=== PATIENT | female | born 1980 | race African-American/Black ===

== ENCOUNTER 2022-09-21 13:24 | Emergency (ER) | payer SELFPAY ==
[2022-09-21 14:28] VITALS: BP 159/109; PULSE 82; RESP 16; TEMP 37.3; O2SAT 99
[2022-09-21 16:49] VITALS: BP 165/89; PULSE 83; RESP 100; TEMP 36.6; O2SAT 100
--- NOTE | 2022-09-21 18:03 | ECG_ITS ---
Measurements Intervals [place] Rate: 71 P: 56 IN: 141 QRS: 61 QRSD: 76 T: -77 QT: 403 QTc: 439 Interpretive Statements SINUS RHYTHM MODERATE VOLTAGE CRITERIA FOR LVH, CONSIDER NORMAL VARIANT [MEETS CRITERIA IN ONE OF: R(aVL), S(V1), R(V5), R(V5/V6)+S(V1)] ST DEVIATION AND MODERATE T-WAVE ABNORMALITY, CONSIDER INFERIOR ISCHEMIA [-0.1+ mV T WAVE IN II/aVF] NO PREVIOUS ECG AVAILABLE FOR COMPARISON Electronically Signed On 09-22-2022 10:18:19 WAGON DRILL OPERATOR by Imelda Suarez M.D.
--- NOTE | 2022-09-21 18:20 | ED.EXTPRO ---
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 Per patient, she has been having intermittent right wrist pain for the past several weeks typical of her carpal tunnel. Over the course of several weeks she has noted that the pain has been extending proximally. Patient reports over the past several weeks pain has also been involving the shoulder made worse with range of motion, and also involving the right chest. She reports the pain is reproducible with palpation. She denied fevers chills, worsening with exertion, shortness of breath, abdominal pain, trauma to the extremity, nausea/vomiting, dysuria, diarrhea. Related Data Allergies Allergy/AdvReac Type Severity Reaction Status Date / Time No Known Allergies Allergy Verified 09/21/22 18:26 [facility] Past Medical History Medical History Hypertension Social History Social History (Updated 09/21/22 @ 18:24 by Yimi Jackson MD) Smoking status: Current every day smoker Exam Narrative: APPEARANCE: Alert, calm and cooperative, no acute distress, phonating, sitting comfortably during visit HEAD: atraumatic EYES: Pupils equal round an reactive to light, extra ocular movements intact, no conjunctival injection NOSE: Normal no drainage NECK: Supple, without meningismus RESPIRATORY: Lungs clear to auscultation bilaterally, no wheezes/rales/rhonchi, breathing comfortably CARDIOVASCULAR: Regular rate and rhythm, no visible jugular venous distension ABDOMINAL: Soft, nontender, nondistended, no guarding, no rebound/peritoneal signs, no costovertebral tenderness to palpation BACK: no midline tenderness to palpation, no step offs EXTREMITIES: Right shoulder with full range of motion, full range of motion of elbow and wrist, soft compartments, no erythema, no crepitus, no pain with passive range of motion, radial/median/ulnar sensorimotor intact, ulnar and radial pulses palpable, left upper extremity within normal limits, lower extremities with no edema, palpable peripheral pulses, warm, well perfused, no tenderness to bilateral calves. NEURO: Alert, moving all extremities symmetrically SKIN:: Warm, dry. Normal color PSYCHIATRIC: Normal affect/mood Course Reevaluation(s) Reevaluation #1: Patient reassessed after Tylenol and ibuprofen, reports complete resolution of symptoms. EKG without acute ischemic changes. History and exam suggestive of musculoskeletal pain. Physical exam benign, vitals stable. The patient tolerated oral intake, is alert and oriented, speaking with clear speech, ambulated with steady gait, and has remained hemodynamically stable throughout the ED visit. He has close follow up with primary care provider. Areas of diagnostic uncertainty discussed and strict return precautions shared with patient; encouraged to return to the emergency department if symptoms returned or worsened. The patient is safe to be discharged with follow up, provided she abide by the verbalized and written instruction, to which the patient has express understanding. Vital Signs Vital signs: Vital Signs Temperature 99.2 F 09/21/22 14:28 Pulse Rate 82 09/21/22 14:28 Respiratory Rate 16 09/21/22 14:28 Blood Pressure 159/109 H 09/21/22 14:28 Pulse Oximetry 99 09/21/22 14:28 Oxygen Delivery Room Air 09/21/22 14:28 Temperature 97.9 F 09/21/22 16:49 Pulse Rate 83 09/21/22 16:49 Respiratory Rate 100 H 09/21/22 16:49 Blood Pressure 165/89 H 09/21/22 16:49 Pulse Oximetry 100 09/21/22 16:49 Oxygen Delivery Room Air 09/21/22 14:28 MDM - Extremity (Nontraumatic) MDM Narrative Medical decision making narrative: 42-year-old right-handed female with a history of carpa
[2022-09-21] MEDS: KETOROLAC 15 MG/ML VIAL (*BKC) IV PUSH (18:28)
[2022-09-21 18:33] LABS: Basophils Percent Auto 0.3 % (0.2-1.2); Eosinophils Absolute Auto 0.1 K/mm3 (0-0.3); Eosinophils Percent Auto 1.5 % (0-4.4); Hematocrit 42.5 % (37.0-47.0); Hemoglobin 14.4 g/dL (12.0-15.0); Immature Granulocyte Absolute 0.01 K/mm3 (0.00-0.031); Immature Granulocyte Percent A 0.1 % (0-0.5); Lymphocytes Absolute Auto 2.27 K/mm3 (0.9-3.2); Mean Corpuscular HGB Conc 33.9 g/dl (32-36); Mean Corpuscular Volume 91.6 fl (80-100); Mean Platelet Volume 10.8 fl (7.4-10.4); Monocytes Absolute Auto 1.2 K/mm3 (0.1-0.6); Monocytes Percent Auto 17.2 % (2.6-8.5); Neutrophils Absolute Auto 3.3 K/mm3 (1.3-6.7); Neutrophils Percent Auto 47.9 % (45.5-73.1); Platelet Count Result 224 k/mm3 (150-375); Red Blood Count 4.64 M/mm3 (4.2-5.4); Red Cell Distribution Width 14.4 % (11.5-14.5); White Blood Count 6.9 K/mm3 (4.5-10.0)
[2022-09-21 18:43] LABS: Anion Gap 6 mmol/L (8-16); Blood Urea Nitrogen 13 mg/dL (7-17); Calcium 9.1 mg/dL (8.4-10.2); Carbon Dioxide 27 mmol/L (22-30); Chloride 107 mmol/L (98-107); Estimated CRCL calculation 73 ml/min; Estimated Glomerular Filt Rate > 60; Glucose 92 mg/dL (65-110); Potassium 4.1 mmol/L (3.4-5.0); Sodium 140 mmol/L (137-145)
[2022-09-21 18:55] LABS: Troponin I < 0.012 ng/mL (0.000-0.034)
[2022-09-21 19:00] LABS: Beta HCG Quantitative < 2.39 mIU/ML
== END 2022-09-21 20:23 | disposition home or self-care (01) ==
PROVIDERS: Emergency Provider Emergency Medicine
DX: M79.601 Pain in right arm (principal); G56.01 Carpal tunnel syndrome, right upper limb; I10 Essential (primary) hypertension; F17.200 Nicotine dependence, unspecified, uncomplicated; R94.31 Abnormal electrocardiogram [ECG] [EKG]
CPT/HCPCS: 36415; 80048; 84484; 84702; 85025; 93005; 96374; 99284; J1885

== ENCOUNTER 2024-12-24 18:51 | Emergency (ER) | payer OTHER, SELFPAY ==
--- NOTE | ~2024-12-24 | US_ITS ---
EXAMINATION: US OB <= 14 weeks fetus DATE: 12/24/2024 21:04 BUILDING OFFICIAL INDICATION: Pain COMPARISON: 07/23/2024 TECHNIQUE: Real-time transabdominal obstetric ultrasound. FINDINGS: 2 para 0 Estimated date of delivery by last menstrual period is 07/18/2025 The uterus measures 10.8 x 5.4 x 6.8 cm. A gestational sac is identified within the uterus. A pole is identified, with a crown-rump length that measures 4.2 cm, corresponding to an approx imate gestational age of 11 weeks and 1 day. cardiac activity is identified at a rate of 165 bpm. The right ovary measures 2.9 x 2.4 x 2.7 cm. The left ovary measures 3.2 x 3.2 x 3.7 cm. Estimated date of delivery by ultrasound is 07/14/2025 IMPRESSION: Single intrauterine gestation with an approximate gestational age of 11 weeks and 1 day, with c ardiac activity identified. Reviewed, dictated and finalized at location A. DING OFFICIAL IMPRESSION: Single intrauterine gestation with an approximate gestational age of 11 weeks a nd 1 day, with cardiac activity identified.
--- OUTSIDE RECORDS SUMMARY | 2024-12-24 18:57 | XMS_ITS | Referral Summary ---
Author Organization [facility] [address] Address [address] [place] [address] Phone Care Team Providers Care Administrative Support Specialist Name Role Phone Edgardo Manuel MD Primary Care Provider [phone] Encounters Date Type Department Care Team Description 12/15/2024 Orders Only [facility] [address] [place] [address] Leila Romo MD Encounter to determine viability of , single or unspecified fetus (Primary Dx) 10/29/2024 Telephone [facility] [address] [place] [address] Leila Romo MD Vaginitis/Bacterial Vaginosis from Last 3 Months Allergies Active Allergy Reactions Criticality Noted Date Comments Penicillins Hives,Swelling,Rash Medium 07/07/2019 Patient stated she gets facial swelling Medications selenium sulfide 2.5 % lotionIndicatio ns:Seborrheic Dermatitis,tone a versicolor Apply to affected areas and leave on for 10 minutes then wash off. Do this daily for 1 week, then as needed.then twice weekly thereafter as nneded 120 mL 11 4 01/21/20 25 Active amLODIPine (NORVASC) 10 mg tablet Take 1 tablet (10 mg total) by mouth daily 90 tablet 4 Active hydroCHLOROthia zide (HYDRODIURIL) 12.5 mg tablet Take 1 tablet (12.5 mg total) by mouth daily 90 tablet 4 Active rosuvastatin (CRESTOR) 20 mg tablet Take 1 tablet (20 mg total) by mouth daily 30 tablet 5 4 Active terbinafine (LamiSIL) 250 mg tablet Take 1 tablet (250 mg total) by mouth daily 30 tablet 2 4 Active Active Problems Problem Noted Date Diagnosed Date Hyperlipidemia, mixed 03/27/2024 Assessment & Plan (03/27/2024 10:12 AM CDT): Cholesterol is 232 on last visit February 09, 2024 she was started on Crestor 20 mg daily. We will get repeat lipid profile on next few weeks patient's ASCVD score 20.1. Recommend continued lifestyle changes which is resulted in a 10 lb weight loss thus far. Onychomycosis of great toe 03/27/2024 Assessment & Plan (03/27/2024 10:15 AM CDT): Patient is very concerned regarding fungal toenails most of her nails are covered with thick red nail Persian this some evidence of onychomycosis round the edges of her nail she is given Lamisil. Will monitor liver function. Primary hypertension 01/21/2024 Assessment & Plan (03/27/2024 10:10 AM CDT): Significant improvement in blood pressure previous visit 01/21/2024 blood pressure 158/106 on the visit of 03/24/2024 blood pressure is 138/84. Patient has also has lost 10 lb during this period of time. Weight loss on purpose medication amlodipine 10 mg daily hydrochlorothiazide 12.5 mg daily . Renal functions are good continue present Assessment & Plan (01/21/2024 5:18 PM CDT): Patient's blood pressure on today's visit 158/106 2 years ago blood pressure 135/84. Ms. her blood pressure medications for the past 2 days. Is uncertain regarding her blood pressure medications. We were unable to confirm her blood pressure medicines through the pharmacy given to us [facility] [place] [facility] patient has made a commitment to get back to me in the next 24 hours regarding her precise medication she is taking.. At this time she has no symptoms referable to hypertension Seborrhea-like dermatitis with psoriasiform quileute ents 01/21/2024 Assessment & Plan (01/21/2024 5:27 PM CDT): Patient describes flakes in her scalp consistent with dandruff seborrhea she also has a little bit of a fungal infection appears like a very very mild case of tinea versicolor right side of her face. She has been using head and shoulders shampoo it has not worked. Advised patient would send prescription strength shampoo directions are use daily for the 1st 7 days in twice a day week as needed.. She is also concerned about a fungal nail infection I am not very aggressive regarding this have no idea of her liver function status.. Preventative health care 11/28/2021 Assessment & Plan (01/21/2024 5:15 PM CDT): Patient not seen for 2 years blood pressure not controlled she is uncertain regarding her medication. Concerns today regarding a fungal infection very minimal over face and she describes some seborrheic skin changes in her scalp patient feels well she has gained weight in his aware this. Assessment & Plan (11/28/2021 6:33 PM EDUCATION AND OUTREACH COORDINATOR): 41-year-old lady who is a new patient to me. She is here for annual/wellness exam. She advised me insurance company wants to make sure she we have the exact code for her wellness exam. Patient has no real active health problems she is concerned about fungal toenail problems. Referred her to Podiatry further discussion regarding this. Patient body mass index is 31.1 41 years old no record recent laboratory studies BMP fasting lipid profile is requested. Patient does have a well-woman exam coming up in the near future. Obesity (BMI 30-39.9) 03/02/2021 Assessment & Plan (01/21/2024 5:16 PM CDT): Patient has gained 26 lb in the past 2 years discussed the need to reduce weight risk factors.. CMP FLP. Concerned regarding diabetes, fatty liver disease and hyperlipidemia Resolved Problems Problem Noted Date Diagnosed Date Resolved Date Missed 05/01/2022 01/21/2024 Overview (05/01/2022): Added automatically from request for surgery [id number] Acute otitis media 02/28/2021 2 Acute infective otitis externa of right ear 02/28/2021 03/02/2021 Immunizations Immunization Administration Dates Next Due Influenza, Unspecified 07/22/2023(Deferred: Susie ent Refused) MMR 07/21/1994 Td, adsorbed 11/08/1995 Tdap 12/16/2014 Social History Tobacco Use Types Packs/Day Years Used Date Smoking Tobacco: Every Day Cigarettes 0.5 26.2 Started: 1998 Smokeless Tobacco: Never Tobacco Cessation:Ready to Q uit: Not Asked; Counseling Given: Not Answered Comments:Quit smoking with 02/2022 Alcohol Use Standard Drinks/Week Comments Not Currently 0 (1 standard drink = 0.6 oz pur e alcohol) AUDIT-C Answer Date Recorded Frequency of Alcohol Consumption Not on file 05/01/2022 Q2: How many drinks containi ng alcohol do you have on a typical day when you are drinking? Patient does not drink Frequency of Binge Drinking Not on file 04/21 PHQ-2 Answer Date Recorded PHQ-2 Total Score (If total score is 3 or more points, staff should administer the PHQ-9) 0 11/28/2021 Comments No Sex and Gender Information Value Date Recorded Sex Assigned at Not on file Legal Sex Female 9:49 AM EDUCATION AND OUTREACH COORDINATOR Gender Identity Not on file Sexual Orientation Not on file Occupation Industry Job Start Date Job End Date Not on file Not on file Not on file Not on file Last Filed Vital Signs Vital Sign Reading Time Taken Comments Blood Pressure 152/100 09/11/2024 1:08 PM EDUCATION AND OUTREACH COORDINATOR Pulse 90 03/24/2024 2:02 PM CDT Temperature 36.3 C (97.3 F) 03/24/2024 2:02 PM CDT Respiratory Rate 16 03/24/2024 2:02 PM CDT Oxygen Saturation 98% 03/24/2024 2:02 PM CDT Inhaled Oxygen Concentration - - Weight 93.9 kg (207 lb) 09/11/2024 1:08 PM EDUCATION AND OUTREACH COORDINATOR Height 165.1 cm (5' 5 ) 09/11/2024 1:08 PM EDUCATION AND OUTREACH COORDINATOR Body Mass Index 34.45 09/11/2024 1:08 PM EDUCATION AND OUTREACH COORDINATOR Plan of Treatment Not on file Procedures Procedure Name Priority Date/Time Associated Diagnosis Comments SCREENING MAMMOGRAM BILATERAL W CASI Schedule Routine, Read Routine (OP Routine) 01/23/2024 9:57 AM CDT Screening mammogram, encounter for HEPATITIS C ANTIBODY Routine 04/06/2022 12:38 PM CDT 8 weeks gestation of Encounter for supervision of normal first in first trimester THINPREP IMAGING PAP AND HPV MRNA E6/E7 REFLEX HPV 16,18/45 Routine 03/02/2021 11:57 AM CDT from Last 3 Months or Most Recently Relevant to Health Maintenance Results * Screening Mammogram Bilateral W Casi (01/23/2024 9:57 AM CDT) Anatomical Region Laterality Modality Breast Bilateral Mammography 01/23/2024 10:1 0 AM CDT Impressions 01/23/2024 10:10 AM CDT There is no mammographic evidence of malignancy. A 1 year screening mammogram is recommended. BI-RADS: 1 - Negative. The patient has been or will be contacted. The patient will be entered into a reminder system with a target due date of 1 year for her next mammogram. Electronically signed by: Carlo Ortiz M.D. Narrative 01/23/2024 10:10 AM CDT EXAMINATION: SCREENING MAMMOGRAM BILATERAL W CASI ORDERING HEALTHCARE PROVIDER: SELF SCREENING MAMMOGRAM HISTORY: Routine screening mammography. COMPARISON: 05/19/2022, 03/16/2021 TECHNIQUE: CC and MLO views of the bilateral breasts were obtained with digital technique using breast tomosynthesis with C view. Computer aided detection was utilized. FINDINGS: DENSITY: There are scattered fibroglandular elements in the bilateral breasts. BREASTS: There are no suspicious masses, suspicious calcifications, or other suspicious findings in either breast. There has been no suspicious interval change. us Self Screening Mammogram IMG MAMMO PROCEDURES Fi nal Result * Hepatitis C antibody (04/06/2022 12:38 PM CDT) Hep C Ab Nonreactive Nonreactive [facility] Comment: Interpretive Data Nonreactive: Antibodies to HCV not detected. Does NOT exclude the possibility of recent exposure to HCV. Equivocal: Equivocal for HCV antibodies. Supplemental molecular testing will be automatically performed to determine infection status in accordance with current CDC screening recommendations. Reactive: Positive for HCV antibodies. This may represent current or past HCV infection. Supplemental molecular testing will be automatically performed to determine current infection status in accordance with current CDC screening recommendations. Interpretive data was last revised on 2020. Testing performed by: [facility], [address] [place] [address]., [id number] Blood 04/06/2022 12:3 8 PM CDT 04/06/2022 7:46 PM CDT Leila Romo MD LAB MICROBIOL OGY - GENERAL ORDERABLES Edited Result - Final [facility] ([place]) [facility] Department [place] [address] * ThinPrep Imaging Pap and HPV mRNA E6/E7 Reflex HPV 16,18/45 (03/02/2021 11:57 AM CDT) CLINICAL INFORMATION: [facility] Comment:Routine exam LMP [facility] Comment:UNKNOWN Previous Pap [facility] Comment:INFORMATION NOT PROV IDED Prev. Bx [facility] Comment:INFORMATION NOT PROV IDED SOURCE: [facility] Comment:Cervix, Endocervix Pap, specimen adequacy [facility] Comment: Satisfactory for evaluation. Endocervical/transformation zone component present. Age and/or menstrual status not provided HPV interp [facility] Comment:Negative for intraep ithelial lesion or malignancy. COMMENTS [facility] Comment: This Pap test has been evaluated with computer assisted technology. [employer] [facility] Comment: AAM, CT(ASCP) CT Screening Location: [address] [address] Comment [facility] Comment: EXPLANATORY NOTE: The Pap is a screening test for cervical cancer. It is not a diagnostic test and is subject to false negative and false positive results. It is most reliable when a satisfactory sample, regularly obtained, is submitted with relevant clinical findings and history, and when the Pap result is evaluated along with historic and current clinical information. Human papillomavirus RNA, High Risk E6/E7 Not Detected Not Detected [facility] Comment: Methodology: Coach Mechanic-Mediated Amplification This assay detects E6/E7 viral messenger RNA (mRNA) from 14 high-risk HPV types (16,18,31,33,35,39,45,51,52,56,58,59,66,68). The analytical performance characteristics of this assay have been determined by [facility]. The modifications have not been cleared or approved by the FDA. This assay has been validated pursuant to the CLIA regulations and is used for clinical purposes. For additional information, please refer to http://education.Sek[employer] AS/faq/KRB009v5 (This link if provided for information/ educational purposes only.) 03/02/2021 11:5 7 AM CDT 03/03/2021 2:21 AM CDT Narrative [facility] - 03/05/2021 3:24 PM CDT FASTING: UNKNOWN Leila Romo MD LAB CYTOLOGY ORDERABL ES Final Result Performing Organization Address [facility]/State/ZIP Co de Phone Number [facility] [address] [place] [address] [facility] [address] [place] [address] from Last 3 Months or Most Recently Relevant to Health Maintenance Insurance [employer] [facility] [employer] H[employer] Care Teams Administrative Support Specialist Relationship Specialty Start Date End Date Edgardo Manuel MD PCP - General Internal Medicine 11/03/21
--- OUTSIDE RECORDS SUMMARY | 2024-12-24 18:57 | XMS_ITS | Data Portability ---
Author Organization [facility] JUAN DIEGOHermann Address [address] 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 Plan of Treatment Reminders Order Date Submit Date Provider Last Modified By Organization Details Last Modified Time Details Appointments None recorded. Lab spep, serum, reflex immunofixat ion 2022 023 [facility], 2022 [address], [place], [address], 4 11:26:43 lipid panel, serum 2022 023 [facility], 2022 Dana [address]acy, [address], [place], [address], 4 14:41:56 CBC w/ auto diff 2022 023 KASHIF Parra, 2022 [address], [address], [place], [address], 3 08:17:09 lipid panel, serum 2022 023 KASHIF Parra, 2022 [address], [address], [place], [address], 3 08:17:06 CMP, serum or plasma 2022 023 KASHIF Parra, 2022 Dana [address]acy, [address], [place], [address], 3 08:17:07 urinalysis, dipstick 2022 023 [facility], 2022 Dana Lacy, [address], [place], [address], 3 08:17:08 HbA1c (hemoglobin A1c), blood 2022 023 [facility], 2022 [address], [address], [place], [address], 3 14:17:46 TSH, ultra-sensi tive, serum 2022 023 [place] [facility], 2022 Dana [address]acy, [address], [place], [address], 3 08:17:08 Referral None recorded. Procedures nerve conduction study/EMG, upper extremity (PROC) - Numbness and tingling of the 3rd and 4th fingers of the right hand. 2022 023 [facility], [address] [place] [address], [address], 3 13:35:44 Surgeries None recorded. Imaging MAMMO, screening, bilateral 2022 023 hdoverma Not available 3 12:52:54 MAMMO, screening, bilateral 2022 023 hdoverma Not available 3 09:40:00 Medication Orders amlodipine 10 mg tablet 2022 023 [facility] #[id number], [address] [place], [address], 3 09:39:43 amlodipine 5 mg tablet 2022 023 [facility]/Pharmacy #[id number], [address] [place], [address], 3 12:56:02 ibuprofen 600 mg tablet 2022 023 [facility]/Pharmacy #[id number], [address] [place], [address], 3 09:21:29 amlodipine 5 mg tablet 2018 019 oajao Not available 3 12:56:02 metoprolol tartrate 25 mg tablet 2018 019 hdoverma Not available 3 10:44:52 aspirin 81 mg chewable tablet 2018 019 overma Not available 3 10:45:01 lovastatin 10 mg tablet 2018 019 overma Not available 3 10:45:10 metoprolol tartrate 25 mg tablet 2018 019 [id number], [address], [place], [id number], 3 10:44:52 amlodipine 5 mg tablet 2018 019 [facility][id number], [address], [place], [id number], 3 12:56:02 Patient TargetsNo targets recorded. Patient Instructions Encounter Date Encounter Id Patient Instructions Last Modified By Organization Details Last Modified Time 05/12/2019 [id number] kidney stone: care instructions Not available 05/13/2019 08:32:21 learning about diet for kidney stone prevention Not available 05/13/2019 08:32:22 05/26/2019 [id number] deciding about using medicines to quit smoking Not available 05/26/2019 16:24:43 Quitting Tobacco : Care Instructions Not available 05/26/2019 16:24:43 body mass index: care instructions Not available 05/26/2019 16:24:31 learning about healthy weight Not available 05/26/2019 16:24:31 10/24/2022 [id number] A healthy lifestyle: care instructions oajao Not available 10/24/2022 14:07:27 snoring: care instructions oajao Not available 10/24/2022 11:12:33 learning about breast cancer screening oajao Not available 10/24/2022 11:03:03 body mass index: care instructions oajao Not available 10/24/2022 14:07:27 learning about healthy weight oajao Not available 10/24/2022 14:07:27 carpal tunnel syndrome: care instructions oajao Not available 10/24/2022 11:09:50 carpal tunnel syndrome: exercises oajao Not available 10/24/2022 11:09:50 Labs EMG MMG Motrin PRN with food Restart Amlodipine, side effects were discussed Follow up in 4 weeks Addendum HBA1C oajao Not available 10/24/2022 14:07:50 05/04/2023 [id number] learning about breast cancer screening oajao Not available 05/04/2023 09:38:28 MMG Amlodipine 1 0 mg Labs BP check on Sunday Follow up in 6 weeks and PRN oajao Not available 05/04/2023 09:40:09 Reason for Referral None Reported. Results Created Date Observation Date Name Description Value Unit Range Abnormal Flag Note LastModifiedBy Organization Detail LastModifiedTime 10/24/1910/25/2022 TSH TSH 2.190 uIU/m L 0.450- 4.500 Not Available [facility] ([facility]) [address] [place], [address], 10/25/2022 08:17:08 10/24/19 23 10/25/2022 CBC WITH DIFFE RENTI AL/PL ATELE T WBC 5.7 x10e3 /uL 3.4-10 .8 Not Available [facility] ([facility]) [address] [place], [address], 10/25/2022 08:17:09 10/24/19 23 10/25/2022 CBC WITH DIFFE RENTI AL/PL ATELE T RBC 4.73 x10e6 /uL 3.77-5 .28 Not Available [facility] ([facility]) [address] [facility], [place], [address], 10/25/2022 08:17:09 10/24/19 23 10/25/2022 CBC WITH DIFFE RENTI AL/PL ATELE T hemoglobin 14.3 g/dL 11.1-1 5.9 Not Available [facility] ([facility]) [address] [facility], [place], [address], 10/25/2022 08:17:09 10/24/19 23 10/25/2022 CBC WITH DIFFE RENTI AL/PL ATELE T hematocrit 42.4 % 34.0-4 6.6 Not Available [facility] ([facility]) [address] [facility], [place], [address], 10/25/2022 08:17:09 10/24/1910/25/2022 CBC WITH DIFFE RENTI AL/PL ATELE T MCV 90 fL 79-97 Not Available [facility] ([facility]) [address] [place], [address], 10/25/2022 08:17:09 10/24/1910/25/2022 CBC WITH DIFFE RENTI AL/PL ATELE T MCH 30.2 pg 26.6-3 3.0 Not Available [facility] ([facility]) [address] [place], [address], 10/25/2022 08:17:09 10/24/1910/25/2022 CBC WITH DIFFE RENTI AL/PL ATELE T MCHC 33.7 g/dL 31.5-3 5.7 Not Available [facility] ([facility]) [address] [place], [address], 10/25/2022 08:17:09 10/24/19 23 10/25/2022 CBC WITH DIFFE RENTI AL/PL ATELE T RDW 13.8 % 11.7-1 5.4 Not Available [facility] ([facility]) [address] [facility], [place], [address], 10/25/2022 08:17:09 10/24/19 23 10/25/2022 CBC WITH DIFFE RENTI AL/PL ATELE T platelets 256 x10e3 /uL 150-45 0 Not Available [facility] ([facility]) [address] [facility], [place], [address], 10/25/2022 08:17:09 10/24/19 23 10/25/2022 CBC WITH DIFFE RENTI AL/PL ATELE T neutrophils 49 % notest ab. Not Available [facility] ([facility]) [address] [facility], [place], [address], 10/25/2022 08:17:09 10/24/19 23 10/25/2022 CBC WITH DIFFE RENTI AL/PL ATELE T lymphs 34 % notest ab. Not Available [facility] ([facility]) [address] [facility], [place], [address], 10/25/2022 08:17:09 10/24/1910/25/2022 CBC WITH DIFFE RENTI AL/PL ATELE T monocytes 14 % notest ab. Not Available [facility] ([facility]) [address] [facility], [place], [address], 10/25/2022 08:17:09 10/24/1910/25/2022 CBC WITH DIFFE RENTI AL/PL ATELE T eos 2 % notest ab. Not Available [facility] ([facility]) [address] [facility], [place], [address], 10/25/2022 08:17:09 10/24/1910/25/2022 CBC WITH DIFFE RENTI AL/PL ATELE T basos 1 % notest ab. Not Available [facility] ([facility]) [address] [facility], [place], [address], 10/25/2022 08:17:09 10/24/19 23 10/25/2022 CBC WITH DIFFE RENTI AL/PL ATELE T neutrophils (absolute) 2.9 x10e3 /uL 1.4-7. 0 Not Available [facility] ([facility]) [address] [facility], [place], [address], 10/25/2022 08:17:09 10/24/19 23 10/25/2022 CBC WITH DIFFE RENTI AL/PL ATELE T lymphs (absolute) 1.9 x10e3 /uL 0.7-3. 1 Not Available [facility] ([facility]) [address] [facility], [place], [address], 10/25/2022 08:17:09 10/24/19 23 10/25/2022 CBC WITH DIFFE RENTI AL/PL ATELE T monocytes(ab solute) 0.8 x10e3 /uL 0.1-0. 9 Not Available [facility] ([facility]) [address] [facility], [place], [address], 10/25/2022 08:17:09 10/24/1910/25/2022 CBC WITH DIFFE RENTI AL/PL ATELE T eos (absolute) 0.1 x10e3 /uL 0.0-0. 4 Not Available [facility] ([facility]) [address] [facility], [place], [address], 10/25/2022 08:17:09 10/24/19 23 10/25/2022 CBC WITH DIFFE RENTI AL/PL ATELE T baso (absolute) 0.0 x10e3 /uL 0.0-0. 2 Not Available [facility] ([facility]) [address] [facility], [place], [address], 10/25/2022 08:17:09 10/24/19 23 10/25/2022 CBC WITH DIFFE RENTI AL/PL ATELE T immature granulocytes 0 % notest ab. Not Available [facility] ([facility]) [address] [facility], [place], [address], 10/25/2022 08:17:09 10/24/1910/25/2022 CBC WITH DIFFE RENTI AL/PL ATELE T immature grans (abs) 0.0 x10e3 /uL 0.0-0. 1 Not Available [facility] ([facility]) [address] [facility], [place], [address], 10/25/2022 08:17:09 10/24/1910/25/2022 URINA LYSIS , ROUTI NE specific gravity 1.020 1.005- 1.030 Not Available [facility] ([facility]) [address] [facility], [place], [address], 10/25/2022 08:17:08 10/24/1910/25/2022 URINA LYSIS , ROUTI NE pH 7.5 5.0-7. 5 Not Available [facility] ([facility]) [address] [facility], [place], [address], 10/25/2022 08:17:08 10/24/1910/25/2022 URINA LYSIS , ROUTI NE urine-color YELLOW yellow Not Available [facility] ([facility]) [address] [facility], [place], [address], 10/25/2022 08:17:08 10/24/1910/25/2022 URINA LYSIS , ROUTI NE appearance CLEAR clear Not Available [facility] ([facility]) [address] [facility], [place], [address], 10/25/2022 08:17:08 10/24/1910/25/2022 URINA LYSIS , ROUTI NE WBC esterase NEGATI VE negati ve Not Available [facility] ([facility]) [address] [facility], [place], [address], 10/25/2022 08:17:08 10/24/19 23 10/25/2022 URINA LYSIS , ROUTI NE protein 1+ negati ve/tra ce abnormal Not Available [facility] ([facility]) [address] [place], [address], 10/25/2022 08:17:08 10/24/19 23 10/25/2022 URINA LYSIS , ROUTI NE glucose NEGATI VE negati ve Not Available [facility] ([facility]) [address] [place], [address], 10/25/2022 08:17:08 10/24/19 23 10/25/2022 URINA LYSIS , ROUTI NE ketones TRACE negati ve abnormal Not Available [facility] ([facility]) [address] [place], [address], 10/25/2022 08:17:08 10/24/19 23 10/25/2022 URINA LYSIS , ROUTI NE occult blood NEGATI VE negati ve Not Available [facility] ([facility]) [address] [place], [address], 10/25/2022 08:17:08 10/24/19 23 10/25/2022 URINA LYSIS , ROUTI NE bilirubin NEGATI VE negati ve Not Available [facility] ([facility]) [address] [place], [address], 10/25/2022 08:17:08 10/24/1910/25/2022 URINA LYSIS , ROUTI NE urobilinogen ,semi-qn 1.0 mg/dL 0.2-1. 0 Not Available [facility] ([facility]) [address] [place], [address], 10/25/2022 08:17:08 10/24/19 23 10/25/2022 URINA LYSIS , ROUTI NE nitrite, urine NEGATI VE negati ve Not Available [facility] ([facility]) [address] [place], [address], 10/25/2022 08:17:08 10/24/19 23 10/25/2022 IBAN DAVID microscopic examination SEE BELOW: Micro scopi c was indic ated and was perfo rmed. Not Available [facility] ([facility]) [address] [facility], [place], [address], 10/25/2022 08:17:08 10/24/19 23 10/25/2022 MICRO SCOPI C EXAMI NATIO N WBC NONE SEEN /hpf 0-5 Not Available [facility] ([facility]) [address] [facility], [place], [address], 10/25/2022 08:17:07 10/24/19 23 10/25/2022 MICRO SCOPI C EXAMI NATIO N RBC NONE SEEN /hpf 0-2 Not Available [facility] ([facility]) [address] [facility], [place], [address], 10/25/2022 08:17:07 10/24/19 23 10/25/2022 MICRO SCOPI C EXAMI NATIO N epithelial cells (non renal) 0-10 /hpf 0-10 Not Available [facility] ([facility]) [address] [facility], [place], [address], 10/25/2022 08:17:07 10/24/19 23 10/25/2022 MICRO SCOPI C EXAMI NATIO N casts NONE SEEN /lpf nonese en Not Available [facility] ([facility]) [address] [facility], [place], [address], 10/25/2022 08:17:07 10/24/19 23 10/25/2022 MICRO SCOPI C EXAMI NATIO N bacteria FEW nonese en/few Not Available [facility] ([facility]) [address] [facility], [place], [address], 10/25/2022 08:17:07 10/24/19 23 10/25/2022 COMP. METAB OLIC PANEL (14) glucose 90 mg/dL 70-99 Not Available [facility] ([facility]) [address] [place], [address], 10/25/2022 08:17:07 10/24/19 23 10/25/2022 COMP. METAB OLIC PANEL (14) BUN 9 mg/dL 6-24 Not Available [facility] ([facility]) [address] [place], [address], 10/25/2022 08:17:07 10/24/19 23 10/25/2022 COMP. METAB OLIC PANEL (14) creatinine 0.95 mg/dL 0.57-1 .00 Not Available [facility] ([facility]) [address] [place], [address], 10/25/2022 08:17:07 10/24/19 23 10/25/2022 COMP. METAB OLIC PANEL (14) eGFR 77 mL/mi n/1.7 3 >59 Not Available [facility] ([facility]) [address] [place], [address], 10/25/2022 08:17:07 10/24/19 23 10/25/2022 COMP. METAB OLIC PANEL (14) BUN/creatini ne ratio 9 9-23 Not Available [facility] ([facility]) [address] [place], [address], 10/25/2022 08:17:07 10/24/19 23 10/25/2022 COMP. METAB OLIC PANEL (14) sodium 140 mmol/ L 134-14 4 Not Available [facility] ([facility]) [address] [place], [address], 10/25/2022 08:17:07 10/24/19 23 10/25/2022 COMP. METAB OLIC PANEL (14) potassium 4.4 mmol/ L 3.5-5. 2 Not Available [facility] ([facility]) [address] [place], [address], 10/25/2022 08:17:07 10/24/19 23 10/25/2022 COMP. METAB OLIC PANEL (14) chloride 106 mmol/ L 96-106 Not Available [facility] ([facility]) [address] [place], [address], 10/25/2022 08:17:07 10/24/19 23 10/25/2022 COMP. METAB OLIC PANEL (14) carbon dioxide, total 21 mmol/ L 20-29 Not Available [facility] ([facility]) [address] [place], [address], 10/25/2022 08:17:07 10/24/19 23 10/25/2022 COMP. METAB OLIC PANEL (14) calcium 9.1 mg/dL 8.7-10 .2 Not Available [facility] ([facility]) [address] [place], [address], 10/25/2022 08:17:07 10/24/19 23 10/25/2022 COMP. METAB OLIC PANEL (14) protein, total 7.7 g/dL 6.0-8. 5 Not Available [facility] ([facility]) [address] [place], [address], 10/25/2022 08:17:07 10/24/19 23 10/25/2022 COMP. METAB OLIC PANEL (14) albumin 4.3 g/dL 3.8-4. 8 Not Available [facility] ([facility]) [address] [place], [address], 10/25/2022 08:17:07 10/24/19 23 10/25/2022 COMP. METAB OLIC PANEL (14) globulin, total 3.4 g/dL 1.5-4. 5 Not Available [facility] ([facility]) [address] [place], [address], 10/25/2022 08:17:07 10/24/19 23 10/25/2022 COMP. METAB OLIC PANEL (14) A/G ratio 1.3 1.2-2. 2 Not Available [facility] ([facility]) [address] [place], [address], 10/25/2022 08:17:07 10/24/19 23 10/25/2022 COMP. METAB OLIC PANEL (14) bilirubin, total 0.3 mg/dL 0.0-1. 2 Not Available [facility] ([facility]) [address] [facility] [place], [address], 10/25/2022 08:17:07 10/24/19 23 10/25/2022 COMP. METAB OLIC PANEL (14) alkaline phosphatase 60 IU/L 44-121 Not Available [facility] ([facility]) [address] [facility] [place], [address], 10/25/2022 08:17:07 10/24/19 23 10/25/2022 COMP. METAB OLIC PANEL (14) AST (SGOT) 10 IU/L 0-40 Not Available [facility] ([facility]) [address] [facility] [place], [address], 10/25/2022 08:17:07 10/24/19 23 10/25/2022 COMP. METAB OLIC PANEL (14) ALT (SGPT) 11 IU/L 0-32 Not Available [facility] ([facility]) [address] [facility] [place], [address], 10/25/2022 08:17:07 10/24/19 23 10/25/2022 LIPID PANEL cholesterol, total 237 mg/dL 100-19 9 above high normal Not Available [facility] ([facility]) [address] [facility] [place], [address], 10/25/2022 08:17:06 10/24/19 23 10/25/2022 LIPID PANEL triglyceride s 160 mg/dL 0-149 above high normal Not Available [facility] ([facility]) [address] [facility], [place], [address], 10/25/2022 08:17:06 10/24/19 23 10/25/2022 LIPID PANEL HDL cholesterol 28 mg/dL >39 below low normal Not Available [facility] ([facility]) [address] [facility], [place], [address], 10/25/2022 08:17:06 10/24/19 23 10/25/2022 LIPID PANEL VLDL cholesterol andreia 30 mg/dL 5-40 Not Available [facility] ([facility]) [address] [facility], [place], [address], 10/25/2022 08:17:06 10/24/19 23 10/25/2022 LIPID PANEL LDL chol calc ([facility]) 179 mg/dL 0-99 above high normal Not Available [facility] ([facility]) [address] [facility], [place], [address], 10/25/2022 08:17:06 04/25/20 19 04/25/2019 CT, abdom en + pelvi s, w/ contr ast No observ ation record ed. amcmanis Not Available 2018 13:04:17 04/25/20 19 04/25/2019 CT, abdom en + pelvi s, w/o contr ast No observ ation record ed. amcmanis [facility] ([facility]) Scheduling [address] [place], [address], 04/29/2019 14:29:13 05/08/20 19 05/07/2019 US, renal No observ ation [facility] ed[facility] [address] [place], [address], 05/08/2019 16:41:37 07/08/20 19 07/07/2019 elect rocar diogr am No observ ation record ed. [facility] ([facility]) Registration/ Lab [address] [place], [address], 07/08/2019 11:08:22 07/08/20 19 07/07/2019 elect donnie quijano am No observ ation record ed. Not Available 2018 13:59:36 Result Notes None recorded. Problems Name Problem SNOMED Code Status Onset Date Resolution Date Notes Provider Name and Address Organization Details Recorded Time Hypercholester olemia 78517096 Active 2018 VARGAS Tomlinson Attn: Accountin g,[address], [place], [address], [facility] 9 12:48:30 Generalized anxiety disorder 07598708 Active VARGAS Tomlinson Attn: Accountin g,[address], [place], [address], [facility] 9 12:47:56 Tobacco dependence syndrome 58682547 Active VARGAS Tomlinson Attn: Accountin g,[address], [place], [address], [facility] 9 12:47:56 Benign hypertension 15684948 Active VARGAS Tomlinson Attn: Accountin g,[address], [place], [address], [facility] 9 12:47:56 Polycystic ovaries Active VARGAS Tomlinson Attn: Accountin g,[address], [place], [address], [facility] 9 12:47:56 Bacterial vaginosis 332345597 Active VARGAS Tomlinson Attn: Accountin g,[address], [place], [address], [facility] 9 12:47:56 Genital herpes simplex 51095926 Active VARGAS Tomlinson Attn: Accountin g,[address], [place], [address], [facility] 9 12:47:56 Pure hypercholester olemia 183879896 Active VARGAS Tomlinson Attn: Vilma silva,[address], [place], [address], [facility] 9 12:47:56 Diverticulitis of colon 021592002 Active VARGAS Tomlinson Attn: Vilma silva,[address], [place], [address], [facility] 9 12:47:56 Notes: High Blood Pressure Problem Notes None recorded. Procedures Surgical History Date Name Laterality Status Provider Name and Address Organization Details Recorded Time 1 Dilation and Curettage completed Karla Buchanan MA [place] - [facility] 10/24/2022 10:46:00 Imaging Results Imaging Date Name Status LastModified by Organization Details LastModified Time 04/25/2019 CT, abdomen + pelvis, w/ contrast [facility] Information not available 04/29/2019 13:04:17 04/25/2019 CT, abdomen + pelvis, w/o contrast completed amcmanis [facility] ([facility]) Scheduling [address] [place], [address], 04/29/2019 14:29:13 05/07/2019 US, renal completed [facility] (Radiology) [address] [place], [address], 05/08/2019 16:41:37 07/07/2019 electrocardiogram completed [facility] ([facility]) Registration/[facility] [address] [place], [address], 07/08/2019 11:08:22 07/07/2019 electrocardiogram completed Informa tion not available 07/08/2019 13:59:36 Procedure Notes None recorded. Medical Equipment None Reported. Allergies Allergen ID Allergen Name Allergen Category Reaction Reaction Severity Criticality Documentation Date Start Date Code Code System Note Provider Name and Address Organization Details Recorded Time 202709 Product containin g penicilli n (product) medicatio n itching moderate Not available 10/24/2022 [id number] SNOMED Not Available Not Available Not Available Medications Name Sig Start Date Stop Date Status Note LastModified by Organization Details LastModified Time metformin 500 mg tablet 05/13 completed Not Available Not Available Not Available Augmentin 875 mg-125 mg tablet Take 1 tablet every 12 hours by oral route. 04/10 completed Not Available Not Available Not Available clonidine HCl 0.1 mg tablet Take 1 tablet twice a day by oral route for 30 days. 04/10 completed Not Available Not Available Not Available labetalol 200 mg tablet TAKE 1 TABLET (200 MG TOTAL) BY MOUTH 2 TIMES A DAY. 10/24 completed Not Available Not Available Not Available fluconazole 150 mg tablet TAKE 1 TABLET (150MG) BY MOUTH DIRECTED. TAKE 1 TAB NOW. REPEAT IN 7 DAYS IF SYMPTOMS PERSIST 10/24 completed Not Available Not Available Not Available hydrocodone 5 mg-acetamin ophen 325 mg tablet 05/26 completed Not Available Not Available Not Available spironolact one 100 mg tablet Take 1 tablet twice a day by oral route. 05/13 completed Not Available Not Available Not Available amlodipine 2.5 mg tablet Take 1 tablet every day by oral route for 30 days. 04/10 completed Not Available Not Available Not Available metronidazo le 500 mg tablet Take 1 tablet every 8 hours by oral route for 7 days. 05/26 completed Not Available Not Available Not Available cimetidine 800 mg tablet Take 1 tablet every day by oral route. 05/13 completed Not Available Not Available Not Available amlodipine 5 mg tablet Take 1 tablet every day by oral route as directed for 30 days. 05/09 completed Not Available Not Available Not Available ciprofloxac in 500 mg tablet Take 1 tablet every 12 hours by oral route for 7 days. 05/26 completed Not Available Not Available Not Available lovastatin 10 mg tablet Take 1 tablet every day by oral route. 10/24 completed Not Available Not Available Not Available tramadol 50 mg tablet 05/13 completed Not Available Not Available Not Available spironolact one 25 mg tablet 05/13 completed Not Available Not Available Not Available acyclovir 800 mg tablet Take 1 tablet every day by oral route. 05/13 completed Not Available Not Available Not Available ondansetron 8 mg disintegrat ing tablet Place 1 tablet every 8 hours by transling ual route as needed for 2 days. 05/26 completed Not Available Not Available Not Available terbinafine HCl 250 mg tablet 05/13 completed Not Available Not Available Not Available Metrogel Vaginal 0.75 % (37.5 mg/5 gram) Insert 1 applicato rful every day by vaginal route at bedtime for 5 days. 05/13 completed Not Available Not Available Not Available tamsulosin 0.4 mg capsule 10/24 completed Not Available Not Available Not Available amlodipine 10 mg tablet Take 1 tablet every day by oral route as directed for 90 days. 2022 active Not Available Not Available Not Avai lable aspirin 81 mg chewable tablet Chew 1 tablet every day by oral route. 10/24 completed Not Available Not Available Not Available ibuprofen 600 mg tablet Take 1 tablet twice a day by oral route with meals for 15 days. 05/04 completed Not Available Not Available Not Available lisinopril 40 mg tablet 05/13 completed Not Available Not Available Not Available ondansetron 4 mg disintegrat ing tablet 05/13 completed Not Available Not Available Not Available metoprolol tartrate 25 mg tablet Take one tablet by mouth daily 10/24 completed Not Available Not Available Not Available nitrofurant oin monohydrate /macrocryst als 100 mg capsule TAKE 1 CAPSULE BY MOUTH TWICE A DAY FOR 5 DAYS 10/24 completed Not Available Not Available Not Available clonidine 04/10 completed Not Available Not Available Not Available lorazepam 04/10 completed Not Available Not Available Not Available hydrochloro thiazide 12.5 mg tablet Take 1 tablet every day by oral route as directed for 90 days. 2022 active Not Available Not Available Not Avai lable Vitals Date Recorded Body height Body mass index (BMI) Body weight Oxygen saturation Oxygen saturation in Arterial blood by Pulse oximetry Heart rate Respiratory rate Systolic blood pressure Diastolic blood pressure Provider Name and Address Organization Details Last Updated DateTime 9 165.1 cm 34.2 kg/m2 71441.6 3 g 100 % 100 % 87 /min 16 /min 160 mm[Hg] 94 mm[Hg] Yuridia Brown [place] [facility] 9 14:35:33 Date Recorded Body height Body mass index (BMI) Body weight Heart rate Respiratory rate Systolic blood pressure Diastolic blood pressure Provider Name and Address Organization Details Last Updated DateTime 9 165.1 cm 33.3 kg/m2 65518.4 7 g 84 /min 12 /min 126 mm[Hg] 74 mm[Hg] Yuridia Brown MA [facility] 9 15:58:21 Date Recorded Body height Body mass index (BMI) Body weight Heart rate Respiratory rate Systolic blood pressure Diastolic blood pressure Provider Name and Address Organization Details Last Updated DateTime 9 165.1 cm 32.9 kg/m2 01708.2 9 g 80 /min 16 /min 128 mm[Hg] 86 mm[Hg] Yuridia Brown MA [facility] 9 11:28:41 Date Recorded Body height Body mass index (BMI) Body weight Respiratory rate Heart rate Oxygen saturation Oxygen saturation in Arterial blood by Pulse oximetry Systolic blood pressure Diastolic blood pressure Provider Name and Address Organization Details Last Updated DateTime 3 165.1 cm 33.9 kg/m2 36905.1 3 g 16 /min 96 /min 98 % 98 % 160 mm[Hg] 100 mm[Hg] Karla Buchanan MA [place] [facility] 3 10:47:29 Date Recorded Body height Body mass index (BMI) Body weight Heart rate Oxygen saturation Oxygen saturation in Arterial blood by Pulse oximetry Respiratory rate Systolic blood pressure Diastolic blood pressure Provider Name and Address Organization Details Last Updated DateTime 3 165.1 cm 34.6 kg/m2 64998.4 9 g 98 /min 99 % 99 % 18 /min 170 mm[Hg] 110 mm[Hg] Karla Buchanan [place] [facility] 3 09:47:41 Date Recorded Body height Body mass index (BMI) Body weight Oxygen saturation Oxygen saturation in Arterial blood by Pulse oximetry Respiratory rate Heart rate Systolic blood pressure Diastolic blood pressure Provider Name and Address Organization Details Last Updated DateTime 3 165.1 cm 34.6 kg/m2 14192.2 1 g 99 % 99 % 14 /min 92 /min 140 mm[Hg] 100 mm[Hg] Karla KinseyverMICHAEL [facility] 3 09:23:41 Date Recorded Systolic blood pressure Diastolic blood pressure Provider Name and Address Organization Details Last Updated DateTime 05/04/2023 130 mm[Hg] 100 mm[Hg] Enrique Palmer MD Attn: Accounting,[address], [place], [address], [facility] 05/04/2023 09:45:39 Social History Question Answer Notes LastModified by Organizat ion Details LastModified Time Tobacco Smoking Status Current Every Day Smoker January DionneMICHAEL, [facility] 12/16/2014 10:33:37 What Is Your Level Of Alcohol Consumption? Occasional Information not available 03/30/2015 What Is Your Level Of Caffeine Consumption? Moderate Information not available 03/30/2015 What Was The Date Of Your Most Recent Tobacco Screening? 05/03/2023 Information not available 05/03/2023 How Much Tobacco Do You Smoke? 1 PPD [email or web address] Information not available 04/10/2019 Has Tobacco Cessation Counseling Been Provided? Yes Information not available 10/24/2022 On What Date Was Tobacco Cessation Counseling Provided? 05/04/2023 Information not available 05/04/2023 How Many Years Have You Smoked Tobacco? 10 Information not available 10/24/2022 Sex: Female Functional Status None recorded. Mental Status None recorded. Family History Relationship Description Onset Age of this Age Resolved Age Notes LastModified by Organization Details LastModified Time Mother Depressive disorder [email or web address] Not available 06/2015 15:05:04 Mother Diabetes mellitus [email or web address] Not available 06/2015 15:05:04 Medical History Condition Response Other Y High Blood Pressure Y GI Problems Y Gynecological History Statement/Question Response Flow Heavy Frequency of Cycle (Q days) 28 Menses Monthly Y Duration of Flow (days) 5 Age at Menarche 12 Current Control Method None LMP Definite Obstetrics History GPAL:G 0 P 0 0 0 0 Immunizations Vaccine Type Date Status Note Provider Bebeto yee and Address Organization Details Recorded Time MMR 4 completed Enrique Palmer MD Attn: Accounting,[address], [place], [address], [facility] 10/24/2022 11:11:05 Td (adult), 2 Lf tetanus toxoid, preservative free, adsorbed 6 completed Enrique Palmer MD Attn: Accounting,[address], [place], [address], [facility] 10/24/2022 11:11:05 Tdap 5 completed Not Available [facility] 11/08/2019 02:40:25 Past Encounters Encounter ID Performer Location Encounter Start Date Encounter Closed Date Diagnosis/Indication Diagnosis SNOMED-CT Code Diagnosis ICD10 Code Diagnosis Note [id number] MD Tiffanie Hayes (Adult Med) [address] [place] [address] 12/16/2014 10:04:38 12/16/2014 11:13:02 Administration of diphtheria and tetanus vaccine 68653126 Tuberculos is screening 231773599 General ex amination of patient 497846881 34 y/o BF who was last seen in this office 07/02/2012, she noticed that her BP was elevated a few months ago and when she developed dizziness a few weeks ago she went to the ER and was started on Clonidine and Lorazepam ER report BP at home 103/83 Compliance with Clonidine and the risk of rebound hypertensi on if she is not compliant was discussed. Low salt diet Nitroglycerin Neutralizer for Pap smear She refused the Flu vaccine Generalize d anxiety disorder 57641171 Counseling was recommende hung, I have recommende d that she should use Lorazepam from the ER for a short term only. 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 and there is also a legal issue Tobacco de pendence syndrome 88939204 Cessation was recommende hung [id number] Tiffanie (DATA MODELER) [address] [place] [address] 02/02/2015 11:48:56 02/02/2015 13:45:24 Gynecologic examination 39564541 Polycystic ovaries 91272040 Benign hypertension 87445399 [id number] Doretha MICHAEL Truong Tiffanie (Adult Med) [address] [place] [address] 03/24/2015 10:00:28 03/24/2015 13:32:25 Pure hypercholesterolemia 846828899 Chronic issue, compliance with a low CHO, low saturated fat diet Diverticul itis of colon 377819905 Recently diagnosed with left sided diverticul itis at the ER, a colonoscop y was recommende d as the CT scan was abnormal. I have personally reviewed the CT scan with her. I agree that she needs a colonoscop y, however in view of the fact that she is going away for 4-5 months, starting 04/01/2015, she still has some mild LLQ tenderness and she has not finished her antibiotic s, I doubt that the colonoscop y will be done at this time. I will refer her to GI. She was reassured. Complete Augmentin ? & Flagyl that were both prescribed in the ER. GI for colonoscop y Benign hypertension 77490325 BP is stable She should be on Clonidine 0.1mg po QHS and Amlodipine 2.5 mg po daily [id number] Imelda Moreno (Adult Med) [address] [place] [address] 03/30/2015 14:54:36 03/30/2015 17:45:19 Diverticulitis of colon 459033178 Agree that colonoscop y is indicated. Would however recommend that procedure be delayed about 3 mths to allow for healing. Discussed use of high fiber diet. Will discuss with [id number] VARGAS Tomlinson 14 IM [address] [facility] [place] [address] 04/10/2019 15:52:36 04/11/2019 10:55:44 Diverticulitis of colon 976479002 Q43.8 Counseled on diverticul itis and medication s-GI referral-C T abd/pelvis Adult heal th examination 596715342 Z00.01 Benign hypertension 1072 5009 I10 Counseled on HTN and medication . Encouraged to monitor blood pressures with goal <140/90. Encouraged healthy diet and exercise. Counseled on smoking cessation. HIV screening 198730445 Z11.4 Tobacco de pendence syndrome 60520547 F17.121 [id number] VARGAS Tomlinson 14 IM [address] [facility] [place] [address] 05/12/2019 14:28:15 05/13/2019 11:32:10 Benign hypertension 40477062 I10 Counseled on HTN and medication . Encouraged to monitor blood pressures with goal <140/90. Encouraged healthy diet and exercise. Counseled on smoking cessation. Pt to call with medication ER has placed her on-will f/u in 2 weeks for bp check due to not taking med today Kidney stone 40563078 N2 0.0 Continue care with urology [id number] VARGAS Tomlinson 14 IM [address] [facility] [place] [address] 05/26/2019 14:31:05 05/27/2019 10:10:19 Benign hypertension 95899945 I10 Counseled on HTN and medication -continue current meds. Encouraged to monitor blood pressures with goal <140/90. Encouraged healthy diet and exercise. Counseled on smoking cessation. f/u 3 months Body mass index 30+ - obesity 940621380 Z68.34 Tobacco de pendence syndrome 53429034 F17.466 [id number] VARGAS Tomlinson 14 IM [address] [facility] [place] [address] 08/26/2019 11:08:52 08/26/2019 15:50:05 Benign hypertension 48362695 I10 Counseled on HTN and medication -continue current meds. Encouraged to monitor blood pressures with goal <140/90. Encouraged healthy diet and exercise. Counseled on smoking cessation. f/u 6 months Hypercholesterolemia 136 90632 E78.00 [id number] Enrique Palmer MD [facility] (Adult Med) [address] [place] [address] 10/24/2022 10:28:49 10/25/2022 14:12:22 Influenza vaccination declined 791272909 Z28.21 SARS-CoV-2 antigen vaccine declined 2899064224 Z28.21 Screening for malignant neoplasm of breast 111130398 Z12.39 Carpal cosme tu syndrome of right wrist 6281251047 57205 G56.01 Snoring 19439381 R06.83 Disorder o f lipid metabolism 433139721 E78.9 General ex amination of patient 877228110 Z00.01 42 y/o BF who was last seen in this office 12/18/2014 Benign hypertension 1072 5009 I10 BP is uncontroll edRestart Amlodipine 5 mg po daily Body mass index 30+ - obesity 781242748 Z68.33 Overweight 051999056 E66 .3 [id number] Enrique Palmer MD [facility] ([facility]) [address] [place] [address] 05/04/2023 09:15:59 05/07/2023 14:12:10 Proteinuria 55207665 R80.9 Benign hypertension 1072 5009 I10 BP is uncontroll edIncrease Amlodipine to 10 mg po daily, side effects were discussed Disorder o f lipid metabolism 737914280 E78.9 Screening for malignant neoplasm of breast 608236286 Z12.39 Health Concerns Section Related Observation LastModified by Organization Detai ls LastModified Time None Recorded Concern Status LastModified by Organization Details LastModified Time None Recorded Advance Directives Directive None Recorded Payers Encounter Date Sequence Insurance Name Policy Number Policy Gordon Covered Member ID Gordon Member ID Guarantor Name 05/12/2019 1 [facility] (MEDICAID HMO) [id number] Aliyah Mcclelland [id number] Aliyah Mcclelland 05/26/2019 1 [facility] (MEDICAID HMO) [id number] Aliyah Mcclelland [id number] Aliyah Mcclelland 08/26/2019 1 *SELF PAY* Rosaura Mcclelland 10/24/2022 1 [employer] [place] - [place] ON [place] AFTER 2020 (MEDICAID REPLACEMENT - HMO) Aliyah Mcclelland [id number] Aliyah Mcclelland 05/04/2023 1 *SELF PAY* Rosaura Mcclelland Notes Date Note Type Note Provider Name and Address Organization Details Recorded Time 05/12/2019 text/html Emergency Room Follow-Up RecordReported bypatient.Notes:seen in ER for abdominal pain 05/03-dx with renal stone-had lithotripsy per Dr Gonzalez doing well nowHypertension F/UReported bypatient.Associated Symptoms:no dizziness; no lightheadedness; no chest pain; no shortness of breath; no palpitations; no edema; no calf pain with exertion Lifestyle:regular exercise; limiting/avoiding salt Medications:taking medications as directed; no side effects from medicationNotes:Did not take medication today, but states she is compliant otherwise; ER put her on a pressor as well does not know what it was VARGAS Tomlinson Attn: Accounting[address] [place], [address], [facility] 05/13/2019 08:32:46 05/26/2019 text/html Hypertension F/UReported bypatient.Associated Symptoms:no dizziness; no lightheadedness; no chest pain; no shortness of breath; no palpitations; no edema; no calf pain with exertion Medications:taking medications as directed; no side effects from medicationNotes:f/u VARGAS Tomlinson Attn: Accounting[address] [place], [address], [facility] 05/27/2019 08:59:03 08/26/2019 text/html Hypertension F/UReported bypatient.Associated Symptoms:no dizziness; no lightheadedness; no chest pain; no shortness of breath; no palpitations; no edema; no calf pain with exertion Medications:taking medications as directed; no side effects from medicationNotes:f/u-n otes very frustrated found not covered insurance quintanilla at present when she arrived VARGAS Tomlinson Attn: Accounting[address] [place], [address], [facility] 08/26/2019 12:49:21 10/24/2022 text/html Hypertension F/UReported bypatient.Associated Symptoms:no dizziness; no lightheadedness; no chest pain; no shortness of breath; no palpitations; no edema; no calf pain with exertion Lifestyle:regular exercise; limiting/avoiding salt Medications:no side effects from medication;not taking medications as directedWrist/HandRep orted bypatient.Hand Dominance:right Location:right (3rd, 4th) Quality:aching Severity:severe Duration:years Timing:chronic Context:overuse Alleviating Factors:nothing helps Aggravating Factors:computer use Associated Symptoms:no weakness; no numbness; no tingling; no swelling; no redness; no warmth; no ecchymosis; no catching/locking; no popping/clicking; no buckling; no grinding; no instability; no radiation; no drainage; no fever; no chills; no weight loss; no change in bowel/bladder habits Previous Surgery:none Prior Imaging:none; EMG Previous Injections:none Previous PT:none Work Related:yes Working:regular 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 She presents with constant pain and a ache in her right upper extremity, especially her 3rd and 4th fingers. 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 She snores but has never been told that she has apneic episodes. With regards to her HTN, she was restarted on Labetalol during a recent but she discontinued it as she had normal readings. Enrique Palmer MD Attn: Accounting[address] [place], [address], [facility] 10/24/2022 14:10:27 05/04/2023 text/html Hypertension F/UReported bypatient.Associated Symptoms:no dizziness; no lightheadedness; no chest pain; no shortness of breath; no palpitations; no edema; no calf pain with exertion Lifestyle:regular exercise; limiting/avoiding salt Medications:no side effects from medication;not taking medications as directed Ms Mcclelland had shown up on 05/03/2023, her blood pressure was elevated at 170/100 and she had not taken her medication. She was rescheduled for this morning, I however explained the decision to her.The plan on her 10/24/2022 visit was to follow up in 4 weeks. Ms Mcclelland has been compliant with her Amlodipine in the last 24 hours. Enrique Palmer MD Attn: Accounting[address] [place], [address], [facility] 05/04/2023 09:46:56 OBGyn Episode No OBEpisode recorded.
--- OUTSIDE RECORDS SUMMARY | 2024-12-24 18:57 | XMS_ITS | Clinical Summary ---
Author Organization [facility] [address] Address [address] [place] [address] Phone Care Team Providers Care Executive Director Of Marketing Name Role Phone Edgardo Manuel MD Primary Care Provider [phone] Allergies Active Allergy Reactions Criticality Noted Date [...] nails are covered with thick red nail Urdu this some evidence of onychomycosis round the [...] medicines through the pharmacy given to us [facility] [place] location [facility] patient has made a commitment to get back to me in the next 24 hours regarding her precise medication she is taking.. At this time she has no symptoms referable to hypertension Seborrhea-like dermatitis with psoriasiform kalispel ents 01/21/2024 Assessment & Plan (01/21/2024 5:27 [...] this. 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): 41-year-old lady who is a new patient [...] (05/01/2022): Added automatically from request for surgery [id number] Acute otitis media 02/28/2021 2 Acute infective otitis externa of right ear 02/28/2021 03/02/2021 Encounters Date Type Department Care Team Description 12/15/2024 Orders Only [facility] [address] [place] [address] Leila Romo MD Encounter to determine viability of , single or unspecified fetus (Primary Dx) 10/29/2024 Telephone [facility] [address] [place] [address] Leila Romo MD Vaginitis/Bacterial Vaginosis from Last 3 Months Immunizations Immunization Administration Dates Next Due Influenza, Unspecified 07/22/2023(Deferred: Susie ent Refused) MMR 07/21/1994 Td, adsorbed 11/08/1995 Tdap 12/16/2014 Surgical History Surgery Date Site/Laterality Comments TONSILLECTOMY KIDNEY STONE SURGERY 10/22/2010 - 10/21/2011 Medical History Medical History Date Comments HTN (hypertension) discontinued medication ~ 2018 Prediabetes discontinued med iation ~ 2018 PCOS (polycystic ovarian syndrome) Chlamydia 2010 Tubal occlusion HSG ~ 2005, 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 PONV (postoperative nausea and vomiting) kidney stone Family History Medical History Relation Name Comments Diabetes Father secondary to HI V medication HIV Father Hypertension Father Stroke Father Diabetes Mother secondary to HI V medication HIV Mother Relation Name Status Comments Father Mother Social History Tobacco Use Types Packs/Day Years [...] on file Legal Sex Female 9:49 AM ASSEMBLER ADJUSTER Gender Identity Not on file Sexual Orientation Not on file Occupation Industry Job Start Date Job End Date Not on file Not on file Not on file Not on file Obstetrics History Para Term AB IAB SAB Ectopic Multiple Livin g Live Births 1 0 0 0 1 0 1 0 0 0 0 Date Outcome GA Total Labor Labor/2nd/3rd Weight Sex Type Anes PTL Anna A1 A5 Name Clin 04/2022 SAB 9w1d D&C Last Filed Vital Signs Vital Sign Reading Time Taken Comments Blood Pressure 152/100 09/11/2024 1:08 PM ASSEMBLER ADJUSTER Pulse 90 03/24/2024 2:02 PM CDT Temperature 36.3 C (97.3 F) 03/24/2024 2:02 PM CDT Respiratory Rate 16 03/24/2024 2:02 PM CDT Oxygen Saturation 98% 03/24/2024 2:02 PM CDT Inhaled Oxygen Concentration - - Weight 93.9 kg (207 lb) 09/11/2024 1:08 PM ASSEMBLER ADJUSTER Height 165.1 cm (5' 5 ) 09/11/2024 1:08 PM ASSEMBLER ADJUSTER Body Mass Index 34.45 09/11/2024 1:08 PM ASSEMBLER ADJUSTER Plan of Treatment Health Maintenance Due Date Last Done Comments Varicella Vaccines (1 of 2 - 13+ 2-dose series) 1994 Hepatitis B Screening 1999 Pneumococcal vaccine <65 (1 of 2 - PCV) 01/09/2000 Cervical Cancer Screening 03/02/2022 03/02/2021 Depression Screening 11/28/2022 11/28/2021 Influenza Vaccine (#1) 2024 DTaP/Tdap/Td Vaccine (2 - Td or Tdap) 12/16/2024 12/16/2014, 11/08/1995 Breast Cancer Screening-Mammogram 01/22/2025 01/23/2024, 05/19/2022, 03/16/2021 Regular Well Visit/Exam 18-64 09/11/2025 09/11/2024, 01/21/2024, 11/28/2021, Additional history exists Hepatitis C Screening Completed 04/06/2022 HPV Vaccines Aged Out No longer eligi ble based on patient's age to complete this topic Procedures Procedure Name Priority Date/Time Associated Diagnosis Comments SCREENING MAMMOGRAM BILATERAL W BAO Schedule Routine, Read Routine (OP Routine) 01/23/2024 [...] Maintenance Results * Screening Mammogram Bilateral W Bao (01/23/2024 9:57 AM CDT) Anatomical Region Laterality [...] AM CDT EXAMINATION: SCREENING MAMMOGRAM BILATERAL W BAO ORDERING HEALTHCARE PROVIDER: SELF SCREENING MAMMOGRAM HISTORY: [...] last revised on 2020. Testing performed by: [facility], [address] [place] [address], [place]., [address] Blood 04/06/2022 12:3 8 PM CDT 04/06/2022 7:46 PM CDT Leila Romo MD LAB MICROBIOL OGY - GENERAL ORDERABLES Edited Result - Final RICHARD SANTIAGO ([place]) [address] [facility] [place] [address] * ThinPrep Imaging Pap and HPV mRNA E6/E7 Reflex HPV 16,18/45 (03/02/2021 11:57 AM CDT) CLINICAL INFORMATION: [facility] Comment:Routine exam LMP [facility] Comment:UNKNOWN Previous Pap [facility] Comment:INFORMATION NOT PROV IDED Prev. Bx [facility] Comment:INFORMATION NOT PROV IDED SOURCE: [facility] Comment:Cervix, Endocervix Pap, specimen adequacy [facility] Comment: Satisfactory for evaluation. Endocervical/transformation zone component present. Age and/or menstrual status not provided HPV interp [facility] Comment:Negative for intraep ithelial lesion or malignancy. COMMENTS [facility] Comment: This Pap test has been evaluated with computer assisted technology. [employer] [facility] Comment: DIANELYS CT(ASCP) CT Screening Location: [address] [address] Comment [facility] [employer] [facility] Comment: EXPLANATORY NOTE: The Pap [...] High Risk E6/E7 Not Detected Not Detected [facility] Comment: Methodology: Business Development Professional-Mediated Amplification This assay detects E6/E7 viral messenger RNA (mRNA) from 14 high-risk HPV types (16,18,31,33,35,39,45,51,52,56,58,59,66,68). The analytical performance characteristics of this assay have been determined by [facility]. The modifications have not been cleared or approved by the FDA. This assay has been validated pursuant to the CLIA regulations and is used for clinical purposes. For additional information, please refer to http://education.TrakT[employer] 3D/faq/NPS317k6 (This link if provided for information/ educational purposes only.) 03/02/2021 11:5 7 AM CDT 03/03/2021 2:21 AM CDT [facility] - 03/05/2021 3:24 PM CDT FASTING: UNKNOWN Leila Romo MD LAB CYTOLOGY ORDERABL ES Final Result [facility] [address] [place] [address] [facility] [address] [place] [address] from Last 3 Months or Most Recently Relevant to Health Maintenance Insurance [facility] [employer] H[employer] Care Teams Executive Director Of Marketing Relationship Specialty Start Date End Date Edgardo Manuel MD PCP - General Internal Medicine 11/03/21
--- OUTSIDE RECORDS SUMMARY | 2024-12-24 18:57 | XMS_ITS | Clinical Summary ---
Author Organization [facility] Address [address] [place] [address] Phone Care Team Providers Care Full Fashioned Garment Knitter Name Role Phone Rachel Gillis APRN Primary Care Provider Allergies Active Allergy Reactions Criticality Noted Date Comments Piperacillin Sod-Tazobactam So Rash,Itching 11/03/2018 Developed itching and welts on face and arms ~ 15min from administration Medications amLODIPine (NORVASC) 5 MG Tablet Take 5 mg by mouth daily. Active metoprolol tartrate (LOPRESSOR) 25 MG Tablet Take 1 Tab by mouth 2 times daily. 180 Tab 3 11/05/2018 Active ondansetron (ZOFRAN-ODT) 4 MG TABLET DISPERSIBLE Take 1 Tab by mouth every 8 hours as needed for Nausea - 1st line. 10 Tab 11/05/2018 Active Active Problems Problem Noted Date Diagnosed Date Hypertension 04/30/2019 Tobacco abuse 04/30/2019 Acute diverticulitis 11/03/2018 Hypertensive urgency 11/03/2018 PCOS (polycystic ovarian syndrome) 11/03/2018 Resolved Problems Problem Noted Date Diagnosed Date Resolved Date Ureterolithiasis 04/30/2019 05/01/2019 Hydronephrosis 04/30/2019 05/01/2019 RAJAN (acute kidney injury) 04/30/2019 Family History Medical History Relation Name Comments Diabetes Mother Relation Name Status Comments Mother Alive Social History Tobacco Use Types Packs/Day Years Used Date Smoking Tobacco: Every Day Cigarettes Smokeless Tobacco: Never Alcohol Use Standard Drinks/Week Comments Yes 0 (1 standard drink = 0.6 oz pur e alcohol) social Comments No Sex and Gender Information Value Date Recorded Sex Assigned at Not on file Legal Sex Female 12:38 AM CDT Gender Identity Not on file Sexual Orientation Not on file Last Filed Vital Signs Vital Sign Reading Time Taken Comments Blood Pressure 162/113 12/16/2019 12:40 PM SEARCH MANAGER Pulse 100 12/16/2019 12:40 PM SEARCH MANAGER Temperature 37.5 C (99.5 F) 12/16/2019 12:40 PM SEARCH MANAGER Respiratory Rate 18 12/16/2019 12:40 PM SEARCH MANAGER Oxygen Saturation 99% 12/16/2019 12:40 PM SEARCH MANAGER Inhaled Oxygen Concentration - - Weight 86.2 kg (190 lb) 12/16/2019 12:40 PM SEARCH MANAGER Height 165.1 cm (5' 5 ) 12/16/2019 12:40 PM SEARCH MANAGER Body Mass Index 31.62 12/16/2019 12:40 PM SEARCH MANAGER Plan of Treatment Health Maintenance Due Date Last Done Comments Hepatitis C Virus (HCV) Screening 1981 Hepatitis B Immunization (1 of 3 - 19+ 3-dose series) 01/09/2000 Pap Smear 2002 Cervical Cancer Screening (CCS) 2011 HPV/Cotest 2011 Discussion re Starting/Frequency of Mammograms 2021 Influenza Immunization (#1) 2024 SARS-COV-2 Immunization ( - season) 2024 Respiratory Syncytial Virus (RSV) Immunization (Adult) (1 - 1-dose 75+ series) 01/09/2056 DTaP/Tdap/Td Immunization Discontinued 2014, 11/08/1995 TdaP Immunization Completed 12/16/2014 Meningococcal Immunization (ACWY) Aged Out No longer eligible based on patient's age to complete this topic Pneumococcal Immunization Combined Aged Out No longer eligible based on patient's age to complete this topic Rotavirus Immunization Aged Out No lo nger eligible based on patient's age to complete this topic Medical Devices Implanted Type Area [facility] Educator Device Identifier Shelf Expiration Date Model / Serial / Lot Stent Ureteral 6fr 2.1fr 26cm 2 Pigtail Curve 2 Durometer Taper Tip Loprfl Graduated Polaris Ultra - [id number] Implanted:Qty : 1 on 04/30/2019 by [facility] IMPLANT Left: Ureter [employer] 01/14/2022 [id number] / [id number] / [id number] Insurance [facility] Advance Directives * Full Code (Latest Code Status on File) Date Activated Date Inactivated Comments 04/30/2019 12:09 PM 05/01/2019 2:45 PM CPR-Full Tr eatment: FULL ARREST: Attempt Resuscitation/CPR wit intubation and mechanical ventilation. PRE-ARREST: Use entire range of life support measures to stabilize the patient. * Full Code Date Activated Date Inactivated Comments 11/03/2018 10:16 AM 11/05/2018 3:01 PM CPR-Full Tr eatment: FULL ARREST: Attempt Resuscitation/CPR wit intubation and mechanical ventilation. PRE-ARREST: Use entire range of life support measures to stabilize the patient. Care Teams Full Fashioned Garment Knitter Relationship Specialty Start Date End Date Rachel Gillis APRN [address] [place] [address] [address] [place] [address] PCP - General Family Medicine 07/07/19
[2024-12-24 18:58] VITALS: BP 178/108; PULSE 80; RESP 18; TEMP 36.6; O2SAT 98
[2024-12-24 19:40] VITALS: BP 156/92; PULSE 75; RESP 20; TEMP 36.9; O2SAT 100
--- NOTE | 2024-12-24 19:41 | PC.NURSE ---
1939-PATIENT REPORTS IS HAVING LOWER ABDOMINAL CRAMPING AND LEFT LOWER BACK PAIN. PATIENT STATES HER LMP WAS SEPTEMBER 2024. PATIENT REPORTS POSITIVE HOME TEST. PATIENT STATES HER FIRST OB APPOINTMENT IS SCHEDULED FOR 01/14/25. PATIENT DENIES VAGINAL DISCHARGE OR VAGINAL BLEEDING.
[2024-12-24 19:58] LABS: BEDSIDEPREGUCG Positive (Negative)
[2024-12-24 20:08] LABS: Basophils Percent Auto 0.3 % (0.2-1.2); Eosinophils Absolute Auto 0.1 K/mm3 (0-0.3); Eosinophils Percent Auto 1.3 % (0-4.4); Hematocrit 39.6 % (37.0-47.0); Hemoglobin 13.8 g/dL (12.0-15.0); Immature Granulocyte Absolute 0.02 K/mm3 (0.00-0.031); Immature Granulocyte Percent A 0.2 % (0-0.5); Lymphocytes Absolute Auto 2.95 K/mm3 (0.9-3.2); Lymphocytes Percent Auto 29.5 % (18.3-44.2); Mean Corpuscular HGB Conc 34.8 g/dl (32-36); Mean Corpuscular Hemoglobin 31.2 pg (26-34); Mean Corpuscular Volume 89.6 fl (80-100); Mean Platelet Volume 10.4 fl (7.4-10.4); Monocytes Absolute Auto 1.4 K/mm3 (0.1-0.6); Neutrophils Absolute Auto 5.5 K/mm3 (1.3-6.7); Neutrophils Percent Auto 54.7 % (45.5-73.1); Platelet Count Result 219 k/mm3 (150-375); Red Blood Count 4.42 M/mm3 (4.2-5.4); Red Cell Distribution Width 13.7 % (11.5-14.5)
--- NOTE | 2024-12-24 20:12 | ED_ITS ---
HPI - Back Pain/Injury General Chief Complaint: Back Pain/Injury Stated Complaint: Preg-Cramping with back pain Time Seen by Provider: 12/24/24 19:41 Source: patient Mode of arrival: ambulatory Limitations: no limitations History of Present Illness HPI Narrative: This is a 44-year-old female that presents to the ER for pelvic cramping. Reports she is currently . Last menstrual period in September. Reports some left low back pain. She has not taken anything for pain. Denies fever, vomiting, dysuria, hematuria, vaginal bleeding. Related Data Allergies Allergy/AdvReac Type Severity Reaction Status Date / Time Penicillins Allergy Intermediate Itching Verified 12/24/24 18:55 Review of Systems 2 Review of Systems: CONSTITUTIONAL: Denies fever GASTROINTESTINAL: Reports abdominal pain, nausea, vomiting GENITOURINARY: Denies dysuria or hematuria. All systems reviewed & are unremarkable except as noted in HPI and below PMFSH Past Medical History Medical History Hypertension Social History Social History (Updated 09/21/22 @ 18:24 by Yimi Jackson, ) Smoking status: Current every day smoker Exam 2 Narrative: GENERAL: Well-appearing, well-nourished, and in no acute distress. HEAD: Normocephalic, atraumatic. EYES: EOMI. CHEST: Clear to auscultation. No respiratory distress. No wheezes rales or rhonchi HEART: Regular rate and rhythm. No murmur heard. Normal peripheral pulses. ABDOMEN: Soft, nontender, nondistended, normal active bowel sounds. No CVA tenderness EXTREMITIES: Normal range of motion. No edema. SKIN: Warm, dry, no rash. NEURO: No focal deficits. Alert and oriented x3. Normal gait PSYCH: Normal mood and affect Course Course Emergency Course: patient updated on workup and agrees with plan of care Consultations Consultation #1: Spoke with patient's cannon fire direction specialist OB. Recommends switching her anti-hypertensive to Labetalol Date: 12/24/24 Vital Signs Vital signs: Vital Signs Temperature 97.8 F 12/24/24 18:58 Pulse Rate 80 12/24/24 18:58 Respiratory Rate 18 12/24/24 18:58 Blood Pressure 178/108 H 12/24/24 18:58 Pulse Oximetry 98 12/24/24 18:58 Oxygen Delivery Room Air 12/24/24 18:58 Temperature 98.4 F 12/24/24 19:40 Pulse Rate 74 12/24/24 22:36 Respiratory Rate 20 12/24/24 22:30 Blood Pressure 160/94 H 12/24/24 22:30 Pulse Oximetry 100 12/24/24 22:30 Oxygen Delivery Room Air 12/24/24 18:58 MDM - Back Pain/Injury MDM Narrative Medical decision making narrative: Patient presents the emergency department for pelvic cramping, left-sided low back pain. Patient is currently , last menstrual period was in September. She has not had any care yet. She is afebrile and nontoxic appearing. Cbc without leukocytosis. Metabolic panel without concerning findings. Quantitative beta-hCG 62,703 and pain. UA with 6-10 white blood cells, 1+ leuk esterase. This will be sent for culture. ultrasound shows single intrauterine gestation approximately 11 weeks and 1 day. Patient hypertensive in the ER, she has pre-existing chronic hypertension. She has no symptoms associated with this. She takes amlodipine and hydrochlorothiazide currently. Spoke with patient's cannon fire direction specialist OB. Recommends switching her anti- hypertensive to Labetalol. patient updated on workup and agrees with plan of care. She is to follow up with her OB. She was given warnings to return to the ER Differential Diagnosis Differential diagnosis: Likely strain of lumbar region, renal colic and other (UTI, ) Lab Data Attestation: I reviewed the patient's lab results. 12/24/24 19:58 12/24/24 19:58 Labs: Lab Results 12/24/24 12/24/24 12/24/24 Range/Units 19:55 19:58 20:01 WBC 10.0 (4.5-10.0) K/mm3 RBC 4.42 (4.2-5.4) M/mm3 Hgb 13.8 (12.0-15.0) g/dL Hct 39.6 (37.0-47.0) % MCV 89.6 (80-100) fl MCH 31.2 (26-34) pg MCHC 34.8 (32-36) g/dl RDW 13.7 (11.5-14.5) % Plt Count 219 (150-375) k/mm3 MPV 10.4 (7.4-10.4) fl Immature Gran % (Auto) 0.2 (0-0.5) % Neut % (Auto) 54.7 (45.5-73.1) % Lymph % (Auto) 29.5 (18.3-44.2) % [place] % (Auto) 14.0 H (2.6-8.5) % Eos % (Auto) 1.3 (0-4.4) % Baso % (Auto) 0.3 (0.2-1.2) % Lymph # (Auto) 2.95 (0.9-3.2) K/mm3 [place] # (Auto) 1.4 H (0.1-0.6) K/mm3 Eos # (Auto) 0.1 (0-0.3) K/mm3 Baso # (Auto) 0.0 (0.0-0.1) K/mm3 Abs Immat Gran (auto) 0.02 (0.00-0.031) K/mm3 Absolute Neuts (auto) 5.5 (1.3-6.7) K/mm3 Absolute Nucleated RBC 0.000 (0.0-0.012) K/mm3 Nucleated RBC % 0.0 (0.0-0.2) % Sodium 136 L (137-145) mmol/L Potassium 3.8 (3.4-5.0) mmol/L Chloride 106 (98-107) mmol/L Carbon Dioxide 20 L (22-30) mmol/L Anion Gap 10 (4-12) mmol/L BUN 10 (7-17) mg/dL Creatinine 0.65 L (0.7-1.0) mg/dL Estim Creat Clear Calc 108 ml/min Estimated GFR > 60 (59 - ) Glucose 92 (65-110) mg/dL Calcium 9.4 (8.4-10.2) mg/dL Total Bilirubin 0.2 (0.2-1.3) mg/dL AST 21 (14-36) U/L ALT 20 (6-35) U/L Alkaline Phosphatase 46 (38-126) U/L Total Protein 8.0 (6.3-8.2) g/dL Albumin 3.9 (3.5-5.1) g/dL Lipase 73 (23-300) U/L Beta HCG, Quant 91472.00 mIU/ML Urine Color Yellow (Yellow) Urine Appearance Clear (Clear) Urine pH 6.5 (5.0-9.0) Ur Specific [place] 1.004 (1.001-1.035) Urine Protein Negative (Negative) mg/dL Urine Glucose (UA) Negative (Negative) mg/dL Urine Ketones Negative (Negative) mg/dL Ur Blood (Man) Trace (Negative) Urine Nitrate Negative (Negative) Urine Bilirubin Negative (Negative) Urine Urobilinogen 0.2 (<2.0) mg/dL Leukocyte Esterase Rfl 1+ H (Negative) ANDREA/UL Urine RBC 0-2 (0-2) /hpf Urine WBC 6-10 H (0-3) /hpf Ur Squamous Epith Cells Few (Few) /hpf Urine Bacteria Rare /hpf Urine Casts 0-2 POC Urine HCG, Qual Positive (Negative) Blood Type A Positive Antibody Screen Negative Screen Not Reportable Baby's Blood Type Not Reportable Baby's LIZ Not Reportable Doses of RhIg Required 0 Imaging Data Radiologist's impression: ITS Impressions Ultrasound 12/24/24 21:04 IMPRESSION: Single intrauterine gestation with an approximate gestational age of 11 weeks and 1 day, with cardiac activity identified. Critical Care Time Critical Care Time Critical Care Time: No Discharge Plan Discharge Clinical Impression: Pyuria Qualifiers: Weeks of gestation: 11 weeks Qualified Code(s): Z3A.11 - 11 weeks gestation of Hypertension Qualifiers: Hypertension type: unspecified Qualified Code(s): I10 - Essential (primary) hypertension Patient Disposition: Home, Self-Care Condition: Stable Instructions: (ED), Chronic Hypertension (ED) Additional Instructions: Return to the ER if you experience fever, chest pain, shortness of breath, abdominal pain with nausea and vomiting, you are unable to keep down liquids or solids, pelvic cramping, vaginal bleeding, or any other symptoms that are concerning to you Take a Vitamin B6 and Unisom (25mg tab) nightly. You can get these medications over the counter. This will help prevent nausea. Reglan as needed for nausea. Small, frequent meals. Keeling diet. Remain well hydrated. Your OB recommends you STOP Amlodipine and Hydrochlorothiazide and START Labetalol which I have sent to the pharmacy. We will also wait on the culture results of your urine and hold off on an antibiotic Follow up with your OB Patient Language: Macedonian Prescriptions: New labetalol 100 mg tablet 100 mg PO Q12H 30 Days Qty: 60 0RF metoclopramide HCl [Reglan] 5 mg tablet 5 mg PO Q6H PRN (Reason: nausea and vomiting) Qty: 14 0RF No Action naproxen 500 mg tablet 500 mg PO BID PRN (Reason: pain) Qty: 20 0RF naproxen 500 mg tablet 500 mg PO BID PRN (Reason: pain) Qty: 20 0RF Follow-up/Referrals: PHYSICIAN,BROWNFIELD REDEVELOPMENT SPECIALIST [Primary Care Provider] -
[2024-12-24 20:19] LABS: Add Urine Microscopic? YES; Appearance Urine Clear (Clear); Bacteria Urine Rare /hpf; Bilirubin Urine Negative (Negative); Blood Urine Trace (Negative); Color Urine Yellow (Yellow); Glucose Urine UA Negative (Negative); Ketones Urine Negative (Negative); Leukocyte Esterase Ur 1+ LEU/UL (Negative); Nitrate Urine Negative (Negative); Non Pathogenic Casts 0-2; Protein Urine Negative (Negative); RBC Urine 0-2 /hpf (0-2); Specific Grav Ur 1.004 (1.001-1.035); Squamous Epithelial Cell Urine Few /hpf (Few); Urobilinogen Urine 0.2 mg/dL (<2.0); pH Urine 6.5 (5.0-9.0)
[2024-12-24 20:22] LABS: Alanine Aminotransferase 20 U/L (6-35); Albumin Level 3.9 g/dL (3.5-5.1); Alkaline Phosphatase 46 U/L (38-126); Anion Gap 10 mmol/L (4-12); Aspartate Amino Transferase 21 U/L (14-36); Bilirubin,Total 0.2 mg/dL (0.2-1.3); Blood Urea Nitrogen 10 mg/dL (7-17); Calcium 9.4 mg/dL (8.4-10.2); Carbon Dioxide 20 mmol/L (22-30); Chloride 106 mmol/L (98-107); Estimated CRCL calculation 108 ml/min; Estimated Glomerular Filt Rate > 60; Glucose 92 mg/dL (65-110); Lipase 73 U/L (23-300); Potassium 3.8 mmol/L (3.4-5.0); Sodium 136 mmol/L (137-145)
--- OUTSIDE RECORDS SUMMARY | 2024-12-24 20:24 | XMS_ITS | Clinical Summary ---
Author Organization [facility] Address [address] [place] [address] Phone Care Team Providers Care Order Control Clerk Blood Bank Name Role Phone Rachel Gillis APRN Primary Care Provider [phone] Allergies Active Allergy Reactions Criticality Noted Date [...] Comments Blood Pressure 162/113 12/16/2019 12:40 PM PIE ICER MACHINE Pulse 100 12/16/2019 12:40 PM PIE ICER MACHINE Temperature 37.5 C (99.5 F) 12/16/2019 12:40 PM PIE ICER MACHINE Respiratory Rate 18 12/16/2019 12:40 PM PIE ICER MACHINE Oxygen Saturation 99% 12/16/2019 12:40 PM PIE ICER MACHINE Inhaled Oxygen Concentration - - Weight 86.2 kg (190 lb) 12/16/2019 12:40 PM PIE ICER MACHINE Height 165.1 cm (5' 5 ) 12/16/2019 12:40 PM PIE ICER MACHINE Body Mass Index 31.62 12/16/2019 12:40 PM PIE ICER MACHINE Plan of Treatment Health Maintenance Due Date [...] this topic Medical Devices Implanted Type Area Desktop Architect Device Identifier Shelf Expiration Date Model / Serial / Lot Stent Ureteral 6fr 2.1fr 26cm 2 Pigtail Curve 2 Durometer Taper Tip Loprfl Graduated Polaris Ultra - [id number] Implanted:Qty : 1 on 04/30/2019 [facility] IMPLANT Left: Ureter [employer] 01/14/2022 [id number] 0 / [id number] / [id number] Insurance [facility] Advance Directives * Full Code (Latest [...] measures to stabilize the patient. Care Teams Order Control Clerk Blood Bank Relationship Specialty Start Date End Date Rachel Gillis APRN [address] [place] [address] [address] [place] [address] PCP - General Family Medicine 07/07/19
--- OUTSIDE RECORDS SUMMARY | 2024-12-24 20:24 | XMS_ITS | Referral Summary ---
Author Organization [facility] [address] Address [address] [place] [address] Phone Care Team Providers Care Adjunct English Instructor Name Role Phone Edgardo Manuel MD Primary Care Provider [phone] Encounters Date Type Department Care Team Description 12/15/2024 Orders Only [facility] [address] [place] [address] Leila Romo MD Encounter to determine viability of , single or unspecified fetus (Primary Dx) 10/29/2024 Telephone [facility] [address] [place] [address] Leila Romo MD Vaginitis/Bacterial Vaginosis [...] through the pharmacy given to us [facility] [place] location [facility] patient has made a commitment to get back to me in the next 24 hours regarding her precise medication she is taking.. At this time she has no symptoms referable to hypertension Seborrhea-like dermatitis with psoriasiform [place] ents 01/21/2024 Assessment & Plan (01/21/2024 5:27 [...] this. Assessment & Plan (11/28/2021 6:33 PM CLAMSHELL OPERATOR): 41-year-old lady who is a new patient [...] (05/01/2022): Added automatically from request for surgery [id number] Acute otitis media 02/28/2021 2 Acute infective [...] on file Legal Sex Female 9:49 AM CLAMSHELL OPERATOR Gender Identity Not on file Sexual Orientation Not on file Occupation Industry Job Start Date Job End Date Not on file Not on file Not on file Not on file Last Filed Vital Signs Vital Sign Reading Time Taken Comments Blood Pressure 152/100 09/11/2024 1:08 PM CLAMSHELL OPERATOR Pulse 90 03/24/2024 2:02 PM CDT Temperature 36.3 C (97.3 F) 03/24/2024 2:02 PM CDT Respiratory Rate 16 03/24/2024 2:02 PM CDT Oxygen Saturation 98% 03/24/2024 2:02 PM CDT Inhaled Oxygen Concentration - - Weight 93.9 kg (207 lb) 09/11/2024 1:08 PM CLAMSHELL OPERATOR Height 165.1 cm (5' 5 ) 09/11/2024 1:08 PM CLAMSHELL OPERATOR Body Mass Index 34.45 09/11/2024 1:08 PM CLAMSHELL OPERATOR Plan of Treatment Not on file Procedures [...] last revised on 2020. Testing performed by: [facility], [address] [place] [address]., [address] Blood 04/06/2022 12:3 8 PM CDT 04/06/2022 7:46 PM CDT Leila Romo MD LAB MICROBIOL OGY - GENERAL ORDERABLES Edited Result - Final [facility]ICHARD SANTIAGO ([place]) 1 [facility] [place] [address] * ThinPrep Imaging Pap and HPV mRNA E6/E7 Reflex HPV 16,18/45 (03/02/2021 11:57 AM CDT) CLINICAL INFORMATION: [facility] Comment:Routine exam LMP [facility] Comment:UNKNOWN Previous Pap [facility] Comment:INFORMATION NOT PROV IDED Prev. Bx [facility] Comment:INFORMATION NOT PROV IDED SOURCE: [facility] Comment:Cervix, Endocervix Pap, specimen adequacy [facility] Comment: Satisfactory for evaluation. Endocervical/transformation zone component present. Age and/or menstrual status not provided HPV interp [facility] Comment:Negative for intraep ithelial lesion or malignancy. COMMENTS [facility] Comment: This Pap test has been evaluated with computer assisted technology. Silo Filler [facility] Comment: AAM, CT(ASCP) CT Screening Location: [address] [address] Comment [facility] Comment: EXPLANATORY NOTE: The Pap is a [...] High Risk E6/E7 Not Detected Not Detected [facility] Comment: Methodology: Collector Of Internal Revenue-Mediated Amplification This assay detects E6/E7 viral messenger RNA (mRNA) from 14 high-risk HPV types (16,18,31,33,35,39,45,51,52,56,58,59,66,68). The analytical performance characteristics of this assay have been determined by [facility]. The modifications have not been cleared or approved by the FDA. This assay has been validated pursuant to the CLIA regulations and is used for clinical purposes. For additional information, please refer to http://education.Phybridge/faq/IQJ254j7 (This link if provided for information/ educational purposes only.) 03/02/2021 11:5 7 AM CDT 03/03/2021 2:21 AM CDT Narrative [facility] - 03/05/2021 3:24 PM CDT FASTING: UNKNOWN Leila Romo MD LAB CYTOLOGY ORDERABL ES Final Result Performing Organization Address [facility]/State/ZIP Co de Phone Number [facility] [address] [place] [address] [facility] [address] [place] [address] from Last 3 Months or Most Recently Relevant to Health Maintenance Insurance [employer] [facility] [employer] HMO Care Teams Adjunct English Instructor Relationship Specialty Start Date End Date Edgardo Manuel MD PCP - General Internal Medicine 11/03/21
--- OUTSIDE RECORDS SUMMARY | 2024-12-24 20:24 | XMS_ITS | Clinical Summary ---
Author Organization [facility] [address] Address [address] [place] [address] Phone Care Team Providers Care Financial Foundations Associate Name Role Phone Edgardo Manuel MD Primary Care Provider [phone] Allergies Active Allergy Reactions Criticality Noted Date [...] nails are covered with thick red nail Bulgarian this some evidence of onychomycosis round the [...] through the pharmacy given to us [facility] [place] location [facility] patient has made a commitment to get back to me in the next 24 hours regarding her precise medication she is taking.. At this time she has no symptoms referable to hypertension Seborrhea-like dermatitis with psoriasiform [place] ents 01/21/2024 Assessment & Plan (01/21/2024 5:27 [...] this. Assessment & Plan (11/28/2021 6:33 PM INGREDIENT MIXER): 41-year-old lady who is a new patient [...] (05/01/2022): Added automatically from request for surgery [id number] Acute otitis media 02/28/2021 2 Acute infective otitis externa of right ear 02/28/2021 03/02/2021 Encounters Date Type Department Care Team Description 12/15/2024 Orders Only [facility] [address] [place] [address] Leila Romo MD Encounter to determine viability of , single or unspecified fetus (Primary Dx) 10/29/2024 Telephone [facility] [address] [place] [address] Leila Romo MD Vaginitis/Bacterial Vaginosis [...] on file Legal Sex Female 9:49 AM INGREDIENT MIXER Gender Identity Not on file Sexual Orientation [...] Comments Blood Pressure 152/100 09/11/2024 1:08 PM INGREDIENT MIXER Pulse 90 03/24/2024 2:02 PM CDT Temperature 36.3 C (97.3 F) 03/24/2024 2:02 PM CDT Respiratory Rate 16 03/24/2024 2:02 PM CDT Oxygen Saturation 98% 03/24/2024 2:02 PM CDT Inhaled Oxygen Concentration - - Weight 93.9 kg (207 lb) 09/11/2024 1:08 PM INGREDIENT MIXER Height 165.1 cm (5' 5 ) 09/11/2024 1:08 PM INGREDIENT MIXER Body Mass Index 34.45 09/11/2024 1:08 PM INGREDIENT MIXER Plan of Treatment Health Maintenance Due Date [...] last revised on 2020. Testing performed by: [facility], [address] [place] [address], [place]., [address] Blood 04/06/2022 12:3 8 PM CDT 04/06/2022 7:46 PM CDT Leila Romo MD LAB MICROBIOL OGY - GENERAL ORDERABLES Edited Result - Final [facility]ICHARD SANTIAGO ([place]) 1 [facility] Department [place] [address] * ThinPrep Imaging Pap and HPV mRNA E6/E7 Reflex HPV 16,18/45 (03/02/2021 11:57 AM CDT) CLINICAL INFORMATION: [facility] Comment:Routine exam LMP [facility] Comment:UNKNOWN Previous Pap [facility] Comment:INFORMATION NOT PROV IDED Prev. Bx [facility] Comment:INFORMATION NOT PROV IDED SOURCE: [facility] Comment:Cervix, Endocervix Pap, specimen adequacy [facility] Comment: Satisfactory for evaluation. Endocervical/transformation zone component present. Age and/or menstrual status not provided HPV interp [facility] Comment:Negative for intraep ithelial lesion or malignancy. COMMENTS [facility] Comment: This Pap test has been evaluated with computer assisted technology. Deputy Building Guard [facility] Comment: DIANELYS CT(ASCP) CT Screening Location: [address] [address] Comment [facility] [employer] [facility] Comment: EXPLANATORY NOTE: The Pap is a [...] High Risk E6/E7 Not Detected Not Detected [employer] [place] Comment: Methodology: Monitor Car Operator-Mediated Amplification This assay detects E6/E7 viral messenger RNA (mRNA) from 14 high-risk HPV types (16,18,31,33,35,39,45,51,52,56,58,59,66,68). The analytical performance characteristics of this assay have been determined by [employer]. The modifications have not been cleared or approved by the FDA. This assay has been validated pursuant to the CLIA regulations and is used for clinical purposes. For additional information, please refer to http://education.12Society/faq/UZV799h7 (This link if provided for information/ educational purposes only.) 03/02/2021 11:5 7 AM CDT 03/03/2021 2:21 AM CDT [facility] - 03/05/2021 3:24 PM CDT FASTING: UNKNOWN Leila Romo MD LAB CYTOLOGY ORDERABL ES Final Result [facility] [employer] [facility] [address] [place] [address] [employer] [address] [place] [address] from Last 3 Months or Most Recently Relevant to Health Maintenance Insurance [facility] [employer] HMO Care Teams Financial Foundations Associate Relationship Specialty Start Date End Date Edgardo Manuel MD PCP - General Internal Medicine 11/03/21
[2024-12-24 21:21] VITALS: BP 164/110; PULSE 79; RESP 20; O2SAT 100
[2024-12-24 22:30] VITALS: BP 160/94; PULSE 74; RESP 20; O2SAT 100
[2024-12-24 22:36] VITALS: PULSE 74
[2024-12-24] MEDS: LABETALOL HCL 100 MG TABLET PO (22:36)
== END 2024-12-24 22:40 | disposition home or self-care (01) ==
PROVIDERS: Emergency Provider Physician Assistant
DX: O26.891 Other specified pregnancy related conditions, first trimester (principal); R82.81 Pyuria; O10.911 Unspecified pre-existing hypertension complicating pregnancy, first trimester; O99.331 Smoking (tobacco) complicating pregnancy, first trimester; F17.200 Nicotine dependence, unspecified, uncomplicated; Z3A.11 11 weeks gestation of pregnancy
CPT/HCPCS: 36415; 76801; 80053; 81001; 81025; 83690; 84702; 85025; 85461; 86850; 86900; 86901; 87086; 99284; A9270

== ENCOUNTER 2025-02-07 17:24 | Emergency (ER) | payer OTHER, SELFPAY ==
[2025-02-07] VITALS (9 sets, daily range): BP systolic 138–151; BP diastolic 80–100; PULSE 84–94; RESP 16; TEMP 36.4–36.7; O2SAT 99–100
--- OUTSIDE RECORDS SUMMARY | 2025-02-07 17:27 | XMS_ITS | Clinical Summary ---
Author Organization [facility] Address [address] [place] [address] Phone Care Team Providers Care Telemarketing Supervisor Name Role Phone Rachel Gillis APRN Primary [...] Comments Blood Pressure 162/113 12/16/2019 12:40 PM [employer] Pulse 100 12/16/2019 12:40 PM [employer] Temperature 37.5 C (99.5 F) 12/16/2019 12:40 PM [employer] Respiratory Rate 18 12/16/2019 12:40 PM [employer] Oxygen Saturation 99% 12/16/2019 12:40 PM [employer] Inhaled Oxygen Concentration - - Weight 86.2 kg (190 lb) 12/16/2019 12:40 PM [employer] Height 165.1 cm (5' 5 ) 12/16/2019 12:40 PM [employer] Body Mass Index 31.62 12/16/2019 12:40 PM [employer] Plan of Treatment Health Maintenance Due Date [...] this topic Medical Devices Implanted Type Area Shank Pinner Device Identifier Shelf Expiration Date Model / Serial / Lot Stent Ureteral 6fr 2.1fr 26cm 2 Pigtail Curve 2 Durometer Taper Tip Loprfl Graduated Polaris Ultra - [id number] Implanted:Qty : 1 on 04/30/2019 by Carlotta Gonzalez MD at [facility] IMPLANT Left: Ureter [employer] 01/14/2022 [id number] / [id number] / [id number] Insurance [facility] Advance Directives * Full Code (Latest [...] measures to stabilize the patient. Care Teams Telemarketing Supervisor Relationship Specialty Start Date End Date Rachel Gillis APRN [address] [place] [address] [address] [place] [address] PCP - General Family Medicine 07/07/19
--- OUTSIDE RECORDS SUMMARY | 2025-02-07 17:27 | XMS_ITS | Referral Summary ---
Author Organization [facility] [place] [address] Address [address] [place] [address] Phone Care Team Providers Care Camera Engineer Name Role Phone Edgardo Manuel MD Primary Care Provider [phone] Encounters Date Type Department Care Team Description 02/02/2025 11:10 AM CDT Lab [facility] [address] [place] [phone] Chronic hypertension in ; Encounter for supervision of other normal , first trimester; 14 weeks gestation of 01/30/2025 Telephone [facility] [address] [place] [address] Leila Romo MD 01/14/2025 Orders Only [facility] [address] [place] [address] Leila Romo MD Encounter for supervision of other normal , first trimester (Primary Dx); 14 weeks gestation of ; Chronic hypertension in 01/14/2025 1:00 PM CDT Ancillary Procedure [facility] [address] [place] [phone] Encounter to determine viability of , single or unspecified fetus 01/14/2025 2:00 PM CDT Office Visit [facility] [address] [place] [address] Leila Romo MD care, subsequent , second trimester (Primary Dx); Chronic hypertension affecting ; Antepartum multigravida of advanced maternal age 0301/08/2025 Results Follow-Up [facility] [address] [place] [address] Leila Romo MD 12/31/2024 Results [facility] [address] [place] [address] Leila Romo MD 12/29/2024 11:24 AM CDT - 12/29/2024 11:59 PM CDT Hospital Encounter [facility] [address] [place] [address] Screening examination for venereal disease Discharge Disposition: Discharge to home or self care 12/29/2024 Orders Only [facility] [address] [place] [address] Leila Romo MD AMA (advanced maternal age) multigravida 35+, first trimester (Primary Dx) 12/29/2024 10:15 AM CDT Office Visit [facility] [address] [place] [address] Leila Romo MD Pelvic pain affecting in first trimester, antepartum (Primary Dx); Screening examination for venereal disease; Chronic hypertension affecting ; Multigravida of advanced maternal age in first trimester 12/15/2024 Orders Only [facility] [address] [place] [address] Leila Romo MD Encounter to determine viability of , single or unspecified fetus (Primary Dx) from Last 3 Months Allergies Active Allergy Reactions Criticality Noted Date Comments Penicillins Hives,Swelling,Rash Medium 07/07/2019 Patient stated she gets facial swelling Medications amLODIPine (NORVASC) 10 mg tablet Take 1 tablet (10 mg total) by mouth daily 90 tablet 01/22/20 24 Active rosuvastatin (CRESTOR) 20 mg tablet Take 1 tablet (20 mg total) by mouth daily 30 tablet 5 03/24/20 24 Active Additional Information Patient not taking.Reported on 01/14/2025 terbinafine (LamiSIL) 250 mg tablet Take 1 tablet (250 mg total) by mouth daily 30 tablet 2 03/24/20 24 Active Additional Information Patient not taking.Reported on 01/14/2025 labetaloL (NORMODYNE,TR ANDATE) 100 mg tablet Take 1 tablet (100 mg total) by mouth every 12 (twelve) hours 60 tablet 11 01/15/20 25 Active selenium sulfide 2.5 % lotionIndicat ions:Seborrhe ic Dermatitis,ti leroy versicolor Apply to affected areas and leave on for 10 minutes then wash off. Do this daily for 1 week, then as needed.then twice weekly thereafter as nneded 120 mL 11 01/21/20 24 025 Discontinued hydroCHLOROth iazide (HYDRODIURIL) 12.5 mg tablet Take 1 tablet (12.5 mg total) by mouth daily 90 tablet 01/22/20 24 025 Discontinued labetaloL (NORMODYNE,TR ANDATE) 100 mg tablet Take 1 tablet (100 mg total) by mouth every 12 (twelve) hours 12/26/19 25 025 Discontinued(Re order) Active Problems Problem Noted Date Diagnosed Date Chronic hypertension affecting 025 Overview (01/14/2025): Baseline labs 01/14/25: ASA 81 mg. Changed from amlodipine and HCTZ to Labetalol 100 mg BID. Antepartum multigravida of advanced maternal age 0312/29/2024 Overview (2025): Low risk NIPT. Hyperlipidemia, mixed 03/27/2024 Assessment & Plan (03/27/2024 [...] nails are covered with thick red nail Green[place]ic this some evidence of onychomycosis round the [...] through the pharmacy given to us [facility] [place] location on [facility] patient has made a commitment to get back to me in the next 24 hours regarding her precise medication she is taking.. At this time she has no symptoms referable to hypertension Seborrhea-like dermatitis with psoriasiform [place] ents 01/21/2024 Assessment & Plan (01/21/2024 5:27 [...] this. 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): 41-year-old lady who is a new patient [...] regarding diabetes, fatty liver disease and hyperlipidemia Estimated Date of Delivery Comme nts Yes 07/14/2025 Based on Ultraso und Resolved Problems Problem Noted Date Diagnosed Date Resolved Date Missed 05/01/2022 01/21/2024 Overview (05/01/2022): Added automatically from request for surgery [id number] Acute otitis media 02/28/2021 2 Acute infective otitis externa of right ear 02/28/2021 03/02/2021 Immunizations Immunization Administration Dates Next Due Influenza, Unspecified 07/22/2023(Deferred: Susie ent Refused) MMR 07/21/1994 Td, adsorbed 11/08/1995 Tdap 12/16/2014 Social History Tobacco Use Types Packs/Day Years Used Date Smoking Tobacco: Former Cigarettes 0.5 26.3 S tarted: 1998 Smokeless Tobacco: Never Tobacco Cessation:Counseling Given: Not Answered Comments:Quit smoking with 02/2022 [...] staff should administer the PHQ-9) 0 11/28/2021 Estimated Date of Delivery Comme nts Yes 07/14/2025 Based on Ultraso und Sex and Gender Information Value Date Recorded Sex Assigned at Not on file Legal Sex Female 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 Gender Identity Not on file Sexual Orientation Not on file Occupation Industry Job Start Date Job End Date Not on file Not on file Not on file Not on file Last Filed Vital Signs Vital Sign Reading Time Taken Comments Blood Pressure 150/78 01/14/2025 2:26 PM CDT Pulse 90 03/24/2024 2:02 PM CDT Temperature 36.3 C (97.3 F) 03/24/2024 2:02 PM CDT Respiratory Rate 16 03/24/2024 2:02 PM CDT Oxygen Saturation 98% 03/24/2024 2:02 PM CDT Inhaled Oxygen Concentration - - Weight 91.6 kg (202 lb) 01/14/2025 2:26 PM CDT Height 165.1 cm (5' 5 ) 09/11/2024 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 Body Mass Index 33.61 09/11/2024 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 Plan of Treatment Not on file Procedures Procedure Name Priority Date/Time Associated Diagnosis Comments EGFR Routine 02/02/2025 11:21 AM CDT Chronic hypertension in DIFFERENTIAL AUTO Routine 02/02/2025 11: 21 AM CDT Encounter for supervision of other normal , first trimester 14 weeks gestation of CBC WITH AUTO DIFFERENTIAL Routine 02/02/2025 11:21 AM CDT Encounter for supervision of other normal , first trimester 14 weeks gestation of DRUGS OF ABUSE SCREEN, URINE WITHOUT CONFIRMATION Routine 02/02/2025 11:21 AM CDT Encounter for supervision of other normal , first trimester 14 weeks gestation of TYPE AND SCREEN Routine 02/02/2025 11:21 AM CDT Encounter for supervision of other normal , first trimester 14 weeks gestation of COMPREHENSIVE METABOLIC PANEL Routine 02/02/2025 11:21 AM CDT Chronic hypertension in PROTEIN / CREATININE RATIO, URINE, RANDOM Routine 02/02/2025 11:21 AM CDT Chronic hypertension in HEPATITIS B SURFACE ANTIGEN Routine 02/02/2025 11:21 AM CDT Encounter for supervision of other normal , first trimester 14 weeks gestation of HEPATITIS C ANTIBODY Routine 02/02/2025 11:21 AM CDT Encounter for supervision of other normal , first trimester 14 weeks gestation of HIV 1/2 ANTIBODY PLUS P24 ANTIGEN Routine 02/02/2025 11:21 AM CDT Encounter for supervision of other normal , first trimester 14 weeks gestation of RPR Routine 02/02/2025 11:21 AM CDT Encounter for supervision of other normal , first trimester 14 weeks gestation of RUBELLA IGG Routine 02/02/2025 11:21 AM CDT Encounter for supervision of other normal , first trimester 14 weeks gestation of URINE CULTURE Routine 02/02/2025 11:21 AM CDT Encounter for supervision of other normal , first trimester 14 weeks gestation of VARICELLA ZOSTER ANTIBODY, IGG Routine 02/02/2025 11:21 AM CDT Encounter for supervision of other normal , first trimester 14 weeks gestation of US OB UNDER 14 WEEKS Schedule Routine, Read Routine (OP Routine) 01/14/2025 1:23 PM CDT Encounter to determine viability of , single or unspecified fetus QNATEL ADVANCED Routine 12/30/2024 11:11 AM CDT AMA (advanced maternal age) multigravida 35+, first trimester N. GONORRHOEAE/C. TRACHOMATIS AMPLIFICATION Routine 12/29/2024 11:24 AM CDT Screening examination for venereal disease SCREENING MAMMOGRAM BILATERAL W BAO Schedule Routine, Read Routine (OP Routine) 01/23/2024 9:57 AM CDT Screening mammogram, encounter for THINPREP IMAGING PAP AND HPV MRNA E6/E7 REFLEX HPV 16,18/45 Routine 03/02/2021 11:57 AM CDT from Last 3 Months or Most Recently Relevant to Health Maintenance Results * eGFR (02/02/2025 11:21 AM CDT) eGFR >90 >=60 mL/min/1. 73 m2 Comment: Interpretive Data Reference Interval Normal >/= 90 mL/min/1.73m2 Mildly decreased* 60 - 89 mL/min/1.73m2 Mildly to moderately decreased 45 - 59 mL/min/1.73m2 Moderately to severely decreased 30 - 44 mL/min/1.73m2 Severely decreased 15 - 29 mL/min/1.73m2 Kidney Failure < 15 mL/min/1.73m2 *Relative to young adult level Estimated glomerular filtration rate is determined by the 2020 CKD-EPI equation recommended by the National Kidney Foundation (A Unifying Approach to GFR Estimation: Recommendations of the NKF-ASK Task Force on Reassessing the Inclusion of Race in Diagnosing Kidney Disease, JASN 2020). The CKD-EPI equation should not be used for patients with unstable renal function and has not been validated in children and those over 70. Current interpretive data was last reviewed 2021. Testing performed by: [facility], [address] [place] [address], [place]., [address] Blood 02/02/2025 11:2 1 AM CDT 02/02/2025 7:07 PM CDT Leila Romo MD LAB BLOOD ORDERABLES Final Result [address] [place] [address] * (ABNORMAL) Differential, auto (02/02/2025 11:21 AM CDT) Neutrophil abs 5.67 1.50 - 6.50 K/cumm Comment:Testing performed by : [address] [address] Imm gran abs 0.04 0.00 - 0.10 K/cumm CERNER Comment:Testing performed by : [address] [address] Lymphocyte abs 1.79 0.80 - 3.30 K/cumm CERNER Comment:Testing performed by : [address] [address] Monocyte abs 1.16(H) 0.20 - 0.80 K/cumm CERNER Comment:Testing performed by : [address] [address] Eosinophil abs 0.10 0.00 - 0.50 K/cumm CERNER Comment:Testing performed by : [address] [address] Basophil abs 0.03 0.00 - 0.10 K/cumm CERNER Comment:Testing performed by : [address] [address] Neutrophil pct 64.5 % CERNER Comment: Interpretive Data Percent cell count reference ranges are not reported, since discordance with absolute values may lead to misinterpretation of CBC data. Current Interpretive Data was last revised on 2018. Testing performed by: [address], [address] Imm gran pct 0.5 % CERNER Comment: Interpretive Data Percent cell count reference ranges are not reported, since discordance with absolute values may lead to misinterpretation of CBC data. Current Interpretive Data was last revised on 2018. Testing performed by: [facility], [address] [place] [address]., [address] Lymphocyte pct 20.4 % CERNER Comment: Interpretive Data Percent cell count reference ranges are not reported, since discordance with absolute values may lead to misinterpretation of CBC data. Current Interpretive Data was last revised on 2018. Testing performed by: [address] [address] Monocyte pct 13.2 % CERNER Comment: Interpretive Data Percent cell count reference ranges are not reported, since discordance with absolute values may lead to misinterpretation of CBC data. Current Interpretive Data was last revised on 2018. Testing performed by: [facility], [address] [place] [address]., [address] Eosinophil pct 1.1 % CERNER Comment: Interpretive Data Percent cell count reference ranges are not reported, since discordance with absolute values may lead to misinterpretation of CBC data. Current Interpretive Data was last revised on 2018. Testing performed by: [address] [address] Basophil pct 0.3 % CERNER Comment: Interpretive Data Percent cell count reference ranges are not reported, since discordance with absolute values may lead to misinterpretation of CBC data. Current Interpretive Data was last revised on 2018. Testing performed by: [address] [address] Blood 02/02/2025 11:2 1 AM CDT 02/02/2025 6:54 PM CDT us Leila Romo MD LAB BLOOD ORDERABLES Final Result RICHARD [address] [place] [address] * HIV 1/2 Antibody plus p24 Antigen Blood (02/02/2025 11:21 AM CDT) HIV 1/2 ab + p24 ag Nonreactive Nonreactive Comment: Nonreactive for HIV-1 antigen and HIV-1/HIV-2 antibodies. No laboratory evidence of HIV infection. If acute HIV infection is suspected, consider testing for HIV-1 RNA. Testing performed by: [address] [address] Blood 02/02/2025 11:2 1 AM CDT 02/02/2025 6:54 PM CDT Leila Romo MD LAB MICROBIOLOGY - NERAL ORDERABLES Final Result [address] Department [place] [address] * (ABNORMAL) CBC with auto differential (02/02/2025 11:21 AM CDT) WBC 8.79 3.80 - 9.90 K/cumm Comment:Testing performed by : [address], [address] Hgb 13.2 11.9 - 15.5 g/dL CERNER Comment:Testing performed by : [address], [address] Hct 40.4 35.6 - 45.5 % CERNER CH Comment:Testing performed by : [address], [address] Plt 236 150 - 400 K/cumm CERNER CH Comment:Testing performed by : [address], [address] MPV 11.7 9.1 - 12.3 fL CERNER CH Comment:Testing performed by : [address], [address] RBC 4.42 3.90 - 5.20 M/cumm CERNER CH Comment:Testing performed by : [address], [address] MCV 91.4 81.3 - 96.4 fL CERNER CH Comment:Testing performed by : [address], [address] MCH 29.9 27.1 - 33.3 pg CERNER CH Comment:Testing performed by : [address], [address] MCHC 32.7 32.3 - 35.7 g/dL RICHARD Comment:Testing performed by : [facility], [address] [place] [address]., [address] RDW CV 14.4 11.1 - 14.9 % RICHARD Comment:Testing performed by : [facility], [address] [place] [address]., [address] RDW SD 48.7(H) 35.7 - 48.1 fL RICHARD Comment:Testing performed by : [facility], [address] [place] [address]., [address] NRBC abs 0.00 0.00 - 0.01 K/cumm RICHARD Comment:Testing performed by : [facility], [address] [place] [address], [address] Blood 02/02/2025 11:2 1 AM CDT 02/02/2025 6:54 PM CDT Leila Romo MD LAB BLOOD ORDERABLES Final Result [address] Department [place] [address] * Hepatitis C antibody Blood (02/02/2025 11:21 AM CDT) Hep C Ab Nonreactive Nonreactive Comment: Interpretive Data Nonreactive: Antibodies to HCV [...] last revised on 2020. Testing performed by: [address] [address] Blood 02/02/2025 11:2 1 AM CDT 02/02/2025 6:54 PM CDT Leila Romo MD [facility] Final Result Performing Organization Address [facility] Co de Phone Number RICHARD [address] [facility] [place] [address] * Protein / creatinine ratio, urine, random (02/02/2025 11:21 AM CDT) Protein, ur, quant 26.9 mg/dL Comment: Interpretive Data No reference range established. Current interpretive data was last revised 2019. Testing performed by: [address] [address] Creatinine Ur 303.8 mg/dL [facility] Comment: Interpretive Data No reference range established. Current interpretive data was last revised 2019. Testing performed by: [address] [address] Protein/creatinin e ratio 88.5 0.0 - 180.0 mg/g CR RICHARD Comment:Testing performed by : [address] [address] Urine 02/02/2025 11:2 1 AM CDT 02/04/2025 9:44 AM CDT Leila Romo MD LAB URINE ORDERABLES Final Result Performing Organization Address [facility] Co de Phone Number RICHARD [address] [facility] [place] [address] * (ABNORMAL) Drugs of Abuse Screen, Urine without Confirmation (02/02/2025 11:21 AM CDT) Amphetamine, ur Screen Positive, presumptive (A) CutOff 500ng/mL Comment: Interpretive Data - Amphetamines: Samples containing greater than 500 ng/mL d-methamphetamine or other cross-reacting amphetamine compounds are reported as positive. Amphetamine immunoassays are subject to significant false positive rates due to cross-reactivity of non-amphetamine drugs. Confirmatory testing required for definitive results. Current Interpretive Data was last reviewed 2023. Testing performed by: [address] [address] Barbiturates, ur Not Detected CutOff 200ng/mL [facility] Comment: Interpretive Data - Barbiturates: Samples containing greater than 200 ng/mL secobarbital or other cross-reacting barbiturate compounds are reported as positive. False positive and false negative results are possible. Confirmatory testing required for definitive results. Current Interpretive Data was last reviewed 2023. Testing performed by: [facility], [address] [place] [address]., [address] Benzodiazepines, ur Not Detected CutOff 100ng/mL CERNER Comment: Interpretive Data - Benzodiazepines: Samples containing greater than 100 ng/mL nordiazepam or other cross-reacting compounds are reported as positive. False positive and false negative results are possible. Confirmatory testing required for definitive results. Current Interpretive Data was last reviewed 2023. Testing performed by: [address] [address] Cannabinoids, ur Screen Positive, presumptive (A) CutOff 50 ng/mL CERNER Comment: Interpretive Data - Cannabinoids: Samples containing greater than 50 ng/mL delta-9 THC -COOH or other cross- reacting compounds are reported as positive. False positive and false negative results are possible. Confirmatory testing required for definitive results. Current Interpretive Data was last reviewed 2023. Testing performed by: [address] [address] Cocaine, ur Not Detected CutOff 150ng/mL CERNER Comment: Interpretive Data - Cocaine: Samples containing greater than 150 ng/mL benzoylecgonine or other cross- reacting compounds are reported as positive. False positive and false negative results are possible. Confirmatory testing required for definitive results. Current Interpretive Data was last reviewed 2023. Testing performed by: [address] [address] Fentanyl, Ur Not Detected CutOff 5 ng/mL CERNER Comment: Interpretive Data - Fentanyl: Samples containing greater than 5 ng/mL norfentanyl, fentanyl, or other cross-reacting fentanyl compounds are reported as positive. False positive and false negative results are possible. Confirmatory testing required for definitive results. Current Interpretive Data was last reviewed 2024. Testing performed by: [address] [address] Methadone, ur Not Detected CutOff 300ng/mL CERNER CH Comment: Interpretive Data - Methadone: Samples containing greater than 300 ng/mL d,l-methadone or other cross-reacting compounds are reported as positive. False positive and false negative results are possible. Confirmatory testing required for definitive results. Current Interpretive Data was last reviewed 2023. Testing performed by: [facility], [address] [place] [address]., [address] Opiates, ur Not Detected CutOff 300ng/mL [facility] Comment: Interpretive Data - Opiates: Samples containing greater than 300 ng/mL morphine or other cross-reacting compounds are reported as positive. False positive and false negative results are possible. Confirmatory testing required for definitive results. Current Interpretive Data was last reviewed 2023. Testing performed by: [address] [address] Oxycodone, ur Not Detected CutOff 100ng/mL [facility] Comment: Interpretive Data - Oxycodone: Samples containing greater than 100 ng/mL oxycodone or other cross-reacting compounds are reported as positive. False positive and false negative results are possible. Confirmatory testing required for definitive results. Current Interpretive Data was last reviewed 2023. Testing performed by: [facility], [address] [place] [address]., [address] Phencyclidine, ur Not Detected CutOff 25 ng/mL [facility] Comment: Interpretive Data - Phencyclidine: Samples containing greater than 25 ng/mL phencyclidine or other cross-reacting compounds are reported as positive. False positive and false negative results are possible. Confirmatory testing required for definitive results. Current Interpretive Data was last reviewed 2023. Testing performed by: [facility], [address] [place] [address]., [address] Urine Creatinine 306 mg/dL [facility] Comment: Interpretive Data Urine Creatinine: < 10 mg/dL is extremely dilute = or > 10 but < 20 mg/dL is dilute = or > 20 mg/dL is normal Current Interpretive Data was last revised on 2018. Testing performed by: [address] [address] Urine 02/02/2025 11:2 1 AM CDT 02/02/2025 6:54 PM CDT Narrative RICHARD FLORES - 02/02/2025 10:05 PM CDT Drug of Abuse screening is performed by immunoassay for medical purposes only. This is not to be used for Pain Management purposes. Leila Romo MD LAB URINE ORDERABLES Final Result Performing Organization Address [facility] Co de Phone Number MEGHNAP[place] [address] [place] [place] [address] * Rubella IgG antibody Blood (02/02/2025 11:21 AM CDT) Rubella IgG Reactive Comment: Reactive: Results suggest response to immunization or prior exposure to the virus. Testing performed by: [facility], [address] [place] [address], [id number] Blood 02/02/2025 11:2 1 AM CDT 02/03/2025 10:01 AM CDT Leila Romo MD LAB MICROBIOLOGY - GE NERAL ORDERABLES Final Result Performing Organization Address [facility] Co de Phone Number [facility] [address] [place] [place] [address] * RPR Blood (02/02/2025 11:21 AM CDT) Pathologist [facility] RPR Nonreactive Nonreactive Comment:Testing performed by : [facility], [address] [place] [address]., [address] Blood 02/02/2025 11:2 1 AM CDT 02/02/2025 6:54 PM CDT Leila Romo MD LAB MICROBIOLOGY - GE NERAL ORDERABLES Final Result Performing Organization Address [facility] Co de Phone Number RICHARD [phone] [address] [place] [address] * Hepatitis B Surface Antigen Blood (02/02/2025 11:21 AM CDT) HepBsAg Nonreactive Nonreactive Comment:Testing performed by : [facility], [address] [place] [address]., [address] Blood 02/02/2025 11:2 1 AM CDT 02/02/2025 6:54 PM CDT Leila Romo MD LAB MICROBIOLOGY - GE NERAL ORDERABLES Final Result Performing Organization Address [facility]/ZIP Co de Phone Number RICHARD FLORES [address] [facility] [place] [address] * Type and screen (02/02/2025 11:21 AM CDT) ABO Rh A Positive Hope, indirect Negative RICHARD Blood 02/02/2025 11:2 1 AM CDT 02/02/2025 7:06 PM CDT Narrative RICHARD - 02/02/2025 8:57 PM CDT Has the patient had Daratumumab or Isatuximab in the past 6 months?->Unknown Leila Romo MD LAB BLOOD BANK TEST O RDERABLES Final Result Performing Organization Address [facility] Co de Phone Number RICHARD FLORES [phone] [facility] [place] [address] * Urine culture Urine, clean voided (02/02/2025 11:21 AM CDT) Report Final Report: Less than 100,000 colonies/mL (clinically insignificant growth based on current clinical standards) Comment:Testing performed by : [facility], [address] [place]., [address] Organism (CLINICALLY INSIGNIFICANT GROWTH RICHARD Urine, clean voided 02/02/2025 11:21 AM CDT 02/02/2025 10:52 PM CDT Narrative RICHARD - 02/04/2025 8:04 AM CDT Testing performed by [facility] ([phone]) Leila Romo MD LAB MICROBIOLOGY - GE NERAL ORDERABLES Final Result Performing Organization Address City/[facility] Co de Phone Number RICHARD [address] [facility] [place] [address] * Varicella Zoster IgG antibody Blood (02/02/2025 11:21 AM CDT) Pathologist [facility] IgG Reactive Reactive Comment: Reactive: Results suggest response to immunization or prior exposure to the virus. Testing performed by: [facility], [address] [place]., [address] Blood 02/02/2025 11:2 1 AM CDT 02/03/2025 10:01 AM CDT Leila Romo MD LAB MICROBIOLOGY - GE NERAL ORDERABLES Final Result Performing Organization Address [facility] Co de Phone Number RICHARD [address] [facility] [place] [address] * Comprehensive metabolic panel (02/02/2025 11:21 AM CDT) [facility] Sodium 135 135 - 145 mmol/L Comment:Testing performed by : [address] [address] Potassium, pl 4.0 3.3 - 4.9 mmol/L CERNER CH Comment:Testing performed by : [address] [address] Chloride 102 97 - 110 mmol/L CERNER CH Comment:Testing performed by : [address] [address] CO2 22 22 - 32 mmol/L CERNER CH Comment:Testing performed by : [address] [address] Anion gap 11 2 - 15 mmol/L CERNER CH Comment:Testing performed by : [address], [address] BUN 7 6 - 25 mg/dL CERNER CH Comment:Testing performed by : [facility], [address], [place]., [address] Creatinine 0.71 0.60 - 1.10 mg/dL CERNER CH Comment:Testing performed by : [address] [address] Glucose 128 70 - 199 mg/dL CERNER CH Comment: Interpretive Data Fasting glucose >/= 126 mg/dl is diagnostic for diabetes. Fasting is defined as no caloric intake for at least 8 hours. Fasting glucose between 100 mg/dl to 125 mg/dl is diagnostic of prediabetes. In a patient with classic symptoms of hyperglycemia or hyperglycemic crisis, a random glucose >/= 200 mg/dl is diagnostic for diabetes. In the absence of unequivocal hyperglycemia, results should be confirmed by repeat testing. The classification and Diagnosis of Diabetes Diabetes Care 2021; 46: S19-S40. Current interpretive data was last revised 2022. Testing performed by: [address] [address] Calcium 9.5 8.5 - 10.3 mg/dL CERNER CH Comment:Testing performed by : [address] [address] Bilirubin, total 0.2 0.1 - 1.2 mg/dL CERNER CH Comment:Testing performed by : [address] [address] Protein, pl 7.1 6.5 - 8.5 g/dL CERNER CH Comment:Testing performed by : [address] [address] Albumin 3.9 3.5 - 5.0 g/dL CERNER CH Comment:Testing performed by : [address] [address] Alk phos 50 40 - 130 Units/L CERNER CH Comment:Testing performed by : [address] [address] ALT 42 7 - 45 Units/L CERNER CH Comment:Testing performed by : [address] [address] AST 27 10 - 45 Units/L CERNER CH Comment:Testing performed by : [address], [address] Blood 02/02/2025 11:2 1 AM CDT 02/02/2025 6:54 PM CDT us Leila Romo MD LAB BLOOD ORDERABLES Final Result RICHARD FLORES [address] [place] [address] * US Ob Under 14 Weeks (01/14/2025 1:23 PM CDT) Anatomical Region Laterality Modality Abdomen N/A Ultrasound 01/21/2025 6:41 AM CDT Narrative 01/21/2025 6:44 AM CDT EXAM DESCRIPTION: US OB UNDER 14 WEEKS REASON FOR STUDY: determine viability Viability Beta-hCG: TECHNIQUE: Transabdominal images acquired of the pelvis. COMPARISON: None. FINDINGS: The clinical age is 14 weeks 1 day with an JAYA 07/14/2025. The uterus is 13.9 x 6.6 x 8.8 cm. There is an intrauterine with a mean crown-rump length 7.01 cm corresponding to an estimated age 13 weeks 1 day with an JAYA 07/21/2025. A yolk sac is not seen. No evidence of complication. No subchorionic hemorrhage seen. heart rate is 166 beats per minute. Right ovary is 3.0 x 2.7 x 2.0 cm. Preserved color flow and waveforms of the right ovary. No adnexal mass. Left ovary is 3.4 x 1.9 x 3.6 cm. Preserved color flow and waveforms left ovary. No adnexal mass. IMPRESSION: 1. Single uterine estimated at 13 weeks 1 day with an JAYA 07/21/2025. 2. heart rate 166 beats per minute. 3. No evidence of complication. THIS IS AN ELECTRONICALLY VERIFIED FINAL REPORT 01/21/2025 6:44 AM - Electronically signed by Jonathan Styles M.D. CH: MARK Report ID: [id number] Reading Location: [id number] Procedure Note Jonathan Styles Jr., MD - 01/21/2025 EXAM DESCRIPTION: US OB UNDER 14 WEEKS REASON FOR STUDY: determine viability Viability Beta-hCG: TECHNIQUE: Transabdominal images acquired of the pelvis. COMPARISON: None. FINDINGS: The clinical age is 14 weeks 1 day with an JAYA 07/14/2025. The uterus is 13.9 x 6.6 x 8.8 cm. There is an intrauterine with a mean crown-rump length 7.01 cm corresponding to an estimated age 13 weeks 1 day with an JAYA 07/21/2025. A yolk sac is not seen. No evidence of complication. No subchorionic hemorrhage seen. heart rate is 166 beats per minute. Right ovary is 3.0 x 2.7 x 2.0 cm. Preserved color flow and waveforms ofthe right ovary. No adnexal mass. Left ovary is 3.4 x 1.9 x 3.6 cm. Preserved color flow and waveforms left ovary. No adnexal mass. IMPRESSION: 1. Single uterine estimated at 13 weeks 1 day with an JAYA 07/21/2025. 2. heart rate 166 beats per minute. 3. No evidence of complication. THIS IS AN ELECTRONICALLY VERIFIED FINAL REPORT 01/21/2025 6:44 AM - Electronically signed by Jonathan Styles M.D. CH: Report ID: [id number] Reading Location: [place] [address] us Leila Romo MD IMG OB US PROCEDURES Final Result * QNatelaAdvanced (12/30/2024 11:11 AM CDT) Number of fetuses 1 [facility], Down syndrome risk, maternal age NOT GIVEN [facility], Abnormal Yumiko? NOT GIVEN [facility], Abnormal Us? NOT GIVEN [facility], History, personal/family NOT GIVEN [facility], test, interpretation SEE NOTE [facility], Comment: This specimen showed an expected representation of chromosome 21, 18, and 13 material. See Limitations below. Trisomy 21 risk assessment Negative [facility], Trisomy 18 (T18) Negative [facility], Trisomy 13 risk assessment Negative [facility], Genotype Assay Detected [facility], Cytogenetic Diagnosis SEE NOTE [facility], Comment:Consistent with a ma le fetus. Sex chromosome No aneuploidy [facility], Comment SEE NOTE [facility], Comment: No apparent abnormality was detected. See Limitations below. MICRODELETION Not detected [facility], MICRODELETION INTERP SEE NOTE [facility], Comment: No apparent abnormality was detected. See Limitations below. Gestational age 12 Ques [facility], Gestational age 0 Ques t [facility], Fraction 9.30% [facility], test, comment SEE NOTE [facility], Comment: A portion of the testing was performed at [facility]. Laboratory results and submitted clinical information reviewed by Janet Hill, Ph.D., [facility], [facility]. test, limitations SEE NOTE [facility], Comment: QNatal(R) Advanced is a cell-free DNA screening test that screens for increased risk of certain chromosomal abnormalities that may cause defects, including Trisomy 21 (Down syndrome), Trisomy 18, Trisomy 13, and certain sex chromosome abnormalities (i.e., 45,X, 47,XXY, 47,XXX, and 47,XYY), as well as sex. In addition, if selected as an option, QNatal(R) Advanced can screen for certain microdeletions (i.e., 22q, 5p, 1p36, 15q, 11q, 8q, and 4p) that may cause defects. This test does not assess the risk of abnormalities such as neural tube defects or ventral wall defects and should not be considered in isolation from other clinical findings and laboratory test results. QNatal(R) Advanced has been validated in molina pregnancies for the trisomies and sex chromosome abnormalities listed above, as well as for microdeletions, and for the determination of sex. Sex chromosome aneuploidy analysis is only performed in molina pregnancies. This screening test has also been validated in twin pregnancies for the trisomies listed above and for microdeletions, but not for the sex chromosome abnormalities due to limited data. This screening test has not been validated in higher order pregnancies (more than two) because limited data is available. Sex chromosomal aneuploidy results issued for pregnancies confirmed to be of multiple gestations are not valid and should be disregarded. Microdeletion screening is limited to the specified microdeletion regions (see Methodology ). The Y chromosome is analyzed for the determination of sex. The sensitivity and specificity of sex determination analysis may be less than that of the Trisomy 21, 18, and 13 analysis and this determination can be confounded by vanishing twin syndrome in pregnancies that were originally multiple gestation pregnancies. It should be noted that QNatal(R) Advanced is a quantitative analysis of maternal and placental cfDNA. As a result, the accuracy of screening results may be affected by the presence of chromosome abnormalities or microdeletions that are maternal or confined placental in origin. SPECIFICATIONS SEE NOTE [employer] [facility]/ [facility], Comment: Sensitivity Specificity T21 >99.9% >99.9% T18 >99.9% >99.9% T13 >99.9% >99.9% Accuracy Y >99.9% Performance of the QNatal Advanced laboratory-developed test (LDT) has been determined based on internal analytical assessment. METHODOLOGY SEE NOTE [facility] [employer] [facility]/ [facility], Comment: Circulating cell-free (cf) DNA was isolated from plasma followed by detection on a massively parallel sequencing platform. Bioinformatic analysis was performed to determine the representation of chromosomes 21, 18, 13, X and Y in circulating cell-free DNA. The representation of sequences from the critical regions involved in 1p36 microdeletion syndrome (1p36), Guillen-Hirschhorn syndrome (4p), Cri-du-chat syndrome (5p), Logan-Giedion syndrome (8q), Renée syndrome (11q), Prader Willi syndrome/Angelman syndrome (15q), and DiGeorge syndrome (22q) is evaluated for the detection of microdeletions if requested. Performance characteristics refer to the analytical performance of this screening test. This screening test is performed pursuant to a license agreement with [employer]. QNatal Advanced is a laboratory developed test that has been developed and validated, pursuant to the Clinical Laboratory Improvements Amendments of 1988 (CLIA), and as such it has not been reviewed by FDA. Blood 12/30/2024 11:1 1 AM CDT 12/30/2024 11:12 AM CDT [facility] - 2025 8:02 AM CDT FASTING:NO FASTING: NO Leila Romo MD LAB GENETIC TESTING F inal Result [facility], [address] [place] [address] * N. gonorrhoeae/C. trachomatis Amplification Endocervical (12/29/2024 11:24 AM CDT) C. trachomatis Not Detected [facility] Comment:Testing performed by : [facility], [address] [place] [address], [place]., [address] N. gonorrhoeae Not Detected RICHARD FLORES Comment: Interpretive Data This assay detects Chlamydia trachomatis and Neisseria gonorrhoeae by nucleic acid amplification testing (NAAT). This assay has been cleared by the [place] Food and Drug administration. The performance characteristics of this test have been verified by the [facility] Infectious Disease laboratory. The performance characteristics of this test have not been evaluated in individuals less than 14 years of age. Current Interpretive Data was last revised on 2023. Testing performed by: [facility], [address] [place]., [address] Endocervical (None) 12/30/19 11:24 AM CDT 12/30/2024 9:46 AM CDT Leila Romo MD LAB MICROBIOLOGY - [facility] ORDERABLES Final Result RICHARD FLORES [address] [place] [address] [facility] * Screening Mammogram Bilateral W Bao (01/23/2024 [...] There has been no suspicious interval change. Self Screening Mammogram IMG MAMMO PROCEDURES Fi nal Result * ThinPrep Imaging Pap and HPV mRNA E6/E7 Reflex HPV 16,18/45 (03/02/2021 11:57 AM CDT) CLINICAL INFORMATION: [facility] Comment:Routine exam LMP [facility] Comment:UNKNOWN Previous Pap [facility] Comment:INFORMATION NOT PROV IDED Prev. Bx [facility] Comment:INFORMATION NOT PROV IDED SOURCE: [facility] Comment:Cervix, Endocervix Pap, specimen adequacy [facility] Comment: Satisfactory for evaluation. Endocervical/transformation zone component present. Age and/or menstrual status not provided HPV interp [facility] Comment:Negative for intraep ithelial lesion or malignancy. COMMENTS [facility] Comment: This Pap test has been evaluated with computer assisted technology. 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 [address] Comment [facility] Comment: EXPLANATORY NOTE: The Pap is a [...] High Risk E6/E7 Not Detected Not Detected [facility] [employer] Cassie Comment: Methodology: Title Investigator-Mediated Amplification This assay detects E6/E7 viral messenger RNA (mRNA) from 14 high-risk HPV types (16,18,31,33,35,39,45,51,52,56,58,59,66,68). The analytical performance characteristics of this assay have been determined by [facility] [employer] [facility]. The modifications have not been cleared or approved by the FDA. This assay has been validated pursuant to the CLIA regulations and is used for clinical purposes. For additional information, please refer to http://education.Pidefarma.Categorical/faq/DSE678n9 (This link if provided for information/ educational purposes only.) 03/02/2021 11:5 7 AM CDT 03/03/2021 2:21 AM CDT Narrative [facility] [place] - 03/05/2021 3:24 PM CDT FASTING: UNKNOWN us Leila Romo MD LAB CYTOLOGY ORDERABL ES Final Result [facility] [address] [place] [address] [facility] [address] [place] [address] from Last 3 Months or Most Recently Relevant to Health Maintenance Insurance [employer] [place] [employer] 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
--- OUTSIDE RECORDS SUMMARY | 2025-02-07 17:27 | XMS_ITS | Clinical Summary ---
Author Organization [facility] [address] Address [address] [place] [address] Phone Care Team Providers Care Ball Machine Operator Name Role Phone Edgardo Manuel MD Primary Care Provider [phone] Allergies Active Allergy Reactions Criticality Noted Date [...] by mouth every 12 (twelve) hours 12/26/19 025 Discontinued(Re order) Active Problems Problem Noted [...] nails are covered with thick red nail Pashto this some evidence of onychomycosis round the [...] through the pharmacy given to us [facility] patient has made a commitment to get back to me in the next 24 hours regarding her precise medication she is taking.. At this time she has no symptoms referable to hypertension Seborrhea-like dermatitis with psoriasiform sac & [place] ents 01/21/2024 Assessment & Plan (01/21/2024 5:27 [...] this. Assessment & Plan (11/28/2021 6:33 PM KOHINOOR OPERATOR): 41-year-old lady who is a new [...] (05/01/2022): Added automatically from request for surgery [id number] Acute otitis media 02/28/2021 Acute infective otitis externa of right ear 02/28/2021 03/02/2021 Encounters Date Type Department Care Team Description 02/02/2025 11:10 AM CDT Lab [facility] [address] [place] [address] Chronic hypertension in ; Encounter for supervision of other normal , first trimester; 14 weeks gestation of 01/30/2025 Telephone [facility] [address] [place] [address] Leila Romo MD 01/14/2025 2:00 PM CDT Office Visit [facility] [address] [place] [address] Leila Romo MD care, subsequent , second trimester (Primary Dx); Chronic hypertension affecting ; Antepartum multigravida of advanced maternal age 0301/14/2025 1:00 PM CDT Ancillary Procedure [facility] [address] [place] [address] Encounter to determine viability of , single or unspecified fetus 01/14/2025 Orders Only [facility] [address] [place] [address] Leila Romo MD Encounter for supervision of other normal , first trimester (Primary Dx); 14 weeks gestation of ; Chronic hypertension in 2025 Results Follow-Up [facility] [address] [place] [address] Leila Romo MD 12/31/2024 Results Follow-Up [facility] [address] [place] [address] Leila Romo MD 12/29/2024 11:24 AM CDT - 12/29/2024 11:59 PM CDT Hospital Encounter [facility] [address] [place] [address] Screening examination for venereal disease Discharge Disposition: Discharge to home or self care 12/29/2024 10:15 AM CDT Office Visit [facility] [address] [place] [address] Leila Romo MD Pelvic pain affecting in first trimester, antepartum (Primary Dx); Screening examination for venereal disease; Chronic hypertension affecting ; Multigravida of advanced maternal age in first trimester 12/29/2024 Orders Only [facility] [address] [place] [address] Leila Romo MD AMA (advanced maternal age) multigravida 35+, first trimester (Primary Dx) 12/15/2024 Orders Only [facility] [address] [place] [address] Leila Romo MD Encounter to determine viability of , single or unspecified fetus (Primary Dx) from Last 3 Months Immunizations Immunization Administration [...] syndrome) Chlamydia 2010 Tubal occlusion HSG ~ 2006, 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 PONV (postoperative [...] on file Legal Sex Female 9:49 AM KOHINOOR OPERATOR Gender Identity Not on file Sexual Orientation Not on file Occupation Industry Job Start Date Job End Date Not on file Not on file Not on file Not on file Obstetrics History Para Term AB IAB SAB Ectopic Multiple Livin g Live Births 2 0 0 0 1 0 1 0 0 0 0 Date Outcome GA Total Labor Labor/2nd/3rd Weight Sex Type Anes PTL Anna A1 A5 Name Clin 04/2022 SAB 9w1d D&C Current Summary Episode Dates Number of Fetuses Estimated Date of Delivery 12/29/2024 - Present (02/07/2025) 07/14/2025 (set by Nick Romo MD on 12/29/2024 based on Ultrasound on 12/24/2024) Dating Summary Based On JAYA GA Diff Last Menstrual Period on 10/10/2024 (Within Days ) 07/17/2025 -3d Ultrasound on 12/24/2024 07/14/2025 Working GA:11w1d Notes Progress Notes - Office Visi t - 01/14/2025 - GA:14w1d 01/14/2025 - 14w1d - Leila Romo MD New OB -- JAYA 07/14 by 11 wk ED sono, unsure LMP. Sono today is unremarkable. Feeling better overall. OB labs ordered. -- Chronic HTN - at ED visit was changed from amlodipine and HCTZ and labetalol 100 mg BID. BP is elevated today but did not take medication yet. Discussed risks including preeclampsia, IUGR. Start ASA 81 mg daily. Baseline preeclampsia labs ordered. Plan for serial growth ultrasound in 3rd trimester. Continue current dose of labetalol at this time. Precautions given. -- AMA - discussed risks including PIH, GDM, aneuploidy. She already completed NIPT after ER follow up visit, which was normal. -- Smoker - marijuana multiple times daily and cigarettes 1/2 ppd. Quit both with . Discussed risks including IUGR, PTL, abruption. Encouraged continued cessation efforts. Progress Notes - Office Visi t - 12/29/2024 - GA:11w6d 12/29/2024 - 11w6d - Leila Romo MD Subjective/Objective Patient ID: Aliyah Mcclelland is a 44 y.o. female. Chief Complaint Abdominal Cramping HPI presents for an ER follow up. She presented to [place] ER 3/5 c/o pelvic cramping and back pain that started earlier that day. LMP 10/10/24, +/- a few days. Denies vaginal bleeding. Notes and labs, imaging from the ED were reviewed. -- Ultrasound: 11w1d IUP with cardiac activity, JAYA 07/14. Bilateral adnexa unremarkable. -- Rh positive -- CBC, CMP, UA unremarkable -- HCG - 62, 703 She has a h/o chronic hypertension on amlodipine and HCTZ. OB phone consult was completed in the ED and medication changed to labetalol 100 mg PO BID. Pain improved and then today noticed left-sided cramping. She has had some gas pains and constipation but able to have a BM earlier today. Review of Systems Gastrointestinal: Positive for constipation. Negative for diarrhea. Genitourinary: Positive for pelvic pain. Negative for vaginal bleeding. Vitals BP 130/92 Wt 201 lb (91.2 kg) LMP 10/10/2024 (Within Days) BMI 33.45 kg/m Physical Exam Constitutional: Appearance: Normal appearance. Abdominal: Palpations: Abdomen is soft. Tenderness: There is abdominal tenderness (mild) in the left lower quadrant. There is no guarding or rebound. Genitourinary: Right labia: normal. Left Labia: normal. No vaginal discharge, erythema or bleeding. Right adnexa: normal. Left adnexa: normal. Cervix: Normal exam. Uterus is enlarged (11 wk). Genitourinary Comments: Cervix closed. Neurological: General: No focal deficit present. Mental Status: She is alert and oriented to person, place, and time. Psychiatric: Mood and Affect: Mood normal. Behavior: Behavior normal. Assessment/Plan 1. Pelvic pain affecting in first trimester, antepartum (Primary) Reviewed unremarkable pelvic imaging with patient. Recommend stool softeners PRN constipation. On further discussion today, current left-sided pain is more c/w round ligament pain. Recommend tylenol PRN, activity as tolerated. Pain and bleeding precautions in early discussed. Keep new OB visit as scheduled 01/14 with ultrasound. 2. Screening examination for venereal disease - N. gonorrhoeae/C. trachomatis Amplification Endocervical; Future 3. Chronic hypertension affecting BP is stable. Continue labetalol in . Will order baseline labs and start ASA next visit. 4. Multigravida of advanced maternal age in first trimester She is interested in genetic testing - NIPT ordered today. Will discuss in more detail next visit. Last Filed Vital Signs Vital Sign Reading [...] cm (5' 5 ) 09/11/2024 1:08 PM KOHINOOR OPERATOR Body Mass Index 33.61 09/11/2024 1:08 PM KOHINOOR OPERATOR Plan of Treatment Health Maintenance Due Date Last Done Comments Varicella Vaccines (1 of 2 - 13+ 2-dose series) 1994 Hepatitis B Screening 1999 Cervical Cancer Screening 03/02/2022 03/02/2021 Depression Screening 11/28/2022 11/28/2021 DTaP/Tdap/Td Vaccine (2 - Td or Tdap) 12/16/2024 12/16/2014, 11/08/1995 Breast Cancer Screening-Mammogram 01/22/2025 01/23/2024, 05/19/2022, 03/16/2021 Influenza Vaccine (Season Ended) 2025 Regular Well Visit/Exam 18-64 09/11/2025 09/11/2024, 01/21/2024, 11/28/2021, Additional history exists Hepatitis C Screening Completed 02/02/2025, 022 HPV Vaccines Aged Out No longer eligi ble based on patient's age to complete this topic Pneumococcal vaccine <65 Aged Out No longer eligible based on [...] was last reviewed 2021. Testing performed by: [facility], [address] [place] [address], [place]., [address] Blood 02/02/2025 11:2 1 AM CDT 02/02/2025 7:07 PM CDT Leila Romo MD LAB BLOOD ORDERABLES Final Result [address] Department [place] [address] * (ABNORMAL) Differential, auto (02/02/2025 11:21 AM CDT) Neutrophil abs 5.67 1.50 - 6.50 K/cumm Comment:Testing performed by : [facility], [address] [place] [address]., [id number] Imm gran abs 0.04 0.00 - 0.10 K/cumm CERNER Comment:Testing performed by : [facility], [address] [place] [address]., [id number] Lymphocyte abs 1.79 0.80 - 3.30 K/cumm CERNER Comment:Testing performed by : [address] [address] Monocyte abs 1.16(H) 0.20 - 0.80 K/cumm CERNER Comment:Testing performed by : [address] [address] Eosinophil abs 0.10 0.00 - 0.50 K/cumm CERNER Comment:Testing performed by : [address] [address] Basophil abs 0.03 0.00 - 0.10 K/cumm CERNER Comment:Testing performed by : [address] [address] Neutrophil pct 64.5 % CERNER Comment: Interpretive Data Percent cell count reference ranges are not reported, since discordance with absolute values may lead to misinterpretation of CBC data. Current Interpretive Data was last revised on 2018. Testing performed by: [address] [address] Imm gran pct 0.5 % CERNER Comment: Interpretive Data Percent cell count reference ranges are not reported, since discordance with absolute values may lead to misinterpretation of CBC data. Current Interpretive Data was last revised on 2018. Testing performed by: [address] [address] Lymphocyte pct 20.4 % CERNER Comment: Interpretive Data Percent cell count reference ranges are not reported, since discordance with absolute values may lead to misinterpretation of CBC data. Current Interpretive Data was last revised on 2018. Testing performed by: [facility], [address] [place] [address]., [address] Monocyte pct 13.2 % [facility] Comment: Interpretive Data Percent cell count reference ranges are not reported, since discordance with absolute values may lead to misinterpretation of CBC data. Current Interpretive Data was last revised on 2018. Testing performed by: [facility], [address] [place] [address]., [address] Eosinophil pct 1.1 % [facility] Comment: Interpretive Data Percent cell count reference ranges are not reported, since discordance with absolute values may lead to misinterpretation of CBC data. Current Interpretive Data was last revised on 2018. Testing performed by: [address] [address] Basophil pct 0.3 % [facility] Comment: Interpretive Data Percent cell count reference ranges are not reported, since discordance with absolute values may lead to misinterpretation of CBC data. Current Interpretive Data was last revised on 2018. Testing performed by: [address] [address] Blood 02/02/2025 11:2 1 AM CDT 02/02/2025 6:54 PM CDT Leila Romo MD LAB BLOOD ORDERABLES Final Result R[facility]ARD [id number] [place] [address] Department [place] [address] * HIV 1/2 Antibody plus p24 Antigen Blood (02/02/2025 11:21 AM CDT) HIV 1/2 ab + p24 ag Nonreactive Nonreactive Comment: Nonreactive for HIV-1 antigen and HIV-1/HIV-2 antibodies. No laboratory evidence of HIV infection. If acute HIV infection is suspected, consider testing for HIV-1 RNA. Testing performed by: [address] [address] Blood 02/02/2025 11:2 1 AM CDT 02/02/2025 6:54 PM CDT Leila Romo MD LAB MICROBIOLOGY - CLEMENTINE SIEGEL ORDERABLES Final Result [address] Department [place] [address] * (ABNORMAL) CBC with auto differential (02/02/2025 11:21 AM CDT) WBC 8.79 3.80 - 9.90 K/cumm Comment:Testing performed by : [address], [address] Hgb 13.2 11.9 - 15.5 g/dL CERNER Comment:Testing performed by : [address], [address] Hct 40.4 35.6 - 45.5 % CERNER Comment:Testing performed by : [address], [address] Plt 236 150 - 400 K/cumm CERNER CH Comment:Testing performed by : [address], [address] MPV 11.7 9.1 - 12.3 fL CERNER CH Comment:Testing performed by : [address], [address] RBC 4.42 3.90 - 5.20 M/cumm CERNER CH Comment:Testing performed by : [address], [address] MCV 91.4 81.3 - 96.4 fL CERNER CH Comment:Testing performed by : [address], [address] MCH 29.9 27.1 - 33.3 pg CERNER CH Comment:Testing performed by : [address], [address] MCHC 32.7 32.3 - 35.7 g/dL CERNER CH Comment:Testing performed by : [address], [address] RDW CV 14.4 11.1 - 14.9 % CERNER Comment:Testing performed by : [facility], [address] [place] [address]., [address] RDW SD 48.7(H) 35.7 - 48.1 fL RICHARD Comment:Testing performed by : [facility], [address] [place] [address]., [address] NRBC abs 0.00 0.00 - 0.01 K/cumm RICHARD Comment:Testing performed by : [facility], [address] [place] [address]., [id number] Blood 02/02/2025 11:2 1 AM CDT 02/02/2025 6:54 PM CDT Leila Romo MD LAB BLOOD ORDERABLES Final Result Performing Organization Address [facility] Co de Phone Number RICHARD [address] [place] [address] * Hepatitis C antibody Blood (02/02/2025 11:21 [...] last revised on 2020. Testing performed by: [facility], [address] [place] [address]., [address] Blood 02/02/2025 11:2 1 AM CDT 02/02/2025 6:54 PM CDT Leila Romo MD LAB MICROBIOLOGY - GE NERAL ORDERABLES Final Result Performing Organization Address [facility] Co de Phone Number [facility] [address] [facility] Department [email or web address] [address] * Protein / creatinine ratio, urine, random (02/02/2025 11:21 AM CDT) Protein, ur, quant 26.9 mg/dL Comment: Interpretive Data No reference range established. Current interpretive data was last revised 2019. Testing performed by: [address] [address] Creatinine Ur 303.8 mg/dL RICHARD Comment: Interpretive Data No reference range established. Current interpretive data was last revised 2019. Testing performed by: [facility], [address] [place] [address]., [address] Protein/creatinin e ratio 88.5 0.0 - 180.0 mg/g CR RICHARD Comment:Testing performed by : [address] [address] Urine 02/02/2025 11:2 1 AM CDT 02/04/2025 9:44 AM CDT Leila Romo MD LAB URINE ORDERABLES Final Result [address] Department [place] [address] * (ABNORMAL) Drugs of Abuse Screen, Urine without Confirmation (02/02/2025 11:21 AM CDT) Pathologist [facility] Amphetamine, ur Screen Positive, presumptive (A) CutOff 500ng/mL Comment: Interpretive Data - Amphetamines: Samples containing greater than 500 ng/mL d-methamphetamine or other cross-reacting amphetamine compounds are reported as positive. Amphetamine immunoassays are subject to significant false positive rates due to cross-reactivity of non-amphetamine drugs. Confirmatory testing required for definitive results. Current Interpretive Data was last reviewed 2023. Testing performed by: [address] [address] Barbiturates, ur Not Detected CutOff 200ng/mL RICHARD Comment: Interpretive Data - Barbiturates: Samples containing greater than 200 ng/mL secobarbital or other cross-reacting barbiturate compounds are reported as positive. False positive and false negative results are possible. Confirmatory testing required for definitive results. Current Interpretive Data was last reviewed 2023. Testing performed by: [facility], [address] [place] [address]., [address] Benzodiazepines, ur Not Detected CutOff 100ng/mL CERNER Comment: Interpretive Data - Benzodiazepines: Samples containing greater than 100 ng/mL nordiazepam or other cross-reacting compounds are reported as positive. False positive and false negative results are possible. Confirmatory testing required for definitive results. Current Interpretive Data was last reviewed 2023. Testing performed by: [facility], [address] [place] [address]., [address] Cannabinoids, ur Screen Positive, presumptive (A) CutOff 50 ng/mL CERNER Comment: Interpretive Data - Cannabinoids: Samples containing greater than 50 ng/mL delta-9 THC -COOH or other cross- reacting compounds are reported as positive. False positive and false negative results are possible. Confirmatory testing required for definitive results. Current Interpretive Data was last reviewed 2023. Testing performed by: [facility], [address] [place] [address]., [address] Cocaine, ur Not Detected CutOff 150ng/mL CERNER Comment: Interpretive Data - Cocaine: Samples containing greater than 150 ng/mL benzoylecgonine or other cross- reacting compounds are reported as positive. False positive and false negative results are possible. Confirmatory testing required for definitive results. Current Interpretive Data was last reviewed 2023. Testing performed by: [address] [address] Fentanyl, Ur Not Detected CutOff 5 ng/mL CERNER Comment: Interpretive Data - Fentanyl: Samples containing greater than 5 ng/mL norfentanyl, fentanyl, or other cross-reacting fentanyl compounds are reported as positive. False positive and false negative results are possible. Confirmatory testing required for definitive results. Current Interpretive Data was last reviewed 2024. Testing performed by: [address] [address] Methadone, ur Not Detected CutOff 300ng/mL CERNER Comment: Interpretive Data - Methadone: Samples containing greater than 300 ng/mL d,l-methadone or other cross-reacting compounds are reported as positive. False positive and false negative results are possible. Confirmatory testing required for definitive results. Current Interpretive Data was last reviewed 2023. Testing performed by: [facility], [address] [place] [address]., [address] Opiates, ur Not Detected CutOff 300ng/mL RICHARD Comment: Interpretive Data - Opiates: Samples containing greater than 300 ng/mL morphine or other cross-reacting compounds are reported as positive. False positive and false negative results are possible. Confirmatory testing required for definitive results. Current Interpretive Data was last reviewed 2023. Testing performed by: [facility], [address] [place] [address]., [address] Oxycodone, ur Not Detected CutOff 100ng/mL RICHARD Comment: Interpretive Data - Oxycodone: Samples containing greater than 100 ng/mL oxycodone or other cross-reacting compounds are reported as positive. False positive and false negative results are possible. Confirmatory testing required for definitive results. Current Interpretive Data was last reviewed 2023. Testing performed by: [facility], [address] [place] [address]., [address] Phencyclidine, ur Not Detected CutOff 25 ng/mL RICHARD Comment: Interpretive Data - Phencyclidine: Samples containing greater than 25 ng/mL phencyclidine or other cross-reacting compounds are reported as positive. False positive and false negative results are possible. Confirmatory testing required for definitive results. Current Interpretive Data was last reviewed 2023. Testing performed by: [facility], [address] [place] [address]., [address] Urine Creatinine 306 mg/dL RICHARD Comment: Interpretive Data Urine Creatinine: < 10 mg/dL is extremely dilute = or > 10 but < 20 mg/dL is dilute = or > 20 mg/dL is normal Current Interpretive Data was last revised on 2018. Testing performed by: [address] [address] Urine 02/02/2025 11:2 1 AM CDT 02/02/2025 6:54 PM CDT Narrative [facility] - 02/02/2025 10:05 PM CDT Drug of Abuse screening is performed by immunoassay for medical purposes only. This is not to be used for Pain Management purposes. Leila Romo MD LAB URINE ORDERABLES Final Result Performing Organization Address [facility]/ZIP Co de Phone Number RICHARD FLORES [address] [address] [facility] [email or web address] [address] * Rubella IgG antibody Blood (02/02/2025 11:21 AM CDT) Rubella IgG Reactive Comment: Reactive: Results suggest response to immunization or prior exposure to the virus. Testing performed by: [facility], [address] [place] [address] Blood 02/02/2025 11:2 1 AM CDT 02/03/2025 10:01 AM CDT Leila Romo MD LAB MICROBIOLOGY - GE NERAL ORDERABLES Final Result Performing Organization Address [facility] Co de Phone Number RICHARD FLORES [address] [address] [email or web address] [address] * RPR Blood (02/02/2025 11:21 AM CDT) Pathologist [facility] RPR Nonreactive Nonreactive Comment:Testing performed by : [facility], [address] [place] [address]., [id number] Blood 02/02/2025 11:2 1 AM CDT 02/02/2025 6:54 PM CDT Leila Romo MD LAB MICROBIOLOGY - GE NERAL ORDERABLES Final Result Performing Organization Address City/[facility]/ZIP Co de Phone Number RICHARD FLORES [address] [address] [facility] [email or web address] [address] * Hepatitis B Surface Antigen Blood (02/02/2025 11:21 AM CDT) Pathologist [facility] HepBsAg Nonreactive Nonreactive Comment:Testing performed by : [address] [address] Blood 02/02/2025 11:2 1 AM CDT 02/02/2025 6:54 PM CDT Leila Romo MD LAB MICROBIOLOGY - GE NERAL ORDERABLES Final Result Performing Organization Address [facility] Co de Phone Number MEGHNAPITA FLORES [address] [address] [email or web address] [address] * Type and screen (02/02/2025 11:21 AM CDT) ABO Rh A Positive Ohpe, indirect Negative RICHARD Blood 02/02/2025 11:2 1 AM CDT 02/02/2025 7:06 PM CDT Narrative RICHARD - 02/02/2025 8:57 PM CDT Has the patient had Daratumumab or Isatuximab in the past 6 months?->Unknown Leila Romo MD LAB BLOOD BANK TEST O RDERABLES Final Result Performing Organization Address [facility] de Phone Number MEGHNAPITA FLORES [address] [address] [email or web address] [address] * Urine culture Urine, clean voided (02/02/2025 11:21 AM CDT) Report Final Report: Less than 100,000 colonies/mL (clinically insignificant growth based on current clinical standards) Comment:Testing performed by : [facility], [address] [place]., [address] Organism (CLINICALLY INSIGNIFICANT GROWTH RICHARD Urine, clean voided 02/02/2025 11:21 AM CDT 02/02/2025 10:52 PM CDT Narrative RICHARD - 02/04/2025 8:04 AM CDT Testing performed by [facility] Microbiology Laboratory ([phone]) Leila Romo MD LAB MICROBIOLOGY - GE NERAL ORDERABLES Final Result Performing Organization Address City/[facility] Co de Phone Number RICHARD FLORES [address] [place] [address] * Varicella Zoster IgG antibody Blood (02/02/2025 11:21 AM CDT) VZV IgG Reactive Reactive Comment: Reactive: Results suggest response to immunization or prior exposure to the virus. Testing performed by: [facility], [address] [facility], [place]., [address] Blood 02/02/2025 11:2 1 AM CDT 02/03/2025 10:01 AM CDT us Leila Romo MD LAB MICROBIOLOGY - NERAL ORDERABLES Final Result [address] Department [place] [address] * Comprehensive metabolic panel (02/02/2025 11:21 AM CDT) Pathologist [facility] Sodium 135 135 - 145 mmol/L Comment:Testing performed by : [address] [address] Potassium, pl 4.0 3.3 - 4.9 mmol/L CERNER CH Comment:Testing performed by : [address], [address] Chloride 102 97 - 110 mmol/L CERN[facility] CH Comment:Testing performed by : [address] [address] CO2 22 22 - 32 mmol/L [facility] CH Comment:Testing performed by : [address], [address] Anion gap 11 2 - 15 mmol/L CERNER Comment:Testing performed by : [address] [address] BUN 7 6 - 25 mg/dL CERN[facility] CH Comment:Testing performed by : [address], [address] Creatinine 0.71 0.60 - 1.10 mg/dL [facility] CH Comment:Testing performed by : [address], [address] Glucose 128 70 - 199 mg/dL CERNER [...] was last revised 2022. Testing performed by: [facility], [address] [place] [address]., [address] Calcium 9.5 8.5 - 10.3 mg/dL CERNER CH Comment:Testing performed by : [address], [address] Bilirubin, total 0.2 0.1 - 1.2 mg/dL CERNER CH Comment:Testing performed by : [address], [address] Protein, pl 7.1 6.5 - 8.5 g/dL CERNER CH Comment:Testing performed by : [address], [address] Albumin 3.9 3.5 - 5.0 g/dL CERN[facility] CH Comment:Testing performed by : [address] [address] Alk phos 50 40 - 130 Units/L CERNER CH Comment:Testing performed by : [address], [address] ALT 42 7 - 45 Units/L CERNER CH Comment:Testing performed by : [address], [address] AST 27 10 - 45 Units/L CERNER CH Comment:Testing performed by : [address], [address] Blood 02/02/2025 11:2 1 AM CDT 02/02/2025 6:54 PM CDT us Leila Romo MD LAB BLOOD ORDERABLES Final Result [place] [address] [facility] Department [place] [address] * US Ob Under 14 Weeks (01/14/2025 [...] Jonathan Styles M.D. CH: MARK Report ID: [id number] Reading Location: [id number] Procedure Note Jonathan Styles Jr., MD - [...] by Jonathan Styles M.D. CH: Report ID: [id number] Reading Location: [place] [address] us Leila Romo MD IMG OB US PROCEDURES Final Result * QNatelaAdvanced (12/30/2024 11:11 AM CDT) Number of fetuses 1 [facility], Down syndrome risk, maternal age NOT GIVEN [facility], Abnormal Yumiko? NOT GIVEN [facility], Abnormal Us? NOT GIVEN [facility], History, personal/family NOT GIVEN [facility], test, interpretation SEE NOTE [facility], Comment: This specimen showed an expected representation of chromosome 21, 18, and 13 material. See Limitations below. Trisomy 21 risk assessment Negative [facility], Trisomy 18 (T18) Negative Que [facility]/ [facility], Trisomy 13 risk assessment Negative [facility], Genotype Assay Detected [facility], Cytogenetic Diagnosis SEE NOTE [facility], Comment:Consistent with a ma le fetus. Sex chromosome No aneuploidy Q u[facility]/ [facility], Comment SEE NOTE [facility], Comment: No apparent abnormality was detected. See Limitations below. MICRODELETION Not detected Que [facility]/ [facility], MICRODELETION INTERP SEE NOTE [facility]/ [facility], Comment: No apparent abnormality was detected. See Limitations below. Gestational age 12 Ques t [facility]/ [facility], Gestational age 0 Ques t [facility], Fraction 9.30% [facility], test, comment SEE NOTE [facility], Comment: A portion of the testing was performed at [facility]. Laboratory results and submitted clinical information reviewed by Janet Hill, Ph.D., [facility]. test, limitations SEE NOTE [facility]/ [facility], Comment: QNatal(R) Advanced is a [...] confined placental in origin. SPECIFICATIONS SEE NOTE [facility] Comment: Sensitivity Specificity T21 >99.9% >99.9% T18 >99.9% >99.9% T13 >99.9% >99.9% Accuracy Y >99.9% Performance of the QNatal Advanced laboratory-developed test (LDT) has been determined based on internal analytical assessment. METHODOLOGY SEE NOTE [facility], Comment: Circulating cell-free (cf) DNA was isolated [...] performed pursuant to a license agreement with [employer]. QNatal Advanced is a laboratory developed test that has been developed and validated, pursuant to the Clinical Laboratory Improvements Amendments of 1988 (CLIA), and as such it has not been reviewed by FDA. Blood 12/30/2024 11:1 1 AM CDT 12/30/2024 11:12 AM CDT Narrative [facility] - 2025 8:02 AM CDT FASTING:NO FASTING: NO Leila Romo MD LAB GENETIC TESTING F inal Result [facility], [address] [place] [address] * N. gonorrhoeae/C. trachomatis Amplification Endocervical (12/29/2024 11:24 AM CDT) Pathologist [facility] C. trachomatis Not Detected [facility] Comment:Testing performed by : [facility], [address] [place]., [address] N. gonorrhoeae Not Detected RICHARD FLORES Comment: Interpretive Data This assay detects Chlamydia trachomatis and Neisseria gonorrhoeae by nucleic acid amplification testing (NAAT). This assay has been cleared by the [place] Food and Drug administration. The performance characteristics of this test have been verified by the [facility] Molecular Infectious Disease laboratory. The performance characteristics of this test have not been evaluated in individuals less than 14 years of age. Current Interpretive Data was last revised on 2023. Testing performed by: [facility], [address] [facility] [place]., [address] Endocervical (None) 12/30/19 11:24 AM CDT 12/30/2024 9:46 AM CDT Leila Romo MD LAB MICROBIOLOGY - [facility] ORDERABLES Final Result RICHARD FLORES [address] Department [place] [address] [facility] * Screening Mammogram Bilateral W Bao (01/23/2024 [...] 11:57 AM CDT) CLINICAL INFORMATION: [facility] Comment:Routine exam LMP [facility] Comment:UNKNOWN Previous Pap [facility] Comment:INFORMATION NOT PROV IDED Prev. Bx [facility] Comment:INFORMATION NOT PROV IDED SOURCE: [employer] [facility] Comment:Cervix, Endocervix Pap, specimen adequacy [facility] Comment: Satisfactory for evaluation. Endocervical/transformation zone component present. Age and/or menstrual status not provided HPV interp [facility] Comment:Negative for intraep ithelial lesion or malignancy. COMMENTS [facility] Comment: This Pap test has been evaluated with computer assisted technology. Manager Clinical Pharm[facility] Comment: AAM, CT(ASCP) CT Screening Location: [place] [address] [place] [address] Comment [facility] Comment: EXPLANATORY NOTE: The Pap is a [...] High Risk E6/E7 Not Detected Not Detected [facility] Comment: Methodology: Super[employer]-Mediated Amplification This assay detects E6/E7 viral messenger RNA (mRNA) from 14 high-risk HPV types (16,18,31,33,35,39,45,51,52,56,58,59,66,68). The analytical performance characteristics of this assay have been determined by [facility]. The modifications have not been cleared or approved by the FDA. This assay has been validated pursuant to the CLIA regulations and is used for clinical purposes. For additional information, please refer to http://education.Project WBS/faq/OBB673n9 (This link if provided for information/ educational purposes only.) 03/02/2021 11:5 7 AM CDT 03/03/2021 2:21 AM CDT Narrative [facility] 03/05/2021 3:24 PM CDT FASTING: UNKNOWN us Leila Romo MD LAB CYTOLOGY ORDERABL ES Final Result 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
--- OUTSIDE RECORDS SUMMARY | 2025-02-07 17:28 | XMS_ITS | Data Portability ---
Author Organization [facility] JUAN DIEGOHermann Address [address] [place] [address] Care Team Providers Care Hospice Registered Nurse Name Role Phone NICHOL RUELAS Appliquer Assessment No assessment recorded. Plan of Treatment Reminders Order Date Submit Date Provider Last Modified By Organization Details Last Modified Time Details Appointments None recorded. Lab spep, serum, reflex immunofixat ion [facility] [address], [place], [address], 4 11:26:43 lipid panel, serum 2022 [facility] [address], [place], [address], 4 14:41:56 CBC w/ auto diff 2022 023 KASHIF Parra, [address]22 [address], [place], [address], 3 08:17:09 lipid panel, serum 2022 023 KASHIF Parra, 2022 [address], [place], [address], 3 08:17:06 CMP, serum or plasma 2022 023 KASHIF Parra, 2022 [address], [address], [place], [address], 3 08:17:07 urinalysis, dipstick 2022 023 [facility], 2022 [address], [place], [address], 3 08:17:08 HbA1c (hemoglobin A1c), blood 2022 023 [facility], [address], [place], [address], 3 14:17:46 TSH, ultra-sensi tive, serum 2022 023 [facility], [address], [place], [address], 3 08:17:08 Referral None recorded. Procedures nerve conduction study/EMG, upper extremity (PROC) - Numbness and tingling of the 3rd and 4th fingers of the right hand. 2022 023 [facility], [address] [place] [address], [address], 3 13:35:44 Surgeries None recorded. Imaging MAMMO, screening, bilateral 2022 023 hdoverma Not available 3 12:52:54 MAMMO, screening, bilateral 2022 023 hdoverma Not available 3 09:40:00 Medication Orders amlodipine 10 mg tablet 2022 023 [facility]armacy #[id number], [address] [place], [address], 3 09:39:43 amlodipine 5 mg tablet 2022 023 [facility]acy #[id number], [address] [place], [address], 3 12:56:02 ibuprofen 600 mg tablet 2022 023 [facility]/Pharmacy #[id number], [address] [place], [address], 3 09:21:29 amlodipine 5 mg tablet 2018 019 oajao Not available 3 12:56:02 metoprolol tartrate 25 mg tablet 2018 019 hdoverma Not available 3 10:44:52 aspirin 81 mg chewable tablet 2018 019 overma Not available 3 10:45:01 lovastatin 10 mg tablet 2018 019 overma Not available 3 10:45:10 metoprolol tartrate 25 mg tablet 2018 019 [id number], [address], [id number], 3 10:44:52 amlodipine 5 mg tablet 2018 019 [facility][id number], [address], [place], [id number], 3 12:56:02 Patient TargetsNo targets recorded. Patient Instructions Encounter Date Encounter Id Patient Instructions Last Modified By Organization Details Last Modified Time 05/12/2019 [id number] kidney stone: care instructions Not available 05/13/2019 08:32:21 learning about diet for kidney stone prevention Not available 05/13/2019 08:32:22 05/26/2019 [id number] deciding about using medicines to quit smoking Not available 05/26/2019 16:24:43 Quitting Tobacco : Care Instructions Not available 05/26/2019 16:24:43 body mass index: care instructions Not available 05/26/2019 16:24:31 learning about healthy weight Not available 05/26/2019 16:24:31 10/24/2022 [id number] A healthy lifestyle: care instructions oajao Not [...] HBA1C oajao Not available 10/24/2022 14:07:50 05/04/2023 [id number] learning about breast cancer screening oajao Not [...] uIU/m L 0.450- 4.500 Not Available [facility] ([facility]) [address] [place], [address], 10/25/2022 08:17:08 10/24/19 23 10/25/2022 CBC WITH DIFFE RENTI AL/PL ATELE T WBC 5.7 x10e3 /uL 3.4-10 .8 Not Available [facility] ([facility]) [address] [place], [address], 10/25/2022 08:17:09 10/24/19 23 10/25/2022 CBC WITH DIFFE RENTI AL/PL ATELE T RBC 4.73 x10e6 /uL 3.77-5 .28 Not Available [facility] ([facility]) [address] [facility], [place], [address], 10/25/2022 08:17:09 10/24/19 23 10/25/2022 CBC WITH DIFFE RENTI AL/PL ATELE T hemoglobin 14.3 g/dL 11.1-1 5.9 Not Available [facility] ([facility]) [address] [facility], [place], [address], 10/25/2022 08:17:09 10/24/19 23 10/25/2022 CBC WITH DIFFE RENTI AL/PL ATELE T hematocrit 42.4 % 34.0-4 6.6 Not Available [facility] ([facility]) [address] [facility], [place], [address], 10/25/2022 08:17:09 10/24/1910/25/2022 CBC WITH DIFFE RENTI AL/PL ATELE T MCV 90 fL 79-97 Not Available [facility] ([facility]) [address] [place], [address], 10/25/2022 08:17:09 10/24/1910/25/2022 CBC WITH DIFFE RENTI AL/PL ATELE T MCH 30.2 pg 26.6-3 3.0 Not Available [facility] ([facility]) [address] [place], [address], 10/25/2022 08:17:09 10/24/1910/25/2022 CBC WITH DIFFE RENTI AL/PL ATELE T MCHC 33.7 g/dL 31.5-3 5.7 Not Available [facility] ([facility]) [address] [place], [address], 10/25/2022 08:17:09 10/24/19 23 10/25/2022 CBC WITH DIFFE RENTI AL/PL ATELE T RDW 13.8 % 11.7-1 5.4 Not Available [facility] ([facility]) [address] [facility], [place], [address], 10/25/2022 08:17:09 10/24/19 23 10/25/2022 CBC WITH DIFFE RENTI AL/PL ATELE T platelets 256 x10e3 /uL 150-45 0 Not Available [facility] ([facility]) [address] [facility], [place], [address], 10/25/2022 08:17:09 10/24/19 23 10/25/2022 CBC WITH DIFFE RENTI AL/PL ATELE T neutrophils 49 % notest ab. Not Available [facility] ([facility]) [address] [facility], [place], [address], 10/25/2022 08:17:09 10/24/19 23 10/25/2022 CBC WITH DIFFE RENTI AL/PL ATELE T lymphs 34 % notest ab. Not Available [facility] ([facility]) [address] [facility], [place], [address], 10/25/2022 08:17:09 10/24/1910/25/2022 CBC WITH DIFFE RENTI AL/PL ATELE T monocytes 14 % notest ab. Not Available [facility] ([facility]) [address] [facility], [place], [address], 10/25/2022 08:17:09 10/24/1910/25/2022 CBC WITH DIFFE RENTI AL/PL ATELE T eos 2 % notest ab. Not Available [facility] ([facility]) [address] [facility], [place], [address], 10/25/2022 08:17:09 10/24/1910/25/2022 CBC WITH DIFFE RENTI AL/PL ATELE T basos 1 % notest ab. Not Available [facility] ([facility]) [address] [facility], [place], [address], 10/25/2022 08:17:09 10/24/19 23 10/25/2022 CBC WITH DIFFE RENTI AL/PL ATELE T neutrophils (absolute) 2.9 x10e3 /uL 1.4-7. 0 Not Available [facility] ([facility]) [address] [facility], [place], [address], 10/25/2022 08:17:09 10/24/19 23 10/25/2022 CBC WITH DIFFE RENTI AL/PL ATELE T lymphs (absolute) 1.9 x10e3 /uL 0.7-3. 1 Not Available [facility] ([facility]) [address] [facility], [place], [address], 10/25/2022 08:17:09 10/24/19 23 10/25/2022 CBC WITH DIFFE RENTI AL/PL ATELE T monocytes(ab solute) 0.8 x10e3 /uL 0.1-0. 9 Not Available [facility] ([facility]) [address] [facility], [place], [address], 10/25/2022 08:17:09 10/24/1910/25/2022 CBC WITH DIFFE RENTI AL/PL ATELE T eos (absolute) 0.1 x10e3 /uL 0.0-0. 4 Not Available [facility] ([facility]) [address] [facility], [place], [address], 10/25/2022 08:17:09 10/24/19 23 10/25/2022 CBC WITH DIFFE RENTI AL/PL ATELE T baso (absolute) 0.0 x10e3 /uL 0.0-0. 2 Not Available [facility] ([facility]) [address] [facility], [place], [address], 10/25/2022 08:17:09 10/24/19 23 10/25/2022 CBC WITH DIFFE RENTI AL/PL ATELE T immature granulocytes 0 % notest ab. Not Available [facility] ([facility]) [address] [facility], [place], [address], 10/25/2022 08:17:09 10/24/1910/25/2022 CBC WITH DIFFE RENTI AL/PL ATELE T immature grans (abs) 0.0 x10e3 /uL 0.0-0. 1 Not Available [facility] ([facility]) [address] [facility], [place], [address], 10/25/2022 08:17:09 10/24/1910/25/2022 URINA LYSIS , ROUTI NE specific gravity 1.020 1.005- 1.030 Not Available [facility] ([facility]) [address] [facility], [place], [address], 10/25/2022 08:17:08 10/24/1910/25/2022 URINA LYSIS , ROUTI NE pH 7.5 5.0-7. 5 Not Available [facility] ([facility]) [address] [facility], [place], [address], 10/25/2022 08:17:08 10/24/1910/25/2022 URINA LYSIS , ROUTI NE urine-color YELLOW yellow Not Available [facility] ([facility]) [address] [facility], [place], [address], 10/25/2022 08:17:08 10/24/1910/25/2022 URINA LYSIS , ROUTI NE appearance CLEAR clear Not Available [facility] ([facility]) [address] [facility], [place], [address], 10/25/2022 08:17:08 10/24/1910/25/2022 URINA LYSIS , ROUTI NE WBC esterase NEGATI VE negati ve Not Available [facility] ([facility]) [address] [facility], [place], [address], 10/25/2022 08:17:08 10/24/19 23 10/25/2022 URINA LYSIS , ROUTI NE protein 1+ negati ve/tra ce abnormal Not Available [facility] ([facility]) [address] [place], [address], 10/25/2022 08:17:08 10/24/19 23 10/25/2022 URINA LYSIS , ROUTI NE glucose NEGATI VE negati ve Not Available [facility] ([facility]) [address] [place], [address], 10/25/2022 08:17:08 10/24/19 23 10/25/2022 URINA LYSIS , ROUTI NE ketones TRACE negati ve abnormal Not Available [facility] ([facility]) [address] [place], [address], 10/25/2022 08:17:08 10/24/19 23 10/25/2022 URINA LYSIS , ROUTI NE occult blood NEGATI VE negati ve Not Available [facility] ([facility]) [address] [place], [address], 10/25/2022 08:17:08 10/24/19 23 10/25/2022 URINA LYSIS , ROUTI NE bilirubin NEGATI VE negati ve Not Available [facility] ([facility]) [address] [place], [address], 10/25/2022 08:17:08 10/24/1910/25/2022 URINA LYSIS , ROUTI NE urobilinogen ,semi-qn 1.0 mg/dL 0.2-1. 0 Not Available [facility] ([facility]) [address] [place], [address], 10/25/2022 08:17:08 10/24/19 23 10/25/2022 URINA LYSIS , ROUTI NE nitrite, urine NEGATI VE negati ve Not Available [facility] ([facility]) [address] [place], [address], 10/25/2022 08:17:08 10/24/19 23 10/25/2022 IBAN DAVID microscopic examination SEE BELOW: Micro scopi c was indic ated and was perfo rmed. Not Available [facility] ([facility]) [address] [facility], [place], [address], 10/25/2022 08:17:08 10/24/19 23 10/25/2022 MICRO SCOPI C EXAMI NATIO N WBC NONE SEEN /hpf 0-5 Not Available [facility] ([facility]) [address] [facility], [place], [address], 10/25/2022 08:17:07 10/24/19 23 10/25/2022 MICRO SCOPI C EXAMI NATIO N RBC NONE SEEN /hpf 0-2 Not Available [facility] ([facility]) [address] [facility], [place], [address], 10/25/2022 08:17:07 10/24/19 23 10/25/2022 MICRO SCOPI C EXAMI NATIO N epithelial cells (non renal) 0-10 /hpf 0-10 Not Available [facility] ([facility]) [address] [facility], [place], [address], 10/25/2022 08:17:07 10/24/19 23 10/25/2022 MICRO SCOPI C EXAMI NATIO N casts NONE SEEN /lpf nonese en Not Available [facility] ([facility]) [address] [facility], [place], [address], 10/25/2022 08:17:07 10/24/19 23 10/25/2022 MICRO SCOPI C EXAMI NATIO N bacteria FEW nonese en/few Not Available [facility] ([facility]) [address] [facility], [place], [address], 10/25/2022 08:17:07 10/24/19 23 10/25/2022 COMP. METAB OLIC PANEL (14) glucose 90 mg/dL 70-99 Not Available [facility] ([facility]) [address] [place], [address], 10/25/2022 08:17:07 10/24/19 23 10/25/2022 COMP. METAB OLIC PANEL (14) BUN 9 mg/dL 6-24 Not Available [facility] ([facility]) [address] [place], [address], 10/25/2022 08:17:07 10/24/19 23 10/25/2022 COMP. METAB OLIC PANEL (14) creatinine 0.95 mg/dL 0.57-1 .00 Not Available [facility] ([facility]) [address] [place], [address], 10/25/2022 08:17:07 10/24/19 23 10/25/2022 COMP. METAB OLIC PANEL (14) eGFR 77 mL/mi n/1.7 3 >59 Not Available [facility] ([facility]) [address] [place], [address], 10/25/2022 08:17:07 10/24/19 23 10/25/2022 COMP. METAB OLIC PANEL (14) BUN/creatini ne ratio 9 9-23 Not Available [facility] ([facility]) [address] [place], [address], 10/25/2022 08:17:07 10/24/19 23 10/25/2022 COMP. METAB OLIC PANEL (14) sodium 140 mmol/ L 134-14 4 Not Available [facility] ([facility]) [address] [place], [address], 10/25/2022 08:17:07 10/24/19 23 10/25/2022 COMP. METAB OLIC PANEL (14) potassium 4.4 mmol/ L 3.5-5. 2 Not Available [facility] ([facility]) [address] [place], [address], 10/25/2022 08:17:07 10/24/19 23 10/25/2022 COMP. METAB OLIC PANEL (14) chloride 106 mmol/ L 96-106 Not Available [facility] ([facility]) [address] [place], [address], 10/25/2022 08:17:07 10/24/19 23 10/25/2022 COMP. METAB OLIC PANEL (14) carbon dioxide, total 21 mmol/ L 20-29 Not Available [facility] ([facility]) [address] [place], [address], 10/25/2022 08:17:07 10/24/19 23 10/25/2022 COMP. METAB OLIC PANEL (14) calcium 9.1 mg/dL 8.7-10 .2 Not Available [facility] ([facility]) [address] [place], [address], 10/25/2022 08:17:07 10/24/19 23 10/25/2022 COMP. METAB OLIC PANEL (14) protein, total 7.7 g/dL 6.0-8. 5 Not Available [facility] ([facility]) [address] [place], [address], 10/25/2022 08:17:07 10/24/19 23 10/25/2022 COMP. METAB OLIC PANEL (14) albumin 4.3 g/dL 3.8-4. 8 Not Available [facility] ([facility]) [address] [place], [address], 10/25/2022 08:17:07 10/24/19 23 10/25/2022 COMP. METAB OLIC PANEL (14) globulin, total 3.4 g/dL 1.5-4. 5 Not Available [facility] ([facility]) [address] [place], [address], 10/25/2022 08:17:07 10/24/19 23 10/25/2022 COMP. METAB OLIC PANEL (14) A/G ratio 1.3 1.2-2. 2 Not Available [facility] ([facility]) [address] [place], [address], 10/25/2022 08:17:07 10/24/19 23 10/25/2022 COMP. METAB OLIC PANEL (14) bilirubin, total 0.3 mg/dL 0.0-1. 2 Not Available [facility] ([facility]) [address] [facility] [place], [address], 10/25/2022 08:17:07 10/24/19 23 10/25/2022 COMP. METAB OLIC PANEL (14) alkaline phosphatase 60 IU/L 44-121 Not Available [facility] ([facility]) [address] [facility] [place], [address], 10/25/2022 08:17:07 10/24/19 23 10/25/2022 COMP. METAB OLIC PANEL (14) AST (SGOT) 10 IU/L 0-40 Not Available [facility] ([facility]) [address] [facility] [place], [address], 10/25/2022 08:17:07 10/24/19 23 10/25/2022 COMP. METAB OLIC PANEL (14) ALT (SGPT) 11 IU/L 0-32 Not Available [facility] ([facility]) [address] [facility] [place], [address], 10/25/2022 08:17:07 10/24/19 23 10/25/2022 LIPID PANEL cholesterol, total 237 mg/dL 100-19 9 above high normal Not Available [facility] ([facility]) [address] [facility] [place], [address], 10/25/2022 08:17:06 10/24/19 23 10/25/2022 LIPID PANEL triglyceride s 160 mg/dL 0-149 above high normal Not Available [facility] ([facility]) [address] [facility], [place], [address], 10/25/2022 08:17:06 10/24/19 23 10/25/2022 LIPID PANEL HDL cholesterol 28 mg/dL >39 below low normal Not Available [facility] ([facility]) [address] [facility], [place], [address], 10/25/2022 08:17:06 10/24/19 23 10/25/2022 LIPID PANEL VLDL cholesterol andreia 30 mg/dL 5-40 Not Available [facility] ([facility]) [address] [facility], [place], [address], 10/25/2022 08:17:06 10/24/19 23 10/25/2022 LIPID PANEL LDL chol calc ([facility]) 179 mg/dL 0-99 above high normal Not Available [facility] ([facility]) [address] [facility], [place], [address], 10/25/2022 08:17:06 04/25/20 19 04/25/2019 CT, abdom en + pelvi s, w/ contr ast No observ ation record ed. amcmanis Not Available 2018 13:04:17 04/25/20 19 04/25/2019 CT, abdom en + pelvi s, w/o contr ast No observ ation record ed. amcmanis [facility] ([facility]) Scheduling [address] [place], [address], 04/29/2019 14:29:13 05/08/20 19 05/07/2019 US, renal No observ ation [facility] ed[facility] [address] [place], [address], 05/08/2019 16:41:37 07/08/20 19 07/07/2019 elect rocar diogr am No observ ation record ed. [facility] ([facility]) Registration/ Lab [address] [place], [address], 07/08/2019 11:08:22 07/08/20 19 07/07/2019 elect donnie quijano am No observ ation record ed. Not Available 2018 13:59:36 Result Notes None recorded. Problems Name Problem SNOMED Code Status Onset Date Resolution Date Notes Provider Name and Address Organization Details Recorded Time Hypercholester olemia 66317302 Active 2018 VARGAS Tomlinson Attn: Accountin g,[address] [facility], [place], [address], [facility] 9 12:48:30 Generalized anxiety disorder 24025710 Active VARGAS Tomlinson Attn: Accountin g,[address] [facility], [place], [address], [facility] 9 12:47:56 Tobacco dependence syndrome 15720235 Active VARGAS Tomlinson Attn: Accountin g,[address] [facility], [place], [address], [facility] 9 12:47:56 Benign hypertension 56891126 Active VARGAS Tomlinson Attn: Accountin g,[address] [facility], [place], [address], [facility] 9 12:47:56 Polycystic ovaries Active VARGAS Tomlinson Attn: Accountin g,[address] [facility], [place], [address], [facility] 9 12:47:56 Bacterial vaginosis 419776414 Active VARGAS Tomlinson Attn: Accountin g,[address] [facility], [place], [address], [facility] 9 12:47:56 Genital herpes simplex 76035865 Active VARGAS Tomlinson Attn: Accountin g,[address] [facility], [place], [address], [facility] 9 12:47:56 Pure hypercholester olemia 282944910 Active VARGAS Tomlinson Attn: Vilma silva,[address] [facility], [place], [address], [facility] 9 12:47:56 Diverticulitis of colon 919986368 Active VARGAS Tomlinson Attn: Vilma silva,[address] [facility], [place], [address], [facility] 9 12:47:56 Notes: High Blood Pressure Problem Notes None recorded. Procedures Surgical History Date Name Laterality Status Provider Name and Address Organization Details Recorded Time 1 Dilation and Curettage completed Karla Buchanan MA [facility] 10/24/2022 10:46:00 Imaging Results Imaging Date Name Status LastModified by Organization Details LastModified Time 04/25/2019 CT, abdomen + pelvis, w/ contrast [facility] Information not available 04/29/2019 13:04:17 04/25/2019 CT, abdomen + pelvis, w/o contrast completed amcmanis [facility] ([facility]) Scheduling [address] [place], [address], 04/29/2019 14:29:13 05/07/2019 US, renal completed [facility] (Radiology) [address] [place], [address], 05/08/2019 16:41:37 07/07/2019 electrocardiogram completed [facility] ([facility]) Registration/[place] [address] [place], [address], 07/08/2019 11:08:22 07/07/2019 electrocardiogram completed Informa tion not available 07/08/2019 13:59:36 Procedure Notes None recorded. Medical Equipment None Reported. Allergies Allergen ID Allergen Name Allergen Category Reaction Reaction Severity Criticality Documentation Date Start Date Code Code System Note Provider Name and Address Organization Details Recorded Time 580449 Product containin g penicilli n (product) medicatio n itching moderate Not available 10/24/2022 26870 8001 SNOMED Not Available Not Available Not [...] Updated DateTime 9 165.1 cm 34.2 kg/m2 42538.6 3 g 100 % 100 % 87 /min 16 /min 160 mm[Hg] 94 mm[Hg] Yuridia Brown MA [facility] 9 14:35:33 Date Recorded Body height Body mass index (BMI) Body weight Heart rate Respiratory rate Systolic blood pressure Diastolic blood pressure Provider Name and Address Organization Details Last Updated DateTime 9 165.1 cm 33.3 kg/m2 07813.4 7 g 84 /min 12 /min 126 mm[Hg] 74 mm[Hg] Yuridia Brown MA [facility] 9 15:58:21 Date Recorded Body height Body mass index (BMI) Body weight Heart rate Respiratory rate Systolic blood pressure Diastolic blood pressure Provider Name and Address Organization Details Last Updated DateTime 9 165.1 cm 32.9 kg/m2 96283.2 9 g 80 /min 16 /min 128 mm[Hg] 86 mm[Hg] Yuridia Brown MA [facility] 9 11:28:41 Date Recorded Body height Body mass index (BMI) Body weight Respiratory rate Heart rate Oxygen saturation Oxygen saturation in Arterial blood by Pulse oximetry Systolic blood pressure Diastolic blood pressure Provider Name and Address Organization Details Last Updated DateTime 3 165.1 cm 33.9 kg/m2 45366.1 3 g 16 /min 96 /min 98 % 98 % 160 mm[Hg] 100 mm[Hg] Karla Buchanan MA [facility] 3 10:47:29 Date Recorded Body height Body mass index (BMI) Body weight Heart rate Oxygen saturation Oxygen saturation in Arterial blood by Pulse oximetry Respiratory rate Systolic blood pressure Diastolic blood pressure Provider Name and Address Organization Details Last Updated DateTime 3 165.1 cm 34.6 kg/m2 15843.4 9 g 98 /min 99 % 99 % 18 /min 170 mm[Hg] 110 mm[Hg] Karla Buchanan MA [facility] 3 09:47:41 Date Recorded Body height Body mass index (BMI) Body weight Oxygen saturation Oxygen saturation in Arterial blood by Pulse oximetry Respiratory rate Heart rate Systolic blood pressure Diastolic blood pressure Provider Name and Address Organization Details Last Updated DateTime 3 165.1 cm 34.6 kg/m2 64986.2 1 g 99 % 99 % 14 /min 92 /min 140 mm[Hg] 100 mm[Hg] Karla KinseyverMICHAEL [facility] 3 09:23:41 Date Recorded Systolic blood pressure Diastolic blood pressure Provider Name and Address Organization Details Last Updated DateTime 05/04/2023 130 mm[Hg] 100 mm[Hg] Enrique Palmer MD Attn: Accounting,[address] [facility], [place], [address], [facility] 05/04/2023 09:45:39 Social History Question Answer Notes LastModified by Organizat ion Details LastModified Time Tobacco Smoking Status Current Every Day Smoker January DionneMICHAEL, [facility] 12/16/2014 10:33:37 What Is Your Level Of [...] MD Attn: Accounting,[address], [place], [address], [facility] 10/24/2022 11:11:05 Td (adult), 2 Lf tetanus toxoid, preservative free, adsorbed 6 completed Enrique Palmer MD Attn: Accounting,[address], [place], [address], [facility] 10/24/2022 11:11:05 Tdap 5 completed Not Available [facility] 11/08/2019 02:40:25 Past Encounters Encounter ID Performer Location Encounter Start Date Encounter Closed Date Diagnosis/Indication Diagnosis SNOMED-CT Code Diagnosis ICD10 Code Diagnosis Note [id number] MD Tiffanie Hayes (Adult Med) [address] [place] [phone] 12/16/2014 10:04:38 12/16/2014 11:13:02 Administration of diphtheria and tetanus vaccine [id number] Tuberculos is screening [id number] General ex amination of patient [id number] 34 y/o BF who was last seen [...] not compliant was discussed. 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 and there is also a legal issue Tobacco de pendence syndrome 19147518 Cessation was recommende hung [id number] Tiffanie (STEAMER BLOCKER) [address] [place] [phone] 0 02/02/2015 11:48:56 02/02/2015 13:45:24 Gynecologic examination [id number] Polycystic ovaries 90967576 Benign hypertension 52190340 [id number] Doretha MICHAEL Truong Tiffanie (Adult Med) [address] [place] [address] 03/24/2015 10:00:28 03/24/2015 13:32:25 Pure hypercholesterolemia 209500718 Chronic issue, compliance with a low CHO, low saturated fat diet Diverticul itis of colon 623605440 Recently diagnosed with left sided diverticul itis [...] ER. GI for colonoscop y Benign hypertension 83734925 BP is stable She should be on Clonidine 0.1mg po QHS and Amlodipine 2.5 mg po daily [id number] Imelda Moreno (Adult Med) [address] [place] [address] 03/30/2015 14:54:36 03/30/2015 17:45:19 Diverticulitis of colon 737702010 Agree that colonoscop y is indicated. Would however recommend that procedure be delayed about 3 mths to allow for healing. Discussed use of high fiber diet. Will discuss with [id number] VARGAS Tomlinson [address] [facility] [place] [address] 04/10/2019 15:52:36 04/11/2019 10:55:44 Diverticulitis of colon 632499692 Q43.8 Counseled on diverticul itis and medication s-GI referral-C T abd/pelvis Adult heal th examination 418434111 Z00.01 Benign hypertension 1072 5009 I10 Counseled on HTN and medication . Encouraged to monitor blood pressures with goal <140/90. Encouraged healthy diet and exercise. Counseled on smoking cessation. HIV screening 045891853 Z11.4 Tobacco de pendence syndrome 75357361 F17.739 [id number] VARGAS Tomlinson [address] [facility] [place] [address] 05/12/2019 14:28:15 05/13/2019 11:32:10 Benign hypertension 87927753 I10 Counseled on HTN and medication . Encouraged to monitor blood pressures with goal <140/90. Encouraged healthy diet and exercise. Counseled on smoking cessation. Pt to call with medication ER has placed her on-will f/u in 2 weeks for bp check due to not taking med today Kidney stone 96198911 N2 0.0 Continue care with urology [id number] VARGAS Tomlinson [address] [facility] [place] [address] 05/26/2019 14:31:05 05/27/2019 10:10:19 Benign hypertension 72089032 I10 Counseled on HTN and medication -continue current meds. Encouraged to monitor blood pressures with goal <140/90. Encouraged healthy diet and exercise. Counseled on smoking cessation. f/u 3 months Body mass index 30+ - obesity 703816307 Z68.34 Tobacco de pendence syndrome 75872516 F17.717 [id number] VARGAS Tomlinson [address] [facility] [place] [address] 08/26/2019 11:08:52 08/26/2019 15:50:05 Benign hypertension 48924445 I10 Counseled on HTN and medication -continue current meds. Encouraged to monitor blood pressures with goal <140/90. Encouraged healthy diet and exercise. Counseled on smoking cessation. 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 General ex amination of patient 319386840 Z00.01 42 y/o BF who was last seen in this office 12/18/2014 Benign hypertension 1072 5009 I10 BP is uncontroll edRestart Amlodipine 5 mg po daily Body mass index 30+ - obesity 445406932 Z68.33 Overweight 351484560 E66 .3 [id number] Enrique Palmer MD [facility] ([facility]) [address] [place] [phone] 05/04/2023 09:15:59 05/07/2023 14:12:10 Proteinuria 40344840 R80.9 Benign hypertension 1072 5009 I10 BP is uncontroll edIncrease Amlodipine to 10 mg po daily, side effects were discussed Disorder o f lipid metabolism 634863602 E78.9 Screening for malignant neoplasm of breast 918730227 Z12.39 Health Concerns Section Related Observation LastModified by Organization Detai ls LastModified Time None Recorded Concern Status LastModified by Organization Details LastModified Time None Recorded Advance Directives Directive None Recorded Payers Encounter Date Sequence Insurance Name Policy Number Policy Gordon Covered Member ID Gordon Member ID Guarantor Name 05/12/2019 1 [facility] (MEDICAID HMO) [id number] Aliyah Mcclelland [id number] Aliyah Mcclelland 05/26/2019 1 [facility] (MEDICAID HMO) [id number] Aliyah Mcclelland [id number] Aliyah Mcclelland 08/26/2019 1 *SELF PAY* Rosaura Mcclelland 10/24/2022 1 [employer] [place] - [place] ON OR AFTER 2020 (MEDICAID REPLACEMENT - HMO) Aliyah Mcclelland [id number] Aliyah Mcclelland 05/04/2023 1 *SELF PAY* Rosaura [...] it was VARGAS Tomlinson Attn: [address] [place], [address], [facility] 05/13/2019 08:32:46 05/26/2019 text/html Hypertension F/UReported bypatient.Associated Symptoms:no dizziness; no lightheadedness; no chest pain; no shortness of breath; no palpitations; no edema; no calf pain with exertion Medications:taking medications as directed; no side effects from medicationNotes:f/u VARGAS Tomlinson Attn: [address] [place], [address], [facility] 05/27/2019 08:59:03 08/26/2019 text/html Hypertension F/UReported bypatient.Associated Symptoms:no dizziness; no lightheadedness; no chest pain; no shortness of breath; no palpitations; no edema; no calf pain with exertion Medications:taking medications as directed; no side effects from medicationNotes:f/u-n otes very frustrated found not covered insurance quintanilla at present when she arrived VARGAS Tomlinson Attn: Accounting[address] [place], [address], [facility] 08/26/2019 [...] had established care with a PCP in [place]. She presents with constant pain and a [...] readings. Enrique Palmer MD Attn: [address] [place], [address], [facility] 10/24/2022 [...] hours. Enrique Palmer MD Attn: [address] [place], [address], [facility] 05/04/2023 09:46:56 OBGyn Episode No OBEpisode recorded.
--- NOTE | 2025-02-07 17:30 | PC.NURSE ---
Pt states her cramping is in her vagina.
--- NOTE | 2025-02-07 18:11 | ED_ITS ---
HPI - General Adult General Chief complaint: Unspecified Stated complaint: HTN, abd cramping, 17 weeks Time Seen by Provider: 02/07/25 17:39 History of Present Illness HPI narrative: [age] old female who is approximately 17 weeks and follows up with Dr. Romo in [place] for OB Gyne. Patient has had issues with elevated blood pressure and does take aspirin and the basal all twice daily. Patient's blood pressure was mildly elevated upon arrival emergency department. Patient's last dose labetalol approximately 7:00 a.m. this morning. Patient will be treated with p.o. labetalol in the ED. denies any chest pain or shortness of breath. Patient was having some vaginal cramping. Patient denies any vaginal bleeding or vaginal discharge. Patient has no lower extremity swelling. This is the patient's 2nd , patient's 1st did end with miscarriage in the 1st trimester. Related Data Allergies Allergy/AdvReac Type Severity Reaction Status Date / Time Penicillins Allergy Intermediate Itching Verified 12/24/24 18:55 Review of Systems 2 Review of Systems: All systems reviewed & are unremarkable except as noted in HPI and below PMFSH Past Medical History Medical History Hypertension Social History Social History (Updated 09/21/22 @ 18:24 by Yimi JacksonMD) Smoking status: Current every day smoker Exam 2 Narrative: APPEARANCE: Well appearing, no pain, no distress, well-nourished. HEAD: normocephalic, atraumatic. EYES: PERRLA/EOMI, conjunctivae clear. NOSE: Normal no drainage EARS:TMS clear with good light reflex. THROAT: Pharynx clear, no exudate. NECK: Supple. No adenopathy, no masses. RESPIRATORY: Airway patent, respirations nonlabored. Clear to auscultation bilaterally, no rales, rhonchi, wheezing. CARDIOVASCULAR: Regular rate and rhythm without murmurs rubs or gallops. ABDOMINAL: Soft, nontender, nondistended, normal bowel sounds MUSCULOSKELETAL: Moves all extremities. Strength/ROM intact, No edema, No calf tenderness. NEURO: Alert. Cranial nerves II through XII intact. Good gait. Good coordination SKIN: Warm, dry. Normal Color Course Vital Signs Vital signs: Vital Signs Temperature 97.5 F L 02/07/25 17:25 Pulse Rate 84 02/07/25 17:25 Respiratory Rate 16 02/07/25 17:25 Blood Pressure 151/80 H 02/07/25 17:25 Pulse Oximetry 100 02/07/25 17:25 Temperature 98.1 F 02/07/25 20:03 Pulse Rate 88 02/07/25 20:03 Respiratory Rate 16 02/07/25 20:03 Blood Pressure 145/93 H 02/07/25 20:03 Pulse Oximetry 99 02/07/25 20:03 Medical Decision Making MDM Narrative Medical decision making narrative: 45 old female presents emergency department for evaluation for elevated blood pressure. Patient's blood pressure was improved after being treated with her evening dose of labetalol. Patient did have a mild elevation her ALT but no elevation of lactate dehydrogenase and patient's urine was negative for protein but did have some evidence of urinary tract infection. Patient was started on Macrobid. Patient was encouraged close follow-up with her OB Gyne. Differential Diagnosis Differential Diagnosis: End-organ injury, preeclampsia, hypertension, UTI Vital Signs Vital Signs: Vital Signs Temperature 97.5 F L 02/07/25 17:25 Pulse Rate 84 02/07/25 17:25 Respiratory Rate 16 02/07/25 17:25 Blood Pressure 151/80 H 02/07/25 17:25 Pulse Oximetry 100 02/07/25 17:25 Temperature 98.1 F 02/07/25 20:03 Pulse Rate 88 02/07/25 20:03 Respiratory Rate 16 02/07/25 20:03 Blood Pressure 145/93 H 02/07/25 20:03 Pulse Oximetry 99 02/07/25 20:03 Lab Data Lab results reviewed: Yes I reviewed the patient's lab results. 02/07/25 18:38 02/07/25 18:38 Labs: Lab Results 02/07/25 Range/Units 18:38 WBC 11.8 H (4.5-10.0) K/mm3 RBC 4.06 L (4.2-5.4) M/mm3 Hgb 12.4 (12.0-15.0) g/dL Hct 37.2 (37.0-47.0) % MCV 91.6 (80-100) fl MCH 30.5 (26-34) pg MCHC 33.3 (32-36) g/dl RDW 14.4 (11.5-14.5) % Plt Count 220 (150-375) k/mm3 MPV 10.3 (7.4-10.4) fl Immature Gran % (Auto) 0.5 (0-0.5) % Neut % (Auto) 60.9 (45.5-73.1) % Lymph % (Auto) 19.4 (18.3-44.2) % [place] % (Auto) 17.5 H (2.6-8.5) % Eos % (Auto) 1.4 (0-4.4) % Baso % (Auto) 0.3 (0.2-1.2) % Lymph # (Auto) 2.30 (0.9-3.2) K/mm3 [place] # (Auto) 2.1 H (0.1-0.6) K/mm3 Eos # (Auto) 0.2 (0-0.3) K/mm3 Baso # (Auto) 0.0 (0.0-0.1) K/mm3 Abs Immat Gran (auto) 0.06 H (0.00-0.031) K/mm3 Absolute Neuts (auto) 7.2 H (1.3-6.7) K/mm3 Absolute Nucleated RBC 0.000 (0.0-0.012) K/mm3 Nucleated RBC % 0.0 (0.0-0.2) % Sodium 136 L (137-145) mmol/L Potassium 4.2 (3.4-5.0) mmol/L Chloride 105 (98-107) mmol/L Carbon Dioxide 23 (22-30) mmol/L Anion Gap 8 (4-12) mmol/L BUN 12 (7-17) mg/dL Creatinine 0.80 (0.7-1.0) mg/dL Estim Creat Clear Calc 87 ml/min Estimated GFR > 60 (59 - ) Glucose 86 (65-110) mg/dL Calcium 9.4 (8.4-10.2) mg/dL Total Bilirubin 0.3 (0.2-1.3) mg/dL AST 28 (14-36) U/L ALT 55 H (6-35) U/L Alkaline Phosphatase 43 (38-126) U/L Lactate Dehydrogenase 127 (120-246) U/L Total Protein 7.0 (6.3-8.2) g/dL Albumin 3.6 (3.5-5.1) g/dL Urine Color Yellow (Yellow) Urine Appearance Cloudy H (Clear) Urine pH 6.0 (5.0-9.0) Ur Specific [place] 1.026 (1.001-1.035) Urine Protein Trace (Negative) mg/dL Urine Glucose (UA) Negative (Negative) mg/dL Urine Ketones Trace H (Negative) mg/dL Ur Blood (Man) Non-hemolyzed trace H (Negative) Urine Nitrate Negative (Negative) Urine Bilirubin Negative (Negative) Urine Urobilinogen 1.0 (<2.0) mg/dL Leukocyte Esterase Rfl Negative (Negative) ANDREA/UL Urine RBC 11-20 H (0-2) /hpf Urine WBC 6-10 H (0-3) /hpf Ur Squamous Epith Cells Few (Few) /hpf Urine Bacteria 1+ H /hpf Urine Casts 0-2 Discharge Plan Discharge Clinical Impression: Hypertension Patient Disposition: Home Condition: Stable Instructions: Antibiotic Form, Hypertension (ED) Additional Instructions: Continue blood pressure medications as directed. Continue to have close follow- up with OB Gyne. Antibiotic as directed for suspected urinary tract infection. If you have any worsening symptoms then please call or return to the emergency department. Patient Language: Rwandan Prescriptions: New nitrofurantoin monohyd/m-cryst [Macrobid] 100 mg capsule 100 mg PO Q12H 7 Days Qty: 14 0RF Rx Instructions: must administer with a meal/food No Action labetalol 100 mg tablet 100 mg PO Q12H 30 Days Qty: 60 0RF metoclopramide HCl [Reglan] 5 mg tablet 5 mg PO Q6H PRN (Reason: nausea and vomiting) Qty: 14 0RF naproxen 500 mg tablet 500 mg PO BID PRN (Reason: pain) Qty: 20 0RF naproxen 500 mg tablet 500 mg PO BID PRN (Reason: pain) Qty: 20 0RF Follow-up/Referrals: PHYSICIAN,DATABASE MARKETING ANALYST [Non-Staff] -
--- OUTSIDE RECORDS SUMMARY | 2025-02-07 18:28 | XMS_ITS | Referral Summary ---
Author Organization [facility] [place] [address] Address [address] [place] [address] Phone Care Team Providers Care Fiber Technologist Name Role Phone Edgardo Manuel MD Primary Care Provider [phone]- [phone] Encounters Date Type Department Care Team Description 02/02/2025 11:10 AM CDT Lab [facility] [address] [place] [phone] Chronic hypertension in ; Encounter for supervision of other normal , first trimester; 14 weeks gestation of 01/30/2025 Telephone [facility] [address] [place] [address] Leila Romo MD 01/14/2025 Orders Only [facility] [address] [place] [address] Leila Romo MD Encounter for supervision of other normal , first trimester (Primary Dx); 14 weeks gestation of ; Chronic hypertension in 01/14/2025 1:00 PM CDT Ancillary Procedure [facility] [address] [place] [phone] Encounter to determine viability of , single or unspecified fetus 01/14/2025 2:00 PM CDT Office Visit [facility] [address] [place] [address] Leila Romo MD care, subsequent , second trimester (Primary Dx); Chronic hypertension affecting ; Antepartum multigravida of advanced maternal age 0301/08/2025 Results Follow-Up [facility] [address] [place] [address] Leila Romo MD 12/31/2024 Results Follow-Up [facility] [address] [place] [address] Leila Romo MD 12/29/2024 11:24 AM CDT - 12/29/2024 11:59 PM CDT Hospital Encounter [facility] [address] [place] [address] Screening examination for venereal disease Discharge Disposition: Discharge to home or self care 12/29/2024 Orders Only [facility] [address] [place] [address] Leila Romo MD AMA (advanced maternal age) multigravida 35+, first trimester (Primary Dx) 12/29/2024 10:15 AM CDT Office Visit [facility] [address] [place] [address] Leila Romo MD Pelvic pain affecting in first trimester, antepartum (Primary Dx); Screening examination for venereal disease; Chronic hypertension affecting ; Multigravida of advanced maternal age in first trimester 12/15/2024 Orders Only [facility] [address] [place] [address] Leila Romo MD Encounter to determine viability [...] nails are covered with thick red nail [place] this some evidence of onychomycosis round the [...] through the pharmacy given to us [facility] [place] location on [facility] patient has made a commitment to get back to me in the next 24 hours regarding her precise medication she is taking.. At this time she has no symptoms referable to hypertension Seborrhea-like dermatitis with psoriasiform [place] ents 01/21/2024 Assessment & Plan (01/21/2024 5:27 [...] this. 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 Testing performed by: [facility], [address] [place] [address], [place]., [address] Blood 02/02/2025 11:2 1 AM CDT 02/02/2025 7:07 PM CDT Leila Romo MD LAB BLOOD ORDERABLES Final Result [address] Department [place] [address] * (ABNORMAL) Differential, auto (02/02/2025 11:21 AM CDT) Neutrophil abs 5.67 1.50 - 6.50 K/cumm Comment:Testing performed by : [address] [address] Imm gran abs 0.04 0.00 - 0.10 K/cumm CERNER Comment:Testing performed by : [address] [address] Lymphocyte abs 1.79 0.80 - 3.30 K/cumm CERNER Comment:Testing performed by : [address] [address] Monocyte abs 1.16(H) 0.20 - 0.80 K/cumm CERNER Comment:Testing performed by : [address] [address] Eosinophil abs 0.10 0.00 - 0.50 K/cumm CERNER Comment:Testing performed by : [address] [address] Basophil abs 0.03 0.00 - 0.10 K/cumm CERNER Comment:Testing performed by : [address] [address] Neutrophil pct 64.5 % CERNER Comment: Interpretive Data Percent cell count reference ranges are not reported, since discordance with absolute values may lead to misinterpretation of CBC data. Current Interpretive Data was last revised on 2018. Testing performed by: [address], [address] Imm gran pct 0.5 % CERNER Comment: Interpretive Data Percent cell count reference ranges are not reported, since discordance with absolute values may lead to misinterpretation of CBC data. Current Interpretive Data was last revised on 2018. Testing performed by: [facility], [address] [place] [address]., [address] Lymphocyte pct 20.4 % CERNER Comment: Interpretive Data Percent cell count reference ranges are not reported, since discordance with absolute values may lead to misinterpretation of CBC data. Current Interpretive Data was last revised on 2018. Testing performed by: [address] [address] Monocyte pct 13.2 % CERNER Comment: Interpretive Data Percent cell count reference ranges are not reported, since discordance with absolute values may lead to misinterpretation of CBC data. Current Interpretive Data was last revised on 2018. Testing performed by: [facility], [address] [place] [address]., [address] Eosinophil pct 1.1 % CERNER Comment: Interpretive Data Percent cell count reference ranges are not reported, since discordance with absolute values may lead to misinterpretation of CBC data. Current Interpretive Data was last revised on 2018. Testing performed by: [address] [address] Basophil pct 0.3 % CERNER Comment: Interpretive Data Percent cell count reference ranges are not reported, since discordance with absolute values may lead to misinterpretation of CBC data. Current Interpretive Data was last revised on 2018. Testing performed by: [address] [address] Blood 02/02/2025 11:2 1 AM CDT 02/02/2025 6:54 PM CDT us Leila Romo MD LAB BLOOD ORDERABLES Final Result RICHARD [address] Department [place] [address] * HIV 1/2 Antibody plus p24 Antigen Blood (02/02/2025 11:21 AM CDT) HIV 1/2 ab + p24 ag Nonreactive Nonreactive Comment: Nonreactive for HIV-1 antigen and HIV-1/HIV-2 antibodies. No laboratory evidence of HIV infection. If acute HIV infection is suspected, consider testing for HIV-1 RNA. Testing performed by: [address] [address] Blood 02/02/2025 11:2 1 AM CDT 02/02/2025 6:54 PM CDT Leila Romo MD LAB MICROBIOLOGY - NERAL ORDERABLES Final Result [address] Department [place] [address] * (ABNORMAL) CBC with auto differential (02/02/2025 11:21 AM CDT) WBC 8.79 3.80 - 9.90 K/cumm Comment:Testing performed by : [address], [address] Hgb 13.2 11.9 - 15.5 g/dL CERNER Comment:Testing performed by : [address], [address] Hct 40.4 35.6 - 45.5 % CERNER CH Comment:Testing performed by : [address], [address] Plt 236 150 - 400 K/cumm CERNER CH Comment:Testing performed by : [address], [address] MPV 11.7 9.1 - 12.3 fL CERNER CH Comment:Testing performed by : [address], [address] RBC 4.42 3.90 - 5.20 M/cumm CERNER CH Comment:Testing performed by : [address], [address] MCV 91.4 81.3 - 96.4 fL CERNER CH Comment:Testing performed by : [address], [address] MCH 29.9 27.1 - 33.3 pg CERNER CH Comment:Testing performed by : [address], [address] MCHC 32.7 32.3 - 35.7 g/dL RICHARD Comment:Testing performed by : [facility], [address] [place] [address]., [address] RDW CV 14.4 11.1 - 14.9 % RICHARD Comment:Testing performed by : [facility], [address] [place] [address]., [address] RDW SD 48.7(H) 35.7 - 48.1 fL RICHARD Comment:Testing performed by : [facility], [address] [place] [address]., [address] NRBC abs 0.00 0.00 - 0.01 K/cumm RICHARD Comment:Testing performed by : [facility], [address] [place] [address], [address] Blood 02/02/2025 11:2 1 AM CDT 02/02/2025 6:54 PM CDT Leila Romo MD LAB BLOOD ORDERABLES Final Result [address] Department [place] [address] * Hepatitis C antibody Blood (02/02/2025 11:21 [...] last revised on 2020. Testing performed by: [address] [address] Blood 02/02/2025 11:2 1 AM CDT 02/02/2025 6:54 PM CDT Leila Romo MD [facility] Final Result Performing Organization Address [facility] Co de Phone Number RICHARD [address] [facility] Department [place] [address] * Protein / creatinine ratio, urine, random (02/02/2025 11:21 AM CDT) Protein, ur, quant 26.9 mg/dL Comment: Interpretive Data No reference range established. Current interpretive data was last revised 2019. Testing performed by: [address] [address] Creatinine Ur 303.8 mg/dL [facility] Comment: Interpretive Data No reference range established. Current interpretive data was last revised 2019. Testing performed by: [address] [address] Protein/creatinin e ratio 88.5 0.0 - 180.0 mg/g CR RICHARD Comment:Testing performed by : [address] [address] Urine 02/02/2025 11:2 1 AM CDT 02/04/2025 9:44 AM CDT Leila Romo MD LAB URINE ORDERABLES Final Result Performing Organization Address [facility] Co de Phone Number RICHARD [phone] [facility] [place] [address] * (ABNORMAL) Drugs of Abuse Screen, Urine [...] was last reviewed 2023. Testing performed by: [address] [address] Barbiturates, ur Not Detected CutOff 200ng/mL [facility] Comment: Interpretive Data - Barbiturates: Samples containing greater than 200 ng/mL secobarbital or other cross-reacting barbiturate compounds are reported as positive. False positive and false negative results are possible. Confirmatory testing required for definitive results. Current Interpretive Data was last reviewed 2023. Testing performed by: [facility], [address] [place] [address]., [address] Benzodiazepines, ur Not Detected CutOff 100ng/mL CERNER Comment: Interpretive Data - Benzodiazepines: Samples containing greater than 100 ng/mL nordiazepam or other cross-reacting compounds are reported as positive. False positive and false negative results are possible. Confirmatory testing required for definitive results. Current Interpretive Data was last reviewed 2023. Testing performed by: [address] [address] Cannabinoids, ur Screen Positive, presumptive (A) CutOff 50 ng/mL CERNER Comment: Interpretive Data - Cannabinoids: Samples containing greater than 50 ng/mL delta-9 THC -COOH or other cross- reacting compounds are reported as positive. False positive and false negative results are possible. Confirmatory testing required for definitive results. Current Interpretive Data was last reviewed 2023. Testing performed by: [address] [address] Cocaine, ur Not Detected CutOff 150ng/mL CERNER Comment: Interpretive Data - Cocaine: Samples containing greater than 150 ng/mL benzoylecgonine or other cross- reacting compounds are reported as positive. False positive and false negative results are possible. Confirmatory testing required for definitive results. Current Interpretive Data was last reviewed 2023. Testing performed by: [address] [address] Fentanyl, Ur Not Detected CutOff 5 ng/mL CERNER Comment: Interpretive Data - Fentanyl: Samples containing greater than 5 ng/mL norfentanyl, fentanyl, or other cross-reacting fentanyl compounds are reported as positive. False positive and false negative results are possible. Confirmatory testing required for definitive results. Current Interpretive Data was last reviewed 2024. Testing performed by: [address] [address] Methadone, ur Not Detected CutOff 300ng/mL CERNER CH Comment: Interpretive Data - Methadone: Samples containing greater than 300 ng/mL d,l-methadone or other cross-reacting compounds are reported as positive. False positive and false negative results are possible. Confirmatory testing required for definitive results. Current Interpretive Data was last reviewed 2023. Testing performed by: [facility], [address] [place] [address]., [address] Opiates, ur Not Detected CutOff 300ng/mL [facility] Comment: Interpretive Data - Opiates: Samples containing greater than 300 ng/mL morphine or other cross-reacting compounds are reported as positive. False positive and false negative results are possible. Confirmatory testing required for definitive results. Current Interpretive Data was last reviewed 2023. Testing performed by: [address] [address] Oxycodone, ur Not Detected CutOff 100ng/mL [facility] Comment: Interpretive Data - Oxycodone: Samples containing greater than 100 ng/mL oxycodone or other cross-reacting compounds are reported as positive. False positive and false negative results are possible. Confirmatory testing required for definitive results. Current Interpretive Data was last reviewed 2023. Testing performed by: [facility], [address] [place] [address]., [address] Phencyclidine, ur Not Detected CutOff 25 ng/mL [facility] Comment: Interpretive Data - Phencyclidine: Samples containing greater than 25 ng/mL phencyclidine or other cross-reacting compounds are reported as positive. False positive and false negative results are possible. Confirmatory testing required for definitive results. Current Interpretive Data was last reviewed 2023. Testing performed by: [facility], [address] [place] [address]., [address] Urine Creatinine 306 mg/dL [facility] Comment: Interpretive Data Urine Creatinine: < 10 mg/dL is extremely dilute = or > 10 but < 20 mg/dL is dilute = or > 20 mg/dL is normal Current Interpretive Data was last revised on 2018. Testing performed by: [address] [address] Urine 02/02/2025 11:2 1 AM CDT 02/02/2025 6:54 PM CDT Narrative RICHARD FLORES - 02/02/2025 10:05 PM CDT Drug of Abuse screening is performed by immunoassay for medical purposes only. This is not to be used for Pain Management purposes. Leila Romo MD LAB URINE ORDERABLES Final Result Performing Organization Address [facility] Co de Phone Number MEGHNAPITA [address] [address] [place] [address] * Rubella IgG antibody Blood (02/02/2025 11:21 AM CDT) Rubella IgG Reactive Comment: Reactive: Results suggest response to immunization or prior exposure to the virus. Testing performed by: [facility], [address] [place] [address], [address] Blood 02/02/2025 11:2 1 AM CDT 02/03/2025 10:01 AM CDT Leila Romo MD LAB MICROBIOLOGY - GE NERAL ORDERABLES Final Result Performing Organization Address [facility] Co de Phone Number [facility] [address] [address] [place] [address] * RPR Blood (02/02/2025 11:21 AM CDT) Pathologist [facility] RPR Nonreactive Nonreactive Comment:Testing performed by : [facility], [address] [place] [address]., [address] Blood 02/02/2025 11:2 1 AM CDT 02/02/2025 6:54 PM CDT Leila Romo MD LAB MICROBIOLOGY - GE NERAL ORDERABLES Final Result Performing Organization Address [facility] Co de Phone Number RICHARD [phone] [address] Department [place] [address] * Hepatitis B Surface Antigen Blood (02/02/2025 11:21 AM CDT) HepBsAg Nonreactive Nonreactive Comment:Testing performed by : [facility], [address] [place] [address]., [address] Blood 02/02/2025 11:2 1 AM CDT 02/02/2025 6:54 PM CDT Leila Romo MD LAB MICROBIOLOGY - GE NERAL ORDERABLES Final Result Performing Organization Address [facility]/ZIP Co de Phone Number RICHARD FLORES [address] [facility] Department [place] [address] * Type and screen (02/02/2025 11:21 AM CDT) ABO Rh A Positive Hope, indirect Negative RICHARD Blood 02/02/2025 11:2 1 AM CDT 02/02/2025 7:06 PM CDT Narrative RICHARD - 02/02/2025 8:57 PM CDT Has the patient had Daratumumab or Isatuximab in the past 6 months?->Unknown Leila Romo MD LAB BLOOD BANK TEST O RDERABLES Final Result Performing Organization Address [facility] Co de Phone Number RICHARD FLORES [address] [facility] Department [place] [address] * Urine culture Urine, clean voided (02/02/2025 11:21 AM CDT) Report Final Report: Less than 100,000 colonies/mL (clinically insignificant growth based on current clinical standards) Comment:Testing performed by : [facility], [address] [place]., [address] Organism (CLINICALLY INSIGNIFICANT GROWTH RICHARD Urine, clean voided 02/02/2025 11:21 AM CDT 02/02/2025 10:52 PM CDT Narrative RICHARD - 02/04/2025 8:04 AM CDT Testing performed by [facility] Microbiology Laboratory ([phone]) Leila Romo MD LAB MICROBIOLOGY - GE NERAL ORDERABLES Final Result Performing Organization Address [facility] Co de Phone Number RICHARD [address] [facility] [address] * Varicella Zoster IgG antibody Blood (02/02/2025 11:21 AM CDT) Pathologist [facility] VZV IgG Reactive Reactive Comment: Reactive: Results suggest response to immunization or prior exposure to the virus. Testing performed by: [facility], [address] [place]., [address] Blood 02/02/2025 11:2 1 AM CDT 02/03/2025 10:01 AM CDT Leila Romo MD LAB MICROBIOLOGY - GE NERAL ORDERABLES Final Result Performing Organization Address [facility] Co de Phone Number RICHARD [address] [facility] [place] [address] * Comprehensive metabolic panel (02/02/2025 11:21 AM CDT) [facility] Sodium 135 135 - 145 mmol/L Comment:Testing performed by : [address] [address] Potassium, pl 4.0 3.3 - 4.9 mmol/L CERNER CH Comment:Testing performed by : [address] [address] Chloride 102 97 - 110 mmol/L CERNER CH Comment:Testing performed by : [address] [address] CO2 22 22 - 32 mmol/L CERNER CH Comment:Testing performed by : [address] [address] Anion gap 11 2 - 15 mmol/L CERNER CH Comment:Testing performed by : [address], [address] BUN 7 6 - 25 mg/dL CERNER CH Comment:Testing performed by : [facility], [address], [place]., [address] Creatinine 0.71 0.60 - 1.10 mg/dL CERNER CH Comment:Testing performed by : [address] [address] Glucose 128 70 - 199 mg/dL CERNER [...] was last revised 2022. Testing performed by: [address] [address] Calcium 9.5 8.5 - 10.3 mg/dL CERNER CH Comment:Testing performed by : [address] [address] Bilirubin, total 0.2 0.1 - 1.2 mg/dL CERNER CH Comment:Testing performed by : [address] [address] Protein, pl 7.1 6.5 - 8.5 g/dL CERNER CH Comment:Testing performed by : [address] [address] Albumin 3.9 3.5 - 5.0 g/dL CERNER CH Comment:Testing performed by : [address] [address] Alk phos 50 40 - 130 Units/L CERNER CH Comment:Testing performed by : [address] [address] ALT 42 7 - 45 Units/L CERNER CH Comment:Testing performed by : [address] [address] AST 27 10 - 45 Units/L CERNER CH Comment:Testing performed by : [address], [address] Blood 02/02/2025 11:2 1 AM CDT 02/02/2025 6:54 PM CDT us Leila Romo MD LAB BLOOD ORDERABLES Final Result RICHARD FLORES [address] [address] Department [place] [address] * US Ob Under 14 Weeks (01/14/2025 [...] Jonathan Styles M.D. CH: MARK Report ID: [id number] Reading Location: [id number] Procedure Note Jonathan Styles Jr., MD - [...] by Jonathan Styles M.D. CH: Report ID: [id number] Reading Location: [place] [address] us Leila Romo MD IMG OB US PROCEDURES Final Result * [facility] (12/30/2024 11:11 AM CDT) Number of fetuses 1 [facility], Down syndrome risk, maternal age NOT GIVEN [facility], Abnormal Yumiko? NOT GIVEN [facility], Abnormal Us? NOT GIVEN [facility], History, personal/family NOT GIVEN [facility], test, interpretation SEE NOTE [facility], Comment: This specimen showed an expected representation of chromosome 21, 18, and 13 material. See Limitations below. Trisomy 21 risk assessment Negative [facility], Trisomy 18 (T18) Negative [facility], Trisomy 13 risk assessment Negative [facility], Genotype Assay Detected [facility], Cytogenetic Diagnosis SEE NOTE [facility], Comment:Consistent with a ma le fetus. Sex chromosome No aneuploidy [facility], Comment SEE NOTE [facility], Comment: No apparent abnormality was detected. See Limitations below. MICRODELETION Not detected [facility], MICRODELETION INTERP SEE NOTE [facility], Comment: No apparent abnormality was detected. See Limitations below. Gestational age 12 Ques [facility], Gestational age 0 [facility]ues t [facility], Fraction 9.30% [facility], test, comment SEE NOTE [facility], Comment: A portion of the testing was performed at [facility]. Laboratory results and submitted clinical information reviewed by Janet Hill, Ph.D., [facility], [facility]. test, limitations SEE NOTE [facility], Comment: QNatal(R) Advanced is a cell-free [...] confined placental in origin. SPECIFICATIONS SEE NOTE [facility], Comment: Sensitivity Specificity T21 >99.9% >99.9% T18 >99.9% >99.9% T13 >99.9% >99.9% Accuracy Y >99.9% Performance of the QNatal Advanced laboratory-developed test (LDT) has been determined based on internal analytical assessment. METHODOLOGY SEE NOTE [facility], Comment: Circulating cell-free (cf) DNA was isolated [...] performed pursuant to a license agreement with [employer]. QNatal Advanced is a laboratory developed test that has been developed and validated, pursuant to the Clinical Laboratory Improvements Amendments of 1988 (CLIA), and as such it has not been reviewed by FDA. Blood 12/30/2024 11:1 1 AM CDT 12/30/2024 11:12 AM CDT [facility] [facility] - 2025 8:02 AM CDT FASTING:NO FASTING: NO Leila Romo MD LAB GENETIC TESTING F inal Result [facility], [address] [place] [address] * N. gonorrhoeae/C. trachomatis Amplification Endocervical (12/29/2024 11:24 AM CDT) C. trachomatis Not Detected [facility] Comment:Testing performed by : [facility], [address] [place] [address], [place]., [address] N. gonorrhoeae Not Detected [facility] Comment: Interpretive Data This assay detects Chlamydia trachomatis and Neisseria gonorrhoeae by nucleic acid amplification testing (NAAT). This assay has been cleared by the [place] Food and Drug administration. The performance characteristics of this test have been verified by the [facility] Molecular Infectious Disease laboratory. The performance characteristics of this test have not been evaluated in individuals less than 14 years of age. Current Interpretive Data was last revised on 2023. Testing performed by: [facility], [address] [place]., [address] Endocervical (None) 12/30/19 11:24 AM CDT 12/30/2024 9:46 AM CDT Leila Romo MD LAB MICROBIOLOGY - [facility] ORDERABLES Final Result [facility] FLOR[facility] [address] Department [place] [address] [facility] * Screening Mammogram Bilateral W [...] 11:57 AM CDT) CLINICAL INFORMATION: [facility] Comment:Routine exam LMP [facility] Comment:UNKNOWN Previous Pap [facility] Comment:INFORMATION NOT PROV IDED Prev. Bx [facility] Comment:INFORMATION NOT PROV IDED SOURCE: [facility] Comment:Cervix, Endocervix Pap, specimen adequacy [facility] Comment: Satisfactory for evaluation. Endocervical/transformation zone component present. Age and/or menstrual status not provided HPV interp [facility] Comment:Negative for intraep ithelial lesion or malignancy. COMMENTS [facility] Comment: This Pap test has been evaluated with computer assisted technology. Discharge Coordinator [facility] Comment: AAM, CT(ASCP) CT Screening Location: [place] [address] [place] [address] Comment [facility] Comment: EXPLANATORY NOTE: The Pap is [...] High Risk E6/E7 Not Detected Not Detected [facility] [employer] Comment: Methodology: Client Consultant-Mediated Amplification This assay detects E6/E7 viral messenger RNA (mRNA) from 14 high-risk HPV types (16,18,31,33,35,39,45,51,52,56,58,59,66,68). The analytical performance characteristics of this assay have been determined by [employer]. The modifications have not been cleared or approved by the FDA. This assay has been validated pursuant to the CLIA regulations and is used for clinical purposes. For additional information, please refer to http://education.[employer].Noom/faq/NKJ654z0 (This link if provided for information/ educational purposes only.) 03/02/2021 11:5 7 AM CDT 03/03/2021 2:21 AM CDT Narrative [facility] - 03/05/2021 3:24 PM CDT FASTING: UNKNOWN us Leila Romo MD LAB CYTOLOGY ORDERABL ES Final Result [facility] [address] [place] [address] [facility] [address] [place] [address] from Last 3 Months or Most Recently Relevant to Health Maintenance Insurance [employer] [place] [place] [employer] H[employer] Care Teams Fiber Technologist Relationship Specialty Start Date End Date Edgardo Manuel MD PCP - General Internal Medicine 11/03/21
--- OUTSIDE RECORDS SUMMARY | 2025-02-07 18:28 | XMS_ITS | Clinical Summary ---
Author Organization [facility] Address [address] [place] [address] Phone Care Team Providers Care Merchandising Team Lead Name Role Phone Rachel Gillis APRN Primary [...] Comments Blood Pressure 162/113 12/16/2019 12:40 PM [employer] Pulse 100 12/16/2019 12:40 PM [employer] Temperature 37.5 C (99.5 F) 12/16/2019 12:40 PM [employer] Respiratory Rate 18 12/16/2019 12:40 PM [employer] Oxygen Saturation 99% 12/16/2019 12:40 PM [employer] Inhaled Oxygen Concentration - - Weight 86.2 kg (190 lb) 12/16/2019 12:40 PM [employer] Height 165.1 cm (5' 5 ) 12/16/2019 12:40 PM [employer] Body Mass Index 31.62 12/16/2019 12:40 PM [employer] Plan of Treatment Health Maintenance Due Date [...] this topic Medical Devices Implanted Type Area Director Design Device Identifier Shelf Expiration Date Model / Serial / Lot Stent Ureteral 6fr 2.1fr 26cm 2 Pigtail Curve 2 Durometer Taper Tip Loprfl Graduated [employer] Ultra - [id number] Implanted:Qty : 1 on 04/30/2019 by [facility] IMPLANT Left: Ureter SIVI 01/14/2022 [id number] / [id number] / [id number] Insurance [facility] Advance Directives * Full Code (Latest [...] measures to stabilize the patient. Care Teams Merchandising Team Lead Relationship Specialty Start Date End Date Rachel Gillis APRN [address] [place] [address] [address] [place] [address] PCP - General Family Medicine 07/07/19
--- OUTSIDE RECORDS SUMMARY | 2025-02-07 18:28 | XMS_ITS | Clinical Summary ---
Author Organization [facility] [address] Address [address] [place] [address] Phone Care Team Providers Care Counter Intelligence Name Role Phone Edgardo Manuel MD Primary Care Provider [phone] Allergies Active Allergy Reactions Criticality Noted Date [...] nails are covered with thick red nail Lao this some evidence of onychomycosis round the [...] given to us Nguyen[place] location on [facility] patient has made a commitment to get back to me in the next 24 hours regarding her precise medication she is taking.. At this time she has no symptoms referable to hypertension Seborrhea-like dermatitis with psoriasiform chalkyitsik ents 01/21/2024 Assessment & Plan (01/21/2024 5:27 [...] this. Assessment & Plan (11/28/2021 6:33 PM PUBLIC HEALTH POLICY ANALYST): 41-year-old lady who is a new patient [...] (05/01/2022): Added automatically from request for surgery [id number] Acute otitis media 02/28/2021 Acute infective otitis externa of right ear 02/28/2021 03/02/2021 Encounters Date Type Department Care Team Description 02/02/2025 11:10 AM CDT Lab [facility] [address] [place] [address] Chronic hypertension in ; Encounter for supervision of other normal , first trimester; 14 weeks gestation of 01/30/2025 Telephone [facility] [address] [place] [address] Leila Romo MD 01/14/2025 2:00 PM CDT Office Visit [facility] [address] [place] [address] Leila Romo MD care, subsequent , second trimester (Primary Dx); Chronic hypertension affecting ; Antepartum multigravida of advanced maternal age 0301/14/2025 1:00 PM CDT Ancillary Procedure [facility] [address] [place] [address] Encounter to determine viability of , single or unspecified fetus 01/14/2025 Orders Only [facility] [address] [place] [address] Leila Romo MD Encounter for supervision of other normal , first trimester (Primary Dx); 14 weeks gestation of ; Chronic hypertension in 2025 Results Follow-Up [facility] [address] [place] [address] Leila Romo MD 12/31/2024 Results Follow-Up [facility] [address] [place] [address] Leila Romo MD 12/29/2024 11:24 AM CDT - 12/29/2024 11:59 PM CDT Hospital Encounter [facility] [address] [place] [address] Screening examination for venereal disease Discharge Disposition: Discharge to home or self care 12/29/2024 10:15 AM CDT Office Visit [facility] [address] [place] [address] Leila Romo MD Pelvic pain affecting in first trimester, antepartum (Primary Dx); Screening examination for venereal disease; Chronic hypertension affecting ; Multigravida of advanced maternal age in first trimester 12/29/2024 Orders Only [facility] [address] [place] [address] Leila Romo MD AMA (advanced maternal age) multigravida 35+, first trimester (Primary Dx) 12/15/2024 Orders Only [facility] [address] [place] [address] Leila Romo MD Encounter to determine viability [...] on file Legal Sex Female 9:49 AM PUBLIC HEALTH POLICY ANALYST Gender Identity Not on file Sexual Orientation [...] an ER follow up. She presented to [place] [facility] 3/5 c/o pelvic cramping and back [...] cm (5' 5 ) 09/11/2024 1:08 PM PUBLIC HEALTH POLICY ANALYST Body Mass Index 33.61 09/11/2024 1:08 PM PUBLIC HEALTH POLICY ANALYST Plan of Treatment Health Maintenance Due Date [...] was last reviewed 2021. Testing performed by: [facility], [address] [place] [address], [place]., [address] Blood 02/02/2025 11:2 1 AM CDT 02/02/2025 7:07 PM CDT Leila Romo MD LAB BLOOD ORDERABLES Final Result [address] [place] [address] * (ABNORMAL) Differential, auto (02/02/2025 11:21 AM CDT) Neutrophil abs 5.67 1.50 - 6.50 K/cumm Comment:Testing performed by : [facility], [address] [place] [address]., [address] Imm gran abs 0.04 0.00 - 0.10 K/cumm CERNER Comment:Testing performed by : [facility], [address] [place] [address]., [address] Lymphocyte abs 1.79 0.80 - 3.30 K/cumm CERNER Comment:Testing performed by : [address] [address] Monocyte abs 1.16(H) 0.20 - 0.80 K/cumm CERNER Comment:Testing performed by : [address] [address] Eosinophil abs 0.10 0.00 - 0.50 K/cumm CERNER Comment:Testing performed by : [address] [address] Basophil abs 0.03 0.00 - 0.10 K/cumm CERNER Comment:Testing performed by : [address] [address] Neutrophil pct 64.5 % CERNER Comment: Interpretive Data Percent cell count reference ranges are not reported, since discordance with absolute values may lead to misinterpretation of CBC data. Current Interpretive Data was last revised on 2018. Testing performed by: [address] [address] Imm gran pct 0.5 % CERNER Comment: Interpretive Data Percent cell count reference ranges are not reported, since discordance with absolute values may lead to misinterpretation of CBC data. Current Interpretive Data was last revised on 2018. Testing performed by: [address] [address] Lymphocyte pct 20.4 % CERNER Comment: Interpretive Data Percent cell count reference ranges are not reported, since discordance with absolute values may lead to misinterpretation of CBC data. Current Interpretive Data was last revised on 2018. Testing performed by: [facility], [address] [place] [address]., [address] Monocyte pct 13.2 % [facility] Comment: Interpretive Data Percent cell count reference ranges are not reported, since discordance with absolute values may lead to misinterpretation of CBC data. Current Interpretive Data was last revised on 2018. Testing performed by: [facility], [address] [place] [address]., [address] Eosinophil pct 1.1 % [facility] Comment: Interpretive Data Percent cell count reference ranges are not reported, since discordance with absolute values may lead to misinterpretation of CBC data. Current Interpretive Data was last revised on 2018. Testing performed by: [address] [address] Basophil pct 0.3 % [facility] Comment: Interpretive Data Percent cell count reference ranges are not reported, since discordance with absolute values may lead to misinterpretation of CBC data. Current Interpretive Data was last revised on 2018. Testing performed by: [address] [address] Blood 02/02/2025 11:2 1 AM CDT 02/02/2025 6:54 PM CDT Leila Romo MD LAB BLOOD ORDERABLES Final Result RICHARD [id number] [place] [address] Department [place] [address] * HIV 1/2 Antibody plus p24 Antigen Blood (02/02/2025 11:21 AM CDT) HIV 1/2 ab + p24 ag Nonreactive Nonreactive Comment: Nonreactive for HIV-1 antigen and HIV-1/HIV-2 antibodies. No laboratory evidence of HIV infection. If acute HIV infection is suspected, consider testing for HIV-1 RNA. Testing performed by: [address] [address] Blood 02/02/2025 11:2 1 AM CDT 02/02/2025 6:54 PM CDT Leila Romo MD LAB MICROBIOLOGY - CLEMENTINE SIEGEL ORDERABLES Final Result [address] [place] [address] * (ABNORMAL) CBC with auto differential (02/02/2025 11:21 AM CDT) WBC 8.79 3.80 - 9.90 K/cumm Comment:Testing performed by : [address], [address] Hgb 13.2 11.9 - 15.5 g/dL CERNER Comment:Testing performed by : [address], [address] Hct 40.4 35.6 - 45.5 % CERNER Comment:Testing performed by : [address], [address] Plt 236 150 - 400 K/cumm CERNER CH Comment:Testing performed by : [address], [address] MPV 11.7 9.1 - 12.3 fL CERNER CH Comment:Testing performed by : [address], [address] RBC 4.42 3.90 - 5.20 M/cumm CERNER CH Comment:Testing performed by : [address], [address] MCV 91.4 81.3 - 96.4 fL CERNER CH Comment:Testing performed by : [address], [address] MCH 29.9 27.1 - 33.3 pg CERNER CH Comment:Testing performed by : [address], [address] MCHC 32.7 32.3 - 35.7 g/dL CERNER CH Comment:Testing performed by : [address], [address] RDW CV 14.4 11.1 - 14.9 % CERNER Comment:Testing performed by : [facility], [address] [place] [address]., [address] RDW SD 48.7(H) 35.7 - 48.1 fL RICHARD Comment:Testing performed by : [facility], [address] [place] [address]., [address] NRBC abs 0.00 0.00 - 0.01 K/cumm RICHARD Comment:Testing performed by : [facility], [address] [place] [address]., [address] Blood 02/02/2025 11:2 1 AM CDT 02/02/2025 6:54 PM CDT Leila Romo MD LAB BLOOD ORDERABLES Final Result Performing Organization Address [facility] Co de Phone Number RICHARD [address] [place] [address] * Hepatitis C antibody Blood (02/02/2025 11:21 [...] revised on 2020. Testing performed by: [facility], [address] [place] [address]., [address] Blood 02/02/2025 11:2 1 AM CDT 02/02/2025 6:54 PM CDT Leila Romo MD LAB MICROBIOLOGY - GE NERAL ORDERABLES Final Result Performing Organization Address [facility] Co de Phone Number [facility] [address] Department [place] [address] * Protein / creatinine ratio, urine, random (02/02/2025 11:21 AM CDT) Protein, ur, quant 26.9 mg/dL Comment: Interpretive Data No reference range established. Current interpretive data was last revised 2019. Testing performed by: [address] [address] Creatinine Ur 303.8 mg/dL RICHARD Comment: Interpretive Data No reference range established. Current interpretive data was last revised 2019. Testing performed by: [facility], [address] [place] [address]., [address] Protein/creatinin e ratio 88.5 0.0 - 180.0 mg/g CR RICHARD Comment:Testing performed by : [address] [address] Urine 02/02/2025 11:2 1 AM CDT 02/04/2025 9:44 AM CDT Leila Romo MD LAB URINE ORDERABLES Final Result [address] Department [place] [address] * (ABNORMAL) Drugs of Abuse Screen, Urine without Confirmation (02/02/2025 11:21 AM CDT) Pathologist [facility] Amphetamine, ur Screen Positive, presumptive (A) CutOff 500ng/mL Comment: Interpretive Data - Amphetamines: Samples containing greater than 500 ng/mL d-methamphetamine or other cross-reacting amphetamine compounds are reported as positive. Amphetamine immunoassays are subject to significant false positive rates due to cross-reactivity of non-amphetamine drugs. Confirmatory testing required for definitive results. Current Interpretive Data was last reviewed 2023. Testing performed by: [address] [address] Barbiturates, ur Not Detected CutOff 200ng/mL RICHARD Comment: Interpretive Data - Barbiturates: Samples containing greater than 200 ng/mL secobarbital or other cross-reacting barbiturate compounds are reported as positive. False positive and false negative results are possible. Confirmatory testing required for definitive results. Current Interpretive Data was last reviewed 2023. Testing performed by: [facility], [address] [place] [address]., [address] Benzodiazepines, ur Not Detected CutOff 100ng/mL CERNER Comment: Interpretive Data - Benzodiazepines: Samples containing greater than 100 ng/mL nordiazepam or other cross-reacting compounds are reported as positive. False positive and false negative results are possible. Confirmatory testing required for definitive results. Current Interpretive Data was last reviewed 2023. Testing performed by: [facility], [address] [place] [address]., [address] Cannabinoids, ur Screen Positive, presumptive (A) CutOff 50 ng/mL CERNER Comment: Interpretive Data - Cannabinoids: Samples containing greater than 50 ng/mL delta-9 THC -COOH or other cross- reacting compounds are reported as positive. False positive and false negative results are possible. Confirmatory testing required for definitive results. Current Interpretive Data was last reviewed 2023. Testing performed by: [facility], [address] [place] [address]., [address] Cocaine, ur Not Detected CutOff 150ng/mL CERNER Comment: Interpretive Data - Cocaine: Samples containing greater than 150 ng/mL benzoylecgonine or other cross- reacting compounds are reported as positive. False positive and false negative results are possible. Confirmatory testing required for definitive results. Current Interpretive Data was last reviewed 2023. Testing performed by: [address] [address] Fentanyl, Ur Not Detected CutOff 5 ng/mL CERNER Comment: Interpretive Data - Fentanyl: Samples containing greater than 5 ng/mL norfentanyl, fentanyl, or other cross-reacting fentanyl compounds are reported as positive. False positive and false negative results are possible. Confirmatory testing required for definitive results. Current Interpretive Data was last reviewed 2024. Testing performed by: [address] [address] Methadone, ur Not Detected CutOff 300ng/mL CERNER Comment: Interpretive Data - Methadone: Samples containing greater than 300 ng/mL d,l-methadone or other cross-reacting compounds are reported as positive. False positive and false negative results are possible. Confirmatory testing required for definitive results. Current Interpretive Data was last reviewed 2023. Testing performed by: [facility], [address] [place] [address]., [address] Opiates, ur Not Detected CutOff 300ng/mL RICHARD Comment: Interpretive Data - Opiates: Samples containing greater than 300 ng/mL morphine or other cross-reacting compounds are reported as positive. False positive and false negative results are possible. Confirmatory testing required for definitive results. Current Interpretive Data was last reviewed 2023. Testing performed by: [facility], [address] [place] [address]., [address] Oxycodone, ur Not Detected CutOff 100ng/mL RICHARD Comment: Interpretive Data - Oxycodone: Samples containing greater than 100 ng/mL oxycodone or other cross-reacting compounds are reported as positive. False positive and false negative results are possible. Confirmatory testing required for definitive results. Current Interpretive Data was last reviewed 2023. Testing performed by: [facility], [address] [place] [address]., [address] Phencyclidine, ur Not Detected CutOff 25 ng/mL RICHARD Comment: Interpretive Data - Phencyclidine: Samples containing greater than 25 ng/mL phencyclidine or other cross-reacting compounds are reported as positive. False positive and false negative results are possible. Confirmatory testing required for definitive results. Current Interpretive Data was last reviewed 2023. Testing performed by: [facility], [address] [place] [address]., [address] Urine Creatinine 306 mg/dL RICHARD Comment: Interpretive Data Urine Creatinine: < 10 mg/dL is extremely dilute = or > 10 but < 20 mg/dL is dilute = or > 20 mg/dL is normal Current Interpretive Data was last revised on 2018. Testing performed by: [address] [address] Urine 02/02/2025 11:2 1 AM CDT 02/02/2025 6:54 PM CDT [facility]ative [facility] - 02/02/2025 10:05 PM CDT Drug of Abuse screening is performed by immunoassay for medical purposes only. This is not to be used for Pain Management purposes. Leila Romo MD LAB URINE ORDERABLES Final Result Performing Organization Address [facility]/ZIP Co de Phone Number RICHARD FLORES [address] [facility] [place] [address] * Rubella IgG antibody Blood (02/02/2025 11:21 AM CDT) Rubella IgG Reactive Comment: Reactive: Results suggest response to immunization or prior exposure to the virus. Testing performed by: [facility], [address] [place]., [address] Blood 02/02/2025 11:2 1 AM CDT 02/03/2025 10:01 AM CDT Leila Romo MD LAB MICROBIOLOGY - GE NERAL ORDERABLES Final Result Performing Organization Address [facility] Co de Phone Number RICHARD FLORES [address] [address] [place] [address] * RPR Blood (02/02/2025 11:21 AM CDT) Pathologist [facility] RPR Nonreactive Nonreactive Comment:Testing performed by : [facility], [address] [place] [address]., [address] Blood 02/02/2025 11:2 1 AM CDT 02/02/2025 6:54 PM CDT Leila Romo MD LAB MICROBIOLOGY - GE NERAL ORDERABLES Final Result Performing Organization Address City/[facility]/ZIP Co de Phone Number RICHARD FLORES [address] [facility] [place] [address] * Hepatitis B Surface Antigen Blood (02/02/2025 11:21 AM CDT) Pathologist [facility] HepBsAg Nonreactive Nonreactive Comment:Testing performed by : [address] [address] Blood 02/02/2025 11:2 1 AM CDT 02/02/2025 6:54 PM CDT Leila Romo MD LAB MICROBIOLOGY - GE NERAL ORDERABLES Final Result Performing Organization Address [facility] Co de Phone Number MEGHNAPITA FLORES [address] [address] [place] [address] * Type and screen (02/02/2025 11:21 AM CDT) ABO Rh A Positive Hope, indirect Negative RICHARD Blood 02/02/2025 11:2 1 AM CDT 02/02/2025 7:06 PM CDT Narrative RICHARD - 02/02/2025 8:57 PM CDT Has the patient had Daratumumab or Isatuximab in the past 6 months?->Unknown Leila Romo MD LAB BLOOD BANK TEST O RDERABLES Final Result Performing Organization Address [facility] de Phone Number MEGHNAPITA FLORES [address] [address] [place] [address] * Urine culture Urine, clean voided (02/02/2025 11:21 AM CDT) Report Final Report: Less than 100,000 colonies/mL (clinically insignificant growth based on current clinical standards) Comment:Testing performed by : [facility], [address] [place]., [address] Organism (CLINICALLY INSIGNIFICANT GROWTH RICHARD Urine, clean voided 02/02/2025 11:21 AM CDT 02/02/2025 10:52 PM CDT Narrative RICHARD - 02/04/2025 8:04 AM CDT Testing performed by [facility] Microbiology Laboratory ([phone]) Leila Romo MD LAB MICROBIOLOGY - GE NERAL ORDERABLES Final Result Performing Organization Address City/[facility] Co de Phone Number RICHARD FLORES [address] [address] [place] [address] * Varicella Zoster IgG antibody Blood (02/02/2025 11:21 AM CDT) VZV IgG Reactive Reactive Comment: Reactive: Results suggest response to immunization or prior exposure to the virus. Testing performed by: [facility], [address] [facility], [place]., [address] Blood 02/02/2025 11:2 1 AM CDT 02/03/2025 10:01 AM CDT us Leila Romo MD LAB MICROBIOLOGY - NERAL ORDERABLES Final Result [address] [place] [address] * Comprehensive metabolic panel (02/02/2025 11:21 AM CDT) Pathologist [facility] Sodium 135 135 - 145 mmol/L Comment:Testing performed by : [address] [address] Potassium, pl 4.0 3.3 - 4.9 mmol/L CERNER CH Comment:Testing performed by : [address], [address] Chloride 102 97 - 110 mmol/L CERNER CH Comment:Testing performed by : [address] [address] CO2 22 22 - 32 mmol/L CERNER CH Comment:Testing performed by : [address], [address] Anion gap 11 2 - 15 mmol/L CERNER Comment:Testing performed by : [address] [address] BUN 7 6 - 25 mg/dL CERNER CH Comment:Testing performed by : [address], [address] Creatinine 0.71 0.60 - 1.10 mg/dL CERNER CH Comment:Testing performed by : [address], [address] Glucose 128 70 - 199 mg/dL CERNER [...] was last revised 2022. Testing performed by: [facility], [address] [place] [address]., [address] Calcium 9.5 8.5 - 10.3 mg/dL CERNER CH Comment:Testing performed by : [address], [address] Bilirubin, total 0.2 0.1 - 1.2 mg/dL CERNER CH Comment:Testing performed by : [address], [address] Protein, pl 7.1 6.5 - 8.5 g/dL CERNER CH Comment:Testing performed by : [address], [address] Albumin 3.9 3.5 - 5.0 g/dL CERNER CH Comment:Testing performed by : [address] [address] Alk phos 50 40 - 130 Units/L CERNER CH Comment:Testing performed by : [address], [address] ALT 42 7 - 45 Units/L CERNER CH Comment:Testing performed by : [address], [address] AST 27 10 - 45 Units/L CERNER CH Comment:Testing performed by : [address], [address] Blood 02/02/2025 11:2 1 AM CDT 02/02/2025 6:54 PM CDT us Leila Romo MD LAB BLOOD ORDERABLES Final Result [place] [address] [address] [place] [address] * US Ob Under 14 Weeks (01/14/2025 [...] Jonathan Styles M.D. CH: MARK Report ID: [id number] Reading Location: [id number] Procedure Note Jonathan Styles Jr., MD - [...] by Jonathan Styles M.D. CH: Report ID: [id number] Reading Location: [place] [address] us Leila Romo MD IMG OB US PROCEDURES Final Result * QNatelaAdvanced (12/30/2024 11:11 AM CDT) Number of fetuses 1 [facility], Down syndrome risk, maternal age NOT GIVEN [facility], Abnormal Yumiko? NOT GIVEN [facility]/ [facility], Abnormal Us? NOT GIVEN [facility]/ [facility], History, personal/family NOT GIVEN [facility]/ [facility], test, interpretation SEE NOTE [facility], Comment: This specimen showed an expected representation of chromosome 21, 18, and 13 material. See Limitations below. Trisomy 21 risk assessment Negative [facility]/ [facility], Trisomy 18 (T18) Negative Que [facility]/ [facility], Trisomy 13 risk assessment Negative [facility]/ [facility], Genotype Assay Detected [facility], Cytogenetic Diagnosis SEE NOTE [facility], Comment:Consistent with a ma le fetus. Sex chromosome No aneuploidy Q uest [facility]/ [facility], Comment SEE NOTE [facility], Comment: No apparent abnormality was detected. See Limitations below. MICRODELETION Not detected Que [facility]/ [facility], MICRODELETION INTERP SEE NOTE [facility]/ [facility], Comment: No apparent abnormality was detected. See Limitations below. Gestational age 12 Ques t [facility]/ [facility], Gestational age 0 Ques t [facility], Fraction 9.30% [facility], test, comment SEE NOTE [facility], Comment: A portion of the testing was performed at [facility]. Laboratory results and submitted clinical information reviewed by Janet Hill, Ph.D., [facility], [facility]. test, limitations SEE NOTE [facility]/ [facility], Comment: QNatal(R) Advanced is a [...] confined placental in origin. SPECIFICATIONS SEE NOTE [facility], Comment: Sensitivity Specificity T21 >99.9% >99.9% T18 >99.9% >99.9% T13 >99.9% >99.9% Accuracy Y >99.9% Performance of the [facility] [facility] laboratory-developed test (LDT) has been determined based on internal analytical assessment. METHODOLOGY SEE NOTE [facility], Comment: Circulating cell-free (cf) DNA was isolated [...] performed pursuant to a license agreement with [employer]. [facility] is a laboratory developed test [...] TESTING F inal Result [facility], [address] [place] [address] * N. gonorrhoeae/C. trachomatis Amplification Endocervical (12/29/2024 11:24 AM CDT) Pathologist [facility] C. trachomatis Not Detected [facility] Comment:Testing performed by : [facility], [address] [place]., [address] N. gonorrhoeae Not Detected [facility] FLORES Comment: Interpretive Data This assay detects Chlamydia trachomatis and Neisseria gonorrhoeae by nucleic acid amplification testing (NAAT). This assay has been cleared by the [place] Food and Drug administration. The performance characteristics of this test have been verified by the [facility] Infectious Disease laboratory. The performance characteristics of this test have not been evaluated in individuals less than 14 years of age. Current Interpretive Data was last revised on 2023. Testing performed by: [facility], [address] [place] [address] Endocervical (None) 12/30/19 11:24 AM CDT 12/30/2024 9:46 AM CDT Leila Romo MD LAB MICROBIOLOGY - [facility] ORDERABLES Final Result [facility] FLORES [address] [place] [address] [facility] * Screening Mammogram Bilateral W Bao (01/23/2024 [...] 11:57 AM CDT) CLINICAL INFORMATION: [facility] Comment:Routine exam LMP [facility] Comment:UNKNOWN Previous Pap [facility] Comment:INFORMATION NOT PROV IDED Prev. Bx [facility] Comment:INFORMATION NOT PROV IDED SOURCE: [facility] Comment:Cervix, Endocervix Pap, specimen adequacy [facility] Comment: Satisfactory for evaluation. Endocervical/transformation zone component present. Age and/or menstrual status not provided HPV interp [facility] Comment:Negative for intraep ithelial lesion or malignancy. COMMENTS [facility] Comment: This Pap test has been evaluated with computer assisted technology. Director Of State Heber [facility] Comment: AAM, CT(ASCP) CT Screening Location: [place] [address] [place] [address] Comment [facility] Comment: EXPLANATORY NOTE: The Pap is [...] High Risk E6/E7 Not Detected Not Detected [facility] [place] Comment: Methodology: Boiler Shop Supervisor-Mediated Amplification This assay detects E6/E7 viral messenger RNA (mRNA) from 14 high-risk HPV types (16,18,31,33,35,39,45,51,52,56,58,59,66,68). The analytical performance characteristics of this assay have been determined by [facility]. The modifications have not been cleared or approved by the FDA. This assay has been validated pursuant to the CLIA regulations and is used for clinical purposes. For additional information, please refer to http://education.mydeco/faq/DLD874e3 (This link if provided for information/ educational purposes only.) 03/02/2021 11:5 7 AM CDT 03/03/2021 2:21 AM CDT Narrative [facility] 03/05/2021 3:24 PM CDT FASTING: UNKNOWN us Leila Romo MD LAB CYTOLOGY ORDERABL ES Final Result [facility] [address] [place] [address] [facility] [id number] [place] [id number] from Last 3 Months or Most Recently Relevant to Health Maintenance Insurance [employer] [facility] [employer] HMO Care Teams Counter Intelligence Relationship Specialty Start Date End Date Edgardo Manuel MD PCP - General Internal Medicine 11/03/21
[2025-02-07] MEDS: LABETALOL HCL 100 MG TABLET PO (18:30)
[2025-02-07] MEDS: SODIUM CHLORIDE 0.9% IV 500 ML 999 ML IV CONT (18:31)
[2025-02-07 18:44] LABS: Basophils Percent Auto 0.3 % (0.2-1.2); Eosinophils Absolute Auto 0.2 K/mm3 (0-0.3); Eosinophils Percent Auto 1.4 % (0-4.4); Hematocrit 37.2 % (37.0-47.0); Hemoglobin 12.4 g/dL (12.0-15.0); Immature Granulocyte Absolute 0.06 K/mm3 (0.00-0.031); Immature Granulocyte Percent A 0.5 % (0-0.5); Lymphocytes Percent Auto 19.4 % (18.3-44.2); Mean Corpuscular HGB Conc 33.3 g/dl (32-36); Mean Corpuscular Hemoglobin 30.5 pg (26-34); Mean Corpuscular Volume 91.6 fl (80-100); Mean Platelet Volume 10.3 fl (7.4-10.4); Monocytes Absolute Auto 2.1 K/mm3 (0.1-0.6); Monocytes Percent Auto 17.5 % (2.6-8.5); Neutrophils Absolute Auto 7.2 K/mm3 (1.3-6.7); Neutrophils Percent Auto 60.9 % (45.5-73.1); Platelet Count Result 220 k/mm3 (150-375); Red Blood Count 4.06 M/mm3 (4.2-5.4); Red Cell Distribution Width 14.4 % (11.5-14.5); White Blood Count 11.8 K/mm3 (4.5-10.0)
[2025-02-07 18:49] LABS: Add Urine Microscopic? YES; Appearance Urine Cloudy (Clear); Bacteria Urine 1+ /hpf; Bilirubin Urine Negative (Negative); Blood Urine Non-Hemolyzed Trace (Negative); Color Urine Yellow (Yellow); Glucose Urine UA Negative (Negative); Ketones Urine Trace mg/dL (Negative); Leukocyte Esterase Ur Negative LEU/UL (Negative); Nitrate Urine Negative (Negative); Non Pathogenic Casts 0-2; Protein Urine Trace mg/dL (Negative); Specific Grav Ur 1.026 (1.001-1.035); Squamous Epithelial Cell Urine Few /hpf (Few)
[2025-02-07 18:53] LABS: Alanine Aminotransferase 55 U/L (6-35); Albumin Level 3.6 g/dL (3.5-5.1); Alkaline Phosphatase 43 U/L (38-126); Anion Gap 8 mmol/L (4-12); Aspartate Amino Transferase 28 U/L (14-36); Bilirubin,Total 0.3 mg/dL (0.2-1.3); Blood Urea Nitrogen 12 mg/dL (7-17); Calcium 9.4 mg/dL (8.4-10.2); Carbon Dioxide 23 mmol/L (22-30); Chloride 105 mmol/L (98-107); Estimated CRCL calculation 87 ml/min; Estimated Glomerular Filt Rate > 60; Glucose 86 mg/dL (65-110); Lactate Dehydrogenase 127 U/L (120-246); Potassium 4.2 mmol/L (3.4-5.0); Sodium 136 mmol/L (137-145)
[2025-02-07] MEDS: NITROFURANTOIN MONOHYD MACROCR 100 MG CAP PO (19:57)
== END 2025-02-07 20:05 | disposition home or self-care (01) ==
PROVIDERS: Emergency Provider Emergency Medicine
DX: O10.912 Unspecified pre-existing hypertension complicating pregnancy, second trimester (principal); O99.332 Smoking (tobacco) complicating pregnancy, second trimester; F17.200 Nicotine dependence, unspecified, uncomplicated; O09.522 Supervision of elderly multigravida, second trimester; Z3A.17 17 weeks gestation of pregnancy; Z79.899 Other long term (current) drug therapy
CPT/HCPCS: 36415; 80053; 81001; 83615; 85025; 87086; 96360; 99283; A9270; J7040

== ENCOUNTER 2025-04-03 11:32 | Observation (INO) | payer OTHER, SELFPAY ==
[2025-04-03] VITALS (15 sets, daily range): BP systolic 131–172; BP diastolic 81–105; PULSE 89–103; RESP 18; TEMP 36.6; O2SAT 95–100; BMI 30.9
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
--- OUTSIDE RECORDS SUMMARY | 2025-04-03 11:34 | XMS_ITS | Clinical Summary ---
Author Organization [facility] Address [address] [place] [address] Phone Care Team Providers Care Street Light Repairer Name Role Phone Rachel Gillis APRN Primary [...] Comments Blood Pressure 162/113 12/16/2019 12:40 PM PATTERN CUTTER Pulse 100 12/16/2019 12:40 PM PATTERN CUTTER Temperature 37.5 C (99.5 F) 12/16/2019 12:40 PM PATTERN CUTTER Respiratory Rate 18 12/16/2019 12:40 PM PATTERN CUTTER Oxygen Saturation 99% 12/16/2019 12:40 PM PATTERN CUTTER Inhaled Oxygen Concentration - - Weight 86.2 kg (190 lb) 12/16/2019 12:40 PM PATTERN CUTTER Height 165.1 cm (5' 5) 12/16/2019 12:40 PM PATTERN CUTTER Body Mass Index 31.62 12/16/2019 12:40 PM PATTERN CUTTER Plan of Treatment Health Maintenance Due Date Last Done Comments Hepatitis C Virus (HCV) Screening 1981 Hepatitis B Immunization (1 of 3 - 19+ 3-dose series) 01/09/2000 SARS-COV-2 Immunization ( - 2023- season) 2024 Influenza Immunization (Seas on Ended) 2025 Respiratory Syncytial Virus (RSV) Immunization (Adult) (1 - 1-dose 75+ series) 01/09/2056 DTaP/Tdap/Td Immunization Discontinued 2014, 11/08/1995 TdaP Immunization Completed 12/16/2014 Human Papillomavirus (HPV) Immunization Aged Out No longer eligible based on patient's age to complete this topic Meningococcal Immunization (ACWY) Aged Out No longer eligible based on patient's age to complete this topic Pneumococcal Immunization Combined Aged Out No longer eligible based on patient's age to complete this topic Rotavirus Immunization Aged Out No lo nger eligible based on patient's age to complete this topic Medical Devices Implanted Type Area Scheduling Manager Device Identifier Shelf Expiration Date Model / Serial / Lot Stent Ureteral 6fr 2.1fr 26cm 2 Pigtail Curve 2 Durometer Taper Tip Loprfl Graduated [employer] Ultra - [id number] Implanted:Qty : 1 on 04/30/2019 by Carlotta Gonzalez MD at [facility] IMPLANT Left: Ureter [employer] 01/14/2022 [id number] / [id number] / [id number] Insurance [facility] Advance Directives * Full Code (Latest [...] measures to stabilize the patient. Care Teams Street Light Repairer Relationship Specialty Start Date End Date Rachel Gillis APRN [address] [facility] [address] [place] [address] PCP - General Family Medicine 07/07/19
--- OUTSIDE RECORDS SUMMARY | 2025-04-03 11:35 | XMS_ITS | Clinical Summary ---
Author Organization [facility] [address] Address [address] [place] [address] Phone Care Team Providers Care Drama Professor Name Role Phone Edgardo Manuel MD Primary Care Provider [phone] Allergies Active Allergy Reactions Criticality Noted Date Comments Penicillins Hives,Swelling,Rash Medium 07/07/2019 Patient stated she gets facial swelling Medications rosuvastatin (CRESTOR) 20 mg tablet Take 1 tablet (20 mg total) by mouth daily 30 tablet 5 4 Active Additional Information Patient not taking.Reported on 03/11/2025 terbinafine (LamiSIL) 250 mg tablet Take 1 tablet (250 mg total) by mouth daily 30 tablet 2 4 Active Additional Information Patient not taking.Reported on 03/11/2025 labetaloL (NORMODYNE,TRAND ATE) 200 mg tabletIndication s:Chronic hypertension affecting Take 1 tablet (200 mg total) by mouth every 12 (twelve) hours 60 tablet 11 5 Active gabapentin (NEURONTIN) 100 mg capsule Take 1 capsule (100 mg total) by mouth 3 (three) times a day as needed (nerve pain) 90 capsule 3 5 Active Active Problems Problem Noted Date Diagnosed Date Chronic hypertension affecting 025 Overview (02/11/2025): Baseline labs 02/02/25: AST 27, ALT 42. Cr 0.71. UPC 0.0885. ASA 81 mg. Changed from amlodipine and HCTZ to Labetalol 100 mg BID. 18 wk - 200 mg BID. Antepartum multigravida of advanced maternal [...] nails are covered with thick red nail Chinese this some evidence of onychomycosis round the [...] through the pharmacy given to us [facility] [place] location [facility] patient has made a commitment to get back to me in the next 24 hours regarding her precise medication she is taking.. At this time she has no symptoms referable to hypertension Seborrhea-like dermatitis with psoriasiform lumbee ents 01/21/2024 Assessment & Plan (01/21/2024 5:27 [...] this. Assessment & Plan (11/28/2021 6:33 PM [employer]ILOT): 41-year-old lady who is a new patient [...] (05/01/2022): Added automatically from request for surgery [id number] Acute otitis media 02/28/2021 Acute infective otitis externa of right ear 02/28/2021 03/02/2021 Encounters Date Type Department Care Team Description 04/03/2025 Telephone [facility] [address] [place] [address] Leila Romo MD Patient issue/concern 03/11/2025 2:10 PM CDT [facility] [address] [place] [address] Leila Romo MD care, subsequent , second trimester (Primary Dx); Chronic hypertension affecting 03/03/2025 Telephone [facility] [address] [place] [address] Leila Romo MD Patient issue/concern 02/25/2025 2:00 PM CDT Ancillary Procedure [facility] [address] [place] [address] Small for dates affecting management of mother, first trimester, not applicable or unspecified fetus 02/25/2025 Telephone [facility] [address] [place] [address] Tiffanie Rae LPN 02/11/2025 2:45 PM CDT Office [facility] [address] [place] [address] Leila Romo MD care, subsequent , second trimester (Primary Dx); Chronic hypertension affecting 02/11/2025 Orders Only [facility] [address] [place] [address] Leila Romo MD Small for dates affecting management of mother, first trimester, not applicable or unspecified fetus (Primary Dx) 02/02/2025 11:10 AM CDT Lab [facility] [address] [place] [address] Chronic hypertension in ; Encounter for supervision of other normal , first trimester; 14 weeks gestation of 01/30/2025 Telephone [facility] [address] [place] [address] Leila Romo MD 01/14/2025 2:00 PM CDT Office [facility] [address] [place] [address] Leila Romo MD care, subsequent , second trimester (Primary Dx); Chronic hypertension affecting ; Antepartum multigravida of advanced maternal age 0301/14/2025 1:00 PM CDT Ancillary Procedure [facility] [address] [place] [address] Encounter to determine viability of , single or unspecified fetus 01/14/2025 Orders Only [facility] [address] [place] [address] Leila Romo MD Encounter for supervision of other normal , first trimester (Primary Dx); 14 weeks gestation of ; Chronic hypertension in 2025 Results Follow-Up [facility] [address] [place] [address] Leila Romo MD QNatelaAdvanced from Last 3 Months Immunizations Immunization Administration Dates Next Due Influenza, Unspecified 07/22/2023(Deferred: Susie ent Refused) MMR 07/21/1994 Td, adsorbed 11/08/1995 Tdap 12/16/2014 Surgical History Surgery Date Site/Laterality Comments TONSILLECTOMY KIDNEY STONE SURGERY 10/22/2010 - 10/21/2011 Medical History Medical History Date Comments HTN (hypertension) discontinued medication ~ 2019 Prediabetes discontinued med iation ~ 2019 PCOS (polycystic ovarian syndrome) Chlamydia 2011 Tubal occlusion HSG ~ 2006, susie ent [...] Used Date Smoking Tobacco: Former Cigarettes 0.5 26.4 S tarted: 1998 Smokeless Tobacco: Never Tobacco [...] of Binge Drinking Not on file 04/21 Overall Financial Resource Strain (CARDIA) Answe r Date Recorded How hard is it for you to pa y for the very basics like food, housing, medical care, and heating? Not hard at all 02/12/2025 PHQ-2 Answer Date Recorded PHQ-2 Total Score (If total score is 3 or more points, staff should administer the PHQ-9) 0 11/28/2021 Hunger Vital Sign Answer Date Recorded Within the past 12 months, y ou worried that your food would run out before you got the money to buy more. Never true 02/13/20 25 Within the past 12 months, t he food you bought just didn't last and you didn't have money to get more. Never true 02/12/2025 PRAPARE - Transportation Answer Date Re corded In the past 12 months, has l ack of transportation kept you from medical appointments or from getting medications? No 01/21 In the past 12 months, has l ack of transportation kept you from meetings, work, or from getting things needed for daily living? No 02/12/2025 Housing Stability Vital Sign Answer Sabino e Recorded In the last 12 months, was t here a time when you were not able to pay the mortgage or rent on time? No 02/12/2025 In the past 12 months, how m any times have you moved where you were living? 1 02/12/2025 At any time in the past 12 m [facility], were you homeless or living in a [facility] (including now)? No 02/12/2025 Estimated Date of Delivery Comme nts Yes 07/14/2025 Based on Ultraso und Sex and Gender Information Value Date Recorded Sex Assigned at Not on file Legal Sex Female 9:49 AM [employer] Gender Identity Not on file Sexual Orientation [...] Estimated Date of Delivery 12/29/2024 - Present (04/03/2025) 07/14/2025 (set by Nick Romo MD on 12/29/2024 based on Ultrasound on 12/24/2024) Dating Summary Based On JAYA GA Diff Last Menstrual Period on 10/10/2024 (Within Days ) 07/17/2025 -3d Ultrasound on 12/24/2024 07/14/2025 Working GA:11w1d Notes Progress Notes - Office Visi t - 03/11/2025 - GA:22w1d 03/11/2025 - 22w1d - Leila Romo MD Reviewed sono / - variable presentation, posterior placenta, ANNETTE 15.1, EFW 308 g (23%). --CHTN - home BPs 120s-130s/80s-90. Continue current dose of labetalol. -- Carpal tunnel - h/o same prior to , PT in the past. Using exercises again now with brace but pain is bad overnight, affecting sleep. Rx sent for gabapentin PRN. Progress Notes - Office Visi t - 02/11/2025 - GA:18w1d 02/11/2025 - 18w1d - Leila Romo MD Reviewed OB labs - UDS positive for cannabinoids (has since stopped use) and amphetamine (likely false positive from labetalol as denies any illicit drug use or other medications. -- Presented to [facility] 02/07 with elevated BP. She was given an extra dose of labetalol and advised to follow up here. Also given macrobid for a UTI. -- CHTN - notes home BP's 140s-150s/100s-110s. Continue labetalol but increase to 200 mg BID. Anatomy scan ordered for 20-22 weeks. Progress Notes - Office Visi t - [...] an ER follow up. She presented to [facility] 3/5 c/o pelvic cramping and back [...] Sign Reading Time Taken Comments Blood Pressure 138/82 03/11/2025 2:07 PM CDT Pulse 90 03/24/2024 2:02 PM CDT Temperature 36.3 C (97.3 F) 03/24/2024 2:02 PM CDT Respiratory Rate 16 03/24/2024 2:02 PM CDT Oxygen Saturation 98% 03/24/2024 2:02 PM CDT Inhaled Oxygen Concentration - - Weight 96.6 kg (213 lb) 03/11/2025 2:07 PM CDT Height 165.1 cm (5' 5) 09/11/2024 1:08 PM [employer] Body Mass Index 35.45 09/11/2024 1:08 PM [employer] Plan of Treatment Health Maintenance Due Date [...] Procedure Name Priority Date/Time Associated Diagnosis Comments POCT URINE GLUCOSE AND PROTEIN Routine 03/11/2025 2:25 PM CDT care, subsequent , second trimester US OB 14 WEEKS OR OVER Schedule Routine, Read Routine (OP Routine) 02/25/2025 3:05 PM CDT Small for dates affecting management of mother, first trimester, not applicable or unspecified fetus POCT URINE GLUCOSE AND PROTEIN Routine 02/11/2025 2:57 PM CDT care, subsequent , second trimester EGFR Routine 02/02/2025 11:21 AM CDT Chronic [...] ABUSE SCREEN, URINE WITHOUT CONFIRMATION Routine 02/02/2025 URINE CULTURE Routine 02/02/2025 US OB UNDER 14 WEEKS Schedule Routine, Read Routine (OP Routine) 01/14/2025 1:23 PM CDT Encounter to determine viability of , single or unspecified fetus SCREENING MAMMOGRAM BILATERAL W BAO Schedule Routine, Read Routine (OP Routine) 01/23/2024 9:57 AM CDT Screening mammogram, encounter for THINPREP IMAGING PAP AND HPV MRNA E6/E7 REFLEX HPV 16,18/45 Routine 03/02/2021 11:57 AM CDT from Last 3 Months or Most Recently Relevant to Health Maintenance Results * POCT urine glucose and protein (03/11/2025 2:25 PM CDT) Glucose, ur, POC Negative Negative Protein, ur, POC Negative Negative Lot Number [id number] Urine 03/11/2025 2:25 PM CDT Leila Romo MD POINT OF CARE TEST OR DERABLES Final Result * US Ob 14 Weeks Or Over (02/25/2025 3:05 PM CDT) Anatomical Region Laterality Modality Abdomen N/A Ultrasound 02/25/2025 3:14 PM CDT Narrative 02/25/2025 3:23 PM CDT EXAM DESCRIPTION: US OB 14 WEEKS OR OVER REASON FOR STUDY: Growth check, Check measurements and fluid levels S<D Anatomy scan TECHNIQUE: Complete transabdominal obstetric ultrasound was performed. COMPARISON: Obstetric ultrasound 01/14/2025 FINDINGS: number: single Presentation: Variable Gestational age by this ultrasound: 20 weeks 1 day , EDC 07/14/2025 Clinical gestation: 19 weeks 3 days , EDC 07/19/2025 Estimated weight: 307.6 g , Percentile 22.6 ; Placenta location: Posterior Placenta-previa: No Cervical length: 8.1 cm heart rate: 155 bpm Amniotic fluid index: 15.1 cm S = Seen without gross abnormality A = Abnormal NC = Not clearly seen NS = Not seen on current exam PS = Previously seen anatomic survey: Intracranial anatomy: S Nose/lips: S Spine: S Four-chamber heart: S Diaphragm: S Stomach: S Kidneys: S Bladder: S 3-vessel cord: S cord insertion: S Upper extremities: S Lower extremities: S measurements: Biparietal diameter: 4.5 cm ( 19 weeks 4 days ) Head circumference: 16.6 cm ( 19 weeks 2 days ) Abdominal circumference: 14.1 cm ( 19 weeks 3 days ) Femur length: 3.2 cm ( 20 weeks 0 days ) Ratios: FL/AC: 22.94 (20-24) HC/AC: 1.18 ( 1.08 - 1.26 ) Maternal: 1.4 x 2.5 cm cystic lesion in the cervix likely nabothian cyst IMPRESSION: Single live intrauterine gestation estimated at estimated gestational age of 19 weeks 3 days by this ultrasound. Estimated weight of 307.6 g at 23rd percentile for gestational age THIS IS AN ELECTRONICALLY VERIFIED FINAL REPORT 02/25/2025 3:23 PM - Electronically signed by Yvette Ruiz M.D. FT: FT Report ID: [id number] Reading Location: [id number] Procedure Note Yvette Zhang MD - 02/25/2025 EXAM DESCRIPTION: US OB 14 WEEKS OR OVER REASON FOR STUDY: Growth check, Check measurements and fluid levels S<D Anatomy scan TECHNIQUE: Complete transabdominal obstetric ultrasound was performed. COMPARISON: Obstetric ultrasound 01/14/2025 FINDINGS: number: single Presentation: Variable Gestational age by this ultrasound: 20 weeks 1 day , EDC 07/14/2025 Clinical gestation: 19 weeks 3 days , EDC 07/19/2025 Estimated weight: 307.6 g , Percentile 22.6 ; Placenta location: Posterior Placenta-previa: No Cervical length: 8.1 cm heart rate: 155 bpm Amniotic fluid index: 15.1 cm S = Seen without gross abnormality A = Abnormal NC = Not clearly seen NS = Not seen on current exam PS = Previously seen anatomic survey: Intracranial anatomy: S Nose/lips: S Spine: S Four-chamber heart: S Diaphragm: S Stomach: S Kidneys: S Bladder: S 3-vessel cord: S cord insertion: S Upper extremities: S Lower extremities: S measurements: Biparietal diameter: 4.5 cm ( 19 weeks 4 days ) Head circumference: 16.6 cm ( 19 weeks 2 days ) Abdominal circumference: 14.1 cm ( 19 weeks 3 days ) Femur length: 3.2 cm ( 20 weeks 0 days ) Ratios: FL/AC: 22.94 (20-24) HC/AC: 1.18 ( 1.08 - 1.26 ) Maternal: 1.4 x 2.5 cm cystic lesion in the cervix likely nabothian cyst IMPRESSION: Single live intrauterine gestation estimated at estimated gestationalage of 19 weeks 3 days by this ultrasound. Estimated weight of 307.6 g at 23rd percentile for gestational age THIS IS AN ELECTRONICALLY VERIFIED FINAL REPORT 02/25/2025 3:23 PM - Electronically signed by Yvette Ruiz M.D. FT: FT Report ID: [id number] Reading Location: [id number] Leila Romo MD IMG OB US PROCEDURES Final Result * POCT urine glucose and protein (02/11/2025 2:57 PM CDT) Glucose, ur, POC Negative Negative MG/DL Protein, ur, POC Negative Negative Lot Number [id number] Urine 02/11/2025 2:57 PM CDT Leila Romo MD POINT OF CARE TEST OR DERABLES Final Result * eGFR (02/02/2025 11:21 AM CDT) eGFR [...] was last reviewed 2021. Testing performed by: [facility], [address] [place] [address], [place]., [address] Blood 02/02/2025 11:2 1 AM CDT 02/02/2025 7:07 PM CDT Leila Romo MD LAB BLOOD ORDERABLES Final Result [facility] [address] [facility] Department [place] [address] * (ABNORMAL) Differential, auto (02/02/2025 11:21 AM CDT) Neutrophil abs 5.67 1.50 - 6.50 K/cumm Comment:Testing performed by : [address] [address] Imm gran abs 0.04 0.00 - 0.10 K/cumm C[facility]ER CH Comment:Testing performed by : [address] [address] Lymphocyte abs 1.79 0.80 - 3.30 K/cumm [facility] CH Comment:Testing performed by : [address] [address] Monocyte abs 1.16(H) 0.20 - 0.80 K/cumm [facility] CH Comment:Testing performed by : [address] [address] Eosinophil abs 0.10 0.00 - 0.50 K/cumm [facility] CH Comment:Testing performed by : [address], [address] Basophil abs 0.03 0.00 - 0.10 K/cumm [facility] CH Comment:Testing performed by : [address] [address] Neutrophil pct 64.5 % [facility] Comment: Interpretive Data Percent cell count reference ranges are not reported, since discordance with absolute values may lead to misinterpretation of CBC data. Current Interpretive Data was last revised on 2018. Testing performed by: [address] [address] Imm gran pct 0.5 % [facility] Comment: Interpretive Data Percent cell count reference ranges are not reported, since discordance with absolute values may lead to misinterpretation of CBC data. Current Interpretive Data was last revised on 2018. Testing performed by: [address] [address] Lymphocyte pct 20.4 % [facility] Comment: Interpretive Data Percent cell count reference ranges are not reported, since discordance with absolute values may lead to misinterpretation of CBC data. Current Interpretive Data was last revised on 2018. Testing performed by: [facility], [address] [place] [address]., [address] Monocyte pct 13.2 % [facility] Comment: Interpretive Data Percent cell count reference ranges are not reported, since discordance with absolute values may lead to misinterpretation of CBC data. Current Interpretive Data was last revised on 2018. Testing performed by: [facility], [address] [place] [address]., [address] Eosinophil pct 1.1 % [facility] Comment: Interpretive Data Percent cell count reference ranges are not reported, since discordance with absolute values may lead to misinterpretation of CBC data. Current Interpretive Data was last revised on 2018. Testing performed by: [facility], [address] [place] [address]., [address] Basophil pct 0.3 % [facility] Comment: Interpretive Data Percent cell count reference ranges are not reported, since discordance with absolute values may lead to misinterpretation of CBC data. Current Interpretive Data was last revised on 2018. Testing performed by: [address] [address] Blood 02/02/2025 11:2 1 AM CDT 02/02/2025 6:54 PM CDT Leila Romo MD LAB BLOOD ORDERABLES Final Result [address] [place] [address] * HIV 1/2 Antibody plus p24 Antigen Blood (02/02/2025 11:21 AM CDT) Pathologist [facility] HIV 1/2 ab + p24 ag Nonreactive Nonreactive Comment: Nonreactive for HIV-1 antigen and HIV-1/HIV-2 antibodies. No laboratory evidence of HIV infection. If acute HIV infection is suspected, consider testing for HIV-1 RNA. Testing performed by: [address] [address] Blood 02/02/2025 11:2 1 AM CDT 02/02/2025 6:54 PM CDT us Leila Romo MD LAB MICROBIOLOGY - NERAL ORDERABLES Final Result [address] [place] [address] * (ABNORMAL) CBC with auto differential (02/02/2025 11:21 AM CDT) WBC 8.79 3.80 - 9.90 K/cumm Comment:Testing performed by : [facility], [address] [place] [address], [address] Hgb 13.2 11.9 - 15.5 g/dL [facility] Comment:Testing performed by : [address], [address] Hct 40.4 35.6 - 45.5 % [facility] Comment:Testing performed by : [address], [address] Plt 236 150 - 400 K/cumm [facility] CH Comment:Testing performed by : [address], [address] MPV 11.7 9.1 - 12.3 fL [facility] Comment:Testing performed by : [address], [address] RBC 4.42 3.90 - 5.20 M/cumm [facility] Comment:Testing performed by : [address], [address] MCV 91.4 81.3 - 96.4 fL [facility] Comment:Testing performed by : [address], [address] MCH 29.9 27.1 - 33.3 pg [facility] Comment:Testing performed by : [address], [address] MCHC 32.7 32.3 - 35.7 g/dL [facility] Comment:Testing performed by : [address], [address] RDW CV 14.4 11.1 - 14.9 % [facility] Comment:Testing performed by : [address], [address] RDW SD 48.7(H) 35.7 - 48.1 fL RICHARD Comment:Testing performed by : [facility], [address] [place] [address]., [address] NRBC abs 0.00 0.00 - 0.01 K/cumm RICHARD Comment:Testing performed by : [address] [address] Blood 02/02/2025 11:2 1 AM CDT 02/02/2025 6:54 PM CDT Leila Romo MD LAB BLOOD ORDERABLES Final Result Performing Organization Address [facility] Co de Phone Number RICHARD [facility] [place] [address] * Hepatitis C antibody Blood (02/02/2025 11:21 [...] last revised on 2020. Testing performed by: [facility], [address] [place] [address]., [address] Blood 02/02/2025 11:2 1 AM CDT 02/02/2025 6:54 PM CDT Leila Romo MD LAB MICROBIOLOGY - GE NERAL ORDERABLES Final Result Performing Organization Address City/[facility] Co de Phone Number RICHARD [address] [facility] Department [employer] [address] * Protein / creatinine ratio, urine, random (02/02/2025 11:21 AM CDT) Protein, ur, quant 26.9 mg/dL Comment: Interpretive Data No reference range established. Current interpretive data was last revised 2019. Testing performed by: [address] [address] Creatinine Ur 303.8 mg/dL RICHARD Comment: Interpretive Data No reference range established. Current interpretive data was last revised 2019. Testing performed by: [facility], [address] [place] [address]., [address] Protein/creatinin e ratio 88.5 0.0 - 180.0 mg/g CR RICHARD Comment:Testing performed by : [address] [address] Urine 02/02/2025 11:2 1 AM CDT 02/04/2025 9:44 AM CDT Leila Romo MD LAB URINE ORDERABLES Final Result Performing Organization Address City/State/[facility] Co de Phone Number [address] Department [place] [address] * (ABNORMAL) Drugs of Abuse Screen, Urine [...] was last reviewed 2023. Testing performed by: [address] [address] Barbiturates, ur Not Detected CutOff 200ng/mL RICHARD Comment: Interpretive Data - Barbiturates: Samples containing greater than 200 ng/mL secobarbital or other cross-reacting barbiturate compounds are reported as positive. False positive and false negative results are possible. Confirmatory testing required for definitive results. Current Interpretive Data was last reviewed 2023. Testing performed by: [address] [address] Benzodiazepines, ur Not Detected CutOff 100ng/mL CERNER Comment: Interpretive Data - Benzodiazepines: Samples containing greater than 100 ng/mL nordiazepam or other cross-reacting compounds are reported as positive. False positive and false negative results are possible. Confirmatory testing required for definitive results. Current Interpretive Data was last reviewed 2023. Testing performed by: [facility], [address] [place] [address]., [address] Cannabinoids, ur Screen Positive, presumptive (A) CutOff 50 ng/mL CERNER Comment: Interpretive Data - Cannabinoids: Samples containing greater than 50 ng/mL delta-9 THC -COOH or other cross- reacting compounds are reported as positive. False positive and false negative results are possible. Confirmatory testing required for definitive results. Current Interpretive Data was last reviewed 2023. Testing performed by: [facility], [address] [place] [address]., [address] Cocaine, ur Not Detected CutOff 150ng/mL CERNER Comment: Interpretive Data - Cocaine: Samples containing greater than 150 ng/mL benzoylecgonine or other cross- reacting compounds are reported as positive. False positive and false negative results are possible. Confirmatory testing required for definitive results. Current Interpretive Data was last reviewed 2023. Testing performed by: [address] [address] Fentanyl, Ur Not Detected CutOff 5 ng/mL CERNER Comment: Interpretive Data - Fentanyl: Samples containing greater than 5 ng/mL norfentanyl, fentanyl, or other cross-reacting fentanyl compounds are reported as positive. False positive and false negative results are possible. Confirmatory testing required for definitive results. Current Interpretive Data was last reviewed 2024. Testing performed by: [facility], [address] [place] [address]., [address] Methadone, ur Not Detected CutOff 300ng/mL CERNER Comment: Interpretive Data - Methadone: Samples containing greater than 300 ng/mL d,l-methadone or other cross-reacting compounds are reported as positive. False positive and false negative results are possible. Confirmatory testing required for definitive results. Current Interpretive Data was last reviewed 2023. Testing performed by: [address] [address] Opiates, ur Not Detected CutOff 300ng/mL RICHARD Comment: Interpretive Data - Opiates: Samples containing greater than 300 ng/mL morphine or other cross-reacting compounds are reported as positive. False positive and false negative results are possible. Confirmatory testing required for definitive results. Current Interpretive Data was last reviewed 2023. Testing performed by: [address] [address] Oxycodone, ur Not Detected CutOff 100ng/mL RICHARD Comment: Interpretive Data - Oxycodone: Samples containing greater than 100 ng/mL oxycodone or other cross-reacting compounds are reported as positive. False positive and false negative results are possible. Confirmatory testing required for definitive results. Current Interpretive Data was last reviewed 2023. Testing performed by: [facility], [address] [place] [address]., [id number] Phencyclidine, ur Not Detected CutOff 25 ng/mL RICHARD Comment: Interpretive Data - Phencyclidine: Samples containing greater than 25 ng/mL phencyclidine or other cross-reacting compounds are reported as positive. False positive and false negative results are possible. Confirmatory testing required for definitive results. Current Interpretive Data was last reviewed 2023. Testing performed by: [address] [address] Urine Creatinine 306 mg/dL RICHARD Comment: Interpretive Data Urine Creatinine: < 10 mg/dL is extremely dilute = or > 10 but < 20 mg/dL is dilute = or > 20 mg/dL is normal Current Interpretive Data was last revised on 2018. Testing performed by: [address] [address] Urine 02/02/2025 11:2 1 AM CDT 02/02/2025 6:54 PM CDT Narrative RICHARD - 02/02/2025 10:05 PM CDT Drug of Abuse screening is performed by immunoassay for medical purposes only. This is not to be used for Pain Management purposes. Leila Romo MD LAB URINE ORDERABLES Final Result RICHARD [address] [place] [address] * Rubella IgG antibody Blood (02/02/2025 11:21 AM CDT) Rubella IgG Reactive Comment: Reactive: Results suggest response to immunization or prior exposure to the virus. Testing performed by: [facility], [address] [place]., [address] Blood 02/02/2025 11:2 1 AM CDT 02/03/2025 10:01 AM CDT Leila Romo MD LAB MICROBIOLOGY - GE NERAL ORDERABLES Final Result RICHARD [address] [facility] [email or web address] [address] * RPR Blood (02/02/2025 11:21 AM CDT) Pathologist [facility] RPR Nonreactive Nonreactive Comment:Testing performed by : [facility], [address] [place] [address]., [id number] Blood 02/02/2025 11:2 1 AM CDT 02/02/2025 6:54 PM CDT Leila Romo MD LAB MICROBIOLOGY - GE NERAL ORDERABLES Final Result RICHARD [address] [place] [address] * Hepatitis B Surface Antigen Blood (02/02/2025 11:21 AM CDT) HepBsAg Nonreactive Nonreactive Comment:Testing performed by : [address] [address] Blood 02/02/2025 11:2 1 AM CDT 02/02/2025 6:54 PM CDT Leila Romo MD LAB MICROBIOLOGY - GE NERAL ORDERABLES Final Result Performing Organization Address City/[facility]/ZIP Co de Phone Number MEGHNAPITA FLORES [phone] Department [email or web address] [address] * Type and screen (02/02/2025 11:21 AM CDT) ABO Rh A Positive Hope, indirect Negative CERNER Blood 02/02/2025 11:2 1 AM CDT 02/02/2025 7:06 PM CDT Narrative CERNER - 02/02/2025 8:57 PM CDT Has the patient had Daratumumab or Isatuximab in the past 6 months?->Unknown Leila Romo MD LAB BLOOD BANK TEST O RDERABLES Final Result Performing Organization Address [facility] Co de Phone Number RICHARD FLORES [address] Department [place] [address] * Urine culture Urine, clean voided (02/02/2025 11:21 AM CDT) Report Final Report: Less than 100,000 colonies/mL (clinically insignificant growth based on current clinical standards) Comment:Testing performed by : [facility], [address] [facility] [address] Organism (CLINICALLY INSIGNIFICANT GROWTH [facility] Urine, clean voided 02/02/2025 11:21 AM CDT 02/02/2025 10:52 PM CDT Narrative [facility] - 02/04/2025 8:04 AM CDT Testing performed by [facility] Microbiology Laboratory ([phone]) Leila Romo MD LAB MICROBIOLOGY - GE NERAL ORDERABLES Final Result Performing Organization Address City/[facility]/ZIP Co de Phone Number MEGHNAPITA FLORES [phone] Department [email or web address] [address] * Varicella Zoster IgG antibody Blood (02/02/2025 11:21 AM CDT) VZV IgG Reactive Reactive Comment: Reactive: Results suggest response to immunization or prior exposure to the virus. Testing performed by: [facility], [address] [place]., [address] Blood 02/02/2025 11:2 1 AM CDT 02/03/2025 10:01 AM CDT Leila Room MD LAB MICROBIOLOGY - NERAL ORDERABLES Final Result [address] [place] [address] * Comprehensive metabolic panel (02/02/2025 11:21 AM CDT) Pathologist [facility] Sodium 135 135 - 145 mmol/L Comment:Testing performed by : [address] [address] Potassium, pl 4.0 3.3 - 4.9 mmol/L CERNER Comment:Testing performed by : [address], [address] Chloride 102 97 - 110 mmol/L CERNER Comment:Testing performed by : [address] [address] CO2 22 22 - 32 mmol/L CERNER Comment:Testing performed by : [address] [address] Anion gap 11 2 - 15 mmol/L CERNER Comment:Testing performed by : [address] [address] BUN 7 6 - 25 mg/dL CERNER Comment:Testing performed by : [address], [address] Creatinine 0.71 0.60 - 1.10 mg/dL CERNER Comment:Testing performed by : [address] [address] Glucose 128 70 - 199 mg/dL CERNER Comment: Interpretive Data Fasting glucose >/= 126 [...] was last revised 2022. Testing performed by: [facility], [address] [place] [address]., [address] Calcium 9.5 8.5 - 10.3 mg/dL CERNER CH Comment:Testing performed by : [address] [address] Bilirubin, total 0.2 0.1 - 1.2 mg/dL CERNER CH Comment:Testing performed by : [address] [address] Protein, pl 7.1 6.5 - 8.5 g/dL CERNER CH Comment:Testing performed by : [address], [address] Albumin 3.9 3.5 - 5.0 g/dL CERNER CH Comment:Testing performed by : [address] [address] Alk phos 50 40 - 130 Units/L CERNER CH Comment:Testing performed by : [address] [address] ALT 42 7 - 45 Units/L CERNER CH Comment:Testing performed by : [address], [address] AST 27 10 - 45 Units/L CERNER CH Comment:Testing performed by : [address] [address] Blood 02/02/2025 11:2 1 AM CDT 02/02/2025 6:54 PM CDT us Leila Romo MD LAB BLOOD ORDERABLES Final Result [address] [place] [address] * Drugs of Abuse Screen, Urine without Confirmation (02/02/2025) SCRIBED Drug screen positive - cannabinoids, amphetamine Urine Leila Romo MD LAB URINE ORDERABLES Final Result * Urine culture (02/02/2025) SCRIBED Urine culture negative Leila Romo MD LAB MICROBIOLOGY - GE NERAL ORDERABLES Final Result * US Ob Under 14 Weeks (01/14/2025 [...] by Jonathan Styles M.D. CH: Report ID: [id number] Reading Location: [id number] Procedure Note Jonathan Styles Jr., MD - [...] Jonathan Styles M.D. CH: MARK Report ID: [id number] Reading Location: [id number] us Leila Romo MD IMG OB US PROCEDURES Final Result * Screening Mammogram Bilateral W Bao (01/23/2024 [...] [birth year] (03/02/2021 11:57 AM CDT) CLINICAL INFORMATION: [facility] Comment:Routine exam LMP [facility] Comment:UNKNOWN Previous Pap [facility] Comment:INFORMATION NOT PROV IDED Prev. Bx [facility] Comment:INFORMATION NOT PROV IDED SOURCE: [facility] Comment:Cervix, Endocervix Pap, specimen adequacy [facility] Comment: Satisfactory for evaluation. Endocervical/transformation zone component present. Age and/or menstrual status not provided HPV interp [facility] Comment:Negative for intraep ithelial lesion or malignancy. COMMENTS [facility] Comment: This Pap test has been evaluated with computer assisted technology. Assistant Director Of Financial Aid [facility] Comment: AAM, CT(ASCP) CT Screening Location: [place] [address] [facility] Comment: EXPLANATORY NOTE: The Pap is [...] High Risk E6/E7 Not Detected Not Detected [facility] Comment: Methodology: [employer] Member-Mediated Amplification This assay detects E6/E7 viral messenger RNA (mRNA) from 14 high-risk HPV types (16,18,31,33,35,39,45,51,52,56,58,59,66,68). The analytical performance characteristics of this assay have been determined by [facility]. The modifications have not been cleared or approved by the FDA. This assay has been validated pursuant to the CLIA regulations and is used for clinical purposes. 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
--- OUTSIDE RECORDS SUMMARY | 2025-04-03 11:35 | XMS_ITS | Referral Summary ---
Author Organization [facility] [place] [address] [place] [address] Phone Care Team Providers Care Registered Pharmacy Technician Name Role Phone Edgardo Manuel MD Primary Care Provider [phone]- [phone] Encounters Date Type Department Care Team Description 04/03/2025 Telephone [facility] [address] [place] [phone] Leila Romo MD Patient issue/concern 03/11/2025 2:10 PM CDT Office Visit [facility] [address] [place] [phone] Leila Romo MD care, subsequent , second trimester (Primary Dx); Chronic hypertension affecting 03/03/2025 Telephone [facility] [address] [place] [phone] Leila Romo MD Patient issue/concern 02/25/2025 Telephone [facility] [address] [place] [phone] Tiffanie Rae LPN 02/25/2025 2:00 PM CDT Ancillary Procedure [facility] [address] [place] [address] Small for dates affecting management of mother, first trimester, not applicable or unspecified fetus 02/11/2025 Orders Only [facility] [address] [place] [address] Leila Romo MD Small for dates affecting management of mother, first trimester, not applicable or unspecified fetus (Primary Dx) 02/11/2025 2:45 PM CDT Office Visit [facility] [address] [place] [address] Leila Romo MD care, subsequent , second trimester (Primary Dx); Chronic hypertension affecting 02/02/2025 11:10 AM CDT Lab [facility] [address] [place] [address] Chronic hypertension in ; Encounter for supervision of other normal , first trimester; 14 weeks gestation of 01/30/2025 Telephone [facility] [address] [place] [address] Leila Romo MD 01/14/2025 Orders Only [facility] [address] [place] [address] Leila Romo MD Encounter for supervision of other normal , first trimester (Primary Dx); 14 weeks gestation of ; Chronic hypertension in 01/14/2025 1:00 PM CDT Ancillary Procedure [facility] [address] [place] [address] Encounter to determine viability of , single or unspecified fetus 01/14/2025 2:00 PM CDT Office Visit [facility] [address] [place] [address] Leila Romo MD care, subsequent , second trimester (Primary Dx); Chronic hypertension affecting ; Antepartum multigravida of advanced maternal age 0301/08/2025 Results Follow-Up [facility] [address] [place] [address] Leila Romo MD QNatelaAdvanced from Last 3 Months Allergies Active Allergy [...] nails are covered with thick red nail Malian this some evidence of onychomycosis round the [...] through the pharmacy given to us [facility] [place] location [facility] patient has made a commitment to get back to me in the next 24 hours regarding her precise medication she is taking.. At this time she has no symptoms referable to hypertension Seborrhea-like dermatitis with psoriasiform ute ents 01/21/2024 Assessment & Plan (01/21/2024 5:27 [...] this. Assessment & Plan (11/28/2021 6:33 PM UNIFIED COMMUNICATIONS ARCHITECT): 41-year-old lady who is a new patient [...] (05/01/2022): Added automatically from request for surgery [id number] Acute otitis media 02/28/2021 2 Acute infective [...] any time in the past 12 m [facility], were you homeless or living in a detention (including now)? No 02/12/2025 Estimated Date of Delivery Comme nts Yes 07/14/2025 Based on Ultraso und Sex and Gender Information Value Date Recorded Sex Assigned at Not on file Legal Sex Female 9:49 AM UNIFIED COMMUNICATIONS ARCHITECT Gender Identity Not on file Sexual Orientation [...] 165.1 cm (5' 5) 09/11/2024 1:08 PM UNIFIED COMMUNICATIONS ARCHITECT Body Mass Index 35.45 09/11/2024 1:08 PM UNIFIED COMMUNICATIONS ARCHITECT Plan of Treatment Not on file Procedures [...] Protein, ur, POC Negative Negative Lot Number [id number] Urine 03/11/2025 2:25 PM CDT Leila Romo [...] Clinical gestation: 19 weeks 3 days , [facility] 07/19/2025 Estimated weight: 307.6 g , Percentile [...] Yvette Ruiz M.D. FT: FT Report ID: [id number] Reading Location: [id number] Procedure Note Yvette Zhang MD - 02/25/2025 [...] Yvette Ruiz M.D. FT: FT Report ID: [id number] Reading Location: [place] [address] Leila Romo MD IMG OB US PROCEDURES Final Result * POCT urine glucose and protein (02/11/2025 2:57 PM CDT) Glucose, ur, POC Negative Negative MG/DL Protein, ur, POC Negative Negative Lot Number [id number] Urine 02/11/2025 2:5 7 PM CDT Leila Romo MD POINT OF [...] of Race in Diagnosing Kidney Disease, JASN 202). The CKD-EPI equation should not be used for patients with unstable renal function and has not been validated in children and those over 70. Current interpretive data was last reviewed 2021. Testing performed by: [facility], [address] [place] [address]., [address] Blood 02/02/2025 11:2 1 AM CDT 02/02/2025 7:07 PM CDT us Leila Romo MD LAB BLOOD ORDERABLES Final Result [address] Department [place] [address] * (ABNORMAL) Differential, auto (02/02/2025 11:21 AM CDT) Neutrophil abs 5.67 1.50 - 6.50 K/cumm Comment:Testing performed by : [facility], [address] [place] [address]., [address] Imm gran abs 0.04 0.00 - 0.10 K/cumm CERNER Comment:Testing performed by : [address] [address] Lymphocyte abs 1.79 0.80 - 3.30 K/cumm CERPITA Comment:Testing performed by : [address] [address] Monocyte abs 1.16(H) 0.20 - 0.80 K/cumm CERNER Comment:Testing performed by : [address] [address] Eosinophil abs 0.10 0.00 - 0.50 K/cumm CERPITA Comment:Testing performed by : [address] [address] Basophil abs 0.03 0.00 - 0.10 K/cumm CERPITA Comment:Testing performed by : [address] [address] Neutrophil pct 64.5 % CERNER Comment: Interpretive Data Percent cell count reference ranges are not reported, since discordance with absolute values may lead to misinterpretation of CBC data. Current Interpretive Data was last revised on 2018. Testing performed by: [facility], [address] [place] [address]., [address] Imm gran pct 0.5 % CERNER CH Comment: Interpretive Data Percent cell count reference ranges are not reported, since discordance with absolute values may lead to misinterpretation of CBC data. Current Interpretive Data was last revised on 2018. Testing performed by: [address], [address] Lymphocyte pct 20.4 % CERNER CH Comment: Interpretive Data Percent cell count reference ranges are not reported, since discordance with absolute values may lead to misinterpretation of CBC data. Current Interpretive Data was last revised on 2018. Testing performed by: [facility], [address] [place] [address]., [address] Monocyte pct 13.2 % CERNER CH Comment: Interpretive Data Percent cell count reference ranges are not reported, since discordance with absolute values may lead to misinterpretation of CBC data. Current Interpretive Data was last revised on 2018. Testing performed by: [facility], [address] [place] [address]., [address] Eosinophil pct 1.1 % CERNER CH Comment: Interpretive Data Percent cell count reference ranges are not reported, since discordance with absolute values may lead to misinterpretation of CBC data. Current Interpretive Data was last revised on 2018. Testing performed by: [address] [address] Basophil pct 0.3 % CERNER CH Comment: Interpretive Data Percent cell count reference ranges are not reported, since discordance with absolute values may lead to misinterpretation of CBC data. Current Interpretive Data was last revised on 2018. Testing performed by: [address], [address] Blood 02/02/2025 11:2 1 AM CDT 02/02/2025 6:54 PM CDT us Leila Romo MD LAB BLOOD ORDERABLES Final Result RICHARD [address] [facility] Department [place] [address] * HIV 1/2 Antibody plus p24 Antigen Blood (02/02/2025 11:21 AM CDT) [facility] HIV 1/2 ab + p24 ag Nonreactive Nonreactive Comment: Nonreactive for HIV-1 antigen and HIV-1/HIV-2 antibodies. No laboratory evidence of HIV infection. If acute HIV infection is suspected, consider testing for HIV-1 RNA. Testing performed by: [address] [address] Blood 02/02/2025 11:2 1 AM CDT 02/02/2025 6:54 PM CDT Leila Romo MD LAB MICROBIOLOGY - [facility] ORDERABLES Final Result Performing Organization Address [facility] Co de Phone Number RICHARD [address] [place] [address] * (ABNORMAL) CBC with auto differential (02/02/2025 11:21 AM CDT) [facility] WBC 8.79 3.80 - 9.90 K/cumm Comment:Testing performed by : [address] [address] Hgb 13.2 11.9 - 15.5 g/dL RICHARD Comment:Testing performed by : [address], [address] Hct 40.4 35.6 - 45.5 % RICHARD Comment:Testing performed by : [address] [address] Plt 236 150 - 400 K/cumm RICHARD Comment:Testing performed by : [address], [address] MPV 11.7 9.1 - 12.3 fL RICHARD Comment:Testing performed by : [address], [address] RBC 4.42 3.90 - 5.20 M/cumm RICHARD Comment:Testing performed by : [facility], [address] [place] [address]., [address] MCV 91.4 81.3 - 96.4 fL RICHARD Comment:Testing performed by : [facility], [address] [place] [address]., [address] MCH 29.9 27.1 - 33.3 pg RICHARD Comment:Testing performed by : [facility], [address] [place] [address]., [address] MCHC 32.7 32.3 - 35.7 g/dL RICHARD Comment:Testing performed by : [facility], [address] [place] [address]., [address] RDW CV 14.4 11.1 - 14.9 % RICHARD Comment:Testing performed by : [facility], [address] [place] [address], [address] RDW SD 48.7(H) 35.7 - 48.1 fL RICHARD Comment:Testing performed by : [facility], [address] [place] [address], [address] NRBC abs 0.00 0.00 - 0.01 K/cumm RICHARD Comment:Testing performed by : [facility], [address] [place] [address]., [address] Blood 02/02/2025 11:2 1 AM CDT 02/02/2025 6:54 PM CDT Liela Romo MD LAB BLOOD ORDERABLES Final Result [address] Department [place] [address] * Hepatitis C antibody Blood (02/02/2025 11:21 [...] last revised on 2020. Testing performed by: [facility], [address] [place] [address]., [address] Blood 02/02/2025 11:2 1 AM CDT 02/02/2025 6:54 PM CDT Leila Romo MD LAB MICROBIOLOGY - GE NERAL ORDERABLES Final Result Performing Organization Address [facility] Co de Phone Number RICHARD [address] [facility] Department [place] [address] * Protein / creatinine ratio, urine, random (02/02/2025 11:21 AM CDT) Pathologist [facility] Protein, ur, quant 26.9 mg/dL Comment: Interpretive Data No reference range established. Current interpretive data was last revised 2019. Testing performed by: [facility], [address] [place] [address]., [address] Creatinine Ur 303.8 mg/dL RICHARD Comment: Interpretive Data No reference range established. Current interpretive data was last revised 2019. Testing performed by: [facility], [address] [place] [address]., [address] Protein/creatinin e ratio 88.5 0.0 - 180.0 mg/g CR RICHARD Comment:Testing performed by : [address] [address] Urine 02/02/2025 11:2 1 AM CDT 02/04/2025 9:44 AM CDT Leila Romo MD LAB URINE ORDERABLES Final Result Performing Organization Address [facility] Co de Phone Number RICHARD [address] [facility] [place] [address] * (ABNORMAL) Drugs of Abuse Screen, Urine without Confirmation (02/02/2025 11:21 AM CDT) Pathologist [facility] Amphetamine, ur Screen Positive, presumptive (A) CutOff 500ng/mL Comment: Interpretive Data - Amphetamines: Samples containing greater than 500 ng/mL d-methamphetamine or other cross-reacting amphetamine compounds are reported as positive. Amphetamine immunoassays are subject to significant false positive rates due to cross-reactivity of non-amphetamine drugs. Confirmatory testing required for definitive results. Current Interpretive Data was last reviewed 2023. Testing performed by: [facility], [address] [place] [address]., [address] Barbiturates, ur Not Detected CutOff 200ng/mL CERNER Comment: Interpretive Data - Barbiturates: Samples containing greater than 200 ng/mL secobarbital or other cross-reacting barbiturate compounds are reported as positive. False positive and false negative results are possible. Confirmatory testing required for definitive results. Current Interpretive Data was last reviewed 2023. Testing performed by: [address] [address] Benzodiazepines, ur Not Detected CutOff 100ng/mL CERNER Comment: Interpretive Data - Benzodiazepines: Samples containing greater than 100 ng/mL nordiazepam or other cross-reacting compounds are reported as positive. False positive and false negative results are possible. Confirmatory testing required for definitive results. Current Interpretive Data was last reviewed 2023. Testing performed by: [facility], [address] [place] [address]., [address] Cannabinoids, ur Screen Positive, presumptive (A) CutOff 50 ng/mL CERNER Comment: Interpretive Data - Cannabinoids: Samples containing greater than 50 ng/mL delta-9 THC -COOH or other cross- reacting compounds are reported as positive. False positive and false negative results are possible. Confirmatory testing required for definitive results. Current Interpretive Data was last reviewed 2023. Testing performed by: [facility], [address] [place] [address]., [address] Cocaine, ur Not Detected CutOff 150ng/mL CERNER Comment: Interpretive Data - Cocaine: Samples containing greater than 150 ng/mL benzoylecgonine or other cross- reacting compounds are reported as positive. False positive and false negative results are possible. Confirmatory testing required for definitive results. Current Interpretive Data was last reviewed 2023. Testing performed by: [address] [address] Fentanyl, Ur Not Detected CutOff 5 ng/mL CERNER Comment: Interpretive Data - Fentanyl: Samples containing greater than 5 ng/mL norfentanyl, fentanyl, or other cross-reacting fentanyl compounds are reported as positive. False positive and false negative results are possible. Confirmatory testing required for definitive results. Current Interpretive Data was last reviewed 2024. Testing performed by: [facility], [address] [place] [address]., [address] Methadone, ur Not Detected CutOff 300ng/mL CERNER Comment: Interpretive Data - Methadone: Samples containing greater than 300 ng/mL d,l-methadone or other cross-reacting compounds are reported as positive. False positive and false negative results are possible. Confirmatory testing required for definitive results. Current Interpretive Data was last reviewed 2023. Testing performed by: [address] [address] Opiates, ur Not Detected CutOff 300ng/mL [facility] Comment: Interpretive Data - Opiates: Samples containing greater than 300 ng/mL morphine or other cross-reacting compounds are reported as positive. False positive and false negative results are possible. Confirmatory testing required for definitive results. Current Interpretive Data was last reviewed 2023. Testing performed by: [address] [address] Oxycodone, ur Not Detected CutOff 100ng/mL [facility] Comment: Interpretive Data - Oxycodone: Samples containing greater than 100 ng/mL oxycodone or other cross-reacting compounds are reported as positive. False positive and false negative results are possible. Confirmatory testing required for definitive results. Current Interpretive Data was last reviewed 2023. Testing performed by: [address] [address] Phencyclidine, ur Not Detected CutOff 25 ng/mL [facility] Comment: Interpretive Data - Phencyclidine: Samples containing greater than 25 ng/mL phencyclidine or other cross-reacting compounds are reported as positive. False positive and false negative results are possible. Confirmatory testing required for definitive results. Current Interpretive Data was last reviewed 2023. Testing performed by: [address] [address] Urine Creatinine 306 mg/dL [facility] Comment: Interpretive Data Urine Creatinine: < 10 mg/dL is extremely dilute = or > 10 but < 20 mg/dL is dilute = or > 20 mg/dL is normal Current Interpretive Data was last revised on 2018. Testing performed by: [facility], [address] [place] [address]., [address] Urine 02/02/2025 11:2 1 AM CDT 02/02/2025 6:54 PM CDT Narrative RICHARD - 02/02/2025 10:05 PM CDT Drug of Abuse screening is performed by immunoassay for medical purposes only. This is not to be used for Pain Management purposes. Leila Romo MD LAB URINE ORDERABLES Final Result RICHARD [facility] Department [place] [address] * Rubella IgG antibody Blood (02/02/2025 11:21 AM CDT) Rubella IgG Reactive Comment: Reactive: Results suggest response to immunization or prior exposure to the virus. Testing performed by: [facility], [address] [place] [address]., [address] Blood 02/02/2025 11:2 1 AM CDT 02/03/2025 10:01 AM CDT Leila Romo MD LAB MICROBIOLOGY - GE NERAL ORDERABLES Final Result [facility] [id number] [facility] [place] [address] * RPR Blood (02/02/2025 11:21 AM CDT) RPR Nonreactive Nonreactive Comment:Testing performed by : [facility], [address] [place] [address]., [address] Blood 02/02/2025 11:2 1 AM CDT 02/02/2025 6:54 PM CDT Leila Romo MD LAB MICROBIOLOGY - GE NERAL ORDERABLES Final Result Performing Organization Address [facility] Co de Phone Number RICHARD FLORES [address] [facility] Department [place] [address] * Hepatitis B Surface Antigen Blood (02/02/2025 11:21 AM CDT) HepBsAg Nonreactive Nonreactive Comment:Testing performed by : [facility], [address] [place] [address]., [address] Blood 02/02/2025 11:2 1 AM CDT 02/02/2025 6:54 PM CDT Leila Romo MD LAB MICROBIOLOGY - GE NERAL ORDERABLES Final Result Performing Organization Address [facility] Co de Phone Number RICHARD FLORES [address] [facility] Department [place] [address] * Type and screen (02/02/2025 11:21 AM CDT) ABO Rh A Positive Hope, indirect Negative CERNER Blood 02/02/2025 11:2 1 AM CDT 02/02/2025 7:06 PM CDT Narrative [facility] - 02/02/2025 8:57 PM CDT Has the patient had Daratumumab or Isatuximab in the past 6 months?->Unknown Leila Romo MD LAB BLOOD BANK TEST O RDERABLES Final Result Performing Organization Address [facility] Co de Phone Number RICHARD [address] [facility] Department [place] [address] * Urine culture Urine, clean voided (02/02/2025 11:21 AM CDT) Report Final Report: Less than 100,000 colonies/mL (clinically insignificant growth based on current clinical standards) Comment:Testing performed by : [facility], [address] [place] [address] Organism (CLINICALLY INSIGNIFICANT GROWTH [facility] Urine, clean voided 02/02/2025 11:21 AM CDT 02/02/2025 10:52 PM CDT Narrative [facility] - 02/04/2025 8:04 AM CDT Testing performed by [facility] ([phone]) Leila Romo MD LAB MICROBIOLOGY - GE NERAL ORDERABLES Final Result Performing Organization Address [facility] Co de Phone Number MEGHNAPITA [address] [facility] Department [place] [address] * Varicella Zoster IgG antibody Blood (02/02/2025 11:21 AM CDT) Pathologist [facility] VZV IgG Reactive Reactive Comment: Reactive: Results suggest response to immunization or prior exposure to the virus. Testing performed by: [facility], [address] [place] [address]., [address] Blood 02/02/2025 11:2 1 AM CDT 02/03/2025 10:01 AM CDT Leila Romo MD LAB MICROBIOLOGY - GE NERAL ORDERABLES Final Result Performing Organization Address [facility] de Phone Number [facility] [address] [facility] [place] [address] * Comprehensive metabolic panel (02/02/2025 11:21 AM CDT) Pathologist [facility] Sodium 135 135 - 145 mmol/L Comment:Testing performed by : [facility], [address] [place] [address]., [address] Potassium, pl 4.0 3.3 - 4.9 mmol/L [facility] Comment:Testing performed by : [facility], [address] [place] [address]., [address] Chloride 102 97 - 110 mmol/L [facility] Comment:Testing performed by : [address] [address] CO2 22 22 - 32 mmol/L [facility] Comment:Testing performed by : [address] [address] Anion gap 11 2 - 15 mmol/L CERNER CH Comment:Testing performed by : [address] [address] BUN 7 6 - 25 mg/dL CERNER CH Comment:Testing performed by : [address] [address] Creatinine 0.71 0.60 - 1.10 mg/dL CERNER CH Comment:Testing performed by : [address] [address] Glucose 128 70 - 199 mg/dL CERNER [...] classification and Diagnosis of Diabetes Diabetes Care 202; 46: S19-S40. Current interpretive data was last revised 2022. Testing performed by: [address] [address] Calcium 9.5 8.5 - 10.3 mg/dL CERNER CH Comment:Testing performed by : [address] [address] Bilirubin, total 0.2 0.1 - 1.2 mg/dL CERNER CH Comment:Testing performed by : [address] [address] Protein, pl 7.1 6.5 - 8.5 g/dL CERNER CH Comment:Testing performed by : [address] [address] Albumin 3.9 3.5 - 5.0 g/dL CERNER CH Comment:Testing performed by : [address] [address] Alk phos 50 40 - 130 Units/L CERNER CH Comment:Testing performed by : [address], [address] ALT 42 7 - 45 Units/L CERNER Comment:Testing performed by : [facility], [address] [place] [address]., [address] AST 27 10 - 45 Units/L RICHARD Comment:Testing performed by : [facility], [address] [place] [address]., [id number] Blood 02/02/2025 11:2 1 AM CDT 02/02/2025 6:54 PM CDT Leila Romo MD LAB BLOOD ORDERABLES Final Result [address] Department [place] [address] * Drugs of Abuse Screen, Urine without [...] by Jonathan Styles M.D. CH: Report ID: [id number] Reading Location: [place] [address] Procedure Note Jonathan Styles Jr., MD - [...] Jonathan Styles M.D. CH: MARK Report ID: [id number] Reading Location: [id number] Result [facility] Leila Romo MD IMG OB US PROCEDURES [...] 11:57 AM CDT) CLINICAL INFORMATION: [facility] Comment:Routine exam LMP [facility] Comment:UNKNOWN Previous Pap [facility] Comment:INFORMATION NOT PROV IDED Prev. Bx [facility] Comment:INFORMATION NOT PROV IDED SOURCE: [facility] Comment:Cervix, Endocervix Pap, specimen adequacy [facility] Comment: Satisfactory for evaluation. Endocervical/transformation zone component present. Age and/or menstrual status not provided HPV interp [facility] Comment:Negative for intraep ithelial lesion or malignancy. COMMENTS [facility] Comment: This Pap test has been evaluated with computer assisted technology. Machine Shop Instructor [facility] Comment: AAM, CT(ASCP) CT Screening Location: [place] [address] [place] [address] Comment [facility] Comment: EXPLANATORY NOTE: The Pap is [...] High Risk E6/E7 Not Detected Not Detected [facility] [place] Comment: Methodology: High School Librarian-Mediated Amplification This assay detects E6/E7 viral messenger RNA (mRNA) from 14 high-risk HPV types (16,18,31,33,35,39,45,51,52,56,58,59,66,68). The analytical performance characteristics of this assay have been determined by [employer]. The modifications have not been cleared or approved by the FDA. This assay has been validated pursuant to the CLIA regulations and is used for clinical purposes. For additional information, please refer to http://education.Cryptopay.XGear/faq/YTU823g9 (This link if provided for information/ educational purposes only.) 03/02/2021 11:5 7 AM CDT 03/03/2021 2:21 AM CDT Narrative [facility] - 03/05/2021 3:24 PM CDT FASTING: UNKNOWN us Leila Romo MD LAB CYTOLOGY ORDERABL ES Final Result [facility] [address] [place] [address] [facility] [address] [address] [place] [phone] from Last 3 Months or Most Recently Relevant to Health Maintenance Insurance [employer] [facility] [employer] HMO Care Teams Registered Pharmacy Technician Relationship Specialty Start Date End Date Edgardo Manuel MD PCP - General Internal Medicine 11/03/21
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
--- OUTSIDE RECORDS SUMMARY | 2025-04-03 11:35 | XMS_ITS | Data Portability ---
Author Organization [facility] DIEGOHermann Address [address] [facility] [place] [address] Care Team Providers Care Kitchenwhere Maker Name Role Phone NICHOL RUELAS Handkerchief Maker Assessment No assessment recorded. Plan of Treatment Reminders Order Date Submit Date Provider Last Modified By Organization Details Last Modified Time Details Appointments None recorded. Lab spep, serum, reflex immunofixat ion 2022 023 [facility], [address], [place], [address], 4 11:26:43 lipid panel, serum 2022 023 [facility], [address], [place], [address], 4 14:41:56 CBC w/ auto diff 2022 023 KASHIF Parra, [address]22 [address], [place], [address], 3 08:17:09 lipid panel, serum 2022 023 KASHIF Parra, 2022 [address], [place], [address], 3 08:17:06 CMP, serum or plasma 2022 023 KASHIF Parra, 2022 [address], [place], [address], 3 08:17:07 urinalysis, dipstick 2022 023 [facility], [address], [place], [address], 3 08:17:08 HbA1c (hemoglobin A1c), blood 2022 023 [facility], [address], [place], [address], 3 14:17:46 TSH, ultra-sensi tive, serum 2022 023 [facility], [address], [place], [address], 3 08:17:08 Referral None recorded. Procedures nerve conduction study/EMG, upper extremity (PROC) - Numbness and tingling of the 3rd and 4th fingers of the right hand. 2022 023 [facility], [address] [place] [address], [address], 3 13:35:44 Surgeries None recorded. Imaging MAMMO, screening, bilateral 2022 023 hdoverma Not available 3 12:52:54 MAMMO, screening, bilateral 2022 023 hdoverma Not available 3 09:40:00 Medication Orders amlodipine 10 mg tablet 2022 023 [facility] #[id number], [address] [place], [address], 3 09:39:43 amlodipine 5 mg tablet 2022 023 [facility]acy #[id number], [address] [place], [address], 3 12:56:02 ibuprofen 600 mg tablet 2022 023 [facility] #3259, [address] [place], [address], 3 09:21:29 amlodipine 5 mg tablet 2018 019 oajao Not available 3 12:56:02 metoprolol tartrate 25 mg tablet 2018 019 hdoverma Not available 3 10:44:52 aspirin 81 mg chewable tablet 2018 019 over[facility] Not available 3 10:45:01 lovastatin 10 mg tablet 2018 019 [facility] Not available 3 10:45:10 metoprolol tartrate 25 mg tablet 2018 019 [id number], [address] [place], [id number], 3 10:44:52 amlodipine 5 mg tablet 2018 019 [id number], [address] [place], [place], [id number], 3 12:56:02 Patient TargetsNo targets recorded. Patient Instructions Encounter Date Encounter Id Patient Instructions Last Modified By Organization Details Last Modified Time 05/12/2019 [id number] kidney stone: care instructions Not available 05/13/2019 08:32:21 learning about diet for kidney stone prevention Not available 05/13/2019 08:32:22 05/26/2019 [id number] deciding about using medicines to quit smoking Not available 05/26/2019 16:24:43 Quitting Tobacco : Care Instructions Not available 05/26/2019 16:24:43 body mass index: care instructions Not available 05/26/2019 16:24:31 learning about healthy weight Not available 05/26/2019 16:24:31 10/24/2022 [id number] A healthy lifestyle: care instructions oajao Not [...] HBA1C oajao Not available 10/24/2022 14:07:50 05/04/2023 [id number] learning about breast cancer screening oajao Not [...] uIU/m L 0.450- 4.500 Not Available [facility] ([facility]) [address] [place], [address], 10/25/2022 08:17:08 10/24/19 23 10/25/2022 CBC WITH DIFFE RENTI AL/PL ATELE T WBC 5.7 x10e3 /uL 3.4-10 .8 Not Available [facility] ([facility]) [address] [place], [address], 10/25/2022 08:17:09 10/24/19 23 10/25/2022 CBC WITH DIFFE RENTI AL/PL ATELE T RBC 4.73 x10e6 /uL 3.77-5 .28 Not Available [facility] ([facility]) [address] [facility], [place], [address], 10/25/2022 08:17:09 10/24/19 23 10/25/2022 CBC WITH DIFFE RENTI AL/PL ATELE T hemoglobin 14.3 g/dL 11.1-1 5.9 Not Available [facility] ([facility]) [address] [facility], [place], [address], 10/25/2022 08:17:09 10/24/19 23 10/25/2022 CBC WITH DIFFE RENTI AL/PL ATELE T hematocrit 42.4 % 34.0-4 6.6 Not Available [facility] ([facility]) [address] [facility], [place], [address], 10/25/2022 08:17:09 10/24/1910/25/2022 CBC WITH DIFFE RENTI AL/PL ATELE T MCV 90 fL 79-97 Not Available [facility] ([facility]) [address] [place], [address], 10/25/2022 08:17:09 10/24/1910/25/2022 CBC WITH DIFFE RENTI AL/PL ATELE T MCH 30.2 pg 26.6-3 3.0 Not Available [facility] ([facility]) [address] [place], [address], 10/25/2022 08:17:09 10/24/1910/25/2022 CBC WITH DIFFE RENTI AL/PL ATELE T MCHC 33.7 g/dL 31.5-3 5.7 Not Available [facility] ([facility]) [address] [place], [address], 10/25/2022 08:17:09 10/24/19 23 10/25/2022 CBC WITH DIFFE RENTI AL/PL ATELE T RDW 13.8 % 11.7-1 5.4 Not Available [facility] ([facility]) [address] [facility], [place], [address], 10/25/2022 08:17:09 10/24/19 23 10/25/2022 CBC WITH DIFFE RENTI AL/PL ATELE T platelets 256 x10e3 /uL 150-45 0 Not Available [facility] ([facility]) [address] [facility], [place], [address], 10/25/2022 08:17:09 10/24/19 23 10/25/2022 CBC WITH DIFFE RENTI AL/PL ATELE T neutrophils 49 % notest ab. Not Available [facility] ([facility]) [address] [facility], [place], [address], 10/25/2022 08:17:09 10/24/19 23 10/25/2022 CBC WITH DIFFE RENTI AL/PL ATELE T lymphs 34 % notest ab. Not Available [facility] ([facility]) [address] [facility], [place], [address], 10/25/2022 08:17:09 10/24/1910/25/2022 CBC WITH DIFFE RENTI AL/PL ATELE T monocytes 14 % notest ab. Not Available [facility] ([facility]) [address] [facility], [place], [address], 10/25/2022 08:17:09 10/24/1910/25/2022 CBC WITH DIFFE RENTI AL/PL ATELE T eos 2 % notest ab. Not Available [facility] ([facility]) [address] [facility], [place], [address], 10/25/2022 08:17:09 10/24/1910/25/2022 CBC WITH DIFFE RENTI AL/PL ATELE T basos 1 % notest ab. Not Available [facility] ([facility]) [address] [facility], [place], [address], 10/25/2022 08:17:09 10/24/19 23 10/25/2022 CBC WITH DIFFE RENTI AL/PL ATELE T neutrophils (absolute) 2.9 x10e3 /uL 1.4-7. 0 Not Available [facility] ([facility]) [address] [facility], [place], [address], 10/25/2022 08:17:09 10/24/19 23 10/25/2022 CBC WITH DIFFE RENTI AL/PL ATELE T lymphs (absolute) 1.9 x10e3 /uL 0.7-3. 1 Not Available [facility] ([facility]) [address] [facility], [place], [address], 10/25/2022 08:17:09 10/24/19 23 10/25/2022 CBC WITH DIFFE RENTI AL/PL ATELE T monocytes(ab solute) 0.8 x10e3 /uL 0.1-0. 9 Not Available [facility] ([facility]) [address] [facility], [place], [address], 10/25/2022 08:17:09 10/24/1910/25/2022 CBC WITH DIFFE RENTI AL/PL ATELE T eos (absolute) 0.1 x10e3 /uL 0.0-0. 4 Not Available [facility] ([facility]) [address] [facility], [place], [address], 10/25/2022 08:17:09 10/24/19 23 10/25/2022 CBC WITH DIFFE RENTI AL/PL ATELE T baso (absolute) 0.0 x10e3 /uL 0.0-0. 2 Not Available [facility] ([facility]) [address] [facility], [place], [address], 10/25/2022 08:17:09 10/24/19 23 10/25/2022 CBC WITH DIFFE RENTI AL/PL ATELE T immature granulocytes 0 % notest ab. Not Available [facility] ([facility]) [address] [facility], [place], [address], 10/25/2022 08:17:09 10/24/1910/25/2022 CBC WITH DIFFE RENTI AL/PL ATELE T immature grans (abs) 0.0 x10e3 /uL 0.0-0. 1 Not Available [facility] ([facility]) [address] [facility], [place], [address], 10/25/2022 08:17:09 10/24/1910/25/2022 URINA LYSIS , ROUTI NE specific gravity 1.020 1.005- 1.030 Not Available [facility] ([facility]) [address] [facility], [place], [address], 10/25/2022 08:17:08 10/24/1910/25/2022 URINA LYSIS , ROUTI NE pH 7.5 5.0-7. 5 Not Available [facility] ([facility]) [address] [facility], [place], [address], 10/25/2022 08:17:08 10/24/1910/25/2022 URINA LYSIS , ROUTI NE urine-color YELLOW yellow Not Available [facility] ([facility]) [address] [facility], [place], [address], 10/25/2022 08:17:08 10/24/1910/25/2022 URINA LYSIS , ROUTI NE appearance CLEAR clear Not Available [facility] ([facility]) [address] [facility], [place], [address], 10/25/2022 08:17:08 10/24/1910/25/2022 URINA LYSIS , ROUTI NE WBC esterase NEGATI VE negati ve Not Available [facility] ([facility]) [address] [facility], [place], [address], 10/25/2022 08:17:08 10/24/19 23 10/25/2022 URINA LYSIS , ROUTI NE protein 1+ negati ve/tra ce abnormal Not Available [facility] ([facility]) [address] [place], [address], 10/25/2022 08:17:08 10/24/19 23 10/25/2022 URINA LYSIS , ROUTI NE glucose NEGATI VE negati ve Not Available [facility] ([facility]) [address] [place], [address], 10/25/2022 08:17:08 10/24/19 23 10/25/2022 URINA LYSIS , ROUTI NE ketones TRACE negati ve abnormal Not Available [facility] ([facility]) [address] [place], [address], 10/25/2022 08:17:08 10/24/19 23 10/25/2022 URINA LYSIS , ROUTI NE occult blood NEGATI VE negati ve Not Available [facility] ([facility]) [address] [place], [address], 10/25/2022 08:17:08 10/24/19 23 10/25/2022 URINA LYSIS , ROUTI NE bilirubin NEGATI VE negati ve Not Available [facility] ([facility]) [address] [place], [address], 10/25/2022 08:17:08 10/24/1910/25/2022 URINA LYSIS , ROUTI NE urobilinogen ,semi-qn 1.0 mg/dL 0.2-1. 0 Not Available [facility] ([facility]) [address] [place], [address], 10/25/2022 08:17:08 10/24/19 23 10/25/2022 URINA LYSIS , ROUTI NE nitrite, urine NEGATI VE negati ve Not Available [facility] ([facility]) [address] [place], [address], 10/25/2022 08:17:08 10/24/19 23 10/25/2022 IBAN DAVID microscopic examination SEE BELOW: Micro scopi c was indic ated and was perfo rmed. Not Available [facility] ([facility]) [address] [facility], [place], [address], 10/25/2022 08:17:08 10/24/19 23 10/25/2022 MICRO SCOPI C EXAMI NATIO N WBC NONE SEEN /hpf 0-5 Not Available [facility] ([facility]) [address] [facility], [place], [address], 10/25/2022 08:17:07 10/24/19 23 10/25/2022 MICRO SCOPI C EXAMI NATIO N RBC NONE SEEN /hpf 0-2 Not Available [facility] ([facility]) [address] [facility], [place], [address], 10/25/2022 08:17:07 10/24/19 23 10/25/2022 MICRO SCOPI C EXAMI NATIO N epithelial cells (non renal) 0-10 /hpf 0-10 Not Available [facility] ([facility]) [address] [facility], [place], [address], 10/25/2022 08:17:07 10/24/19 23 10/25/2022 MICRO SCOPI C EXAMI NATIO N casts NONE SEEN /lpf nonese en Not Available [facility] ([facility]) [address] [facility], [place], [address], 10/25/2022 08:17:07 10/24/19 23 10/25/2022 MICRO SCOPI C EXAMI NATIO N bacteria FEW nonese en/few Not Available [facility] ([facility]) [address] [facility], [place], [address], 10/25/2022 08:17:07 10/24/19 23 10/25/2022 COMP. METAB OLIC PANEL (14) glucose 90 mg/dL 70-99 Not Available [facility] ([facility]) [address] [place], [address], 10/25/2022 08:17:07 10/24/19 23 10/25/2022 COMP. METAB OLIC PANEL (14) BUN 9 mg/dL 6-24 Not Available [facility] ([facility]) [address] [place], [address], 10/25/2022 08:17:07 10/24/19 23 10/25/2022 COMP. METAB OLIC PANEL (14) creatinine 0.95 mg/dL 0.57-1 .00 Not Available [facility] ([facility]) [address] [place], [address], 10/25/2022 08:17:07 10/24/19 23 10/25/2022 COMP. METAB OLIC PANEL (14) eGFR 77 mL/mi n/1.7 3 >59 Not Available [facility] ([facility]) [address] [place], [address], 10/25/2022 08:17:07 10/24/19 23 10/25/2022 COMP. METAB OLIC PANEL (14) BUN/creatini ne ratio 9 9-23 Not Available [facility] ([facility]) [address] [place], [address], 10/25/2022 08:17:07 10/24/19 23 10/25/2022 COMP. METAB OLIC PANEL (14) sodium 140 mmol/ L 134-14 4 Not Available [facility] ([facility]) [address] [place], [address], 10/25/2022 08:17:07 10/24/19 23 10/25/2022 COMP. METAB OLIC PANEL (14) potassium 4.4 mmol/ L 3.5-5. 2 Not Available [facility] ([facility]) [address] [place], [address], 10/25/2022 08:17:07 10/24/19 23 10/25/2022 COMP. METAB OLIC PANEL (14) chloride 106 mmol/ L 96-106 Not Available [facility] ([facility]) [address] [place], [address], 10/25/2022 08:17:07 10/24/19 23 10/25/2022 COMP. METAB OLIC PANEL (14) carbon dioxide, total 21 mmol/ L 20-29 Not Available [facility] ([facility]) [address] [place], [address], 10/25/2022 08:17:07 10/24/19 23 10/25/2022 COMP. METAB OLIC PANEL (14) calcium 9.1 mg/dL 8.7-10 .2 Not Available [facility] ([facility]) [address] [place], [address], 10/25/2022 08:17:07 10/24/19 23 10/25/2022 COMP. METAB OLIC PANEL (14) protein, total 7.7 g/dL 6.0-8. 5 Not Available [facility] ([facility]) [address] [place], [address], 10/25/2022 08:17:07 10/24/19 23 10/25/2022 COMP. METAB OLIC PANEL (14) albumin 4.3 g/dL 3.8-4. 8 Not Available [facility] ([facility]) [address] [place], [address], 10/25/2022 08:17:07 10/24/19 23 10/25/2022 COMP. METAB OLIC PANEL (14) globulin, total 3.4 g/dL 1.5-4. 5 Not Available [facility] ([facility]) [address] [place], [address], 10/25/2022 08:17:07 10/24/19 23 10/25/2022 COMP. METAB OLIC PANEL (14) A/G ratio 1.3 1.2-2. 2 Not Available [facility] ([facility]) [address] [place], [address], 10/25/2022 08:17:07 10/24/19 23 10/25/2022 COMP. METAB OLIC PANEL (14) bilirubin, total 0.3 mg/dL 0.0-1. 2 Not Available [facility] ([facility]) [address] [facility] [place], [address], 10/25/2022 08:17:07 10/24/19 23 10/25/2022 COMP. METAB OLIC PANEL (14) alkaline phosphatase 60 IU/L 44-121 Not Available [facility] ([facility]) [address] [facility] [place], [address], 10/25/2022 08:17:07 10/24/19 23 10/25/2022 COMP. METAB OLIC PANEL (14) AST (SGOT) 10 IU/L 0-40 Not Available [facility] ([facility]) [address] [facility] [place], [address], 10/25/2022 08:17:07 10/24/19 23 10/25/2022 COMP. METAB OLIC PANEL (14) ALT (SGPT) 11 IU/L 0-32 Not Available [facility] ([facility]) [address] [facility] [place], [address], 10/25/2022 08:17:07 10/24/19 23 10/25/2022 LIPID PANEL cholesterol, total 237 mg/dL 100-19 9 above high normal Not Available [facility] ([facility]) [address] [facility] [place], [address], 10/25/2022 08:17:06 10/24/19 23 10/25/2022 LIPID PANEL triglyceride s 160 mg/dL 0-149 above high normal Not Available [facility] ([facility]) [address] [facility], [place], [address], 10/25/2022 08:17:06 10/24/19 23 10/25/2022 LIPID PANEL HDL cholesterol 28 mg/dL >39 below low normal Not Available [facility] ([facility]) [address] [facility], [place], [address], 10/25/2022 08:17:06 10/24/19 23 10/25/2022 LIPID PANEL VLDL cholesterol andreia 30 mg/dL 5-40 Not Available [facility] ([facility]) [address] [facility], [place], [address], 10/25/2022 08:17:06 10/24/19 23 10/25/2022 LIPID PANEL LDL chol calc ([facility]) 179 mg/dL 0-99 above high normal Not Available [facility] ([facility]) [address] [facility], [place], [address], 10/25/2022 08:17:06 04/25/20 19 04/25/2019 CT, abdom en + pelvi s, w/ contr ast No observ ation record ed. amcmanis Not Available 2018 13:04:17 04/25/20 19 04/25/2019 CT, abdom en + pelvi s, w/o contr ast No observ ation record ed. amcmanis [facility] ([facility] [place]) Scheduling [address] [place], [address], 04/29/2019 14:29:13 05/08/20 19 05/07/2019 US, renal No observ [facility]ion [facility] ed[facility] [address] [place], [address], 05/08/2019 16:41:37 07/08/20 19 07/07/2019 elect rocar diogr am No observ ation record ed. [facility] ([facility]) Registration/ Lab [address] [place], [address], 07/08/2019 11:08:22 07/08/20 19 07/07/2019 elect donnie quijano am No observ ation record ed. Not Available 2018 13:59:36 Result Notes None recorded. Problems Name Problem SNOMED Code Status Onset Date Resolution Date Notes Provider Name and Address Organization Details Recorded Time Hypercholester olemia 83313652 Active 2018 VARGAS Tomlinson Attn: Accountin g,[address] [facility], [place], [address], [facility] 9 12:48:30 Generalized anxiety disorder 02068859 Active VARGAS Tomlinson Attn: Accountin g,[address] [facility], [place], [address], [facility] 9 12:47:56 Tobacco dependence syndrome 94329460 Active VARGAS Tomlinson Attn: Accountin g,[address] [facility], [place], [address], [facility] 9 12:47:56 Benign hypertension 58427144 Active VARGAS Tomlinson Attn: Accountin g,[address] [facility], [place], [address], [facility] 9 12:47:56 Polycystic ovaries Active VARGAS Tomlinson Attn: Accountin g,[address] [facility], [place], [address], [facility] 9 12:47:56 Bacterial vaginosis 982310692 Active VARGAS Tomlinson Attn: Accountin g,[address] [facility], [place], [address], [facility] 9 12:47:56 Genital herpes simplex 21042389 Active VARGAS Tomlinson Attn: Accountin g,[address] [facility], [place], [address], [facility] 9 12:47:56 Pure hypercholester olemia 520040591 Active VARGAS Tomlinson Attn: Vilma silva,[address] [facility], [place], [address], [facility] 9 12:47:56 Diverticulitis of colon 416855506 Active VARGAS Tomlinson Attn: Vilma silva,[address] [facility], [place], [address], [facility] 9 12:47:56 Notes:High Blood Pressure Problem Notes None recorded. Procedures Surgical History Date Name Laterality Status Provider Name and Address Organization Details Recorded Time 1 Dilation and Curettage completed Karla Buchanan MA [facility] 10/24/2022 10:46:00 Imaging Results None recorded. Procedure Notes None recorded. Medical Equipment None Reported. Allergies Allergen ID Allergen Name Allergen Category Reaction Reaction Severity Criticality Documentation Date Start Date Code Code System Note Provider Name and Address Organization Details Recorded Time 776608 Product containin g penicilli n (product) medicatio n itching moderate Not available 10/24/2022 68361 8001 SNOMED Karla Buchanan MA null, [facility] 3 10:44:37 Medications Name Sig Start Date Stop Date [...] Updated DateTime 3 165.1 cm 33.9 kg/m2 07908.1 3 g 16 /min 96 /min 98 % 98 % 160 mm[Hg] 100 mm[Hg] Karla Buchanan [place] [facility] 3 10:47:29 Date Recorded Body height Body mass index (BMI) Body weight Heart rate Oxygen saturation Oxygen saturation in Arterial blood by Pulse oximetry Respiratory rate Systolic blood pressure Diastolic blood pressure Provider Name and Address Organization Details Last Updated DateTime 3 165.1 cm 34.6 kg/m2 49977.4 9 g 98 /min 99 % 99 % 18 /min 170 mm[Hg] 110 mm[Hg] Karla Buchanan [place] [facility] 3 09:47:41 Date Recorded Systolic blood pressure Diastolic blood pressure Provider Name and Address Organization Details Last Updated DateTime 05/04/2023 130 mm[Hg] 100 mm[Hg] Enrique Palmer MD Attn: Accounting,[address] [place], [address], [place] [facility] 05/04/2023 09:45:39 Date Recorded Body height Body mass index (BMI) Body weight Oxygen saturation Oxygen saturation in Arterial blood by Pulse oximetry Respiratory rate Heart rate Systolic blood pressure Diastolic blood pressure Provider Name and Address Organization Details Last Updated DateTime 3 165.1 cm 34.6 kg/m2 22913.2 1 g 99 % 99 % 14 /min 92 /min 140 mm[Hg] 100 mm[Hg] Karla Buchanan MA [facility] 3 09:23:41 Date Recorded Body height Body mass index (BMI) Body weight Oxygen saturation Oxygen saturation in Arterial blood by Pulse oximetry Heart rate Respiratory rate Systolic blood pressure Diastolic blood pressure Provider Name and Address Organization Details Last Updated DateTime 9 165.1 cm 34.2 kg/m2 65801.6 3 g 100 % 100 % 87 /min 16 /min 160 mm[Hg] 94 mm[Hg] Yuridia Brown MA [facility] 9 14:35:33 Date Recorded Body height Body mass index (BMI) Body weight Heart rate Respiratory rate Systolic blood pressure Diastolic blood pressure Provider Name and Address Organization Details Last Updated DateTime 9 165.1 cm 33.3 kg/m2 13658.4 7 g 84 /min 12 /min 126 mm[Hg] 74 mm[Hg] Yuridia Brown MA [facility] 9 15:58:21 Date Recorded Body height Body mass index (BMI) Body weight Heart rate Respiratory rate Systolic blood pressure Diastolic blood pressure Provider Name and Address Organization Details Last Updated DateTime 9 165.1 cm 32.9 kg/m2 32426.2 9 g 80 /min 16 /min 128 mm[Hg] 86 mm[Hg] Yuridia Brown [facility] [facility] 9 11:28:41 Social History Question Answer Notes LastModified by Organizat ion Details LastModified Time Tobacco Smoking Status Current Every Day Smoker January MICHAEL Truong [facility] 12/16/2014 10:33:37 What Is Your Level Of Caffeine Consumption? [...] not available 10/24/2022 Sex: Female Functional Status Question Answer Note LastModified by Organizat ion Details LastModified Time What is your level of alcohol consumption? Occasional Information not available 03/30/2015 Mental Status None recorded. Family History Relationship [...] Immunizations Vaccine Type Date Status Note Provider Nam e and Address Organization Details Recorded Time MMR 4 completed Enrique Palmer MD Attn: [address] [place], [address], [facility] 10/24/2022 11:11:05 Td (adult), 2 Lf tetanus toxoid, preservative free, adsorbed 6 completed Enrique Palmer MD Attn: [address] [place], [address], [facility] 10/24/2022 11:11:05 Tdap 5 completed Not Available [facility] 11/08/2019 02:40:25 Past Encounters Encounter ID Performer Location Encounter Start Date Encounter Closed Date Diagnosis/Indication Diagnosis SNOMED-CT Code Diagnosis ICD10 Code Diagnosis Note [id number] MD Tiffanie Hayes (Adult Med) [address] [place] [address] 12/16/2014 10:04:38 12/16/2014 11:13:02 Administration of diphtheria and tetanus vaccine 02988165 Tuberculos is screening 589794051 General ex amination of patient 091002832 34 y/o BF who was last seen [...] not compliant was discussed. 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 and there is also a legal issue Tobacco de pendence syndrome 02791259 Cessation was recommende d [id number] MD Tiffanie Rubin ([facility]) [address] [place] [address] 02/02/2015 11:48:56 02/02/2015 13:45:24 Gynecologic examination 05912223 Polycystic ovaries 47696760 Benign hypertension 97677141 [id number] MD Tiffanie Hayes (Adult Med) [address] [place] [phone] 03/24/2015 10:00:28 03/24/2015 13:32:25 Pure hypercholesterolemia 894199026 Chronic issue, compliance with a low CHO, low saturated fat diet Diverticul itis of colon 527457901 Recently diagnosed with left sided diverticul itis [...] ER. GI for colonoscop y Benign hypertension 47283981 BP is stable She should be on Clonidine 0.1mg po QHS and Amlodipine 2.5 mg po daily [id number] Charu Christian MD [facility] (Adult Med) [address] [place] [address] 03/30/2015 14:54:36 03/30/2015 17:45:19 Diverticulitis of colon 047674206 Agree that colonoscop y is indicated. Would however recommend that procedure be delayed about 3 mths to allow for healing. Discussed use of high fiber diet. Will discuss with [id number] MD Sharita Holland [address] [facility] [place] [address] 04/10/2019 15:52:36 04/11/2019 10:55:44 Diverticulitis of colon 611160712 Q43.8 Counseled on diverticul itis and medication s-GI referral-C T abd/pelvis Adult heal th examination 163828394 Z00.01 Benign hypertension 1072 5009 I10 Counseled on HTN and medication . Encouraged to monitor blood pressures with goal <140/90. Encouraged healthy diet and exercise. Counseled on smoking cessation. HIV screening 051508675 Z11.4 Tobacco de pendence syndrome 70201123 F17.074 [id number] MD Sharita Holland 14 IM [address] [facility] [place] [address] 05/12/2019 14:28:15 05/13/2019 11:32:10 Benign hypertension 99829381 I10 Counseled on HTN and medication . Encouraged to monitor blood pressures with goal <140/90. Encouraged healthy diet and exercise. Counseled on smoking cessation. Pt to call with medication ER has placed her on-will f/u in 2 weeks for bp check due to not taking med today Kidney stone 55045164 N2 0.0 Continue care with urology [id number] MD Sharita Holland [address] [facility] [place] [address] 05/26/2019 14:31:05 05/27/2019 10:10:19 Benign hypertension 71413856 I10 Counseled on HTN and medication -continue current meds. Encouraged to monitor blood pressures with goal <140/90. Encouraged healthy diet and exercise. Counseled on smoking cessation. f/u 3 months Body mass index 30+ - obesity 657722548 Z68.34 Tobacco de pendence syndrome 96354792 F17.053 [id number] MD Sharita ALLAN [address] [facility] [address] [place] [address] 08/26/2019 11:08:52 08/26/2019 15:50:05 Benign hypertension 13628267 I10 Counseled on HTN and medication -continue current meds. Encouraged to monitor blood pressures with goal <140/90. Encouraged healthy diet and exercise. Counseled on smoking cessation. 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 1565731489 49650 G56.01 Snoring 89237768 R06.83 Disorder o f lipid metabolism 074589179 E78.9 General ex amination of patient 836530690 Z00.01 42 y/o BF who was last seen in this office 12/18/2014 Benign hypertension 1072 5009 I10 BP is uncontroll edRestart Amlodipine 5 mg po daily Body mass index 30+ - obesity 343509758 Z68.33 Overweight 094439542 E66 .3 [id number] Enrique Palmer MD [facility] (Adult Med) [address] [place] [address] 05/04/2023 09:15:59 05/07/2023 14:12:10 Proteinuria 96324642 R80.9 Benign hypertension 1072 5009 I10 BP is uncontroll edIncrease Amlodipine to 10 mg po daily, side effects were discussed Disorder o f lipid metabolism 108361352 E78.9 Screening for malignant neoplasm of breast 006525206 Z12.39 Health Concerns Section Related Observation LastModified by Organization Detai ls LastModified Time None Recorded Concern Status LastModified by Organization Details LastModified Time None Recorded Advance Directives Directive None Recorded Payers Insurance Date Sequence Insurance Name Policy Number Policy Gordon Covered Member ID Gordon Member ID Guarantor Name 05/03/2023 SLIDING FEE SCHEDULE - DISCOUNT Aliyah Mcclelland 10/24/2022 SLIDING FEE SCHEDULE - DISCOUNT Aliyah Mcclelland 10/24/2022 1 *SELF PAY* Rosaura federico Mcclelland 10/06/2015 SLIDING FEE SCHEDULE - DISCOUNT Aliyah Mcclelland 10/24/2022 1 [employer] - [employer] (PPO) Aliyah Stas [id number] Aliyahyanni Mcclelland 10/24/2022 1 HFN - STANDARD [employer] [place] Aliyah Mcclelland [id number] Aliyahyanni Mcclelland 10/24/2022 1 [employer] - DOS PRIOR TO 21 - [facility] BENEFITS PLAN Aliyah Stas [id number] Aliyah Mcclelland 02/07/2023 2 [place]: [place] DEPARTMENT OF PUBLIC AID Aliyahyanni Mcclelland [id number] Aliyahyanni Mcclelland 10/24/2022 1 [facility] (MEDICAID HMO) [id number] Aliyahyanni Mcclelland [id number] Aliyahyanni Mcclelland 05/03/2023 SLIDING FEE SCHEDULE - DISCOUNT Aliyah Mcclelland 10/25/2022 1 *SELF PAY* federico Stas 10/25/2022 1 [employer] [place] - DOS ON OR AFTER 2020 (MEDICAID REPLACEMENT - HMO) Aliyahyanni Mcclelland [id number] Aliyahyanni Mcclelland Notes Date Note Type Note Provider [...] it was VARGAS Tomlinson Attn: [address] [place], [address], [facility] 05/13/2019 08:32:46 05/26/2019 text/html Hypertension F/UReported bypatient.Associated Symptoms:no dizziness; no lightheadedness; no chest pain; no shortness of breath; no palpitations; no edema; no calf pain with exertion Medications:taking medications as directed; no side effects from medicationNotes:f/u VARGAS Tomlinson Attn: [address] [place], [address], [facility] 05/27/2019 08:59:03 08/26/2019 text/html Hypertension F/UReported bypatient.Associated Symptoms:no dizziness; no lightheadedness; no chest pain; no shortness of breath; no palpitations; no edema; no calf pain with exertion Medications:taking medications as directed; no side effects from medicationNotes:f/u-n otes very frustrated found not covered insurance [place] at present when she arrived VARGAS Tomlinson Attn: [address] [place], [address], [facility] 08/26/2019 12:49:21 10/24/2022 text/html Hypertension F/UReported bypatient.Associated [...] a miscarriage and my blood pressure was highMy arm is bothering me, my hand Ms Mcclelland returns, in the interim, she had established care with a PCP in [place]. She presents with constant pain and a [...] readings. Enrique Palmer MD Attn: [address] [place], [address], [facility] 10/24/2022 14:10:27 05/04/2023 text/html Hypertension F/UReported bypatient.Associated [...] hours. Enrique Palmer MD Attn: [address] [place], [address], [facility] 05/04/2023 09:46:56 OBGyn Episode No OBEpisode recorded.
--- NOTE | 2025-04-03 12:00 | PC.NURSE ---
To OB via wheelchair.
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
--- OUTSIDE RECORDS SUMMARY | 2025-04-03 12:05 | XMS_ITS | Clinical Summary ---
Author Organization [facility] [address] Address [address] [employer] [place] [address] Phone Care Team Providers Care [employer] Designer Name Role Phone Edgardo Manuel MD Primary Care Provider [phone] Allergies Active Allergy Reactions Criticality Noted Date [...] nails are covered with thick red nail Tajik this some evidence of onychomycosis round the [...] through the pharmacy given to us [facility] [place] location on [facility] patient has made a commitment to get back to me in the next 24 hours regarding her precise medication she is taking.. At this time she has no symptoms referable to hypertension Seborrhea-like dermatitis with psoriasiform platinum ents 01/21/2024 Assessment & Plan (01/21/2024 5:27 [...] this. Assessment & Plan (11/28/2021 6:33 PM NUT FORMER): 41-year-old lady who is a new patient [...] (05/01/2022): Added automatically from request for surgery [id number] Acute otitis media 02/28/2021 Acute infective otitis externa of right ear 02/28/2021 03/02/2021 Encounters Date Type Department Care Team Description 04/03/2025 Telephone [facility] [address] [place] [address] Leila Romo MD Patient issue/concern 03/11/2025 2:10 PM CDT [facility] [address] [place] [address] Leila Romo MD care, subsequent , second trimester (Primary Dx); Chronic hypertension affecting 03/03/2025 Telephone [facility] [address] [place] [address] Leila Romo MD Patient issue/concern 02/25/2025 2:00 PM CDT Ancillary Procedure [facility] [address] [place] [address] Small for dates affecting management of mother, first trimester, not applicable or unspecified fetus 02/25/2025 Telephone [facility] [address] [place] [address] Tiffanie Rae LPN 02/11/2025 2:45 PM CDT [facility] [address] [place] [address] Leila Romo MD care, subsequent , second trimester (Primary Dx); Chronic hypertension affecting 02/11/2025 Orders Only [facility] [address] [place] [address] Leila Romo MD Small for dates affecting management of mother, first trimester, not applicable or unspecified fetus (Primary Dx) 02/02/2025 11:10 AM CDT Lab [facility] [address] [place] [address] Chronic hypertension in ; Encounter for supervision of other normal , first trimester; 14 weeks gestation of 01/30/2025 Telephone [facility] [address] [place] [address] Leila Romo MD 01/14/2025 2:00 PM CDT [facility] [address] [place] [address] Leila Romo MD care, subsequent , second trimester (Primary Dx); Chronic hypertension affecting ; Antepartum multigravida of advanced maternal age 0301/14/2025 1:00 PM CDT Ancillary Procedure [facility] [address] [place] [address] Encounter to determine viability of , single or unspecified fetus 01/14/2025 Orders Only [facility] [address] [place] [address] Leila Romo MD Encounter for supervision of other normal , first trimester (Primary Dx); 14 weeks gestation of ; Chronic hypertension in 2025 Results Follow-Up [facility] [address] [place] [address] Leila Romo MD [employer] from Last 3 [...] any time in the past [facility] were you homeless or living in a chcf (including now)? No 02/12/2025 Estimated Date of Delivery Comme nts Yes 07/14/2025 Based on Ultraso und Sex and Gender Information Value Date Recorded Sex Assigned at Not on file Legal Sex Female 9:49 AM NUT FORMER Gender Identity Not on file Sexual Orientation [...] use or other medications. -- Presented to [facility] 02/07 with elevated BP. She was given [...] an ER follow up. She presented to [facility] 3/5 c/o pelvic cramping and back [...] 165.1 cm (5' 5) 09/11/2024 1:08 PM NUT FORMER Body Mass Index 35.45 09/11/2024 1:08 PM NUT FORMER Plan of Treatment Health Maintenance Due Date [...] Protein, ur, POC Negative Negative Lot Number [id number] Urine 03/11/2025 2:25 PM CDT Leila Romo [...] Yvette Ruiz M.D. FT: FT Report ID: [id number] Reading Location: [id number] Procedure Note Yvette Zhang MD - 02/25/2025 [...] Yvette Ruiz M.D. FT: FT Report ID: [id number] Reading Location: [id number] Leila Romo MD IMG OB US PROCEDURES Final Result * POCT urine glucose and protein (02/11/2025 2:57 PM CDT) Glucose, ur, POC Negative Negative MG/DL Protein, ur, POC Negative Negative Lot Number [id number] Urine 02/11/2025 2:57 PM CDT Leila Romo [...] reviewed 2021. Testing performed by: [facility], [address] [place] [address], [place]., [address] Blood 02/02/2025 11:2 1 AM CDT 02/02/2025 7:07 PM CDT Leila Romo MD LAB BLOOD ORDERABLES Final Result [facility] [address] [facility] Department [place] [address] * (ABNORMAL) Differential, auto (02/02/2025 11:21 AM CDT) Neutrophil abs 5.67 1.50 - 6.50 K/cumm Comment:Testing performed by : [address] [address] Imm gran abs 0.04 0.00 - 0.10 K/cumm CERNER CH Comment:Testing performed by : [address] [address] Lymphocyte abs 1.79 0.80 - 3.30 K/cumm CERNER CH Comment:Testing performed by : [address] [address] Monocyte abs 1.16(H) 0.20 - 0.80 K/cumm CERNER CH Comment:Testing performed by : [address] [address] Eosinophil abs 0.10 0.00 - 0.50 K/cumm CERNER CH Comment:Testing performed by : [address], [address] Basophil abs 0.03 0.00 - 0.10 K/cumm CERNER CH Comment:Testing performed by : [address] [address] Neutrophil pct 64.5 % CERNER CH Comment: Interpretive Data Percent cell count reference ranges are not reported, since discordance with absolute values may lead to misinterpretation of CBC data. Current Interpretive Data was last revised on 2018. Testing performed by: [address] [address] Imm gran pct 0.5 % CERNER CH Comment: Interpretive Data Percent cell count reference ranges are not reported, since discordance with absolute values may lead to misinterpretation of CBC data. Current Interpretive Data was last revised on 2018. Testing performed by: [address] [address] Lymphocyte pct 20.4 % CERNER CH Comment: Interpretive Data Percent cell count reference ranges are not reported, since discordance with absolute values may lead to misinterpretation of CBC data. Current Interpretive Data was last revised on 2018. Testing performed by: [facility], [address] [place] [address]., [address] Monocyte pct 13.2 % [facility] Comment: Interpretive Data Percent cell count reference ranges are not reported, since discordance with absolute values may lead to misinterpretation of CBC data. Current Interpretive Data was last revised on 2018. Testing performed by: [facility], [address] [place] [address]., [address] Eosinophil pct 1.1 % [facility] Comment: Interpretive Data Percent cell count reference ranges are not reported, since discordance with absolute values may lead to misinterpretation of CBC data. Current Interpretive Data was last revised on 2018. Testing performed by: [facility], [address] [place] [address]., [address] Basophil pct 0.3 % [facility] Comment: Interpretive Data Percent cell count reference ranges are not reported, since discordance with absolute values may lead to misinterpretation of CBC data. Current Interpretive Data was last revised on 2018. Testing performed by: [address] [address] Blood 02/02/2025 11:2 1 AM CDT 02/02/2025 6:54 PM CDT Leila Romo MD LAB BLOOD ORDERABLES Final Result [address] Department [place] [address] * HIV 1/2 Antibody plus p24 Antigen Blood (02/02/2025 11:21 AM CDT) Pathologist [facility] HIV 1/2 ab + p24 ag Nonreactive Nonreactive Comment: Nonreactive for HIV-1 antigen and HIV-1/HIV-2 antibodies. No laboratory evidence of HIV infection. If acute HIV infection is suspected, consider testing for HIV-1 RNA. Testing performed by: [address] [address] Blood 02/02/2025 11:2 1 AM CDT 02/02/2025 6:54 PM CDT us Leila Romo MD LAB MICROBIOLOGY - NERAL ORDERABLES Final Result [address] Department [place] [address] * (ABNORMAL) CBC with auto differential (02/02/2025 11:21 AM CDT) WBC 8.79 3.80 - 9.90 K/cumm Comment:Testing performed by : [facility], [address] [place] [address], [address] Hgb 13.2 11.9 - 15.5 g/dL CERNER CH Comment:Testing performed by : [address], [address] Hct 40.4 35.6 - 45.5 % CERNER CH Comment:Testing performed by : [address], [address] Plt 236 150 - 400 K/cumm CERNER CH Comment:Testing performed by : [address], [address] MPV 11.7 9.1 - 12.3 fL CERNER CH Comment:Testing performed by : [address], [address] RBC 4.42 3.90 - 5.20 M/cumm CERNER CH Comment:Testing performed by : [address], [address] MCV 91.4 81.3 - 96.4 fL CERNER CH Comment:Testing performed by : [address], [address] MCH 29.9 27.1 - 33.3 pg CERNER CH Comment:Testing performed by : [address], [address] MCHC 32.7 32.3 - 35.7 g/dL CERNER CH Comment:Testing performed by : [address], [address] RDW CV 14.4 11.1 - 14.9 % CERNER CH Comment:Testing performed by : [address], [address] RDW SD 48.7(H) 35.7 - 48.1 fL RICHARD Comment:Testing performed by : [facility], [address] [place] [address]., [address] NRBC abs 0.00 0.00 - 0.01 K/cumm RICHARD Comment:Testing performed by : [address] [address] Blood 02/02/2025 11:2 1 AM CDT 02/02/2025 6:54 PM CDT Leila Romo MD LAB BLOOD ORDERABLES Final Result Performing Organization Address [facility] Co de Phone Number RICHARD [facility] [place] [address] * Hepatitis C antibody Blood (02/02/2025 11:21 [...] on 2020. Testing performed by: [facility], [address] [place] [address]., [address] Blood 02/02/2025 11:2 1 AM CDT 02/02/2025 6:54 PM CDT Leila Romo MD LAB MICROBIOLOGY - GE NERAL ORDERABLES Final Result Performing Organization Address City/[facility] Co de Phone Number RICHARD [address] [facility] [place] [address] * Protein / creatinine ratio, urine, random (02/02/2025 11:21 AM CDT) Protein, ur, quant 26.9 mg/dL Comment: Interpretive Data No reference range established. Current interpretive data was last revised 2019. Testing performed by: [address] [address] Creatinine Ur 303.8 mg/dL RICHARD Comment: Interpretive Data No reference range established. Current interpretive data was last revised 2019. Testing performed by: [facility], [address] [place] [address]., [address] Protein/creatinin e ratio 88.5 0.0 - 180.0 mg/g CR RICHARD Comment:Testing performed by : [address] [address] Urine 02/02/2025 11:2 1 AM CDT 02/04/2025 9:44 AM CDT Leila Romo MD LAB URINE ORDERABLES Final Result Performing Organization Address City/State/[facility] Co de Phone Number [address] Department [place] [address] * (ABNORMAL) Drugs of Abuse Screen, Urine [...] was last reviewed 2023. Testing performed by: [address] [address] Barbiturates, ur Not Detected CutOff 200ng/mL RICHARD Comment: Interpretive Data - Barbiturates: Samples containing greater than 200 ng/mL secobarbital or other cross-reacting barbiturate compounds are reported as positive. False positive and false negative results are possible. Confirmatory testing required for definitive results. Current Interpretive Data was last reviewed 2023. Testing performed by: [address] [address] Benzodiazepines, ur Not Detected CutOff 100ng/mL CERNER Comment: Interpretive Data - Benzodiazepines: Samples containing greater than 100 ng/mL nordiazepam or other cross-reacting compounds are reported as positive. False positive and false negative results are possible. Confirmatory testing required for definitive results. Current Interpretive Data was last reviewed 2023. Testing performed by: [facility], [address] [place] [address]., [address] Cannabinoids, ur Screen Positive, presumptive (A) CutOff 50 ng/mL CERNER Comment: Interpretive Data - Cannabinoids: Samples containing greater than 50 ng/mL delta-9 THC -COOH or other cross- reacting compounds are reported as positive. False positive and false negative results are possible. Confirmatory testing required for definitive results. Current Interpretive Data was last reviewed 2023. Testing performed by: [facility], [address] [place] [address]., [address] Cocaine, ur Not Detected CutOff 150ng/mL CERNER Comment: Interpretive Data - Cocaine: Samples containing greater than 150 ng/mL benzoylecgonine or other cross- reacting compounds are reported as positive. False positive and false negative results are possible. Confirmatory testing required for definitive results. Current Interpretive Data was last reviewed 2023. Testing performed by: [address] [address] Fentanyl, Ur Not Detected CutOff 5 ng/mL CERNER Comment: Interpretive Data - Fentanyl: Samples containing greater than 5 ng/mL norfentanyl, fentanyl, or other cross-reacting fentanyl compounds are reported as positive. False positive and false negative results are possible. Confirmatory testing required for definitive results. Current Interpretive Data was last reviewed 2024. Testing performed by: [facility], [address] [place] [address]., [address] Methadone, ur Not Detected CutOff 300ng/mL CERNER Comment: Interpretive Data - Methadone: Samples containing greater than 300 ng/mL d,l-methadone or other cross-reacting compounds are reported as positive. False positive and false negative results are possible. Confirmatory testing required for definitive results. Current Interpretive Data was last reviewed 2023. Testing performed by: [address] [address] Opiates, ur Not Detected CutOff 300ng/mL RICHARD Comment: Interpretive Data - Opiates: Samples containing greater than 300 ng/mL morphine or other cross-reacting compounds are reported as positive. False positive and false negative results are possible. Confirmatory testing required for definitive results. Current Interpretive Data was last reviewed 2023. Testing performed by: [address] [address] Oxycodone, ur Not Detected CutOff 100ng/mL RICHARD Comment: Interpretive Data - Oxycodone: Samples containing greater than 100 ng/mL oxycodone or other cross-reacting compounds are reported as positive. False positive and false negative results are possible. Confirmatory testing required for definitive results. Current Interpretive Data was last reviewed 2023. Testing performed by: [facility], [address] [place] [address]., [address] Phencyclidine, ur Not Detected CutOff 25 ng/mL RICHARD Comment: Interpretive Data - Phencyclidine: Samples containing greater than 25 ng/mL phencyclidine or other cross-reacting compounds are reported as positive. False positive and false negative results are possible. Confirmatory testing required for definitive results. Current Interpretive Data was last reviewed 2023. Testing performed by: [address] [address] Urine Creatinine 306 mg/dL RICHARD Comment: Interpretive Data Urine Creatinine: < 10 mg/dL is extremely dilute = or > 10 but < 20 mg/dL is dilute = or > 20 mg/dL is normal Current Interpretive Data was last revised on 2018. Testing performed by: [address] [address] Urine 02/02/2025 11:2 1 AM CDT 02/02/2025 6:54 PM CDT Narrative RICHARD - 02/02/2025 10:05 PM CDT Drug of Abuse screening is performed by immunoassay for medical purposes only. This is not to be used for Pain Management purposes. Leila Romo MD LAB URINE ORDERABLES Final Result RICHARD [address] [place] [address] * Rubella IgG antibody Blood (02/02/2025 11:21 AM CDT) Rubella IgG Reactive Comment: Reactive: Results suggest response to immunization or prior exposure to the virus. Testing performed by: [facility], [address] [place]., [address] Blood 02/02/2025 11:2 1 AM CDT 02/03/2025 10:01 AM CDT Leila Romo MD LAB MICROBIOLOGY - GE NERAL ORDERABLES Final Result RICHARD [address] [address] [facility] [place] [address] * RPR Blood (02/02/2025 11:21 AM CDT) Pathologist [facility] RPR Nonreactive Nonreactive Comment:Testing performed by : [facility], [address] [place] [address]., [address] Blood 02/02/2025 11:2 1 AM CDT 02/02/2025 6:54 PM CDT Leila Romo MD LAB MICROBIOLOGY - GE NERAL ORDERABLES Final Result RICHARD [address] [place] [address] * Hepatitis B Surface Antigen Blood (02/02/2025 11:21 AM CDT) HepBsAg Nonreactive Nonreactive Comment:Testing performed by : [address] [address] Blood 02/02/2025 11:2 1 AM CDT 02/02/2025 6:54 PM CDT Leila Romo MD LAB MICROBIOLOGY - GE NERAL ORDERABLES Final Result Performing Organization Address City/[facility]/ZIP Co de Phone Number MEGHNAPITA FLORES [address] Department [place] [address] * Type and screen (02/02/2025 11:21 AM CDT) ABO Rh A Positive Hope, indirect Negative CERNER Blood 02/02/2025 11:2 1 AM CDT 02/02/2025 7:06 PM CDT Narrative CERNER - 02/02/2025 8:57 PM CDT Has the patient had Daratumumab or Isatuximab in the past 6 months?->Unknown Leila Romo MD LAB BLOOD BANK TEST O RDERABLES Final Result Performing Organization Address [facility] Co de Phone Number RICHARD FLORES [address] Department [place] [address] * Urine culture Urine, clean voided (02/02/2025 11:21 AM CDT) Report Final Report: Less than 100,000 colonies/mL (clinically insignificant growth based on current clinical standards) Comment:Testing performed by : [facility], [address] [facility]., [address] Organism (CLINICALLY INSIGNIFICANT GROWTH [facility] Urine, clean voided 02/02/2025 11:21 AM CDT 02/02/2025 10:52 PM CDT Narrative [facility] - 02/04/2025 8:04 AM CDT Testing performed by [facility] Microbiology Laboratory ([phone]) Leila Romo MD LAB MICROBIOLOGY - GE NERAL ORDERABLES Final Result Performing Organization Address City/[facility]/ZIP Co de Phone Number MEGHNAPITA FLORES [address] Department [place] [address] * Varicella Zoster IgG antibody Blood (02/02/2025 11:21 AM CDT) VZV IgG Reactive Reactive Comment: Reactive: Results suggest response to immunization or prior exposure to the virus. Testing performed by: [facility], [address] [place]., [address] Blood 02/02/2025 11:2 1 AM CDT 02/03/2025 10:01 AM CDT Leila Romo MD LAB MICROBIOLOGY - NERAL ORDERABLES Final Result [address] Department [place] [address] * Comprehensive metabolic panel (02/02/2025 11:21 AM CDT) Pathologist [facility] Sodium 135 135 - 145 mmol/L Comment:Testing performed by : [address] [address] Potassium, pl 4.0 3.3 - 4.9 mmol/L CERNER Comment:Testing performed by : [address], [address] Chloride 102 97 - 110 mmol/L CERNER Comment:Testing performed by : [address] [address] CO2 22 22 - 32 mmol/L CERNER Comment:Testing performed by : [address] [address] Anion gap 11 2 - 15 mmol/L CERNER Comment:Testing performed by : [address] [address] BUN 7 6 - 25 mg/dL CERNER Comment:Testing performed by : [address], [address] Creatinine 0.71 0.60 - 1.10 mg/dL CERNER Comment:Testing performed by : [address] [address] Glucose 128 70 - 199 mg/dL CERNER [...] revised 2022. Testing performed by: [facility], [address] [place] [address]., [address] Calcium 9.5 8.5 - 10.3 mg/dL CERNER CH Comment:Testing performed by : [address] [address] Bilirubin, total 0.2 0.1 - 1.2 mg/dL CERNER CH Comment:Testing performed by : [address] [address] Protein, pl 7.1 6.5 - 8.5 g/dL CERNER CH Comment:Testing performed by : [address], [address] Albumin 3.9 3.5 - 5.0 g/dL CERNER CH Comment:Testing performed by : [address] [address] Alk phos 50 40 - 130 Units/L CERNER CH Comment:Testing performed by : [address] [address] ALT 42 7 - 45 Units/L CERNER CH Comment:Testing performed by : [address], [address] AST 27 10 - 45 Units/L CERNER CH Comment:Testing performed by : [address] [address] Blood 02/02/2025 11:2 1 AM CDT 02/02/2025 6:54 PM CDT us Leila Romo MD LAB BLOOD ORDERABLES Final Result [address] Department [place] [address] * Drugs of Abuse Screen, Urine without [...] by Jonathan Styles M.D. CH: Report ID: [id number] Reading Location: [id number] Procedure Note Jonathan Styles Jr., MD - [...] Jonathan Styles M.D. CH: MARK Report ID: [id number] Reading Location: [id number] us Leila Romo MD IMG OB US [...] [birth year] (03/02/2021 11:57 AM CDT) CLINICAL INFORMATION: [facility] Comment:Routine exam LMP [facility] [employer] [facility] Comment:UNKNOWN Previous Pap [facility] Comment:INFORMATION NOT PROV IDED Prev. Bx [facility] [employer] [facility] Comment:INFORMATION NOT PROV IDED SOURCE: [facility] Comment:Cervix, Endocervix Pap, specimen adequacy [facility] Comment: Satisfactory for evaluation. Endocervical/transformation zone component present. Age and/or menstrual status not provided HPV interp [facility] Comment:Negative for intraep ithelial lesion or malignancy. COMMENTS [facility] [employer] [facility] Comment: This Pap test has been evaluated with computer assisted technology. [facility] Comment: AAM, CT(ASCP) CT Screening Location: [place] [address] Comment [facility] Comment: EXPLANATORY NOTE: The Pap is [...] High Risk E6/E7 Not Detected Not Detected [facility] Comment: Methodology: Fountain Clerk-Mediated Amplification This assay detects E6/E7 viral messenger RNA (mRNA) from 14 high-risk HPV types (16,18,31,33,35,39,45,51,52,56,58,59,66,68). The analytical performance characteristics of this assay have been determined by [facility]. The modifications have not been cleared or approved by the FDA. This assay has been validated pursuant to the CLIA regulations and is used for clinical purposes. For additional information, please refer to http://education.[employer]/faq/QVW647u9 (This link if provided for information/ educational purposes only.) 03/02/2021 11:5 7 AM CDT 03/03/2021 2:21 AM CDT [facility] - 03/05/2021 3:24 PM CDT FASTING: UNKNOWN Leila Romo MD LAB CYTOLOGY ORDERABL ES Final Result [facility] [address] [place] [address] [facility] [address] [place] [address] from Last 3 Months or Most Recently Relevant to Health Maintenance Insurance [facility] [employer] H[employer] Care Teams Plastic Parts Designer Relationship Specialty Start Date End Date Edgardo Manuel MD PCP - General Internal Medicine 11/03/21
--- OUTSIDE RECORDS SUMMARY | 2025-04-03 12:05 | XMS_ITS | Clinical Summary ---
Author Organization [facility] Address [address] [place] [address] Phone Care Team Providers Care Senior Court Office Assistant Name Role Phone Rachel Gillis APRN Primary [...] Comments Blood Pressure 162/113 12/16/2019 12:40 PM CASHIER CLERK Pulse 100 12/16/2019 12:40 PM CASHIER CLERK Temperature 37.5 C (99.5 F) 12/16/2019 12:40 PM CASHIER CLERK Respiratory Rate 18 12/16/2019 12:40 PM CASHIER CLERK Oxygen Saturation 99% 12/16/2019 12:40 PM CASHIER CLERK Inhaled Oxygen Concentration - - Weight 86.2 kg (190 lb) 12/16/2019 12:40 PM CASHIER CLERK Height 165.1 cm (5' 5) 12/16/2019 12:40 PM CASHIER CLERK Body Mass Index 31.62 12/16/2019 12:40 PM CASHIER CLERK Plan of Treatment Health Maintenance Due Date [...] this topic Medical Devices Implanted Type Area Form Setter Steel Forms Device Identifier Shelf Expiration Date Model / Serial / Lot Stent Ureteral 6fr 2.1fr 26cm 2 Pigtail Curve 2 Durometer Taper Tip Loprfl Graduated [employer]aris Ultra - [id number] Implanted:Qty : 1 on 04/30/2019 by Carlotta Gonzalez MD at [facility] IMPLANT Left: Ureter [employer] 01/14/2022 [id number] / [id number] / [id number] Insurance [facility] Advance Directives * Full Code (Latest Code [...] measures to stabilize the patient. Care Teams Senior Court Office Assistant Relationship Specialty Start Date End Date Rachel Gillis APRN [address] [facility] [address] [place] [address] PCP - General Family Medicine 07/07/19
--- OUTSIDE RECORDS SUMMARY | 2025-04-03 12:05 | XMS_ITS | Referral Summary ---
Author Organization 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 Name Role Phone Edgardo Manuel MD Primary Care Provider [phone]- [phone] Encounters Date Type Department Care Team Description 04/03/2025 Telephone [facility] [address] [place] [phone] Leila Romo MD Patient issue/concern 03/11/2025 2:10 PM CDT Office Visit [facility] [address] [place] [phone] Leila Romo MD care, subsequent , second trimester (Primary Dx); Chronic hypertension affecting 03/03/2025 Telephone [facility] [address] [place] [phone] Leila Romo MD Patient issue/concern 02/25/2025 Telephone [facility] [address] [place] [phone] Tiffanie Rae LPN 02/25/2025 2:00 PM CDT Ancillary Procedure [facility] [address] [place] [address] Small for dates affecting management of mother, first trimester, not applicable or unspecified fetus 02/11/2025 Orders Only [facility] [address] [place] [address] Leila Romo MD Small for dates affecting management of mother, first trimester, not applicable or unspecified fetus (Primary Dx) 02/11/2025 2:45 PM CDT Office Visit [facility] [address] [place] [address] Leila Romo MD care, subsequent , second trimester (Primary Dx); Chronic hypertension affecting 02/02/2025 11:10 AM CDT Lab [facility] [address] [place] [address] Chronic hypertension in ; Encounter for supervision of other normal , first trimester; 14 weeks gestation of 01/30/2025 Telephone [facility] [address] [place] [address] Leila Romo MD 01/14/2025 Orders Only [facility] [address] [place] [address] Leila Romo MD Encounter for supervision of other normal , first trimester (Primary Dx); 14 weeks gestation of ; Chronic hypertension in 01/14/2025 1:00 PM CDT Ancillary Procedure [facility] [address] [place] [address] Encounter to determine viability of , single or unspecified fetus 01/14/2025 2:00 PM CDT Office Visit [facility] [address] [place] [address] Leila Romo MD care, subsequent , second trimester (Primary Dx); Chronic hypertension affecting ; Antepartum multigravida of advanced maternal age 0301/08/2025 Results Follow-Up [facility] [address] [place] [address] Leila Romo MD [facility]Natela[facility] from Last 3 [...] nails are covered with thick red nail [place] this some evidence of onychomycosis round the [...] through the pharmacy given to us [facility] [place] location on [facility] patient has made a commitment to get back to me in the next 24 hours regarding her precise medication she is taking.. At this time she has no symptoms referable to hypertension Seborrhea-like dermatitis with psoriasiform [place] 01/21/2024 Assessment & Plan (01/21/2024 5:27 [...] this. Assessment & Plan (11/28/2021 6:33 PM PIGEON FANCIER): 41-year-old lady who is a new patient [...] (05/01/2022): Added automatically from request for surgery [id number] Acute otitis media 02/28/2021 2 Acute infective [...] any time in the past 12 m [facility], were you homeless or living in a long-term (including now)? No 02/12/2025 Estimated Date of Delivery Comme nts Yes 07/14/2025 Based on Ultraso und Sex and Gender Information Value Date Recorded Sex Assigned at Not on file Legal Sex Female 9:49 AM PIGEON FANCIER Gender Identity Not on file Sexual Orientation [...] 165.1 cm (5' 5) 09/11/2024 1:08 PM PIGEON FANCIER Body Mass Index 35.45 09/11/2024 1:08 PM PIGEON FANCIER Plan of Treatment Not on file Procedures [...] Protein, ur, POC Negative Negative Lot Number [id number] Urine 03/11/2025 2:25 PM CDT Leila Romo [...] Clinical gestation: 19 weeks 3 days , [facility] 07/19/2025 Estimated weight: 307.6 g , Percentile [...] Yvette Ruiz M.D. FT: FT Report ID: [id number] Reading Location: [id number] Procedure Note Yvette Zhang MD - 02/25/2025 [...] Yvette Ruiz M.D. FT: FT Report ID: [id number] Reading Location: [place] [address] Leila Romo MD IMG OB US PROCEDURES Final Result * POCT urine glucose and protein (02/11/2025 2:57 PM CDT) Glucose, ur, POC Negative Negative MG/DL Protein, ur, POC Negative Negative Lot Number [id number] Urine 02/11/2025 2:5 7 PM CDT Leila [...] was last reviewed 2021. Testing performed by: [facility], [address] [place] [address]., [address] Blood 02/02/2025 11:2 1 AM CDT 02/02/2025 7:07 PM CDT us Leila Romo MD LAB BLOOD ORDERABLES Final Result [address] Department [place] [address] * (ABNORMAL) Differential, auto (02/02/2025 11:21 AM CDT) Neutrophil abs 5.67 1.50 - 6.50 K/cumm Comment:Testing performed by : [facility], [address] [place] [address]., [address] Imm gran abs 0.04 0.00 - 0.10 K/cumm CERNER Comment:Testing performed by : [address] [address] Lymphocyte abs 1.79 0.80 - 3.30 K/cumm CERPITA Comment:Testing performed by : [address] [address] Monocyte abs 1.16(H) 0.20 - 0.80 K/cumm CERNER Comment:Testing performed by : [address] [address] Eosinophil abs 0.10 0.00 - 0.50 K/cumm CERPITA Comment:Testing performed by : [address] [address] Basophil abs 0.03 0.00 - 0.10 K/cumm CERPITA Comment:Testing performed by : [address] [address] Neutrophil pct 64.5 % CERNER Comment: Interpretive Data Percent cell count reference ranges are not reported, since discordance with absolute values may lead to misinterpretation of CBC data. Current Interpretive Data was last revised on 2018. Testing performed by: [facility], [address] [place] [address]., [address] Imm gran pct 0.5 % CERNER CH Comment: Interpretive Data Percent cell count reference ranges are not reported, since discordance with absolute values may lead to misinterpretation of CBC data. Current Interpretive Data was last revised on 2018. Testing performed by: [address], [address] Lymphocyte pct 20.4 % CERNER CH Comment: Interpretive Data Percent cell count reference ranges are not reported, since discordance with absolute values may lead to misinterpretation of CBC data. Current Interpretive Data was last revised on 2018. Testing performed by: [facility], [address] [place] [address]., [address] Monocyte pct 13.2 % CERNER CH Comment: Interpretive Data Percent cell count reference ranges are not reported, since discordance with absolute values may lead to misinterpretation of CBC data. Current Interpretive Data was last revised on 2018. Testing performed by: [facility], [address] [place] [address]., [address] Eosinophil pct 1.1 % CERNER CH Comment: Interpretive Data Percent cell count reference ranges are not reported, since discordance with absolute values may lead to misinterpretation of CBC data. Current Interpretive Data was last revised on 2018. Testing performed by: [address] [address] Basophil pct 0.3 % CERNER CH Comment: Interpretive Data Percent cell count reference ranges are not reported, since discordance with absolute values may lead to misinterpretation of CBC data. Current Interpretive Data was last revised on 2018. Testing performed by: [address], [address] Blood 02/02/2025 11:2 1 AM CDT 02/02/2025 6:54 PM CDT us Leila Romo MD LAB BLOOD ORDERABLES Final Result RICHARD [address] [facility] Department [place] [address] * HIV 1/2 Antibody plus p24 Antigen Blood (02/02/2025 11:21 AM CDT) [facility] HIV 1/2 ab + p24 ag Nonreactive Nonreactive Comment: Nonreactive for HIV-1 antigen and HIV-1/HIV-2 antibodies. No laboratory evidence of HIV infection. If acute HIV infection is suspected, consider testing for HIV-1 RNA. Testing performed by: [address] [address] Blood 02/02/2025 11:2 1 AM CDT 02/02/2025 6:54 PM CDT Leila Romo MD LAB MICROBIOLOGY - [facility] ORDERABLES Final Result Performing Organization Address [facility] Co de Phone Number RICHARD [address] Department [place] [address] * (ABNORMAL) CBC with auto differential (02/02/2025 11:21 AM CDT) [facility] WBC 8.79 3.80 - 9.90 K/cumm Comment:Testing performed by : [address] [address] Hgb 13.2 11.9 - 15.5 g/dL RICHARD Comment:Testing performed by : [address], [address] Hct 40.4 35.6 - 45.5 % RICHARD Comment:Testing performed by : [address] [address] Plt 236 150 - 400 K/cumm RICHARD Comment:Testing performed by : [address], [address] MPV 11.7 9.1 - 12.3 fL RICHARD Comment:Testing performed by : [address], [address] RBC 4.42 3.90 - 5.20 M/cumm RICHARD Comment:Testing performed by : [facility], [address] [place] [address]., [address] MCV 91.4 81.3 - 96.4 fL RICHARD Comment:Testing performed by : [facility], [address] [place] [address]., [address] MCH 29.9 27.1 - 33.3 pg RICHARD Comment:Testing performed by : [facility], [address] [place] [address]., [address] MCHC 32.7 32.3 - 35.7 g/dL RICHARD Comment:Testing performed by : [facility], [address] [place] [address]., [address] RDW CV 14.4 11.1 - 14.9 % RICHARD Comment:Testing performed by : [facility], [address] [place] [address], [address] RDW SD 48.7(H) 35.7 - 48.1 fL RICHARD Comment:Testing performed by : [facility], [address] [place] [address], [address] NRBC abs 0.00 0.00 - 0.01 K/cumm RICHARD Comment:Testing performed by : [facility], [address] [place] [address]., [address] Blood 02/02/2025 11:2 1 AM CDT 02/02/2025 6:54 PM CDT Leila Romo MD LAB BLOOD ORDERABLES Final Result [address] Department [place] [address] * Hepatitis C antibody Blood (02/02/2025 11:21 [...] last revised on 2020. Testing performed by: [facility], [address] [place] [address]., [address] Blood 02/02/2025 11:2 1 AM CDT 02/02/2025 6:54 PM CDT Leila Romo MD LAB MICROBIOLOGY - GE NERAL ORDERABLES Final Result Performing Organization Address [facility] Co de Phone Number RICHARD [address] [facility] [place] [address] * Protein / creatinine ratio, urine, random (02/02/2025 11:21 AM CDT) Pathologist [facility] Protein, ur, quant 26.9 mg/dL Comment: Interpretive Data No reference range established. Current interpretive data was last revised 2019. Testing performed by: [facility], [address] [place] [address]., [address] Creatinine Ur 303.8 mg/dL RICHARD Comment: Interpretive Data No reference range established. Current interpretive data was last revised 2019. Testing performed by: [facility], [address] [place] [address]., [address] Protein/creatinin e ratio 88.5 0.0 - 180.0 mg/g CR RICHARD Comment:Testing performed by : [address] [address] Urine 02/02/2025 11:2 1 AM CDT 02/04/2025 9:44 AM CDT Leila Romo MD LAB URINE ORDERABLES Final Result Performing Organization Address [facility] Co de Phone Number RICHARD [address] [facility] [place] [address] * (ABNORMAL) Drugs of Abuse Screen, Urine without Confirmation (02/02/2025 11:21 AM CDT) Pathologist [facility] Amphetamine, ur Screen Positive, presumptive (A) CutOff 500ng/mL Comment: Interpretive Data - Amphetamines: Samples containing greater than 500 ng/mL d-methamphetamine or other cross-reacting amphetamine compounds are reported as positive. Amphetamine immunoassays are subject to significant false positive rates due to cross-reactivity of non-amphetamine drugs. Confirmatory testing required for definitive results. Current Interpretive Data was last reviewed 2023. Testing performed by: [facility], [address] [place] [address]., [address] Barbiturates, ur Not Detected CutOff 200ng/mL CERNER Comment: Interpretive Data - Barbiturates: Samples containing greater than 200 ng/mL secobarbital or other cross-reacting barbiturate compounds are reported as positive. False positive and false negative results are possible. Confirmatory testing required for definitive results. Current Interpretive Data was last reviewed 2023. Testing performed by: [address] [address] Benzodiazepines, ur Not Detected CutOff 100ng/mL CERNER Comment: Interpretive Data - Benzodiazepines: Samples containing greater than 100 ng/mL nordiazepam or other cross-reacting compounds are reported as positive. False positive and false negative results are possible. Confirmatory testing required for definitive results. Current Interpretive Data was last reviewed 2023. Testing performed by: [facility], [address] [place] [address]., [address] Cannabinoids, ur Screen Positive, presumptive (A) CutOff 50 ng/mL CERNER Comment: Interpretive Data - Cannabinoids: Samples containing greater than 50 ng/mL delta-9 THC -COOH or other cross- reacting compounds are reported as positive. False positive and false negative results are possible. Confirmatory testing required for definitive results. Current Interpretive Data was last reviewed 2023. Testing performed by: [facility], [address] [place] [address]., [address] Cocaine, ur Not Detected CutOff 150ng/mL CERNER Comment: Interpretive Data - Cocaine: Samples containing greater than 150 ng/mL benzoylecgonine or other cross- reacting compounds are reported as positive. False positive and false negative results are possible. Confirmatory testing required for definitive results. Current Interpretive Data was last reviewed 2023. Testing performed by: [address] [address] Fentanyl, Ur Not Detected CutOff 5 ng/mL CERNER Comment: Interpretive Data - Fentanyl: Samples containing greater than 5 ng/mL norfentanyl, fentanyl, or other cross-reacting fentanyl compounds are reported as positive. False positive and false negative results are possible. Confirmatory testing required for definitive results. Current Interpretive Data was last reviewed 2024. Testing performed by: [facility], [address] [place] [address]., [address] Methadone, ur Not Detected CutOff 300ng/mL CERNER Comment: Interpretive Data - Methadone: Samples containing greater than 300 ng/mL d,l-methadone or other cross-reacting compounds are reported as positive. False positive and false negative results are possible. Confirmatory testing required for definitive results. Current Interpretive Data was last reviewed 2023. Testing performed by: [address] [address] Opiates, ur Not Detected CutOff 300ng/mL [facility] Comment: Interpretive Data - Opiates: Samples containing greater than 300 ng/mL morphine or other cross-reacting compounds are reported as positive. False positive and false negative results are possible. Confirmatory testing required for definitive results. Current Interpretive Data was last reviewed 2023. Testing performed by: [address] [address] Oxycodone, ur Not Detected CutOff 100ng/mL [facility] Comment: Interpretive Data - Oxycodone: Samples containing greater than 100 ng/mL oxycodone or other cross-reacting compounds are reported as positive. False positive and false negative results are possible. Confirmatory testing required for definitive results. Current Interpretive Data was last reviewed 2023. Testing performed by: [address] [address] Phencyclidine, ur Not Detected CutOff 25 ng/mL [facility] Comment: Interpretive Data - Phencyclidine: Samples containing greater than 25 ng/mL phencyclidine or other cross-reacting compounds are reported as positive. False positive and false negative results are possible. Confirmatory testing required for definitive results. Current Interpretive Data was last reviewed 2023. Testing performed by: [address] [address] Urine Creatinine 306 mg/dL [facility] Comment: Interpretive Data Urine Creatinine: < 10 mg/dL is extremely dilute = or > 10 but < 20 mg/dL is dilute = or > 20 mg/dL is normal Current Interpretive Data was last revised on 2018. Testing performed by: [facility], [address] [place] [address]., [address] Urine 02/02/2025 11:2 1 AM CDT 02/02/2025 6:54 PM CDT Narrative RICHARD - 02/02/2025 10:05 PM CDT Drug of Abuse screening is performed by immunoassay for medical purposes only. This is not to be used for Pain Management purposes. Leila Romo MD LAB URINE ORDERABLES Final Result RICHARD [facility] Department [place] [address] * Rubella IgG antibody Blood (02/02/2025 11:21 AM CDT) Rubella IgG Reactive Comment: Reactive: Results suggest response to immunization or prior exposure to the virus. Testing performed by: [facility], [address] [place] [address]., [address] Blood 02/02/2025 11:2 1 AM CDT 02/03/2025 10:01 AM CDT Leila Rmoo MD LAB MICROBIOLOGY - GE NERAL ORDERABLES Final Result [facility] [address] [facility] [place] [address] * RPR Blood (02/02/2025 11:21 AM CDT) RPR Nonreactive Nonreactive Comment:Testing performed by : [facility], [address] [place] [address]., [address] Blood 02/02/2025 11:2 1 AM CDT 02/02/2025 6:54 PM CDT Leila Romo MD LAB MICROBIOLOGY - GE NERAL ORDERABLES Final Result Performing Organization Address [facility] Co de Phone Number RICHARD [place] [address] [facility] [place] [address] * Hepatitis B Surface Antigen Blood (02/02/2025 11:21 AM CDT) HepBsAg Nonreactive Nonreactive Comment:Testing performed by : [facility], [address] [place] [address]., [address] Blood 02/02/2025 11:2 1 AM CDT 02/02/2025 6:54 PM CDT Leila Romo MD LAB MICROBIOLOGY - GE NERAL ORDERABLES Final Result Performing Organization Address [facility] Co de Phone Number RICHARD FLORES [address] [facility] [place] [address] * Type and screen (02/02/2025 11:21 AM CDT) ABO Rh A Positive Hope, indirect Negative CERNER Blood 02/02/2025 11:2 1 AM CDT 02/02/2025 7:06 PM CDT Narrative [facility] - 02/02/2025 8:57 PM CDT Has the patient had Daratumumab or Isatuximab in the past 6 months?->Unknown Leila Romo MD LAB BLOOD BANK TEST O RDERABLES Final Result Performing Organization Address [facility] Co de Phone Number RICHARD [address] [facility] Department [place] [address] * Urine culture Urine, clean voided (02/02/2025 11:21 AM CDT) Report Final Report: Less than 100,000 colonies/mL (clinically insignificant growth based on current clinical standards) Comment:Testing performed by : [facility], [address] [facility] [place]., [address] Organism (CLINICALLY INSIGNIFICANT GROWTH [facility] Urine, clean voided 02/02/2025 11:21 AM CDT 02/02/2025 10:52 PM CDT Narrative [facility] - 02/04/2025 8:04 AM CDT Testing performed by [facility] ([phone]) Leila Romo MD LAB MICROBIOLOGY - GE NERAL ORDERABLES Final Result Performing Organization Address [facility] Co de Phone Number MEGHNAPITA [address] [facility] Department [place] [address] * Varicella Zoster IgG antibody Blood (02/02/2025 11:21 AM CDT) Pathologist [facility] VZV IgG Reactive Reactive Comment: Reactive: Results suggest response to immunization or prior exposure to the virus. Testing performed by: [facility], [address] [place] [address]., [address] Blood 02/02/2025 11:2 1 AM CDT 02/03/2025 10:01 AM CDT Leila Romo MD LAB MICROBIOLOGY - GE NERAL ORDERABLES Final Result Performing Organization Address [facility] de Phone Number [facility] [address] [facility] [place] [address] * Comprehensive metabolic panel (02/02/2025 11:21 AM CDT) Pathologist [facility] Sodium 135 135 - 145 mmol/L Comment:Testing performed by : [facility], [address] [place] [address]., [address] Potassium, pl 4.0 3.3 - 4.9 mmol/L [facility] Comment:Testing performed by : [facility], [address] [place] [address]., [address] Chloride 102 97 - 110 mmol/L [facility] Comment:Testing performed by : [address] [address] CO2 22 22 - 32 mmol/L [facility] Comment:Testing performed by : [address] [address] Anion gap 11 2 - 15 mmol/L CERNER CH Comment:Testing performed by : [address] [address] BUN 7 6 - 25 mg/dL CERNER CH Comment:Testing performed by : [address] [address] Creatinine 0.71 0.60 - 1.10 mg/dL CERNER CH Comment:Testing performed by : [address] [address] Glucose 128 70 - 199 mg/dL CERNER [...] was last revised 2022. Testing performed by: [address] [address] Calcium 9.5 8.5 - 10.3 mg/dL CERNER CH Comment:Testing performed by : [address] [address] Bilirubin, total 0.2 0.1 - 1.2 mg/dL CERNER CH Comment:Testing performed by : [address] [address] Protein, pl 7.1 6.5 - 8.5 g/dL CERNER CH Comment:Testing performed by : [address] [address] Albumin 3.9 3.5 - 5.0 g/dL CERNER CH Comment:Testing performed by : [address] [address] Alk phos 50 40 - 130 Units/L CERNER CH Comment:Testing performed by : [address], [address] ALT 42 7 - 45 Units/L CERNER Comment:Testing performed by : [facility], [address] [place] [address]., [address] AST 27 10 - 45 Units/L RICHARD Comment:Testing performed by : [facility], [address] [place] [address]., [address] Blood 02/02/2025 11:2 1 AM CDT 02/02/2025 6:54 PM CDT Leila Romo MD LAB BLOOD ORDERABLES Final Result [address] Department [place] [address] * Drugs of Abuse Screen, Urine without Confirmation (02/02/2025) SCRIBED Drug screen positive - cannabinoids, amphetamine Urine Leila Romo MD LAB URINE ORDERABLES Final Result * Urine culture (02/02/2025) SCRIBED Urine culture negative Leila Rmoo MD LAB MICROBIOLOGY - GE NERAL ORDERABLES [...] by Jonathan Styles M.D. CH: Report ID: [id number] Reading Location: [place] [address] Procedure Note Jonathan Styles Jr., MD - [...] Jonathan Styles M.D. CH: MARK Report ID: [id number] Reading Location: [id number] Result [facility] Leila Romo MD IMG OB US PROCEDURES [...] 11:57 AM CDT) CLINICAL INFORMATION: [facility] Comment:Routine exam LMP [facility] Comment:UNKNOWN Previous Pap [facility] Comment:INFORMATION NOT PROV IDED Prev. Bx [facility] Comment:INFORMATION NOT PROV IDED SOURCE: [facility] Comment:Cervix, Endocervix Pap, specimen adequacy [facility] Comment: Satisfactory for evaluation. Endocervical/transformation zone component present. Age and/or menstrual status not provided HPV interp [facility] Comment:Negative for intraep ithelial lesion or malignancy. COMMENTS [facility] Comment: This Pap test has been evaluated with computer assisted technology. Color Making Supervisor [facility] Comment: AAM, CT(ASCP) CT Screening Location: [place] [address] [place] [address] [facility] Comment: EXPLANATORY NOTE: The Pap is [...] High Risk E6/E7 Not Detected Not Detected [facility] [employer] Comment: Methodology: Director Of Operations For Therapy-Mediated Amplification This assay detects E6/E7 viral messenger RNA (mRNA) from 14 high-risk HPV types (16,18,31,33,35,39,45,51,52,56,58,59,66,68). The analytical performance characteristics of this assay have been determined by [employer]. The modifications have not been cleared or approved by the FDA. This assay has been validated pursuant to the CLIA regulations and is used for clinical purposes. For additional information, please refer to http://education.[employer]/faq/MPG102d6 (This link if provided for information/ educational purposes only.) 03/02/2021 11:5 7 AM CDT 03/03/2021 2:21 AM CDT Narrative [facility] - 03/05/2021 3:24 PM CDT FASTING: UNKNOWN us Liela Romo MD LAB CYTOLOGY ORDERABL ES Final Result [facility] [address] [place] [address] [facility] [employer] [id number] [place] [phone] from Last 3 Months or Most Recently Relevant to Health Maintenance Insurance [employer] [facility] [employer] HMO Care Teams Slicing Machine Operator/Tender Relationship Specialty Start Date End Date Edgardo Manuel MD PCP - General Internal Medicine 11/03/21
--- OUTSIDE RECORDS SUMMARY | 2025-04-03 12:06 | XMS_ITS | Encounter Summary ---
Author Organization [facility] Healthcare Address [address] [place] [address] Care Team Providers Care Production Gear Cutter Name Role Phone Edgardo Manuel MD Primary Care Provider [phone] Reason for Visit * Reason Onset Date Comments Patient issue/concern 04/03/2025 Encounter Details Date Type Department Care Team (Late st Contact Info) Description 04/03/[address] [facility] [address] [place] [id number] Leila Romo MD [address] [place] [address] Patient issue/concern Social History Tobacco Use Types [...] any time in the past 12 m [facility], were you homeless or living in a skilled nursing (including now)? 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
--- NOTE | 2025-04-03 12:52 | OBADM ---
This patient, Aliyah Mcclelland, admitted to the OB room OB Post [facility] for observation. Patient/family oriented to hospital policies and general routines including ID bracelet, bed and alarms, visiting hours, pain management, procedures, bathroom and other care routines, personal items, smoking policy, room service/diet, and visiting hours. Patient/Family are encouraged to report perceived risks to care and to ask questions if they do not understand what they are told or what they should do.
--- OUTSIDE RECORDS SUMMARY | 2025-04-03 12:52 | XMS_ITS | Referral Summary ---
Author Organization [facility] [address] Address [address] [place] [address] Phone Care Team Providers Care Supervisor [employer] Name Role Phone Edgardo Manuel MD Primary Care Provider [phone] Encounters Date Type Department Care Team Description 04/03/2025 Telephone [facility] [address] [place] [phone] Leila Romo MD Patient issue/concern 03/11/2025 2:10 PM CDT Office [facility] [address] [place] [phone] Leila Romo MD care, subsequent , second trimester (Primary Dx); Chronic hypertension affecting 03/03/2025 Telephone [facility] [address] [place] [phone] Leila Romo MD Patient issue/concern 02/25/2025 Telephone [facility] [address] [place] [phone] Tiffanie Rae LPN 02/25/2025 2:00 PM CDT Ancillary Procedure [facility] [address] [place] [address] Small for dates affecting management of mother, first trimester, not applicable or unspecified fetus 02/11/2025 Orders Only [facility] [address] [place] [address] Leila Romo MD Small for dates affecting management of mother, first trimester, not applicable or unspecified fetus (Primary Dx) 02/11/2025 2:45 PM CDT Office Visit [facility] [address] [place] [address] Leila Romo MD care, subsequent , second trimester (Primary Dx); Chronic hypertension affecting 02/02/2025 11:10 AM CDT Lab [facility] [address] [place] [address] Chronic hypertension in ; Encounter for supervision of other normal , first trimester; 14 weeks gestation of 01/30/2025 Telephone [facility] [address] [place] [address] Leila Romo MD 01/14/2025 Orders Only [facility] [address] [place] [address] Leila Romo MD Encounter for supervision of other normal , first trimester (Primary Dx); 14 weeks gestation of ; Chronic hypertension in 01/14/2025 1:00 PM CDT Ancillary Procedure [facility] [address] [place] [address] Encounter to determine viability of , single or unspecified fetus 01/14/2025 2:00 PM CDT Office Visit [facility] [address] [place] [address] Leila Romo MD care, subsequent , second trimester (Primary Dx); Chronic hypertension affecting ; Antepartum multigravida of advanced maternal age 0301/08/2025 Results Follow-Up [facility] [address] [place] [address] Leila Romo MD QNatelaAdvanced from Last 3 [...] nails are covered with thick red nail Latv[place] this some evidence of onychomycosis round the [...] through the pharmacy given to us [facility] [place] location [facility] patient has made a commitment to get back to me in the next 24 hours regarding her precise medication she is taking.. 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 Assessment & Plan (11/28/2021 6:33 PM DIRECTOR PRODUCT DEVELOPMENT): 41-year-old lady who is a new patient [...] (05/01/2022): Added automatically from request for surgery [id number] Acute otitis media 02/28/2021 2 Acute infective [...] any time in the past 12 m [facility], were you homeless or living in a residential (including now)? No 02/12/2025 Estimated Date of Delivery Comme nts Yes 07/14/2025 Based on Ultraso und Sex and Gender Information Value Date Recorded Sex Assigned at Not on file Legal Sex Female 9:49 AM DIRECTOR PRODUCT DEVELOPMENT Gender Identity Not on file Sexual Orientation [...] 165.1 cm (5' 5) 09/11/2024 1:08 PM DIRECTOR PRODUCT DEVELOPMENT Body Mass Index 35.45 09/11/2024 1:08 PM DIRECTOR PRODUCT DEVELOPMENT Plan of Treatment Not on file Procedures [...] Protein, ur, POC Negative Negative Lot Number [id number] Urine 03/11/2025 2:25 PM CDT Leila Romo [...] Clinical gestation: 19 weeks [address] , [facility] 07/19/2025 Estimated weight: 307.6 g , Percentile [...] Yvette Ruiz M.D. FT: FT Report ID: [id number] Reading Location: [id number] Procedure Note Yvette Zhang MD - 02/25/2025 [...] Yvette Ruiz M.D. FT: FT Report ID: [id number] Reading Location: [place] [address] Leila Romo MD IMG OB US PROCEDURES Final Result * POCT urine glucose and protein (02/11/2025 2:57 PM CDT) Glucose, ur, POC Negative Negative MG/DL Protein, ur, POC Negative Negative Lot Number [id number] Urine 02/11/2025 2:5 7 PM CDT Leila [...] was last reviewed 2021. Testing performed by: [facility], [address] [place] [address]., [address] Blood 02/02/2025 11:2 1 AM CDT 02/02/2025 7:07 PM CDT us Leila Romo MD LAB BLOOD ORDERABLES Final Result [address] Department [place] [address] * (ABNORMAL) Differential, auto (02/02/2025 11:21 AM CDT) Neutrophil abs 5.67 1.50 - 6.50 K/cumm Comment:Testing performed by : [facility], [address] [place] [address]., [address] Imm gran abs 0.04 0.00 - 0.10 K/cumm CERNER Comment:Testing performed by : [address] [address] Lymphocyte abs 1.79 0.80 - 3.30 K/cumm CERPITA Comment:Testing performed by : [address] [address] Monocyte abs 1.16(H) 0.20 - 0.80 K/cumm CERNER Comment:Testing performed by : [address] [address] Eosinophil abs 0.10 0.00 - 0.50 K/cumm CERPITA Comment:Testing performed by : [address] [address] Basophil abs 0.03 0.00 - 0.10 K/cumm CERPITA Comment:Testing performed by : [address] [address] Neutrophil pct 64.5 % CERNER Comment: Interpretive Data Percent cell count reference ranges are not reported, since discordance with absolute values may lead to misinterpretation of CBC data. Current Interpretive Data was last revised on 2018. Testing performed by: [facility], [address] [place] [address]., [address] Imm gran pct 0.5 % CERNER CH Comment: Interpretive Data Percent cell count reference ranges are not reported, since discordance with absolute values may lead to misinterpretation of CBC data. Current Interpretive Data was last revised on 2018. Testing performed by: [address], [address] Lymphocyte pct 20.4 % CERNER CH Comment: Interpretive Data Percent cell count reference ranges are not reported, since discordance with absolute values may lead to misinterpretation of CBC data. Current Interpretive Data was last revised on 2018. Testing performed by: [facility], [address] [place] [address]., [address] Monocyte pct 13.2 % CERNER CH Comment: Interpretive Data Percent cell count reference ranges are not reported, since discordance with absolute values may lead to misinterpretation of CBC data. Current Interpretive Data was last revised on 2018. Testing performed by: [facility], [address] [place] [address]., [address] Eosinophil pct 1.1 % CERNER CH Comment: Interpretive Data Percent cell count reference ranges are not reported, since discordance with absolute values may lead to misinterpretation of CBC data. Current Interpretive Data was last revised on 2018. Testing performed by: [address] [address] Basophil pct 0.3 % CERNER CH Comment: Interpretive Data Percent cell count reference ranges are not reported, since discordance with absolute values may lead to misinterpretation of CBC data. Current Interpretive Data was last revised on 2018. Testing performed by: [address], [address] Blood 02/02/2025 11:2 1 AM CDT 02/02/2025 6:54 PM CDT us Leila Romo MD LAB BLOOD ORDERABLES Final Result RICHARD [address] [facility] Department [place] [address] * HIV 1/2 Antibody plus p24 Antigen Blood (02/02/2025 11:21 AM CDT) [facility] HIV 1/2 ab + p24 ag Nonreactive Nonreactive Comment: Nonreactive for HIV-1 antigen and HIV-1/HIV-2 antibodies. No laboratory evidence of HIV infection. If acute HIV infection is suspected, consider testing for HIV-1 RNA. Testing performed by: [address] [address] Blood 02/02/2025 11:2 1 AM CDT 02/02/2025 6:54 PM CDT Leila Romo MD LAB MICROBIOLOGY - [facility] ORDERABLES Final Result Performing Organization Address [facility] Co de Phone Number RICHARD [address] Department [place] [address] * (ABNORMAL) CBC with auto differential (02/02/2025 11:21 AM CDT) [facility] WBC 8.79 3.80 - 9.90 K/cumm Comment:Testing performed by : [address] [address] Hgb 13.2 11.9 - 15.5 g/dL RICHARD Comment:Testing performed by : [address], [address] Hct 40.4 35.6 - 45.5 % RICHARD Comment:Testing performed by : [address] [address] Plt 236 150 - 400 K/cumm RICHARD Comment:Testing performed by : [address], [address] MPV 11.7 9.1 - 12.3 fL RICHARD Comment:Testing performed by : [address], [address] RBC 4.42 3.90 - 5.20 M/cumm RICHARD Comment:Testing performed by : [facility], [address] [place] [address]., [address] MCV 91.4 81.3 - 96.4 fL RICHARD Comment:Testing performed by : [facility], [address] [place] [address]., [address] MCH 29.9 27.1 - 33.3 pg RICHARD Comment:Testing performed by : [facility], [address] [place] [address]., [address] MCHC 32.7 32.3 - 35.7 g/dL RICHARD Comment:Testing performed by : [facility], [address] [place] [address]., [address] RDW CV 14.4 11.1 - 14.9 % RICHARD Comment:Testing performed by : [facility], [address] [place] [address], [address] RDW SD 48.7(H) 35.7 - 48.1 fL RICHARD Comment:Testing performed by : [facility], [address] [place] [address], [address] NRBC abs 0.00 0.00 - 0.01 K/cumm RICHARD Comment:Testing performed by : [facility], [address] [place] [address]., [address] Blood 02/02/2025 11:2 1 AM CDT 02/02/2025 6:54 PM CDT Leila Romo MD LAB BLOOD ORDERABLES Final Result [address] Department [place] [address] * Hepatitis C antibody Blood (02/02/2025 11:21 [...] last revised on 2020. Testing performed by: [facility], [address] [place] [address]., [address] Blood 02/02/2025 11:2 1 AM CDT 02/02/2025 6:54 PM CDT Leila Romo MD LAB MICROBIOLOGY - GE NERAL ORDERABLES Final Result Performing Organization Address [facility] Co de Phone Number RICHARD [address] [facility] Department [address] [place] [address] * Protein / creatinine ratio, urine, random (02/02/2025 11:21 AM CDT) Pathologist [facility] Protein, ur, quant 26.9 mg/dL Comment: Interpretive Data No reference range established. Current interpretive data was last revised 2019. Testing performed by: [facility], [address] [place] [address]., [address] Creatinine Ur 303.8 mg/dL RICHARD Comment: Interpretive Data No reference range established. Current interpretive data was last revised 2019. Testing performed by: [facility], [address] [place] [address]., [address] Protein/creatinin e ratio 88.5 0.0 - 180.0 mg/g CR RICHARD Comment:Testing performed by : [address] [address] Urine 02/02/2025 11:2 1 AM CDT 02/04/2025 9:44 AM CDT Leila Romo MD LAB URINE ORDERABLES Final Result Performing Organization Address [facility] Co de Phone Number RICHARD [address] [facility] Department [address] [place] [address] * (ABNORMAL) Drugs of Abuse Screen, Urine without Confirmation (02/02/2025 11:21 AM CDT) Pathologist [facility] Amphetamine, ur Screen Positive, presumptive (A) CutOff 500ng/mL Comment: Interpretive Data - Amphetamines: Samples containing greater than 500 ng/mL d-methamphetamine or other cross-reacting amphetamine compounds are reported as positive. Amphetamine immunoassays are subject to significant false positive rates due to cross-reactivity of non-amphetamine drugs. Confirmatory testing required for definitive results. Current Interpretive Data was last reviewed 2023. Testing performed by: [facility], [address] [place] [address]., [address] Barbiturates, ur Not Detected CutOff 200ng/mL CERNER Comment: Interpretive Data - Barbiturates: Samples containing greater than 200 ng/mL secobarbital or other cross-reacting barbiturate compounds are reported as positive. False positive and false negative results are possible. Confirmatory testing required for definitive results. Current Interpretive Data was last reviewed 2023. Testing performed by: [address] [address] Benzodiazepines, ur Not Detected CutOff 100ng/mL CERNER Comment: Interpretive Data - Benzodiazepines: Samples containing greater than 100 ng/mL nordiazepam or other cross-reacting compounds are reported as positive. False positive and false negative results are possible. Confirmatory testing required for definitive results. Current Interpretive Data was last reviewed 2023. Testing performed by: [facility], [address] [place] [address]., [address] Cannabinoids, ur Screen Positive, presumptive (A) CutOff 50 ng/mL CERNER Comment: Interpretive Data - Cannabinoids: Samples containing greater than 50 ng/mL delta-9 THC -COOH or other cross- reacting compounds are reported as positive. False positive and false negative results are possible. Confirmatory testing required for definitive results. Current Interpretive Data was last reviewed 2023. Testing performed by: [facility], [address] [place] [address]., [address] Cocaine, ur Not Detected CutOff 150ng/mL CERNER Comment: Interpretive Data - Cocaine: Samples containing greater than 150 ng/mL benzoylecgonine or other cross- reacting compounds are reported as positive. False positive and false negative results are possible. Confirmatory testing required for definitive results. Current Interpretive Data was last reviewed 2023. Testing performed by: [address] [address] Fentanyl, Ur Not Detected CutOff 5 ng/mL CERNER Comment: Interpretive Data - Fentanyl: Samples containing greater than 5 ng/mL norfentanyl, fentanyl, or other cross-reacting fentanyl compounds are reported as positive. False positive and false negative results are possible. Confirmatory testing required for definitive results. Current Interpretive Data was last reviewed 2024. Testing performed by: [facility], [address] [place] [address]., [address] Methadone, ur Not Detected CutOff 300ng/mL CERNER Comment: Interpretive Data - Methadone: Samples containing greater than 300 ng/mL d,l-methadone or other cross-reacting compounds are reported as positive. False positive and false negative results are possible. Confirmatory testing required for definitive results. Current Interpretive Data was last reviewed 2023. Testing performed by: [address] [address] Opiates, ur Not Detected CutOff 300ng/mL [facility] Comment: Interpretive Data - Opiates: Samples containing greater than 300 ng/mL morphine or other cross-reacting compounds are reported as positive. False positive and false negative results are possible. Confirmatory testing required for definitive results. Current Interpretive Data was last reviewed 2023. Testing performed by: [address] [address] Oxycodone, ur Not Detected CutOff 100ng/mL [facility] Comment: Interpretive Data - Oxycodone: Samples containing greater than 100 ng/mL oxycodone or other cross-reacting compounds are reported as positive. False positive and false negative results are possible. Confirmatory testing required for definitive results. Current Interpretive Data was last reviewed 2023. Testing performed by: [address] [address] Phencyclidine, ur Not Detected CutOff 25 ng/mL [facility] Comment: Interpretive Data - Phencyclidine: Samples containing greater than 25 ng/mL phencyclidine or other cross-reacting compounds are reported as positive. False positive and false negative results are possible. Confirmatory testing required for definitive results. Current Interpretive Data was last reviewed 2023. Testing performed by: [address] [address] Urine Creatinine 306 mg/dL [facility] Comment: Interpretive Data Urine Creatinine: < 10 mg/dL is extremely dilute = or > 10 but < 20 mg/dL is dilute = or > 20 mg/dL is normal Current Interpretive Data was last revised on 2018. Testing performed by: [facility], [address] [place] [address]., [address] Urine 02/02/2025 11:2 1 AM CDT 02/02/2025 6:54 PM CDT Narrative RICHARD - 02/02/2025 10:05 PM CDT Drug of Abuse screening is performed by immunoassay for medical purposes only. This is not to be used for Pain Management purposes. Leila Romo MD LAB URINE ORDERABLES Final Result RICHARD [facility] Department [place] [address] * Rubella IgG antibody Blood (02/02/2025 11:21 AM CDT) Rubella IgG Reactive Comment: Reactive: Results suggest response to immunization or prior exposure to the virus. Testing performed by: [facility], [address] [place] [address]., [address] Blood 02/02/2025 11:2 1 AM CDT 02/03/2025 10:01 AM CDT Leila Romo MD LAB MICROBIOLOGY - GE NERAL ORDERABLES Final Result [facility] [address] [facility] Department [address] [place] [address] * RPR Blood (02/02/2025 11:21 AM CDT) RPR Nonreactive Nonreactive Comment:Testing performed by : [facility], [address] [place] [address]., [address] Blood 02/02/2025 11:2 1 AM CDT 02/02/2025 6:54 PM CDT Leila Romo MD LAB MICROBIOLOGY - GE NERAL ORDERABLES Final Result Performing Organization Address [facility] Co de Phone Number RICHARD [place]OR[place] [address] [facility] [place] [address] * Hepatitis B Surface Antigen Blood (02/02/2025 11:21 AM CDT) HepBsAg Nonreactive Nonreactive Comment:Testing performed by : [facility], [address] [place] [address]., [address] Blood 02/02/2025 11:2 1 AM CDT 02/02/2025 6:54 PM CDT Leila Romo MD LAB MICROBIOLOGY - GE NERAL ORDERABLES Final Result Performing Organization Address [facility] Co de Phone Number RICHARD FLORES [address] [facility] [place] [address] * Type and screen (02/02/2025 11:21 AM CDT) ABO Rh A Positive Hope, indirect Negative CERNER Blood 02/02/2025 11:2 1 AM CDT 02/02/2025 7:06 PM CDT Narrative [facility] - 02/02/2025 8:57 PM CDT Has the patient had Daratumumab or Isatuximab in the past 6 months?->Unknown Leila Romo MD LAB BLOOD BANK TEST O RDERABLES Final Result Performing Organization Address [facility] Co de Phone Number RICHARD [address] [facility] Department [place] [address] * Urine culture Urine, clean voided (02/02/2025 11:21 AM CDT) Report Final Report: Less than 100,000 colonies/mL (clinically insignificant growth based on current clinical standards) Comment:Testing performed by : [facility], [address] [facility] [place]., [address] Organism (CLINICALLY INSIGNIFICANT GROWTH [facility] Urine, clean voided 02/02/2025 11:21 AM CDT 02/02/2025 10:52 PM CDT Narrative [facility] - 02/04/2025 8:04 AM CDT Testing performed by [facility] Microbiology Laboratory ([phone]) Leila Romo MD LAB MICROBIOLOGY - GE NERAL ORDERABLES Final Result Performing Organization Address [facility] Co de Phone Number MEGHNAPITA [address] [facility] Department [place] [address] * Varicella Zoster IgG antibody Blood (02/02/2025 11:21 AM CDT) Pathologist [facility] VZV IgG Reactive Reactive Comment: Reactive: Results suggest response to immunization or prior exposure to the virus. Testing performed by: [facility], [address] [place] [address]., [address] Blood 02/02/2025 11:2 1 AM CDT 02/03/2025 10:01 AM CDT Leila Romo MD LAB MICROBIOLOGY - GE NERAL ORDERABLES Final Result Performing Organization Address [facility] de Phone Number [facility] [address] [facility] [place] [address] * Comprehensive metabolic panel (02/02/2025 11:21 AM CDT) Pathologist [facility] Sodium 135 135 - 145 mmol/L Comment:Testing performed by : [facility], [address] [place] [address]., [address] Potassium, pl 4.0 3.3 - 4.9 mmol/L [facility] Comment:Testing performed by : [facility], [address] [place] [address]., [address] Chloride 102 97 - 110 mmol/L [facility] Comment:Testing performed by : [address] [address] CO2 22 22 - 32 mmol/L [facility] Comment:Testing performed by : [address] [address] Anion gap 11 2 - 15 mmol/L CERNER CH Comment:Testing performed by : [address] [address] BUN 7 6 - 25 mg/dL CERNER CH Comment:Testing performed by : [address] [address] Creatinine 0.71 0.60 - 1.10 mg/dL CERNER CH Comment:Testing performed by : [address] [address] Glucose 128 70 - 199 mg/dL CERNER [...] was last revised 2022. Testing performed by: [address] [address] Calcium 9.5 8.5 - 10.3 mg/dL CERNER CH Comment:Testing performed by : [address] [address] Bilirubin, total 0.2 0.1 - 1.2 mg/dL CERNER CH Comment:Testing performed by : [address] [address] Protein, pl 7.1 6.5 - 8.5 g/dL CERNER CH Comment:Testing performed by : [address] [address] Albumin 3.9 3.5 - 5.0 g/dL CERNER CH Comment:Testing performed by : [address] [address] Alk phos 50 40 - 130 Units/L CERNER CH Comment:Testing performed by : [address], [address] ALT 42 7 - 45 Units/L CERNER Comment:Testing performed by : [facility], [address] [place] [address]., [address] AST 27 10 - 45 Units/L RICHARD Comment:Testing performed by : [facility], [address] [place] [address]., [address] Blood 02/02/2025 11:2 1 AM CDT 02/02/2025 6:54 PM CDT Leila Romo MD LAB BLOOD ORDERABLES Final Result [address] Department [place] [address] * Drugs of Abuse Screen, Urine without [...] by Jonathan Styles M.D. CH: Report ID: [id number] Reading Location: [place] [address] Procedure Note Jonathan Styles Jr., MD - [...] Jonathan Styles M.D. CH: MARK Report ID: [id number] Reading Location: [id number] Result [facility] Leila Romo MD IMG OB US [...] 11:57 AM CDT) CLINICAL INFORMATION: [facility] Comment:Routine exam LMP [facility] Comment:UNKNOWN Previous Pap [facility] Comment:INFORMATION NOT PROV IDED Prev. Bx [facility] Comment:INFORMATION NOT PROV IDED SOURCE: [facility] Comment:Cervix, Endocervix Pap, specimen adequacy [facility] Comment: Satisfactory for evaluation. Endocervical/transformation zone component present. Age and/or menstrual status not provided HPV interp [facility] Comment:Negative for intraep ithelial lesion or malignancy. COMMENTS [facility] Comment: This Pap test has been evaluated with computer assisted technology. Bail Agent [facility] Comment: AAM, CT(ASCP) CT Screening Location: [place] [address] [place] [address] Comment [facility] Comment: EXPLANATORY NOTE: The Pap is [...] High Risk E6/E7 Not Detected Not Detected [facility] [place] Comment: Methodology: Rn Neonatal Icu-Mediated Amplification This assay detects E6/E7 viral messenger RNA (mRNA) from 14 high-risk HPV types (16,18,31,33,35,39,45,51,52,56,58,59,66,68). The analytical performance characteristics of this assay have been determined by [employer]. The modifications have not been cleared or approved by the FDA. This assay has been validated pursuant to the CLIA regulations and is used for clinical purposes. For additional information, please refer to http://education.[employer].Explorer.io/faq/HKT442g3 (This link if provided for information/ educational purposes only.) 03/02/2021 11:5 7 AM CDT 03/03/2021 2:21 AM CDT Narrative [facility] - 03/05/2021 3:24 PM CDT FASTING: UNKNOWN us Leila Romo MD LAB CYTOLOGY ORDERABL ES Final Result [facility] [address] [place] [address] [facility] [address] [place] [address] from Last 3 Months or Most Recently Relevant to Health Maintenance Insurance [employer] [facility] [employer] HMO Care Teams Supervisor [employer] Relationship Specialty Start Date End Date Edgardo Manuel MD PCP - General Internal Medicine 11/03/21
--- OUTSIDE RECORDS SUMMARY | 2025-04-03 12:52 | XMS_ITS | Clinical Summary ---
Author Organization [facility] Address [address] [place] [address] Phone Care Team Providers Care Class B Driver Name Role Phone Rachel Gillis APRN Primary [...] Comments Blood Pressure 162/113 12/16/2019 12:40 PM [facility] Pulse 100 12/16/2019 12:40 PM [facility] [employer] Temperature 37.5 C (99.5 F) 12/16/2019 12:40 PM [facility] [employer] Respiratory Rate 18 12/16/2019 12:40 PM [employer] Oxygen Saturation 99% 12/16/2019 12:40 PM [employer] [employer] Inhaled Oxygen Concentration - - Weight 86.2 kg (190 lb) 12/16/2019 12:40 PM [employer] [employer] Height 165.1 cm (5' 5) 12/16/2019 12:40 PM [employer] [employer] Body Mass Index 31.62 12/16/2019 12:40 PM [facility] [employer] Plan of Treatment Health Maintenance Due Date [...] this topic Medical Devices Implanted Type Area Interactive Media Marketing Specialist Device Identifier Shelf Expiration Date Model / Serial / Lot Stent Ureteral 6fr 2.1fr 26cm 2 Pigtail Curve 2 Durometer Taper Tip Loprfl Graduated [employer] Ultra - [id number] Implanted:Qty : 1 on 04/30/2019 by Carlotta Gonzalez MD at [facility] IMPLANT Left: Ureter [employer] 01/14/2022 [id number] / [id number] / [id number] Insurance [facility] Advance Directives * Full Code (Latest Code [...] measures to stabilize the patient. Care Teams Class B Driver Relationship Specialty Start Date End Date Rachel Gillis APRN [address] [place] [address] PCP - General Family Medicine 07/07/19
--- OUTSIDE RECORDS SUMMARY | 2025-04-03 12:52 | XMS_ITS | Clinical Summary ---
Author Organization [facility] [address] Address [address] [place] [address] Phone Care Team Providers Care Logging Worker Name Role Phone Edgardo Manuel MD Primary Care Provider [phone] Allergies Active Allergy Reactions Criticality Noted Date [...] nails are covered with thick red nail Greek this some evidence of onychomycosis round the [...] through the pharmacy given to us [facility] [place] location on [facility] patient has made a commitment to get back to me in the next 24 hours regarding her precise medication she is taking.. At this time she has no symptoms referable to hypertension Seborrhea-like dermatitis with psoriasiform [place] ents 01/21/2024 Assessment & Plan (01/21/2024 5:27 [...] this. 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): 41-year-old lady who is a new patient [...] (05/01/2022): Added automatically from request for surgery [id number] Acute otitis media 02/28/2021 Acute infective otitis externa of right ear 02/28/2021 03/02/2021 Encounters Date Type Department Care Team Description 04/03/2025 Telephone [facility] [address] [place] [address] Leila Romo MD Patient issue/concern 03/11/2025 2:10 PM CDT Office Visit [facility] [address] [place] [address] Leila Romo MD care, subsequent , second trimester (Primary Dx); Chronic hypertension affecting 03/03/2025 Telephone [facility] [address] [place] [address] Leila Romo MD Patient issue/concern 02/25/2025 2:00 PM CDT Ancillary Procedure [facility] [address] [place] [address] Small for dates affecting management of mother, first trimester, not applicable or unspecified fetus 02/25/2025 Telephone [facility] [address] [place] [address] Tiffanie Rae LPN 02/11/2025 2:45 PM CDT Office Visit [facility] [address] [place] [address] Leila Romo MD care, subsequent , second trimester (Primary Dx); Chronic hypertension affecting 02/11/2025 Orders Only [facility] [address] [place] [address] Leila Romo MD Small for dates affecting management of mother, first trimester, not applicable or unspecified fetus (Primary Dx) 02/02/2025 11:10 AM CDT Lab [facility] [address] [place] [address] Chronic hypertension in ; Encounter for supervision of other normal , first trimester; 14 weeks gestation of 01/30/2025 Telephone [facility] [address] [place] [address] Leila Romo MD 01/14/2025 2:00 PM CDT Office Visit [facility] [address] [place] [address] Leila Romo MD care, subsequent , second trimester (Primary Dx); Chronic hypertension affecting ; Antepartum multigravida of advanced maternal age 0301/14/2025 1:00 PM CDT Ancillary Procedure [facility] [address] [place] [address] Encounter to determine viability of , single or unspecified fetus 01/14/2025 Orders Only [facility] [address] [place] [address] Leila Romo MD Encounter for supervision of other normal , first trimester (Primary Dx); 14 weeks gestation of ; Chronic hypertension in 2025 Results Follow-Up [facility] [address] [place] [address] Leila Romo MD [employer] from Last 3 [...] any time in the past 12 m [facility], were you homeless or living in a care home (including now)? No 02/12/2025 Estimated Date of Delivery Comme nts Yes 07/14/2025 Based on Ultraso und Sex and Gender Information Value Date Recorded Sex Assigned at Not on file Legal Sex Female 9:49 AM ELECTRIC VEHICLE ELECTRICIAN Gender Identity Not on file Sexual Orientation [...] use or other medications. -- Presented to [facility] 02/07 with elevated BP. She was [...] an ER follow up. She presented to [facility] 3/5 c/o pelvic cramping and back [...] 165.1 cm (5' 5) 09/11/2024 1:08 PM ELECTRIC VEHICLE ELECTRICIAN Body Mass Index 35.45 09/11/2024 1:08 PM ELECTRIC VEHICLE ELECTRICIAN Plan of Treatment Health Maintenance Due Date [...] Protein, ur, POC Negative Negative Lot Number [id number] Urine 03/11/2025 2:25 PM CDT Leila Romo [...] Yvette Ruiz M.D. FT: FT Report ID: [id number] Reading Location: [id number] Procedure Note Yvette Zhang MD - 02/25/2025 [...] Yvette Ruiz M.D. FT: FT Report ID: [id number] Reading Location: [id number] Leila Romo MD IMG OB US PROCEDURES Final Result * POCT urine glucose and protein (02/11/2025 2:57 PM CDT) Glucose, ur, POC Negative Negative MG/DL Protein, ur, POC Negative Negative Lot Number [id number] Urine 02/11/2025 2:57 PM CDT Leila Romo [...] was last reviewed 2021. Testing performed by: [facility], [address] [place] [address], [place]., [address] Blood 02/02/2025 11:2 1 AM CDT 02/02/2025 7:07 PM CDT Leila Romo MD LAB BLOOD ORDERABLES Final Result [facility] [address] [facility] Department [place] [address] * (ABNORMAL) Differential, auto (02/02/2025 11:21 AM CDT) Neutrophil abs 5.67 1.50 - 6.50 K/cumm Comment:Testing performed by : [address] [address] Imm gran abs 0.04 0.00 - 0.10 K/cumm CERNER CH Comment:Testing performed by : [address] [address] Lymphocyte abs 1.79 0.80 - 3.30 K/cumm CERNER CH Comment:Testing performed by : [address] [address] Monocyte abs 1.16(H) 0.20 - 0.80 K/cumm CERNER CH Comment:Testing performed by : [address] [address] Eosinophil abs 0.10 0.00 - 0.50 K/cumm CERNER CH Comment:Testing performed by : [address], [address] Basophil abs 0.03 0.00 - 0.10 K/cumm CERNER CH Comment:Testing performed by : [address] [address] Neutrophil pct 64.5 % CERNER CH Comment: Interpretive Data Percent cell count reference ranges are not reported, since discordance with absolute values may lead to misinterpretation of CBC data. Current Interpretive Data was last revised on 2018. Testing performed by: [address] [address] Imm gran pct 0.5 % CERNER CH Comment: Interpretive Data Percent cell count reference ranges are not reported, since discordance with absolute values may lead to misinterpretation of CBC data. Current Interpretive Data was last revised on 2018. Testing performed by: [address] [address] Lymphocyte pct 20.4 % CERNER CH Comment: Interpretive Data Percent cell count reference ranges are not reported, since discordance with absolute values may lead to misinterpretation of CBC data. Current Interpretive Data was last revised on 2018. Testing performed by: [facility], [address] [place] [address]., [address] Monocyte pct 13.2 % [facility] Comment: Interpretive Data Percent cell count reference ranges are not reported, since discordance with absolute values may lead to misinterpretation of CBC data. Current Interpretive Data was last revised on 2018. Testing performed by: [facility], [address] [place] [address]., [address] Eosinophil pct 1.1 % [facility] Comment: Interpretive Data Percent cell count reference ranges are not reported, since discordance with absolute values may lead to misinterpretation of CBC data. Current Interpretive Data was last revised on 2018. Testing performed by: [facility], [address] [place] [address]., [address] Basophil pct 0.3 % [facility] Comment: Interpretive Data Percent cell count reference ranges are not reported, since discordance with absolute values may lead to misinterpretation of CBC data. Current Interpretive Data was last revised on 2018. Testing performed by: [address] [address] Blood 02/02/2025 11:2 1 AM CDT 02/02/2025 6:54 PM CDT Leila Romo MD LAB BLOOD ORDERABLES Final Result [address] [place] [address] * HIV 1/2 Antibody plus p24 Antigen Blood (02/02/2025 11:21 AM CDT) Pathologist [facility] HIV 1/2 ab + p24 ag Nonreactive Nonreactive Comment: Nonreactive for HIV-1 antigen and HIV-1/HIV-2 antibodies. No laboratory evidence of HIV infection. If acute HIV infection is suspected, consider testing for HIV-1 RNA. Testing performed by: [address] [address] Blood 02/02/2025 11:2 1 AM CDT 02/02/2025 6:54 PM CDT us Leila Romo MD LAB MICROBIOLOGY - NERAL ORDERABLES Final Result [address] [place] [address] * (ABNORMAL) CBC with auto differential (02/02/2025 11:21 AM CDT) WBC 8.79 3.80 - 9.90 K/cumm Comment:Testing performed by : [facility], [address] [place] [address], [address] Hgb 13.2 11.9 - 15.5 g/dL CERNER CH Comment:Testing performed by : [address], [address] Hct 40.4 35.6 - 45.5 % CERNER CH Comment:Testing performed by : [address], [address] Plt 236 150 - 400 K/cumm CERNER CH Comment:Testing performed by : [address], [address] MPV 11.7 9.1 - 12.3 fL CERNER CH Comment:Testing performed by : [address], [address] RBC 4.42 3.90 - 5.20 M/cumm CERNER CH Comment:Testing performed by : [address], [address] MCV 91.4 81.3 - 96.4 fL CERNER CH Comment:Testing performed by : [address], [address] MCH 29.9 27.1 - 33.3 pg CERNER CH Comment:Testing performed by : [address], [address] MCHC 32.7 32.3 - 35.7 g/dL CERNER CH Comment:Testing performed by : [address], [address] RDW CV 14.4 11.1 - 14.9 % CERNER CH Comment:Testing performed by : [address], [address] RDW SD 48.7(H) 35.7 - 48.1 fL RICHARD Comment:Testing performed by : [facility], [address] [place] [address]., [address] NRBC abs 0.00 0.00 - 0.01 K/cumm RICHARD Comment:Testing performed by : [address] [address] Blood 02/02/2025 11:2 1 AM CDT 02/02/2025 6:54 PM CDT Leila Romo MD LAB BLOOD ORDERABLES Final Result Performing Organization Address [facility] Co de Phone Number RICHARD [email or web address] [address] * Hepatitis C antibody Blood (02/02/2025 11:21 [...] last revised on 2020. Testing performed by: [facility], [address] [place] [address]., [address] Blood 02/02/2025 11:2 1 AM CDT 02/02/2025 6:54 PM CDT Leila Romo MD LAB MICROBIOLOGY - GE NERAL ORDERABLES Final Result Performing Organization Address City/[facility] Co de Phone Number RICHARD [address] [facility] [place] [address] * Protein / creatinine ratio, urine, random (02/02/2025 11:21 AM CDT) Protein, ur, quant 26.9 mg/dL Comment: Interpretive Data No reference range established. Current interpretive data was last revised 2019. Testing performed by: [address] [address] Creatinine Ur 303.8 mg/dL RICHARD Comment: Interpretive Data No reference range established. Current interpretive data was last revised 2019. Testing performed by: [facility], [address] [place] [address]., [address] Protein/creatinin e ratio 88.5 0.0 - 180.0 mg/g CR RICHARD Comment:Testing performed by : [address] [address] Urine 02/02/2025 11:2 1 AM CDT 02/04/2025 9:44 AM CDT Leila Romo MD LAB URINE ORDERABLES Final Result Performing Organization Address City/State/[facility] Co de Phone Number [address] [place] [address] * (ABNORMAL) Drugs of Abuse Screen, Urine [...] was last reviewed 2023. Testing performed by: [address] [address] Barbiturates, ur Not Detected CutOff 200ng/mL RICHARD Comment: Interpretive Data - Barbiturates: Samples containing greater than 200 ng/mL secobarbital or other cross-reacting barbiturate compounds are reported as positive. False positive and false negative results are possible. Confirmatory testing required for definitive results. Current Interpretive Data was last reviewed 2023. Testing performed by: [address] [address] Benzodiazepines, ur Not Detected CutOff 100ng/mL CERNER Comment: Interpretive Data - Benzodiazepines: Samples containing greater than 100 ng/mL nordiazepam or other cross-reacting compounds are reported as positive. False positive and false negative results are possible. Confirmatory testing required for definitive results. Current Interpretive Data was last reviewed 2023. Testing performed by: [facility], [address] [place] [address]., [address] Cannabinoids, ur Screen Positive, presumptive (A) CutOff 50 ng/mL CERNER Comment: Interpretive Data - Cannabinoids: Samples containing greater than 50 ng/mL delta-9 THC -COOH or other cross- reacting compounds are reported as positive. False positive and false negative results are possible. Confirmatory testing required for definitive results. Current Interpretive Data was last reviewed 2023. Testing performed by: [facility], [address] [place] [address]., [address] Cocaine, ur Not Detected CutOff 150ng/mL CERNER Comment: Interpretive Data - Cocaine: Samples containing greater than 150 ng/mL benzoylecgonine or other cross- reacting compounds are reported as positive. False positive and false negative results are possible. Confirmatory testing required for definitive results. Current Interpretive Data was last reviewed 2023. Testing performed by: [address] [address] Fentanyl, Ur Not Detected CutOff 5 ng/mL CERNER Comment: Interpretive Data - Fentanyl: Samples containing greater than 5 ng/mL norfentanyl, fentanyl, or other cross-reacting fentanyl compounds are reported as positive. False positive and false negative results are possible. Confirmatory testing required for definitive results. Current Interpretive Data was last reviewed 2024. Testing performed by: [facility], [address] [place] [address]., [address] Methadone, ur Not Detected CutOff 300ng/mL CERNER Comment: Interpretive Data - Methadone: Samples containing greater than 300 ng/mL d,l-methadone or other cross-reacting compounds are reported as positive. False positive and false negative results are possible. Confirmatory testing required for definitive results. Current Interpretive Data was last reviewed 2023. Testing performed by: [address] [address] Opiates, ur Not Detected CutOff 300ng/mL RICHARD Comment: Interpretive Data - Opiates: Samples containing greater than 300 ng/mL morphine or other cross-reacting compounds are reported as positive. False positive and false negative results are possible. Confirmatory testing required for definitive results. Current Interpretive Data was last reviewed 2023. Testing performed by: [address] [address] Oxycodone, ur Not Detected CutOff 100ng/mL RICHARD Comment: Interpretive Data - Oxycodone: Samples containing greater than 100 ng/mL oxycodone or other cross-reacting compounds are reported as positive. False positive and false negative results are possible. Confirmatory testing required for definitive results. Current Interpretive Data was last reviewed 2023. Testing performed by: [facility], [address] [place] [address]., [address] Phencyclidine, ur Not Detected CutOff 25 ng/mL RICHARD Comment: Interpretive Data - Phencyclidine: Samples containing greater than 25 ng/mL phencyclidine or other cross-reacting compounds are reported as positive. False positive and false negative results are possible. Confirmatory testing required for definitive results. Current Interpretive Data was last reviewed 2023. Testing performed by: [address] [address] Urine Creatinine 306 mg/dL RICHARD Comment: Interpretive Data Urine Creatinine: < 10 mg/dL is extremely dilute = or > 10 but < 20 mg/dL is dilute = or > 20 mg/dL is normal Current Interpretive Data was last revised on 2018. Testing performed by: [address] [address] Urine 02/02/2025 11:2 1 AM CDT 02/02/2025 6:54 PM CDT Narrative RICHARD - 02/02/2025 10:05 PM CDT Drug of Abuse screening is performed by immunoassay for medical purposes only. This is not to be used for Pain Management purposes. Leila Romo MD LAB URINE ORDERABLES Final Result RICHARD [address] [place] [address] * Rubella IgG antibody Blood (02/02/2025 11:21 AM CDT) Rubella IgG Reactive Comment: Reactive: Results suggest response to immunization or prior exposure to the virus. Testing performed by: [facility], [address] [place]., [address] Blood 02/02/2025 11:2 1 AM CDT 02/03/2025 10:01 AM CDT Leila Romo MD LAB MICROBIOLOGY - GE NERAL ORDERABLES Final Result RICHARD [address] [address] [facility] [place] [address] * RPR Blood (02/02/2025 11:21 AM CDT) Pathologist [facility] RPR Nonreactive Nonreactive Comment:Testing performed by : [facility], [address] [place] [address]., [address] Blood 02/02/2025 11:2 1 AM CDT 02/02/2025 6:54 PM CDT Leila Romo MD LAB MICROBIOLOGY - GE NERAL ORDERABLES Final Result RICHARD [address] [place] [address] * Hepatitis B Surface Antigen Blood (02/02/2025 11:21 AM CDT) HepBsAg Nonreactive Nonreactive Comment:Testing performed by : [address] [address] Blood 02/02/2025 11:2 1 AM CDT 02/02/2025 6:54 PM CDT Leila Romo MD LAB MICROBIOLOGY - GE NERAL ORDERABLES Final Result Performing Organization Address City/[facility]/ZIP Co de Phone Number MEGHNAPITA FLORES [address] [place] [address] * Type and screen (02/02/2025 11:21 AM CDT) ABO Rh A Positive Hope, indirect Negative CERNER Blood 02/02/2025 11:2 1 AM CDT 02/02/2025 7:06 PM CDT Narrative CERNER - 02/02/2025 8:57 PM CDT Has the patient had Daratumumab or Isatuximab in the past 6 months?->Unknown Leila Romo MD LAB BLOOD BANK TEST O RDERABLES Final Result Performing Organization Address [facility] Co de Phone Number RICHARD FLORES [address] [place] [address] * Urine culture Urine, clean voided (02/02/2025 11:21 AM CDT) Report Final Report: Less than 100,000 colonies/mL (clinically insignificant growth based on current clinical standards) Comment:Testing performed by : [facility], [address] [place]., [address] Organism (CLINICALLY INSIGNIFICANT GROWTH [facility] Urine, clean voided 02/02/2025 11:21 AM CDT 02/02/2025 10:52 PM CDT Narrative [facility] - 02/04/2025 8:04 AM CDT Testing performed by [facility] Microbiology Laboratory ([phone]) Leila Romo MD LAB MICROBIOLOGY - GE NERAL ORDERABLES Final Result Performing Organization Address City/[facility]/ZIP Co de Phone Number MEGHNAPITA FLORES [address] [place] [address] * Varicella Zoster IgG antibody Blood (02/02/2025 11:21 AM CDT) VZV IgG Reactive Reactive Comment: Reactive: Results suggest response to immunization or prior exposure to the virus. Testing performed by: [facility], [address] [place]., [address] Blood 02/02/2025 11:2 1 AM CDT 02/03/2025 10:01 AM CDT Leila Romo MD LAB MICROBIOLOGY - NERAL ORDERABLES Final Result [address] [place] [address] * Comprehensive metabolic panel (02/02/2025 11:21 AM CDT) Pathologist [facility] Sodium 135 135 - 145 mmol/L Comment:Testing performed by : [address] [address] Potassium, pl 4.0 3.3 - 4.9 mmol/L CERNER Comment:Testing performed by : [address], [address] Chloride 102 97 - 110 mmol/L CERNER Comment:Testing performed by : [address] [address] CO2 22 22 - 32 mmol/L CERNER Comment:Testing performed by : [address] [address] Anion gap 11 2 - 15 mmol/L CERNER Comment:Testing performed by : [address] [address] BUN 7 6 - 25 mg/dL CERNER Comment:Testing performed by : [address], [address] Creatinine 0.71 0.60 - 1.10 mg/dL CERNER Comment:Testing performed by : [address] [address] Glucose 128 70 - 199 mg/dL CERNER [...] was last revised 2022. Testing performed by: [facility], [address] [place] [address]., [address] Calcium 9.5 8.5 - 10.3 mg/dL CERNER CH Comment:Testing performed by : [address] [address] Bilirubin, total 0.2 0.1 - 1.2 mg/dL CERNER CH Comment:Testing performed by : [address] [address] Protein, pl 7.1 6.5 - 8.5 g/dL CERNER CH Comment:Testing performed by : [address], [address] Albumin 3.9 3.5 - 5.0 g/dL CERNER CH Comment:Testing performed by : [address] [address] Alk phos 50 40 - 130 Units/L CERNER CH Comment:Testing performed by : [address] [address] ALT 42 7 - 45 Units/L CERNER CH Comment:Testing performed by : [address], [address] AST 27 10 - 45 Units/L CERNER CH Comment:Testing performed by : [address] [address] Blood 02/02/2025 11:2 1 AM CDT 02/02/2025 6:54 PM CDT us Leila Romo MD LAB BLOOD ORDERABLES Final Result [address] [place] [address] * Drugs of Abuse Screen, Urine without [...] by Jonathan Styles M.D. CH: Report ID: [id number] Reading Location: [id number] Procedure Note Jonathan Styles Jr., MD - [...] Jonathan Styles M.D. CH: MARK Report ID: [id number] Reading Location: [id number] us Leila Romo MD IMG OB US [...] [birth year] (03/02/2021 11:57 AM CDT) CLINICAL INFORMATION: [facility] Comment:Routine exam LMP [employer] [facility] Comment:UNKNOWN Previous Pap [facility] Comment:INFORMATION NOT PROV IDED Prev. Bx [employer] [facility] Comment:INFORMATION NOT PROV IDED SOURCE: [facility] Comment:Cervix, Endocervix Pap, specimen adequacy [facility] Comment: Satisfactory for evaluation. Endocervical/transformation zone component present. Age and/or menstrual status not provided HPV interp [facility] Comment:Negative for intraep ithelial lesion or malignancy. COMMENTS [employer] [facility] Comment: This Pap test has been evaluated with computer assisted technology. Ssis Etl Developer [facility] Comment: AAM, CT(ASCP) CT Screening Location: [place] [address] Comment [facility] Comment: EXPLANATORY NOTE: The Pap is [...] High Risk E6/E7 Not Detected Not Detected [email or web address] Comment: Methodology: Fiber Designer-Mediated Amplification This assay detects E6/E7 viral messenger RNA (mRNA) from 14 high-risk HPV types (16,18,31,33,35,39,45,51,52,56,58,59,66,68). The analytical performance characteristics of this assay have been determined by [email or web address]. The modifications have not been cleared or approved by the FDA. This assay has been validated pursuant to the CLIA regulations and is used for clinical purposes. For additional information, please refer to http://education.Ryzing/faq/EAO991k0 (This link if provided for information/ educational purposes only.) 03/02/2021 11:5 7 AM CDT 03/03/2021 2:21 AM CDT [facility] - 03/05/2021 3:24 PM CDT FASTING: UNKNOWN Leila Romo MD LAB CYTOLOGY ORDERABL ES Final Result [email or web address] [address] [place] [address] [email or web address] [address] [place] [address] from Last 3 Months or Most Recently Relevant to Health Maintenance Insurance [facility] [employer] H[employer] Care Teams Logging Worker Relationship Specialty Start Date End Date Edgardo Manuel MD PCP - General Internal Medicine 11/03/21
--- OUTSIDE RECORDS SUMMARY | 2025-04-03 12:52 | XMS_ITS | Encounter Summary ---
Author Organization [facility] Healthcare Address [address] [place] [address] Care Team Providers Care Pinball Machine Repairer Name Role Phone Edgardo Manuel MD Primary Care Provider [phone] Reason for Visit * Reason Onset Date Comments Patient issue/concern 04/03/2025 Encounter Details Date Type Department Care Team (Late st Contact Info) Description 04/03/2025 Telephone [facility] [address] [place] [id number] Leila Romo MD [address] [place] [address] Patient issue/concern Social History Tobacco Use Types [...] any time in the past 12 m [facility], were you homeless or living in a [facility] (including now)? 

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
== END 2025-04-03 14:26 | disposition home or self-care (01) ==
LOC: ANHED 12:05 → ANHOBPP 12:36
PROVIDERS: Admitting Provider Obstetrics & Gynecology; Emergency Provider Emergency Medicine; Visit Provider Obstetrics & Gynecology
DX: O99.891 Other specified diseases and conditions complicating pregnancy (principal); M54.9 Dorsalgia, unspecified; V89.2XXA Person injured in unspecified motor-vehicle accident, traffic, initial encounter; O26.892 Other specified pregnancy related conditions, second trimester; R10.30 Lower abdominal pain, unspecified; O16.2 Unspecified maternal hypertension, second trimester; O99.332 Smoking (tobacco) complicating pregnancy, second trimester; F17.200 Nicotine dependence, unspecified, uncomplicated; Z3A.25 25 weeks gestation of pregnancy
CPT/HCPCS: 76815; G0378; G0379

== ENCOUNTER 2025-05-29 16:05 | Observation (INO) | payer OTHER, SELFPAY ==
--- NOTE | ~2025-05-29 | US_ITS ---
EXAMINATION: US OB BPP wo non-stress DATE: 05/29/2025 20:16 CDT INDICATION: Nonreactive stress test. Pelvic pressure TECHNIQUE: Real-time transabdominal obstetric ultrasound. FINDINGS: 2 para 0 There is a single intrauterine gestation in vertex presentation. The placenta is fundal without plac enta previa. cardiac activity and movement is noted with a heart rate of 155 beats per minute. Biophysical profile: breathin of 2 movement: 2 of 2 tone: 2 of 2 Amniotic fluid pocket: 2 of 2 Total score: 8 of 8 Amniotic fluid index measures 13.9 cm, within normal limits. IMPRESSION: 1. Single intrauterine gestation in vertex presentation. 2: Total biophysical profile score of 8 out of 8. Reviewed, dictated and finalized at location A.
--- OUTSIDE RECORDS SUMMARY | 2025-05-29 16:29 | XMS_ITS | Clinical Summary ---
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 adequacy [facility] Comment: Satisfactory for evaluation. Endocervical/transformation zone component present. Age and/or menstrual status not provided HPV interp [facility] Comment:Negative for intraep ithelial lesion or malignancy. COMMENTS [facility] Comment: This Pap test has been evaluated with computer assisted technology. Communications Project Lead [facility] Comment: AAM, CT(ASCP) CT Screening Location: [address] [address] Comment [facility] Comment: EXPLANATORY NOTE: The Pap is [...] High Risk E6/E7 Not Detected Not Detected [facility] Comment: Methodology: Bookkeeping Machine Operator-Mediated Amplification This assay detects E6/E7 viral messenger RNA (mRNA) from 14 high-risk HPV types (16,18,31,33,35,39,45,51,52,56,58,59,66,68). The analytical performance characteristics of this assay have been determined by [facility]. The modifications have not been cleared or approved by the FDA. This assay has been validated pursuant to the CLIA regulations and is used for clinical purposes. For additional information, please refer to http://education.Netbiscuits.SmartHub/faq/GUT908i7 (This link if provided for information/ educational purposes only.) 03/02/2021 11:5 7 AM CDT 03/03/2021 2:21 AM CDT Narrative [facility] - 03/05/2021 3:24 PM CDT FASTING: UNKNOWN Leila Romo MD LAB CYTOLOGY ORDERABL ES Final Result [facility] [address] [place] [address] [facility] [address] [address] [place] [id number] from Last 3 Months or Most Recently Relevant to Health Maintenance Insurance [employer] HMO HE[employer] HMO Care Teams Wire Straightening Machine Operator Relationship Specialty Start Date End Date Edgardo Manuel MD PCP - General Internal Medicine 11/03/21
--- OUTSIDE RECORDS SUMMARY | 2025-05-29 16:29 | XMS_ITS | Encounter Summary ---
Author Organization [facility] Address [address] [place] [address] Phone Care Team Providers Care Medical Engineer Name Role Phone Edgardo Manuel MD Primary Care Provider [phone]- [phone] Reason for Visit * Reason Onset Date Comments Scheduling US/OBC 05/28/2025 Encounter Details Date Type Department Care Team (Late st Contact Info) Description 05/28/2025 Telephone [facility] Maternal- Medicine [address] [place] [address] Jina Hill, [facility] Scheduling US/OBC Social History Tobacco Use Types Packs/Day Years Used Date Smoking Tobacco: Former Cigarettes 0.5 26.6 S tarted: 1998 Smokeless Tobacco: Never Comments:Quit [...] were you homeless or living in a correction (including now)? 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 LB documented in this encounter Plan of Treatment Not on file documented as of this encounter Visit Diagnoses Not on filedocumented in this encounter Care Teams Medical Engineer Relationship Specialty Start Date End Date Edgardo Manuel MD PCP - General Internal Medicine 11/03/21 documented as of this encounter
--- OUTSIDE RECORDS SUMMARY | 2025-05-29 16:29 | XMS_ITS | Encounter Summary ---
Author Organization [facility] Healthcare Address [address] [place] [address] Care Team Providers Care Signal Technician Name Role Phone Edgardo Manuel MD Primary Care Provider [phone]- [phone] Reason for Visit * Reason Onset Date Comments Patient issue/concern 05/28/2025 Encounter Details Date Type Department Care Team (Late st Contact Info) Description 05/28/2025 Telephone [facility] [address] [place] [id number] Leila oRmo MD [address] [place] [address] Patient issue/concern Social History Tobacco Use Types [...] any time in the past 12 m [facility], were you homeless or living in a senior living (including now)? 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 Gender Identity Not on file Sexual Orientation Not on file Occupation Industry Job Start Date Job End Date Not on file Not on file Not on file Not on file documented as of this encounter Ordered Prescriptions Prescription Sig Dispense Quantity Refills Last Filled Start Date End Date pen needle, diabetic 31 gauge x / needleIndications: Gestational diabetes mellitus (GDM) in third trimester, gestational diabetes method of control unspecified Use as directed twice a day 100 each 05/29/2025 alcohol swabs pads, medicated Apply 1 each topically 4 (four) times a day 120 each 3 05/29/2025 lancets misc 1 each by other route 4 (four) times a day 120 each 3 05/29/2025 blood glucose diagnostic (Accu-Chek Guide test strips) stripIndications:G estational diabetes mellitus (GDM) in third trimester, gestational diabetes method of control unspecified 1 each by other route 4 (four) times a day 120 strip 3 05/29/2025 documented in this encounter Miscellaneous Notes * Telephone Encounter - Anjelica Hewitt LPN - 05/29/2025 9:34 AM CDT New orders sent in. Pt aware to start the insulin now and agrees to do so. * Telephone Encounter - Leila Romo MD - 05/28/2025 12:49 PM CDT Please send rx for supplies as requested. I still recommend starting insulin now. While Tums may have affected some of her fasting readings, her daytime readings were significantly elevated (1 hr after meal goal is < 140 and she had multiple >200). * Telephone Encounter - Swapnil Jones - 05/28/2025 11:42 AM CDT Patient called back again as she did not get any needles to go with her Humalog. Patient also is asking if she could wait a week prior to starting the Humalog as she did not take any tums last night and when she checked her blood sugar this morning. It was 96 and she thinks the tums is what was increasing her readings. [facility] [phone] * Telephone Encounter - Swapnil Jones - 05/28/2025 11:12 AM CDT Patient called stating the glucose meter you sent out was too expensive. Patient bought and OTC Accucheck Guide. Patient is asking for a script for the Accucheck Guide test strips, lancets, and alcohol wipes to be sent to [facility] in [place]. documented in this encounter Plan of Treatment Not on file documented as of this encounter Visit Diagnoses Diagnosis Gestational diabetes mellitus (GDM) in third trimester, gestational diabetes method of control unspecified- Primary documented in this encounter Care Teams Signal Technician Relationship Specialty Start Date End Date Edgardo Manuel MD PCP - General Internal Medicine 11/03/21 documented as of this encounter
--- OUTSIDE RECORDS SUMMARY | 2025-05-29 16:29 | XMS_ITS | Clinical Summary ---
Author Organization [facility] Address [address] [place] [address] Phone Care Team Providers Care Sound Engineering Technician Name Role Phone Rachel Gillis APRN Primary [...] Comments Blood Pressure 162/113 12/16/2019 12:40 PM CATERING SERVICE MANAGER Pulse 100 12/16/2019 12:40 PM CATERING SERVICE MANAGER Temperature 37.5 C (99.5 F) 12/16/2019 12:40 PM CATERING SERVICE MANAGER Respiratory Rate 18 12/16/2019 12:40 PM CATERING SERVICE MANAGER Oxygen Saturation 99% 12/16/2019 12:40 PM CATERING SERVICE MANAGER Inhaled Oxygen Concentration - - Weight 86.2 kg (190 lb) 12/16/2019 12:40 PM CATERING SERVICE MANAGER Height 165.1 cm (5' 5) 12/16/2019 12:40 PM CATERING SERVICE MANAGER Body Mass Index 31.62 12/16/2019 12:40 PM CATERING SERVICE MANAGER Plan of Treatment Health Maintenance Due Date Last Done Comments Hepatitis C Virus (HCV) Screening 1981 Hepatitis B Immunization (1 of 3 - 19+ 3-dose series) 01/09/2000 Pap Smear 2002 Human Papillomavirus (HPV) Immunization (1 - 3-dose SCDM series) 01/09/2008 Cervical Cancer Screening (CCS) 2011 HPV/Cotest 2011 SARS-COV-2 Immunization ( season) 2024 Influenza Immunization (#1) 2025 Respiratory Syncytial Virus (RSV) Immunization (Adult) [...] this topic Medical Devices Implanted Type Area Manager Social Services Device Identifier Shelf Expiration Date Model / Serial / Lot Stent Ureteral 6fr 2.1fr 26cm 2 Pigtail Curve 2 Durometer Taper Tip Loprfl Graduated Polaris Ultra - [id number] Implanted:Qty : 1 on 04/30/2019 by Carlotta Gnozalez MD at [facility] IMPLANT Left: Ureter [employer]Tap 01/14/2022 [id number] / [id number] / [id number] Insurance [facility] Advance Directives * Full Code (Latest [...] measures to stabilize the patient. Care Teams Sound Engineering Technician Relationship Specialty Start Date End Date Rachel Gillis APRN [address] [place] [address] PCP - General Family Medicine 07/07/19
--- OUTSIDE RECORDS SUMMARY | 2025-05-29 16:29 | XMS_ITS | Encounter Summary ---
Author Organization [facility] Healthcare Address [address] [place] [address] Care Team Providers Care Private Equity Analyst Name Role Phone Edgardo Manuel MD Primary Care Provider +1- [phone] Reason for Visit * Reason Onset Date Comments Patient issue/concern 05/29/2025 Encounter Details Date Type Department Care Team (Late st Contact Info) Description 05/29/2025 Telephone [facility] Medical [facility] [address] [place] [id number] Leila Romo MD [address] [place] [address] Patient issue/concern Social History Tobacco Use Types [...] any time in the past 12 m [facility], were you homeless or living in a nursing home (including now)? 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 Patient was advised to report to L&D documented in this encounter Plan of Treatment Not on file documented as of this encounter Visit Diagnoses Not on filedocumented in this encounter Care Teams Private Equity Analyst Relationship Specialty Start Date End Date Edgardo Manuel MD PCP - General Internal Medicine 11/03/21 documented as of this encounter
[2025-05-29 17:16] VITALS: BP 128/82; PULSE 84
[2025-05-29 17:30] VITALS: BP 131/87; PULSE 92; BMI 36.6
--- NOTE | 2025-05-29 17:30 | OBADM ---
This patient, Aliyah Mcclelland, admitted to the OB room OB Post 115 for observation. Patient/family oriented to hospital policies and general routines including ID bracelet, bed and alarms, visiting hours, pain management, procedures, bathroom and other care routines, personal items, smoking policy, room service/diet, and visiting hours. Patient/Family are encouraged to report perceived risks to care and to ask questions if they do not understand what they are told or what they should do. Pt. reports lower abdominal shooting pains and feeling the need to pee all the time and not much comes out. She states she had some of this yesterday, then started again at around 1330 today.
[2025-05-29 17:39] LABS: Add Urine Microscopic? YES; Appearance Urine Clear (Clear); Glucose Urine UA Negative (Negative); Leukocyte Esterase Ur 1+ LEU/UL (Negative); Need Manual Microscopic Reviewed; Nitrate Urine Negative (Negative); Non Pathogenic Casts 0-2; Specific Grav Ur 1.022 (1.001-1.035)
[2025-05-29 17:45] VITALS: BP 134/88; PULSE 91
[2025-05-29 18:00] VITALS: BP 137/93; PULSE 90
[2025-05-29 18:15] VITALS: BP 143/94; PULSE 85
[2025-05-29 18:30] VITALS: BP 141/92; PULSE 91
--- NOTE | 2025-05-29 19:24 | PC.NURSE ---
Pt discharged home undelivered in stable condition per order from Dr. Palacio. Discharge instructions explained and given to pt, pt stated understanding, all questions and concerns answered. Pt ambulated out of department with all belongings. S.O @ pt side.
--- NOTE | 2025-06-01 07:50 | P.PNOB_ITS ---
OB - Triage/Final Diagnosis Visit Information Date of evaluation: 05/29/25 Reason for evaluation: threatened labor Comments/Additional reasons for admission: I have assessed the risk for this patient, Aliyah Mcclelland, and determined that she would benefit from observation care. Evaluation Laboratory results: Laboratory Tests 05/29/25 17:12 Urine Color Yellow Urine Appearance Clear Urine pH 6.5 Ur Specific [place] 1.022 Urine Protein Trace Urine Glucose (UA) Negative Urine Ketones Negative Ur Blood (Man) 2+ H Urine Nitrate Negative Urine Bilirubin Negative Urine Urobilinogen 1.0 Add Ur Microanalysis Reviewed Leukocyte Esterase Rfl 1+ H Urine RBC 21-50 H Urine WBC 0-5 Ur Squamous Epith Cells Few Urine Bacteria 2+ H Urine Casts 0-2
== END 2025-05-29 19:26 | disposition home or self-care (01) ==
PROVIDERS: Admitting Provider Student in an Organized Health Care Education/Training Program; Visit Provider Student in an Organized Health Care Education/Training Program
DX: O47.03 False labor before 37 completed weeks of gestation, third trimester (principal); Z3A.33 33 weeks gestation of pregnancy
CPT/HCPCS: 76819; 81001; 87086; G0378; G0379

== ENCOUNTER 2025-07-04 00:14 | Emergency (ER) | payer OTHER, SELFPAY ==
--- OUTSIDE RECORDS SUMMARY | 2025-06-30 20:37 | XMS_ITS | Encounter Summary ---
Author Organization [facility] Healthcare Address [address] [place] [address] Care Team Providers Care Supervisor Sewing Room Name Role Phone Edgardo Manuel MD Primary Care Provider [phone]- [phone] Nichol Ruelas MD Unavailable [phone] Reason for Referral * (Routine) - Pending Review Specialty Diagnoses / Procedures Referred By Contac t Referred To Contact Diagnoses Chronic hypertension during Gestational diabetes mellitus (GDM) requiring insulin Procedures Labor Induction - Nichol Ruelas MD [address] [place] [address] Phone: tel: fax: [address] [address] Referral ID Status Reason Start Date Expiration Date V isits Requested Visits Authorized [id number] Pending Review 06/26/2025 07/26/2026 1 1 Reason for Visit * Reason Comments Scheduled Induction * Auth/Cert Specialty Diagnoses / Procedures Referred By Contac t Referred To Contact Diagnoses Chronic hypertension affecting Procedures NA Referral ID Status Reason Start Date Expiration Date Visits Re quested Visits Authorized [id number] 1 1 Encounter Details Date Type Department Care Team (Late st Contact Info) Description 06/30/2025 8:37 PM CDT - 07/02/2025 7:35 PM CDT Hospital Encounter [address] [phone] Nichol Ruelas MD [address] [place] [address] intolerance to labor, delivered, current hospitalization (Primary Dx); MFM-cHTN; Gestational diabetes mellitus (GDM) requiring insulin; Chronic hypertension affecting [O10.919]; Multigravida of advanced maternal age in third trimester [O09.523]; 38 weeks gestation of [Z3A.38] Discharge Disposition: Discharge to home or self care Social History Tobacco Use Types Packs/Day Years Used Date Smoking Tobacco: Former Cigarettes 0.5 26.7 S tarted: 1998 Smokeless Tobacco: Never Comments:Quit smoking with p regnancy 11/2024 Alcohol Use Standard Drinks/Week Comments Not Currently 0 (1 standard drink = 0.6 oz pur e alcohol) Overall Financial Resource Strain (CARDIA) Answe r Date Recorded How hard is it for you to pa y for the very basics like food, housing, medical care, and heating? Not hard at all 02/12/2025 PHQ-2 Answer Date Recorded PHQ-2 Total Score (If total score is 3 or more points, staff should administer the PHQ-9) 0 06/30/2025 PRAPARE - Transportation Answer Date Re corded [...] any time in the past 12 m [facility], were you homeless or living in a nursing home (including now)? No 02/12/2025 Humiliation, Afraid, Rape, and Kick questionnair e Answer Date Recorded Within the last year, have y ou been afraid of your partner or ex-partner? No 06/30/2025 Within the last year, have y ou been humiliated or emotionally abused in other ways by your partner or ex-partner? No Within the last year, have y ou been kicked, hit, slapped, or otherwise physically hurt by your partner or ex-partner? No 06/30/2025 Within the last year, have y ou been raped or forced to have any kind of sexual activity by your partner or ex-partner? No 06/30/2025 Social Connection and Isolation Panel Answer Date Recorded In a typical week, how many times do you talk on the phone with family, friends, or neighbors? More than three times a week 06/30/2025 How often do you get togethe r with friends or relatives? More than three times a week 06/30/2025 How often do you attend chur or rastafarian services? More than 4 times per year 06/30/2025 Do you belong to any clubs o r organizations such as anabaptist groups, unions, fraternal or athletic groups, or school groups? No 06/30/2025 How often do you attend meet ings of the clubs or organizations you belong to? Never 06/30/2025 Are you , , di vorced, , never , or living with a partner? 06/30/2025 AUDIT-C Answer Date Recorded Q1: How often do you have a drink containing alcohol? Never 06/30/2025 Q2: How many drinks containi ng alcohol do you have on a typical day when you are drinking? Patient does not drink Q3: How often do you have si x or more drinks on one occasion? Never 06/30/2025 Overall Financial Resource Strain (CARDIA) Answe r Date Recorded How hard is it for you to pa y for the very basics like food, housing, medical care, and heating? Not very hard 06/30/2025 [facility] [place] of Occupat ional Health - Occupational Stress Questionnaire Answer Date Recorded Do you feel stress - tense, restless, nervous, or anxious, or unable to sleep at night because your mind is troubled all the time - these days? Only a little 06/30/2025 Exercise Vital Sign Answer Date Recorde d On average, how many days pe r week do you engage in moderate to strenuous exercise (like a brisk walk)? 0 days 06/30/2025 On average, how many minutes do you engage in exercise at this level? 0 min 06/30/2025 Hunger Vital Sign Answer Date Recorded Within the past 12 months, y ou worried that your food would run out before you got the money to buy more. Never true 06/30/20 25 Within the past 12 months, t he food you bought just didn't last and you didn't have money to get more. Never true 06/30/2025 PRAPARE - Transportation Answer Date Re corded In the past 12 months, has l ack of transportation kept you from medical appointments or from getting medications? No 06/2025 In the past 12 months, has l ack of transportation kept you from meetings, work, or from getting things needed for daily living? No 06/30/2025 Housing Stability Vital Sign Answer Sabino e Recorded In the last 12 months, was t here a time when you were not able to pay the mortgage or rent on time? No 06/30/2025 In the past 12 months, how m any times have you moved where you were living? 0 06/30/2025 At any time in the past 12 m [facility], were you homeless or living in a nursing home (including now)? No 06/30/2025 [facility] Utilities Answer Date Recorded In the past 12 months has th e electric, gas, oil, or water company threatened to shut off services in your home? No 06/30/2025 [place] Depression Scale Answer Date Recorded [place] Depression Scale Total 0 07/02/2025 The thought of harming myself has occurred to me . Never 07/02/2025 Personal Safety Answer Date Recorded Have you ever been in or are you currently in a harmful physical or emotional relationship or is someone making you feel afraid or unsafe? Denies 06/30/2025 Comments No Sex and Gender Information Value Date Recorded Sex Assigned at Not on file Legal Sex Female 9:49 AM [employer] Gender Identity Not on file Sexual Orientation Not on file Occupation Industry Job Start Date Job End Date Not on file Not on file Not on file Not on file documented as of this encounter Last Filed Vital Signs Vital Sign Reading Time Taken Comments Blood Pressure 141/98 07/02/2025 4:28 PM CDT Yonas se Notified Pulse 89 07/02/2025 4:28 PM CDT Temperature 37 C (98.6 F) 07/02/2025 4:28 PM CDT Respiratory Rate 16 07/02/2025 4:28 PM CDT Oxygen Saturation 96% 07/01/2025 8:00 PM CDT Inhaled Oxygen Concentration - - Weight - - Height - - Body Mass Index - - documented in this encounter Functional Status * AUDIT-C Score Answer Date of Assessment Author 0 06/30/2025 9:10 PM CDT Sa brian Carr RN * Question Answer Date of Assessment Author Q1: How often do you have a drink containing alcohol? Never 06/30/2025 9:10 PM Karen Yip RN Q2: How many drinks containing alcohol do you have on a typical day when you are drinking? Patient does not drink 06/30/2025 9:10 PM Karen Yip RN Q3: How often do you have six or more drinks on one occasion? Never 06/30/2025 9:10 PM Karen Yip RN documented as of this encounter Discharge Summaries * Nichol Ruelas MD - 07/02/2025 7:07 PM CDT Inpatient Discharge Summary BRIEF OVERVIEW Admitting Provider: Nichol Ruelas MD Discharge Provider: Nichol Ruelas MD Primary Care Physician at Discharge: Edgardo Manuel MD [phone] Admission Date: 06/30/2025 Discharge Date: 07/02/2025 Admission Location: [facility] Problems/Diagnoses: Principal Problem: Chronic hypertension affecting Active Problems: intolerance to labor, delivered, current hospitalization 38 weeks gestation of Resolved Problems: No resolved hospital problems. DETAILS OF HOSPITAL STAY Presenting Problem/History of Present Illness: 45 y/o @ 38w1d presents for scheduled induction for CHTN, GDMA2 per [facility] recommendations. is also complicated by AMA, maternal obesity, and resolved IUGR. Hospital Course: Admit cervical exam was closed. Cytotec was placed, after which FHTs developed recurrent variable decels with minimal variability. She underwent an uncomplicated primary low transverse section of a 5 lb 14 oz male for category 2 tracing remote from delivery/ intolerance of labor. See o perative note for details. Immediate post-operative course was complicated by elevated blood pressures requiring IV labetalol.She had no signs or symptoms of super-imposed preeclampsia. She continued her dose of labetalol 300 mg BID with stable readings the remainder of her admission. By late PPD #1 baby required transfer to the NICU. Patient was stable and requesting discharge as well. Pain: Controlled with norco/ibuprofen Bleeding: lochia minimal PO's: taking regular diet Voiding: without difficulty Ambulating: yes Feeding: breast and bottle feeding CHTN: continue labetalol 300 mg PO BID with outpatient monitoring. Will schedule office visit earlynext week for BP check and staple removal. GDMA2 on insulin. Discontinue NPH and lispro now with plan for 2 hr GTT after 6 weeks. Test Results Pending at Discharge: Pending Labs Order Current Status Surgical pathology In process Operative Procedures Performed: Procedure(s): SECTION Pertinent Test Results: PNL: Rh positive. Rubella immune. Recent Labs Lab Units 07/02/25 0613 06/30/25 2059 WBC K/cumm 15.45* 7.45 HEMOGLOBIN g/dL 11.2* 12.7 HEMATOCRIT % 32.7* 37.9 PLATELETS K/cumm 177 195 Recent Labs Lab Units 06/30/25 2205 06/30/25 2103 SODIUM mmol/L -- 134* POTASSIUM PLASMA mmol/L -- 4.1 CHLORIDE mmol/L -- 106 CO2 mmol/L -- 16* ANIONGAP mmol/L -- 12 GLUCOSE mg/dL -- 144 POC GLUCOSE MONITOR mg/dL 121 -- BUN SERUM mg/dL -- 11 CREATININE mg/dL -- 0.68 CALCIUM mg/dL -- 9.6 ALBUMIN g/dL -- 3.5 ALK PHOS Units/L -- 213* ALT Units/L -- 12 AST Units/L -- 15 BILIRUBIN TOTAL mg/dL -- 0.2 Uric acid 4.6 LDH 142 UPC 0.259 Discharge Details Physical Exam at Discharge: Discharge Condition: stable Pulse: 89 Resp: 16 BP: 141/98 (Nurse Notified) Temp: 37 ??C (98.6 ??F) Weight: Pertinent Exam Findings at Discharge: General: well Fundus: firm, below umbilicus, and nontender Incision: clean, dry, intact Extremities: no edema Discharge Disposition: Patient will be discharged to:home Discharge Instructions: Activity Instructions Discharge Activity: Abdominal support and exercise - Exercise in the post- period is an important component of your overall well-being and recovery. Walking allows you to maintain muscle tone as well as gives you an opportunity to get outside for some fresh air daily. Exercises tighten the abdominal musculature such as sit-ups or leg raises, are also recommended unless you have had a section. Let your own body guide you as to when you may begin and how extensively you should exercise. Remember, too much too early should be avoided, so DO NOT push yourself if your body is not ready. DO NOT exercise to exhaustion. Discharge Activity: Driving restrictions - Section -After an uncomplicated section with a transverse incision (bikini cut), you should waita minimum of one week after delivery to drive a car. You should also be off of narcotic pain medications and feel comfortable performing all of the movements needed to drive. Discharge Activity: General activity level -Normally, it takes six weeks for your body to return to normal. For the first two weeks after delivery, try to get some rest each day. Avoid strenuous work, heavy lifting and excessive social activities. Gradually, you may increase your activity. After the second week, you may get away for some light recreation, such as dinner or a movie. Discharge Activity: Lifting restrictions -Do NOT lift greater than 15 pounds for 6 weeks. Discharge activity: Return to work - It is usually possible to return to ordinary employment about six weeks after your baby is born. If you plan to return to work sooner, please consult first with your body design checker. Discharge activity: Sexual intercourse - Sexual intercourse should be avoided for at least 6 weeks or your first post visit, unlessotherwise told by your doctor. You and your doctor should discuss contraception options at that time as well as an appropriate time to resume sexual intercourse. -No tampons or douching. Diet Instructions Adult Discharge Diet Diet Type: Return to previous diet Other Instructions Breast Care - Bottle feeding -If you are bottle feeding, put on a supportive bra as soon as possible after your baby is born. Breast movements stimulate milk production rather than suppress it. Wear your bra 24 hours a day untilyour breasts return to normal size. Change your bra daily and as needed. If your breasts begin to fill with milk, you may get some relief with ice packs on your breasts. Do not try to force milk out of the breast by squeezing them, This may give you temporary relief but will also stimulate more milk production, thereby prolonging the problem. Remember this -- any kind of stimulation may encouragethe breasts to produce more milk. When showering, avoid having the water spray directly on the breasts and avoid hot water to the breasts. Move slowly up and down stairs to avoid bouncing and stimulation of the breasts. -If any are of either breast becomes red, warm and tender, notify your provider. Breast Care - Nursing If you are nursing there are several things to remember to make the process easier. The baby typically will nurse every two to four hours. He/she will need to feed at least every five hours, even if you have to wake him/her up from a nap (not necessarily at night). Your baby may not eat the same amount at every feeding, so many feedings may be better than others. The breasts work in the supply and demand principle, so nursing and sucking are important to stimulate milk production. The amount oftime spent feeding on each breast should gradually increase to 15 to 20 minutes per breast at each feeding. By alternating the breast you start with each feeding, the supply will be more even with less change of sore nipples. Expect several days until your milk comes in. During your hospital stay, you are encourages to have a nurse watch you feed the baby to offer suggestions for improvement in technique. -If any are of either breast becomes red, warm and tender, notify your provider. Call provider for: excessive or prolonged bleeding Call provider for: fever or severe chills Call provider for: nausea, vomiting, diarrhea -If you have persistent nausea, vomiting or diarrhea that does not stop Call provider for: redness, tenderness, or signs of infection (pain, swelling, redness, odor or green/yellow discharge around incision site) Call provider for: severe uncontrolled pain Call provider if: you feel dizzy, very tired or like you may faint Care Instructions: Vaginal discharge -Vaginal bleeding may persist for up to six weeks after delivery and occasionally longer. It may increase for the first few days at home and may vary throughout the day. At first it will be bright red, changing gradually so that by about ten days following your baby's it will turn pink in color. It may have a slight odor. Sometimes, with excessive activity, it may return to a red color for several days. Nursing may cause increased bleeding, as it caused the uterus to contract. Do not use tampons or douches. Medication instructions -Continue your vitamins and/or iron pills until your six week check-up. Nursing mothers should continue vitamins until they stop nursing. Calcium supplements are also important in breast feeding mothers, and 1000mg supplemental calcium is recommended following delivery. This may be achieved with milk, dairy products or calcium pills. Your provider may instruct you on additional medication that may be necessary. Post-Discharge Dressing Care -You may shower Post-Discharge Dressing Care -You may shower or wash your hair at any time you desire. You should defer tub baths (other than Sitz baths) and swimming for at least 4 weeks. Also, wait until the bleeding stops. Special Instructions: Constipation -Following delivery you may become constipated. To make sure that your stools are soft, drink plenty of fluids including juices, and eat fruits, gallegos tables and bran cereals to put roughage (bulk) into your diet. Your doctor may suggest stool softeners or laxatives if necessary. Contact your provider if you have not had a bowel movement by the third day following delivery. Special Instructions: Hemorrhoids -Hemorrhoids that appear for the first time in late or as a result of delivery will usually resolve and disappear by your six week follow-up appointment. They may also respond well to Sitz baths. Stool softeners can be an effective for of treatment, as they allow your bowel movements to be more regular and subsequently may decrease your straining. The straining may slow the involution of the hemorrhoids. Local medications such as Preparation-H or Anusol may be used. Special Instructions: Menstruation - The return of menstruation after delivery is quite variable. Nursing mothers may start their first menses within the first eight weeks, or may not begin until three months after nursing has stopped. Non-nursing mothers usually start within the first eight weeks. The first menses may be very abnormal (unusually heavy, light, long or short). Remember, the possibility of conception exists any katie after childbirth, whether or not the menses have reappeared and whether or not you are breast feeding. Special Instructions: blues - Sometimes after delivery, one can experience vague unhappiness with feelings of depression and crying. This can occur without obvious cause and is almost always temporary. If there seems to be unusual persistence of depression or any other emotional reaction, notify your provider. Special Instructions: medical care -Please contact your providers office soon after delivery in order to make an appointment for your six week visit. If you had a section, you should also schedule an additional appointment to be seen in the office approximately two to three weeks following delivery.At that time, you will be examined and instructions will be provided on family planning and/or contraception, activities, etc. Special Instructions: Water retention -Swelling of the hands, legs and feet may be noticed for several weeks following delivery, and is usually self-limiting. Discharge Medications: Current Medications TAKE these medications alcohol swabs pads, medicated Apply 1 each topically 4 (four) times a day HYDROcodone-acetaminophen 5-325 mg per tablet Take 1 tablet by mouth every 4 (four) hours as needed for pain For: pain Commonly known as: NORCO ibuprofen 600 mg tablet Take 1 tablet (600 mg total) by mouth every 6 (six) hours as needed for pain For: cramps Commonly known as: ADVIL,MOTRIN labetaloL 200 mg tablet Take 1.5 tablets (300 mg total) by mouth every 12 (twelve) hours Commonly known as: NORMODYNE,TRANDATE lancets misc 1 each by other route 4 (four) times a day pen needle, diabetic 31 gauge x 5/16 needle Use as directed twice a day Outpatient Follow-Up: Contact Information for Follow-ups Nichol Ruelas MD Specialty: Obstetrics and Gynecology Relationship: Commercial Development Manager [address] [place] [address] Next Steps: Follow up Comments: Call office to schedule blood pressure check and staple removal 07/06 Questions: To provider: NICHOL RUELAS documented in this encounter Discharge Instructions * Discharge Instructions* Gerda Villegas RN - 07/02/2025 7:18 PM CDT Follow up with Dr. Ruelas on Sunday for staple removal and blood pressure check. Have blood pressure checked at [facility] tomorrow 07/03/2025. documented in this encounter Medications at Time of Discharge alcohol swabs pads, medicated Apply 1 each topically 4 (four) times a day 120 each 3 05/29/2025 HYDROcodone-acetam inophen (NORCO) 5-325 mg per tabletIndications: Pain Take 1 tablet by mouth every 4 (four) hours as needed for pain 12 tablet 07/02/2025 ibuprofen (ADVIL,MOTRIN) 600 mg tabletIndications: Cramps Take 1 tablet (600 mg total) by mouth every 6 (six) hours as needed for pain 07/02/2025 labetaloL (NORMODYNE,TRANDAT E) 200 mg tabletIndications: Chronic hypertension affecting Take 1.5 tablets (300 mg total) by mouth every 12 (twelve) hours 60 tablet 11 05/27/2025 lancets misc 1 each by other route 4 (four) times a day 120 each 3 05/29/2025 pen needle, diabetic 31 gauge x 5/16 needleIndications: Gestational diabetes mellitus (GDM) in third trimester, gestational diabetes method of control unspecified Use as directed twice a day 100 each 05/29/2025 documented as of this encounter Ordered Prescriptions Prescription Sig Dispense Quantity Refills Last Filled Start Date End Date HYDROcodone-acetami nophen (NORCO) 5-325 mg per tabletIndications:P ain Take 1 tablet by mouth every 4 (four) hours as needed for pain 12 tablet 07/02/2025 ibuprofen (ADVIL,MOTRIN) 600 mg tabletIndications:C ramps Take 1 tablet (600 mg total) by mouth every 6 (six) hours as needed for pain 07/02/2025 documented in this encounter Discharge Disposition Disposition Code Departure Means Destination Discharge to home or self care documented in this encounter Progress Notes * Nichol Ruelas MD - 07/02/2025 8:27 AM CDT Obstetrics Progress Note Events No events Subjective Pain: Controlled with toradol/percocet Bleeding: lochia minimal PO's: taking regular diet Voiding: without difficulty Ambulating: yes Feeding: breast and bottle feeding Vitals Temp: [36.1 ??C (96.9 ??F)-36.3 ??C (97.3 ??F)] 36.3 ??C (97.3 ??F) Pulse: [70-98] 87 Resp: [14-16] 16 BP: (110-174)/(76-93) 110/79 Physical Exam General: well Fundus: firm, below umbilicus, and nontender Incision: dressing clean, dry, intact Extremities: no edema Data Labs Reviewed and Significant for: Recent Labs Lab Units 07/02/25 0606/30/252058 WBC K/cumm 15.45* 7.45 HEMOGLOBIN g/dL 11.2* 12.7 HEMATOCRIT % 32.7* 37.9 PLATELETS K/cumm 177 195 Status Information for the patient's : Margaret Mcclelland [[id number]] [id number] Problem-based Assessment and Plan Aliyah Mcclelland is a 45 y.o. day 1 s/p - cytotec induction for GDMA2, CHTN with intolerance of labor 1. Post care: meeting all goals 2. Hemodynamics: stable 3. Pain: controlled. Transition to PO meds PRN. 4. CHTN: initial postoperative BP's were elevated, requiring IV labetalol. She is asymptomatic withnormal preeclamptic labs, c/w exacerbation of chronic HTN. Continues labetalol 300 mg PO BID and back to baseline now. Continue to monitor. 5. GDMA2 on insulin. Discontinue NPH and lispro now with plan for 2 hr GTT after 6 weeks. 6. PNL: Rh positive. Rubella immune. 7. Vaccinations: Immunization History Administered Date(s) Administered MMR 07/21/1994 Td, adsorbed 11/08/1995 Tdap 12/16/2014 8. Disposition: doing well. Continue routine care with BP monitoring. Nichol Ruelas MD 07/02/2025 documented in this encounter H&P Notes * Nichol Ruelas MD - 07/01/2025 3:45 AM CDT OB History and Physical CC: scheduled induction HPI: 45 y/o @ 38w1d presents for scheduled induction for CHTN, GDMA2 per MFM recommendations. She feels some contractions but denies pain. +FM. No VB or LOF. Denies headache or vision changes. Routine care complicated by: -- CHTN - stable on labetalol 300 mg BID -- GDMA2 on NPH and lispro . -- AMA - low risk NIPT -- Maternal obesity -- Resolved IUGR, co-managed with MFM. Last sono 06/03 - cephalic, posterior placenta, ANNETTE 17.4, [id number] g/4 lb 11 oz (20%, AC 43%) GBS negative. Rh positive. RI. PMH, SH, FMH - see record PE Vitals: 07/01/25 0308 BP: Pulse: Temp: 36.2 ??C (97.2 ??F) BP 145/83 P 78 Gen - A&O, NAD Ext - no edema FHT - on admission 150, mod variability, +accels, no decels. Cytotec placed 2144. At 2330 variable decel x 2 minutes to tammy 70, improved with position change. Recurrent variable decels: 2354 x 1 minute to 65, 0136 x 2 minutes to 60, 0150 x 1.5 minute x 70 followed by minimal variability. IVF bolus running. TOCO - mild CTXs q 3-6 minutes SVE - /90/-3 soft mid Recent Labs Lab Units 06/30/252058 WBC K/cumm 7.45 HEMOGLOBIN g/dL 12.7 HEMATOCRIT % 37.9 PLATELETS K/cumm 195 Recent Labs Lab Units 06/30/25220406/30/25 2103 SODIUM mmol/L -- 134* POTASSIUM PLASMA mmol/L -- 4.1 CHLORIDE mmol/L -- 106 CO2 mmol/L -- 16* ANIONGAP mmol/L -- 12 GLUCOSE mg/dL -- 144 POC GLUCOSE MONITOR mg/dL 121 -- BUN SERUM mg/dL -- 11 CREATININE mg/dL -- 0.68 CALCIUM mg/dL -- 9.6 ALBUMIN g/dL -- 3.5 ALK PHOS Units/L -- 213* ALT Units/L -- 12 AST Units/L -- 15 BILIRUBIN TOTAL mg/dL -- 0.2 Uric acid 4.6 LDH 142 UPC 0.259 A/P: 45 y/o @ 38w1d - scheduled induction for CHTN, GDMA2 1. FHT - category 2 remote from delivery. Minimal cervical change after cytotec and unable to placeanother dose given intolerance. Reviewed findings with patient and recommendation to proceed with delivery. Discussed nature of the procedure, anticipated recovery, and surgical risks including anesthesia, infection, bleeding, injury to adjacent organs including bowel, bladder. Questi ons answered, and she elects to proceed. 2. CHTN - well controlled antepartum on labetalol 300 mg, continued on admission. Initial BP's wereelevated but have since improved. No persistent elevations requiring treatment. No signs or symptoms of superimposed preeclampsia. 3. 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 Received NPH last night with postprandial dinner glucose 121. documented in this encounter Nursing Notes * Karen Carr RN - 07/01/2025 2:38 AM CDT Pre- Huddle completed with Nick larson MD attending physician and this RN. 07/01/2025 2:39 AM Karen Carr RN documented in this encounter Miscellaneous Notes * Plan of Care - Gela Mast, YOAN - 07/02/2025 3:46 PM CDT Problem: Care Goal: Risk for complications during the period will decrease Outcome: Progressing Flowsheets (Taken 07/02/2025 4391) Risk for complications during the period will decrease: Monitor fundal height and consistency Report signs and symptoms of excessive bleeding Monitor lochia amount and color Goal: Ability to identify and utilize resources during the phase will improve Outcome: Progressing Flowsheets (Taken 07/02/2025 154) Ability to identify and utilize resources during the phase will improve: Collaborate with contract negotiation specialist Goal: Ability to demonstrate positive interaction with the child will improve Outcome: Progressing Flowsheets (Taken 07/02/2025 154) Ability to demonstrate positive interaction with the child will improve: Encourage skin to skin contact with Provide family-centered care Goal: Ability to participate in self care as condition permits will improve Outcome: Progressing Flowsheets (Taken 07/02/2025 154) Ability to participate in self-care, as condition permits will improve: Assist with breast and nipple care Assist with perineal skin care Problem: Goal: Mother's verbalization of proper breast feeding techniques will improve Outcome: Progressing Flowsheets (Taken 07/02/2025 154) Mothers verbalization of proper techniques will improve: Instruct on general knowledge of Instruct on establishing/maintaining milk supply Instruct on use of breast pump , hand expression or other methods of pumping Discuss barriers to successful and ways to resolve these issues Goal: Mother's use of appropriate support services will improve Outcome: Progressing Flowsheets (Taken 07/02/2025 154) Mothers use of appropriate support services will improve: Assess available resources and support services Encourage follow-up care Collaborate with services Goal: Mother's demonstration of proper techniques will improve Outcome: Progressing Flowsheets (Taken 07/02/2025 154) Mothers demonstration of proper techniques will improve: Provide breast and nipple care Assess infants weight gain with as appropriate for age Discuss use of pacifier Assess infants nursing behavior Encourage skin to skin contact with Problem: Coping Goal: Ability to verbalize feelings will improve Outcome: Progressing Flowsheets (Taken 07/02/2025 154) Ability to verbalize feelings will improve: Perform psychosocial assessment Encourage alternate coping behavior Provide emotional support Assist identification of possible areas of control Evaluate coping skills and behavior Encourage verbalization of feelings Identify available resources and support systems Goal: Level of anxiety will decrease Outcome: Progressing Flowsheets (Taken 07/02/2025 154) Level of anxiety will decrease: Assess anxiety level Encourage relaxation techniques Monitor effective coping behavior Provide quiet time and decreased environmental stimulation Problem: Communication Impairment Goal: Ability to express needs and understand communication Outcome: Progressing Flowsheets (Taken 07/02/2025 1544) Ability to express needs and understand communication will improve: Encourage communication and provide alternate methods of communication as needed Collaborate with case management/director of social work for discharge needs Include patient/family/caregiver in decisions related to communication Provide tailored communication specific to age, educational level and preferred method Assess cultural/rastafarian beliefs that affect communication Problem: Chronic Conditions and Co-morbidities (Stable) Goal: Patient's chronic conditions and co-morbidity symptoms are monitored and maintained or improved (Please edit to comment chronic conditions for patient) Outcome: Progressing Flowsheets (Taken 07/02/2025 1544) Patient's chronic conditions and co-morbidity symptoms are monitored and maintained or improved: Monitor and assess patient's chronic conditions and comorbid symptoms for stability, deterioration,or improvement Collaborate with multidisciplinary team to address chronic and comorbid conditions and prevent exacerbation or deterioration Update care plan with appropriate goals if chronic or comorbid symptoms are exacerbated and preventoverall improvement and discharge Problem: Fluid Volume Goal: Will maintain adequate fluid volume Outcome: Progressing Flowsheets (Taken 07/02/2025 154) Will maintain adequate fluid volume: Monitor for signs and symptoms of fluid volume excess Monitor intake and output Provide fluid volume management Problem: General Patient Education Goal: Knowledge of disease process, condition or treatment will be improved Outcome: Progressing Flowsheets (Taken 07/02/2025 154) Complications related to the disease process, condition or treatment will be avoided or minimized: Explain self-care Teach medications Discuss information regarding psycho/social/spiritual needs Instruct prevention and discharge planning Problem: Health Behavior Goal: Ability to identify and utilize available resources and services will improve Outcome: Progressing Goal: Ability to identify appropriate support needs for the child bearing process will improve Outcome: Progressing Flowsheets (Taken 07/02/2025 1544) Ability to identify appropriate support needs for the childbearing process will improve: Provide family-centered care Goals: Clinical Goals for the Shift: Stable VS, pain management, bonding. Summary: VSS, pain well controlled, bonding well. * Plan of Care - Octavia Nice RN - 07/01/2025 5:17 PM CDT Problem: Care Goal: Risk for complications during the period will decrease Outcome: Progressing Goal: Ability to identify and utilize resources during the phase will improve Outcome: Progressing Goal: Ability to demonstrate positive interaction with the child will improve Outcome: Progressing Goal: Ability to participate in self care as condition permits will improve Outcome: Progressing Problem: Goal: Mother's verbalization of proper breast feeding techniques will improve Outcome: Progressing Goal: Mother's use of appropriate support services will improve Outcome: Progressing Goal: Mother's demonstration of proper techniques will improve Outcome: Progressing Problem: Coping Goal: Ability to verbalize feelings will improve Outcome: Progressing Goal: Level of anxiety will decrease Outcome: Progressing Problem: Communication Impairment Goal: Ability to express needs and understand communication Outcome: Progressing Problem: Chronic Conditions and Co-morbidities (Stable) Goal: Patient's chronic conditions and co-morbidity symptoms are monitored and maintained or improved (Please edit to comment chronic conditions for patient) Outcome: Progressing Problem: Discharge Planning Goal: Understanding discharge needs will improve Outcome: Progressing Problem: Fluid Volume Goal: Will maintain adequate fluid volume Outcome: Progressing Problem: General Patient Education Goal: Knowledge of disease process, condition or treatment will be improved Outcome: Progressing Problem: Health Behavior Goal: Ability to identify and utilize available resources and services will improve Outcome: Progressing Goal: Ability to identify appropriate support needs for the child bearing process will improve Outcome: Progressing Problem: Nutrition Goal: Dietary intake will improve Outcome: Progressing Goal: Achievement of adequate weight for body size and type will improve Outcome: Progressing Problem: Physical Regulation Goal: Complications will be avoided or minimized Outcome: Progressing Problem: Role Relationship Goal: Ability to demonstrate positive interactions with child will improve Outcome: Progressing Goals: Clinical Goals for the Shift: VSS, pain well managed Summary: Vital signs stable, pain managed with medication, and bedside shift report given to YOAN Suárez. Octavia Nice RN * Note - Fina Alonzo RN - 07/01/2025 8:00 AM CDT This RN to bedside for consultation. Verbal consent obtained to touch to perform assessment as well as permission to assess and touch Mom for latch score. Offered my assistance to Mother and she accepts. RN's asked for consult d/t 38 weeker, with low Blood sugar and 2 temp drops. is sleepy and not int in a feeding at this time. Infant then placed under warmer to rewarm. Taught pt how to hand express. Pt attempted to express for about 10 min without ability to get any colostrum out. Hospital grade pump then provided with a 17mm flange. Pumped for 20min. Reviewed importance of positioning infant properly in whatever position is most comfortable to her.Reviewed belly to belly, chest to breast, and ear/shoulder/hip in a straight line, infant turned towards mother. She verbalized understanding. Reviewed importance of feeding 8-12 times per 24 hours and not on a schedule. Reviewed signsof hunger or feeding cues. Discussed milk supply coming to fullness within 3-5 days with 8-12x/day stimulation. Reviewed hand expression as well. Offered my continued support as needed. Discussed utilizing outpatient after discharge aswell. Family will call for assistance as needed. 07/01/2025 8:24 AM Fina Alonzo RN * Op Note - Nichol Ruelas MD - 07/01/2025 4:05 AM CDT Section Operative Note Indications: 45 y/o @ 38w1d presents for induction for CHTN on labetaol and GDMA2 on insulin. also complicated by AMA and maternal obesity. Cytotec was placed, after which FHTs developed recurrent variable decels with minimal variability. After reviewing risks/benefits/alternatives, she elected for delivery for category 2 tracing remote from delivery. Procedure: Primary low transverse section Pre-operative Diagnosis: intolerance of labor Post-operative Diagnosis: same Surgeon: Nichol Ruelas MD Anesthesia: Spinal anesthesia Procedure Details After induction of anesthesia, the patient was moved to the supine position with leftward tilt and prepped and draped in sterile fashion. A scalpel was used to make a Pfannenstiel skin incision and carried down through the subcutaneous tissue to the fascia, which was nicked in the midline. The fascial incision was then extended transversely with Quintana scissor. The inferior aspect of the fascial incision was grasped with Monie clamps and underlying rectus muscles dissected off both bluntly and sharply. Attention was then turned to the superior aspect of the incision, which was addressed in a similar manner. The rectus muscles were divided bluntly in the midline. The peritoneum was identifiedand entered and extended bluntly. The utero-vesical peritoneal reflection was incised transversely and the bladder flap was bluntly freed from the lower uterine segment. A low transverse uterine incision was then made. Rupture of membranes was performed and clear fluidnoted. head was then lifted to the hysterotomy and delivered, followed by shoulders and body without difficulty. Nose and mouth were suctioned, the umbilical cord was clamped and cut, and was handed to awaiting nursery staff. Cord blood was obtained for evaluation. The placenta was removed spontaneously intact and appeared normal. The uterus was then exteriorized from the abdomen and the cavity was cleared of debris. The uterineincision was then closed with running locked sutures of 0 Vicryl followed by a vertical imbricatinglayer and midline figure of eight stitch for hemostasis. The uterus was then returned to the abdomen and the gutters were cleared of debris. The uterine incision as well as rectus muscles were noted to be hemostatic. The fascia was then reapproximated with running suture of 0 Vicryl from left to right angle. The subcutaneous tissue was well irrigated and hemostasis noted. Skin was reapproximated with michael. Instrument, sponge, and needle counts were correct prior to the abdominal closure and at the conclusion of the case. Findings: Cephalic male. APGARS 8/9. Weight 5 lb 14.8 oz. Cord blood gases: Arterial pH 7.28, BE -2. Venous pH 7.31, BE -2. Normal appearing uterus, bilateral tubes and ovaries. Quantitative Blood Loss: 195 cc Drains: melton Specimens: cord gases and placenta Complications: None; patient tolerated the procedure well. Disposition: PACU - hemodynamically stable. Condition: stable documented in this encounter Plan of Treatment Pending Results Name Type Priority Associated Diagnoses Date /Time Surgical pathology Pathology and Cytology Routine 07/01/2025 9:09 AM CDT Scheduled Orders Name Type Priority Associated Diagnoses Order Schedule Labor Induction - OB Routine MFM-cHTN Gestational diabetes mellitus (GDM) requiring insulin Once for 1 Occurrences starting 06/30/2025 until 06/30/2025 Surgical pathology Pathology and Cytology Routine Once for 1 Occurrences starting 07/01/2025 until 07/01/2025 documented as of this encounter Procedures Procedure Name Priority Date/Time Associated Diagnosis Comments CBC WITHOUT DIFFERENTIAL Routine 07/02/2025 6:13 AM CDT BLOOD GAS, CORD VENOUS STAT 07/01/2025 5:08 AM CDT BLOOD GAS, CORD ARTERIAL STAT 07/01/2025 5:08 AM CDT SECTION 07/01/2025 4:12 AM CDT intolerance to labor, delivered, current hospitalization POCT GLUCOSE DEVICE Routine 06/30/2025 1 0:05 PM CDT EGFR STAT 06/30/2025 9:03 PM CDT URIC ACID STAT 06/30/2025 9:03 PM CDT LACTATE DEHYDROGENASE STAT 06/30/2025 9:03 PM CDT COMPREHENSIVE METABOLIC PANEL STAT 06/30/2025 9:03 PM CDT DRUG SCREEN, URINE L AND D WITH REFLEX CONFIRMATION Routine 06/30/2025 8:59 PM CDT PROTEIN / CREATININE RATIO, URINE, RANDOM Routine 06/30/2025 8:59 PM CDT RBC ANTIGEN SEROLOGIC PHENOTYPING Routine 06/30/2025 8:59 PM CDT ANTIBODY IDENTIFICATION STAT 06/30/2025 8:59 PM CDT ABO/RH STAT 06/30/2025 8:59 PM CDT RPR Routine 06/30/2025 8:59 PM CDT CBC WITHOUT DIFFERENTIAL STAT 06/30/2025 8:59 PM CDT ANTIBODY SCREEN STAT 06/30/2025 8:59 PM CDT TYPE AND SCREEN STAT 06/30/2025 8:59 PM CDT documented in this encounter Results * (ABNORMAL) CBC without differential (07/02/2025 6:13 AM CDT) Pathologist [facility] WBC 15.45(H) 3.80 - 9.90 K/cumm Hgb 11.2(L) 11.9 - 15.5 g/dL [facility] ([place]) Hct 32.7(L) 35.6 - 45.5 % [facility] ([place]) Plt 177 150 - 400 K/cumm [facility] ([place]) MPV 10.8 9.1 - 12.3 fL [facility]) RBC 3.66(L) 3.90 - 5.20 M/cumm [facility] ([place]) MCV 89.3 81.3 - 96.4 fL [facility] ([place]) MCH 30.6 27.1 - 33.3 pg [facility] ([place]) MCHC 34.3 32.3 - 35.7 g/dL [facility] ([place]) RDW CV 13.8 11.1 - 14.9 % [facility] ([place]) RDW SD 45.0 35.7 - 48.1 fL [facility] ([place]) NRBC abs 0.00 0.00 - 0.01 K/cumm [facility] ([place]) Blood 07/02/2025 6:13 AM CDT 07/02/2025 6:24 AM CDT us Nichol Ruelas MD LAB BLOOD ORDERABLES Final Result [facility] ([place]) [facility] [place] [address] * Blood Gas, Cord Venous (07/01/2025 5:08 AM CDT) pH Cord Darryn 7.31 pCO2 Cord Darryn 48 mmHg [facility] ([place]) pO2 Cord Darryn 23 mmHg [facility] ([place]) Base Excess Cord Darrny -2 mmol/L [facility] ([place]) HCO3 Cord Darryn (Calc) 24 mmol/L [facility] ([place]) O2 Sat Cord Darryn (Jada) 47 % [facility] ([place]) Comment: Interpretive Data No Reference Ranges Established Current Interpretive Data was last revised on 2018 Cord blood 07/01/2025 5:08 AM CDT 07/01/2025 5:13 AM CDT Nichol Ruelas MD LAB BLOOD ORDERABLES Final Result Performing Organization Address [facility] de Phone Number [facility] ([place]) [address] [place] [address] [place] [address] * Blood Gas, Cord Arterial (07/01/2025 5:08 AM CDT) pH Cord Art 7.28 pCO2 Cord Art 56 mmHg [facility] ([place]) pO2 Cord Art 16 mmHg [facility] ([place]) Base Excess Cord Art -2 mmol/L [facility] ([place]) HCO3 Cord Art (Calc) 25 mmol/L [facility] ([place]) O2 Sat Cord Art (Jada) 25 % [facility] ([place]) Comment: Interpretive Data No Reference Ranges Established Current Interpretive Data was last revised on 2018 Cord blood 07/01/2025 5:08 AM CDT 07/01/2025 5:13 AM CDT Nichol Ruelas MD LAB BLOOD ORDERABLES Final Result Performing Organization Address City/[facility] Co de Phone Number [facility] ([place]) [address] [facility] [place] [address] * POCT glucose (06/30/2025 10:05 PM CDT) Glucose, POC 121 70 - 199 mg/dL Blood 06/30/2025 10:0 5 PM CDT 06/30/2025 10:05 PM CDT Nichol Ruelas MD LAB POCT ORDERABLES - DEVICE Final Result [facility] ([place]) 1 [facility] [place] [address] * eGFR (06/30/2025 9:03 PM CDT) [facility] eGFR >90 >=60 mL/min/1. 73 m2 Comment: [...] Current interpretive data was last reviewed 2021. Blood 06/30/2025 9:03 PM CDT 06/30/2025 9:36 PM CDT us Nichol Ruelas MD LAB BLOOD ORDERABLES Final Result [facility] ([place]) [address] [facility] [place] [address] * (ABNORMAL) Comprehensive metabolic panel (06/30/2025 9:03 PM CDT) Sodium 134(L) 135 - 145 mmol/L [facility] ([place]) Potassium, pl 4.1 3.3 - 4.9 mmol/L [facility] ([place]) Chloride 106 97 - 110 mmol/L [facility] ([place]) CO2 16(L) 22 - 32 mmol/L [facility] ([place]) Anion gap 12 2 - 15 mmol/L [facility] ([place]) BUN 11 6 - 25 mg/dL [facility] ([place]) Creatinine 0.68 0.60 - 1.10 mg/dL [facility] ([place]) Glucose 144 70 - 199 mg/dL [facility] ([place]) Comment: Interpretive Data Fasting glucose >/= 126 [...] Current interpretive data was last revised 2022. Calcium 9.6 8.5 - 10.3 mg/dL [facility] ([place]) Bilirubin, total 0.2 0.1 - 1.2 mg/dL [facility] ([place]) Protein, pl 7.5 6.5 - 8.5 g/dL [facility] ([place]) Albumin 3.5 3.5 - 5.0 g/dL [facility] ([place]) Alk phos 213(H) 40 - 130 Units/L [facility] ([place]) ALT 12 7 - 45 Units/L [facility] ([place]) AST 15 10 - 45 Units/L [facility] ([place]) Blood 06/30/2025 9:03 PM CDT 06/30/2025 9:36 PM CDT us Nichol Ruelas MD LAB BLOOD ORDERABLES Final Result [facility] ([place]) 1 [facility] [place] [address] * Lactate dehydrogenase (LD) (06/30/2025 9:03 PM CDT) Pathologist [facility] Lactate dehydrogenase (LDH) 142 100 - 250 Units/L [facility]) Blood 06/30/2025 9:03 PM CDT 06/30/2025 9:36 PM CDT Nichol Ruelas MD LAB BLOOD ORDERABLES Final Result [facility] ([place]) 1 [facility] [place] [address] * Uric acid (06/30/2025 9:03 PM CDT) [facility] Uric acid 4.6 2.5 - 7.0 mg/dL [facility] Blood 06/30/2025 9:03 PM CDT 06/30/2025 9:36 PM CDT Nichol Ruelas MD LAB BLOOD ORDERABLES Final Result [facility] ([place]) 1 [facility] [place] [address] * RBC Antigen Serologic Phenotyping (06/30/2025 8:59 PM CDT) [facility] Erythrocyte ag Jose Negative Blood 06/30/2025 8:59 PM CDT 07/01/2025 5:19 AM CDT iNchol Ruelas MD LAB BLOOD BANK TEST O RDERABLES Final Result [facility]ARD [facility]) 1 [facility] [place] [address] * Antibody identification (06/30/2025 8:59 PM CDT) Pathologist [facility] Antibody Identification Interpretation Anti-Jose Blood 06/30/2025 8:59 PM CDT 06/30/2025 9:36 PM CDT Nichol Ruelas MD LAB BLOOD BANK TEST O RDERABLES Final Result [facility] ([place]) 1 [facility] [place] [address] * (ABNORMAL) Antibody screen (06/30/2025 8:59 PM CDT) Hope, indirect, Gel Interpretation Positive( A) Blood 06/30/2025 8:59 PM CDT 06/30/2025 9:36 PM CDT Narrative RICHARD [facility] ([place]) - 06/30/2025 10:36 PM CDT Has the patient had Daratumumab or Isatuximab in the past 6 months?->Unknown Nichol Ruelas MD LAB BLOOD BANK TEST O RDERABLES Final Result Performing Organization Address City/[facility] Co de Phone Number [facility]ARD SANTIAG[facility] ([place]) 1 [facility] [place] [address] * ABO/Rh (06/30/2025 8:59 PM CDT) ABO/Rh A Positive Blood 06/30/2025 8:59 PM CDT 06/30/2025 9:36 PM CDT Narrative [facility] ([place]) - 06/30/2025 10:36 PM CDT Has the patient had Daratumumab or Isatuximab in the past 6 months?->Unknown Nichol Ruelas MD LAB BLOOD BANK TEST O RDERABLES Final Result [facility] ([place]) 1 [facility] [place] [address] * (ABNORMAL) Protein / creatinine ratio, urine, random (06/30/2025 8:59 PM CDT) Protein, ur, quant 23.1 mg/dL [facility] ([place]) Comment: Interpretive Data No reference range established. Current interpretive data was last revised 2019. Creatinine Ur 89.1 mg/dL [facility] ([place]) Comment: Interpretive Data No reference range established. Current interpretive data was last revised 2019. Protein/creatinin e ratio 259.3(H) 0.0 - 180.0 mg/g CR [facility] ([place]) Urine 06/30/2025 8:59 PM CDT 06/30/2025 9:36 PM CDT us Nichol Ruelas MD LAB URINE ORDERABLES Final Result [facility] ([place]) 1 [facility] Department [place] [address] * Drug Screen, Urine L and D with Reflex Confirmation (06/30/2025 8:59 PM CDT) Amphetamine, ur Not Detected CutOff 500ng/mL [facility] ([place]) Comment: Interpretive Data - Amphetamines: Samples containing greater than 500 ng/mL d-methamphetamine or other cross-reacting amphetamine compounds are reported as positive. Amphetamine immunoassays are subject to significant false positive rates due to cross-reactivity of non-amphetamine drugs. Confirmatory testing required for definitive results. Current Interpretive Data was last reviewed 2023. Barbiturates, ur Not Detected CutOff 200ng/mL [facility] ([place]) Comment: Interpretive Data - Barbiturates: Samples containing greater than 200 ng/mL secobarbital or other cross-reacting barbiturate compounds are reported as positive. False positive and false negative results are possible. Confirmatory testing required for definitive results. Current Interpretive Data was last reviewed 2023. Benzodiazepines, ur Not Detected CutOff 100ng/mL [facility] ([place]) Comment: Interpretive Data - Benzodiazepines: Samples containing greater than 100 ng/mL nordiazepam or other cross-reacting compounds are reported as positive. False positive and false negative results are possible. Confirmatory testing required for definitive results. Current Interpretive Data was last reviewed 2023. Cannabinoids, ur Not Detected CutOff 50 ng/mL [facility] ([place]) Comment: Interpretive Data - Cannabinoids: Samples containing greater than 50 ng/mL delta-9 THC -COOH or other cross- reacting compounds are reported as positive. False positive and false negative results are possible. Confirmatory testing required for definitive results. Current Interpretive Data was last reviewed 2023. Cocaine, ur Not Detected CutOff 150ng/mL [facility] ([place]) Comment: Interpretive Data - Cocaine: Samples containing greater than 150 ng/mL benzoylecgonine or other cross- reacting compounds are reported as positive. False positive and false negative results are possible. Confirmatory testing required for definitive results. Current Interpretive Data was last reviewed 2023. Fentanyl, Ur Not Detected CutOff 5 ng/mL [facility] ([place]) Comment: Interpretive Data - Fentanyl: Samples containing greater than 5 ng/mL norfentanyl, fentanyl, or other cross-reacting fentanyl compounds are reported as positive. False positive and false negative results are possible. Confirmatory testing required for definitive results. Current Interpretive Data was last reviewed 2023. Methadone, ur Not Detected CutOff 300ng/mL [facility] ([place]) Comment: Interpretive Data - Methadone: Samples containing greater than 300 ng/mL d,l-methadone or other cross-reacting compounds are reported as positive. False positive and false negative results are possible. Confirmatory testing required for definitive results. Current Interpretive Data was last reviewed 2023. Opiates, ur Not Detected CutOff 300ng/mL [facility] ([place]) Comment: Interpretive Data - Opiates: Samples containing greater than 300 ng/mL morphine or other cross-reacting compounds are reported as positive. False positive and false negative results are possible. Confirmatory testing required for definitive results. Current Interpretive Data was last reviewed 2023. Oxycodone, ur NOT DETECTED CutOff 100ng/mL [facility] ([place]) Comment: Interpretive Data - Oxycodone: Samples containing greater than 100 ng/mL oxycodone or other cross-reacting compounds are reported as positive. False positive and false negative results are possible. Confirmatory testing required for definitive results. Current Interpretive Data was last reviewed 2023. Phencyclidine, ur Not Detected CutOff 25 ng/mL [facility] ([place]) Comment: Interpretive Data - Phencyclidine: Samples containing greater than 25 ng/mL phencyclidine or other cross-reacting compounds are reported as positive. False positive and false negative results are possible. Confirmatory testing required for definitive results. Current Interpretive Data was last reviewed 2023. Urine Creatinine 90 mg/dL [facility] ([place]) Comment: Interpretive Data Urine Creatinine: < 10 mg/dL is extremely dilute = or > 10 but < 20 mg/dL is dilute = or > 20 mg/dL is normal Current Interpretive Data was last revised on 2018. Urine 06/30/2025 8:59 PM CDT 06/30/2025 11:03 PM CDT Narrative [facility] ([place]) - 06/30/2025 11:30 PM CDT Is patient or admitted for delivery?->Yes Select the indication(s) for ordering drug screen:->Other (please specify) Please provide reason:->possible falso positive for amphetamines in january Indicate if consent has been obtained for this test:->Consent obtained Drug of Abuse screening is performed by immunoassay for medical purposes only. This is not to be used for Pain Management purposes. If Detected, confirmation testing will be performed for Amphetamines, Barbiturates, Benzodiazepines, Cannabinoids, Cocaine, Fentanyl, Methadone, Opiates, Oxycodone or Phencyclidine. Nichol Ruelas MD LAB URINE ORDERABLES Final Result [facility] ([place]) [facility] [place] [address] * CBC without differential (06/30/2025 8:59 PM CDT) WBC 7.45 3.80 - 9.90 K/cumm Hgb 12.7 11.9 - 15.5 g/dL [facility] ([place]) Hct 37.9 35.6 - 45.5 % [facility] ([place]) Plt 195 150 - 400 K/cumm [facility] ([place]) MPV 11.3 9.1 - 12.3 fL [facility] ([place]) RBC 4.19 3.90 - 5.20 M/cumm [facility] ([place]) MCV 90.5 81.3 - 96.4 fL [facility] ([place]) MCH 30.3 27.1 - 33.3 pg [facility] ([place]) MCHC 33.5 32.3 - 35.7 g/dL [facility] ([place]) RDW CV 13.9 11.1 - 14.9 % [facility] ([place]) RDW SD 45.8 35.7 - 48.1 fL [facility] ([place]) NRBC abs 0.00 0.00 - 0.01 K/cumm [facility] ([place]) Blood 06/30/2025 8:59 PM CDT 06/30/2025 9:36 PM CDT Nichol Ruelas MD LAB BLOOD ORDERABLES Final Result [facility] ([place]) [address] [facility] [place] [address] * RPR Blood (06/30/2025 8:59 PM CDT) RPR Nonreactive Nonreactive Comment:Testing performed by : [facility], [address] [place] [address], [id number] Blood 06/30/2025 8:59 PM CDT 07/01/2025 9:26 AM CDT Nichol Ruelas MD LAB MICROBIOLOGY - GE NERAL ORDERABLES Final Result [facility] ([place]) [address] [facility] [place] [address] documented in this encounter Visit Diagnoses Diagnosis Chronic hypertension affecting - Primary M-cHTN Gestational diabetes mellitus (GDM) requiring insulin intolerance to labor, delivered, current hospitalization Chronic hypertension affecting [O10.919] Multigravida of advanced maternal age in third trimester [O09.523] 38 weeks gestation of [Z3A.38] intolerance to labor, delivered, current hospitalization 38 weeks gestation of documented in this encounter Admitting Diagnoses Diagnosis intolerance to labor, delivered, current hospitalization documented in this encounter Administered Medications Inactive Administered Medications - up to 3 most recent administrations Medication Order MAR Action Action Date Dose Rate Site calcium carbonate (TUMS) chewable tablet 1,000 mg 1,000 mg (400 mg of elemental calcium), oral, Once, On Sun06/30/25 at 2245, For 1 dose Given 06/30/2025 10:18 PM CDT 1,000 mg calcium carbonate (TUMS) chewable tablet 1,000 mg 1,000 mg (400 mg of elemental calcium), oral, 2 times daily, First dose (after last modification) on Sun07/01/25 at 1915 Given 07/02/2025 7:24 PM CDT 1,000 mg Given 07/02/2025 6:39 AM CDT 1,000 mg Given 07/01/2025 6:45 PM CDT 1,000 mg docusate sodium (COLACE) capsule 100 mg 100 mg, oral, 2 times daily, First dose on Sun07/01/25 at 0900, Hold if diarrhea., Indications: constipation, Stool SoftenerIndications:constipation,Stool Softener Given 07/02/2025 7:24 PM CDT 100 mg Given 07/02/2025 6:40 AM CDT 100 mg Given 07/01/2025 8:37 AM CDT 100 mg HYDROcodone-acetaminophen (NORCO) 5-325 mg per tablet 1 tablet 1 tablet, oral, Every 4 hours PRN, 1st line for pain, Starting on Sun07/02/25 at 0000, May repeat in 1 hour if pain is uncontrolled or increasing. Max 2 doses within 1 dosing interval. Start in 24 hours after Anesthesia no longer covering., Indications: PainIndications:Pain Given 07/02/2025 7:24 PM CDT 1 tablet Given 07/02/2025 5:15 AM CDT 1 tablet Given 07/01/2025 10:49 PM CDT 1 tablet ibuprofen (ADVIL,MOTRIN) tablet 600 mg 600 mg, oral, Every 6 hours PRN, other, cramping, Starting on Sun07/02/25 at 0322, Start in 24 hours after Anesthesia no longer covering., Indications: CrampsIndications:Cramps Given 07/02/2025 2:38 PM CDT 600 mg insulin NPH (HumuLIN N, NovoLIN N) 100 unit/mL injection 13 Units 13 Units, subcutaneous, Once, On Sun06/30/25 at 2230, For 1 dose, Reason for prescribing NPH: other, Specify reason why: GDM Given 06/30/2025 10:05 PM CDT 13 Units Left Upper Arm ketorolac (TORADOL) 30 mg/mL injection 30 mg 30 mg, intravenous, Every 6 hours scheduled, First dose on Sun07/01/25 at 1130, For 24 hours, Max 4 doses. Anesthesia orders for the first 24 hours ., Indications: PainIndications:Pain Given 07/02/2025 6:39 AM CDT 30 mg Given 07/02/2025 12:15 AM CDT 30 mg Given 07/01/2025 6:52 PM CDT 30 mg labetaloL (NORMODYNE,TRANDATE) injection 20 mg 20 mg, intravenous, at 120 mL/hr, Administer over 2 Minutes, Every 10 min PRN, high blood pressure, SBP greater than or equal to 160 or DBP greater than or equal to 110; Hold if HR less than 60., Starting on Sun07/01/25 at 0643, For 8 hours, After each dose of labetalol, recheck BP every 5 minutes. If SBP greater than or equal to 160 or DBP greater than or equal to 110 after 10 minutes, proceed to labetalol 40 mg. If SBP less than 160 and DBP less than 110, proceed to vital signs follow up order. Given 07/01/2025 6:51 AM CDT 20 mg 120 mL/hr labetaloL (NORMODYNE,TRANDATE) injection 40 mg 40 mg, intravenous, at 240 mL/hr, Administer over 2 Minutes, Every 10 min PRN, high blood pressure, SBP greater than or equal to 160 or DBP greater than or equal to 110 after labetalol 20 mg; Hold if HR less than 60., Starting on Sun07/01/25 at 0643, For 8 hours, After each dose of labetalol, recheck BP every 5 minutes. If SBP greater than or equal to 160 or DBP greater than or equal to 110 after 10 minutes, proceed to labetalol 80 mg. If SBP less than 160 and DBP less than 110, proceed to vital signs follow up order. Given 07/01/2025 7:36 AM CDT 40 mg 24 0 mL/hr labetaloL (NORMODYNE,TRANDATE) injection 80 mg 80 mg, intravenous, at 480 mL/hr, Administer over 2 Minutes, Every 10 min PRN, high blood pressure, SBP greater than or equal to 160 or DBP greater than or equal to 110 after labetalol 40 mg; Hold if HR less than 60., Starting on Sun07/01/25 at 0643, For 8 hours, After each dose of labetalol, recheck BP every 5 minutes. If SBP greater than or equal to 160 or DBP greater than or equal to 110 after 10 minutes, proceed to hydralazine 10 mg. If SBP less than 160 and DBP less than 110, proceed to vital signs follow up order. Given 07/01/2025 8:02 AM CDT 80 mg 48 0 mL/hr labetaloL (NORMODYNE,TRANDATE) tablet 300 mg 300 mg, oral, 2 times daily, First dose on Sun06/30/25 at 2230 Given 07/02/2025 7:24 PM CDT 300 mg Given 07/02/2025 9:22 AM CDT 300 mg Given 07/01/2025 10:49 PM CDT 300 mg Lactated Ringer's (LR) bolus 1,000 mL 1,000 mL, intravenous, at 999 mL/hr, Administer over 1 Hours, 3 times daily PRN, for non-reassuring heart rate, variable decelerations, or late deceleration., Starting on Sun06/30/25 at 2038, For 1 dose, L&D Pre-Delivery Bolus from Bag (with volume) 07/01/2025 2:03 AM CDT 1,000 mL 999 mL/hr Rate/Dose Verify 07/01/2025 2:01 AM CDT 999 mL/ hr Lactated Ringer's (LR) bolus 1,000 mL 1,000 mL, intravenous, at 999 mL/hr, Administer over 1 Hours, 3 times daily PRN, for non-reassuring heart rate, variable decelerations, or late deceleration., Starting on Sun07/01/25 at 0203, L&D Pre-Delivery Restarted 07/01/2025 3:04 AM CDT 9 99 mL/hr New Bag 07/01/2025 2:08 AM CDT 1,000 mL 999 mL/hr Lactated Ringer's (LR) infusion 125 mL/hr, intravenous, Continuous, Starting on Sun07/01/25 at 0145 Restarted 07/01/2025 12:43 PM CDT 125 mL/hr Rate/Dose Verify 07/01/2025 8:55 AM CDT 125 mL/ hr New Bag 07/01/2025 6:56 AM CDT 125 mL/hr 125 mL/hr miSOPROStol (CYTOTEC) split tablet 25 mcg 25 mcg, vaginal, Once, On Sun06/30/25 at 2115, For 1 dose, L&D Pre-Delivery, Indications: Cervical Ripening ProcedureIndications:Cervical Ripening Procedure Given 06/30/2025 9:44 PM CDT 25 mcg ondansetron (ZOFRAN) injection 4 mg 4 mg, intravenous, Administer over 2 Minutes, Every 6 hours PRN, nausea, vomiting, if not tolerating PO, Starting on Sun06/30/25 at 2038, L&D Pre-Delivery, Indications: Nausea and VomitingIndications:Nausea and Vomiting Given 07/01/2025 1:04 AM CDT 4 mg ondansetron (ZOFRAN) injection 4 mg 4 mg, intravenous, Administer over 2 Minutes, Every 6 hours PRN, nausea, vomiting, if not tolerating PO, Starting on Sun07/01/25 at 0730, Indications: Nausea and VomitingIndications:Nausea and Vomiting ondansetron ODT (ZOFRAN-ODT) disintegrating tablet 4 mg 4 mg, oral, Every 6 hours PRN, nausea, vomiting, Starting on Sun07/01/25 at 0730, If administering by mouth, place tablet on tongue and allow to dissolve., Indications: Nausea and VomitingIndications:Nausea and Vomiting oxyCODONE (ROXICODONE) tablet 5 mg 5 mg, oral, Every 4 hours PRN, 2nd line for pain, Starting on Sun07/01/25 at 0730, For 24 hours, When able to tolerate PO. Anesthesia orders for the first 24 hours ., Indications: PainIndications:Pain Given 07/01/2025 3:18 PM CDT 5 mg Given 07/01/2025 8:37 AM CDT 5 mg oxytocin 30 unit/500 mL (0.06 unit/mL) in sodium chloride 0.9% (premix) solution 95-334 milliunits/min (95-334 mL/hr), 0.06 units/mL, intravenous, Continuous, Starting on Sun07/01/25 at 0615, Until Sun07/01/25 at 0943, After delivery of placenta initiate at 334 naida-units/minutes for 30 minutes then decrease infusion to 95 naida-units/min for 3.5 hours., Routine Rate/Dose Verify 07/01/2025 8:07 AM CDT 95 milliunits/min 95 mL/hr Rate/Dose Verify 07/01/2025 7:50 AM CDT 95 milliunits/min 95 mL/hr Rate/Dose Verify 07/01/2025 5:45 AM CDT 95 milliunits/min 95 mL/hr vit-iron fum-folic ac tablet 1 tablet 1 tablet, oral, Daily, First dose on Sun07/01/25 at 1800, Begin when normal bowel activity resumes., Indications: Vitamin Deficiency PreventionIndications:Vitamin Deficiency Prevention Given 07/02/2025 9:22 AM CDT 1 tablet Given 07/01/2025 6:51 PM CDT 1 tablet documented in this encounter Discontinued Medications Medication Sig Discontinue Reason Start Date End Da te insulin NPH (HumuLIN N, NovoLIN N) 100 unit/mL (3 mL) pen for injectionIndications: Gestational diabetes mellitus (GDM) requiring insulin Inject subcutaneously 34 units every AM and 13 units before bed. Stop Taking at Discharge 05/27/2025 07/02/2025 blood glucose diagnostic (Accu-Chek Guide test strips) stripIndications:Gest ational diabetes mellitus (GDM) in third trimester, gestational diabetes method of control unspecified 1 each by other route 4 (four) times a day Stop Taking at Discharge 05/29/2025 07/02/2025 aspirin 81 mg enteric coated tabletIndications:Chr onic hypertension during Take 1 tablet (81 mg total) by mouth daily Stop Taking at Discharge 07/02/2025 insulin lispro (HumaLOG, ADMELOG) 100 unit/mL pen for injection Inject subcutaneously 3 times daily: 19 units with breakfast, 19 units with lunch and 17 units with dinner. Stop Taking at Discharge 06/11/2025 07/02/2025 documented as of this encounter Active and Recently Administered Medications Times are shown in CDT. Scheduled Medication Order 06/30/2025 07/01/2025 07/02/2025 calcium carbonate (TUMS) chewable tablet 1,000 mg (COMPLETED) 1,000 mg (400 mg of elemental calcium), oral, Once, On Sun06/30/25 at 2245, For 1 dose 2218 (Given - Provider: Karen Carr RN) calcium carbonate (TUMS) chewable tablet 1,000 mg 1,000 mg (400 mg of elemental calcium), oral, 2 times daily, First dose (after last modification) on Sun07/01/25 at 1915 1845 (Given - Provider: Karen Carr RN) 0639 (Given - Provider: Gela Mast, YOAN)0900 (Due)1923 (Given - Provider: Gerda Villegas RN) ceFAZolin (ANCEF) 1 gram/10 mL in sterile water (premix) 2,000 mg (COMPLETED) 2,000 mg, intravenous, at 400 mL/hr, Administer over 3 Minutes, Once preop for OB ONLY, On Sun07/01/25 at 0415, For 1 dose, L&D Pre-Delivery, Administer within 60 minutes of incision., Indications: Prophylaxis, Surgical 0445 (Given - Provider: Nichol Woods CRNA) docusate sodium (COLACE) capsule 100 mg 100 mg, oral, 2 times daily, First dose on Sun07/01/25 at 0900, Hold if diarrhea., Indications: constipation, Stool Softener 0837 (Given - Provider: Lisseth Henderson RN) 0640 (Given - Provider: Gela Mast RN)0900 (Due)1923 (Given - Provider: Gerda Villegas RN) insulin NPH (HumuLIN N, NovoLIN N) 100 unit/mL injection 13 Units (COMPLETED) 13 Units, subcutaneous, Once, On Sun06/30/25 at 2230, For 1 dose, Reason for prescribing NPH: other, Specify reason why: GDM 2205 (Given - Provider: Karen Carr RN) ketorolac (TORADOL) 30 mg/mL injection 30 mg (COMPLETED) 30 mg, intravenous, Every 6 hours scheduled, First dose on Sun07/01/25 at 1130, For 24 hours, Max 4 doses. Anesthesia orders for the first 24 hours ., Indications: Pain 1122 (Given - Provider: Octavia Nice RN)1852 (Given - Provider: Karen Carr RN) 0015 (Given - Provider: Alda Garnica RN)0639 (Given - Provider: Gela Mast, YOAN) labetaloL (NORMODYNE,TRANDATE) tablet 300 mg 300 mg, oral, 2 times daily, First dose on Sun06/30/25 at 2230 2206 (Given - Provider: Karen Carr RN) 0837 (Given - Provider: Lisseth Henderson RN)2249 (Given - Provider: Alda Garnica RN) 0922 (Given - Provider: Gela Mast RN)192 (Given - Provider: Gerda Villegas RN) miSOPROStol (CYTOTEC) split tablet 25 mcg (COMPLETED) 25 mcg, vaginal, Once, On Sun06/30/25 at 2115, For 1 dose, L&D Pre-Delivery, Indications: Cervical Ripening Procedure 2143 (Given - Provider: Karen Carr RN) vit-iron fum-folic ac tablet 1 tablet 1 tablet, oral, Daily, First dose on Sun07/01/25 at 1800, Begin when normal bowel activity resumes., Indications: Vitamin Deficiency Prevention 1850 (Given - Provider: Karen Carr RN) 0922 (Given - Provider: Gela Mast RN) sodium chloride 0.9% flush 0.5-20 mL 0.5-20 mL, intra-catheter, Every 8 hours scheduled, First dose on Sun07/01/25 at 0815, Flush volume based on line type and size. , Indications: Flushing 0815 (Due)1400 (Due)2200 (Due) 0600 (Due)1400 (Due) Continuous Medication Order 06/30/2025 07/01/2025 07/02/2025 Lactated Ringer's (LR) infusion (CANCELED) 125 mL/hr, intravenous, Continuous, Starting on Sun07/01/25 at 0145 0113 (New Bag - Provider: Sa brian Carr RN)0203 (Stopped - Provider: Karen Carr RN)0306 (New Bag - Provider: Karen Carr RN)0307 (Rate/Dose Verify - Provider: Karen Carr RN)0407 (Stopped - Provider: Karen Carr RN - Comment: off to go to OR for )0414 (Canceled Entry - Provider: Nichol Woods CRNA)0544 (Continued from OR - Provider: Octavia Nice RN)0627 (Restarted - Provider: Lisseth Henderson, YOAN)0656 (New Bag - Provider: Lisseth Henderson RN)0730 (Due: Stopped - Provider: Nichol Ruelas MD)0855 (Rate/Dose Verify - Provider: Lisseth Henderson RN)1237 (Paused - Provider: Octavia Nice RN)1243 (Restarted - Provider: Octavia Nice RN)1504 (Stopped - Provider: Octavia Nice RN) oxytocin 30 unit/500 mL (0.06 unit/mL) in sodium chloride 0.9% (premix) solution () 95-334 milliunits/min (95-334 mL/hr), 0.06 units/mL, intravenous, Continuous, Starting on Sun07/01/25 at 0615, Until Sun07/01/25 at 0943, After delivery of placenta initiate at 334 niada-units/minutes for 30 minutes then decrease infusion to 95 naida-units/min for 3.5 hours., Routine 0542 (Continued from OR - Provider: Octavia Nice RN)0544 (Rate/Dose Change - Provider: Octavia Nice RN)0545 (Rate/Dose Verify - Provider: Octavia Nice RN)0750 (Rate/Dose Verify - Provider: Lisseth Henderson RN)0807 (Rate/Dose Verify - Provider: Lisseth Henderson RN)0835 (Stopped - Provider: Lisseth Henderson RN) sodium chloride 0.9% infusion(Linked Group 1) 125 mL/hr, intravenous, Continuous, Starting on Sun07/01/25 at 1215, Until regular diet. 1215 (Due) PRN Medication Order 06/30/2025 07/01/2025 07/02/2025 diphenhydrAMINE (BENADRYL) 50 mg/mL injection 25 mg 25 mg, intravenous, Administer over 2 Minutes, Every 6 hours PRN, itching, Starting on Sun07/01/25 at 0730, For 24 hours, May switch to nalbuphine if itching not resolved in 30 minutes. Anesthesia orders for the first 24 hours ., Indications: Itching HYDROcodone-acetaminophen (NORCO) 5-325 mg per tablet 1 tablet 1 tablet, oral, Every 4 hours PRN, 1st line for pain, Starting on Nat 07/02/25 at 0000, May repeat in 1 hour if pain is uncontrolled or increasing. Max 2 doses within 1 dosing interval. Start in 24 hours after Anesthesia no longer covering., Indications: Pain 2249 (Given - Provider: Alda Garnica RN) 0515 (Given - Provider: Alda Garnica RN)1924 (Given - Provider: Gerda Villegas RN) ibuprofen (ADVIL,MOTRIN) tablet 600 mg 600 mg, oral, Every 6 hours PRN, other, cramping, Starting on Nat 07/02/25 at 0322, Start in 24 hours after Anesthesia no longer covering., Indications: Cramps 1438 (Given - Provider: Gela Mast RN) labetaloL (NORMODYNE,TRANDATE) injection 20 mg ()(Linked Group 2) 20 mg, intravenous, at 120 mL/hr, Administer over 2 Minutes, Every 10 min PRN, high blood pressure, SBP greater than or equal to 160 or DBP greater than or equal to 110; Hold if HR less than 60., Starting on Sun07/01/25 at 0643, For 8 hours, After each dose of labetalol, recheck BP every 5 minutes. If SBP greater than or equal to 160 or DBP greater than or equal to 110 after 10 minutes, proceed to labetalol 40 mg. If SBP less than 160 and DBP less than 110, proceed to vital signs follow up order. 0651 (Given - Provider: Lisseth Henderson RN)0736 (See Alternative - Provider: Lisseth Henderson RN)0802 (See Alternative - Provider: Lisseth Henderson RN) labetaloL (NORMODYNE,TRANDATE) injection 40 mg ()(Linked Group 2) 40 mg, intravenous, at 240 mL/hr, Administer over 2 Minutes, Every 10 min PRN, high blood pressure, SBP greater than or equal to 160 or DBP greater than or equal to 110 after labetalol 20 mg; Hold if HR less than 60., Starting on Sun07/01/25 at 0643, For 8 hours, After each dose of labetalol, recheck BP every 5 minutes. If SBP greater than or equal to 160 or DBP greater than or equal to 110 after 10 minutes, proceed to labetalol 80 mg. If SBP less than 160 and DBP less than 110, proceed to vital signs follow up order. 0651 (See Alternative - Provider: Lisseth Henderson RN)0736 (Given - Provider: Lisseth Henderson RN)0802 (See Alternative - Provider: Lisseth Henderson RN) labetaloL (NORMODYNE,TRANDATE) injection 80 mg ()(Linked Group 2) 80 mg, intravenous, at 480 mL/hr, Administer over 2 Minutes, Every 10 min PRN, high blood pressure, SBP greater than or equal to 160 or DBP greater than or equal to 110 after labetalol 40 mg; Hold if HR less than 60., Starting on Sun07/01/25 at 0643, For 8 hours, After each dose of labetalol, recheck BP every 5 minutes. If SBP greater than or equal to 160 or DBP greater than or equal to 110 after 10 minutes, proceed to hydralazine 10 mg. If SBP less than 160 and DBP less than 110, proceed to vital signs follow up order. 0651 (See Alternative - Provider: Lisseth Henderson RN)0736 (See Alternative - Provider: Lisseth Henderson RN)0802 (Given - Provider: Lisseth Henderson RN) Lactated Ringer's (LR) bolus 1,000 mL (COMPLETED) 1,000 mL, intravenous, at 999 mL/hr, Administer over 1 Hours, 3 times daily PRN, for non-reassuring heart rate, variable decelerations, or late deceleration., Starting on Sun06/30/25 at 2038, For 1 dose, L&D Pre-Delivery 0201 (Rate/Dose Verify - Provider: Karen Carr RN)0203 (Bolus from Bag (with volume) - Provider: Karen Carr RN)0207 (Stopped - Provider: Karen Carr RN) Lactated Ringer's (LR) bolus 1,000 mL (CANCELED) 1,000 mL, intravenous, at 999 mL/hr, Administer over 1 Hours, 3 times daily PRN, for non-reassuring heart rate, variable decelerations, or late deceleration., Starting on Sun07/01/25 at 0203, L&D Pre-Delivery 0208 (New Bag - Provider: Karen Carr RN)0258 (Paused - Provider: Karen Carr RN)0304 (Restarted - Provider: Karen Carr RN)0304 (Stopped - Provider: Karen Carr RN) nalbuphine (NUBAIN) injection 5 mg 5 mg, intravenous, Administer over 3 Minutes, Every 4 hours PRN, other, itching, Starting on Sun07/01/25 at 0730, For 24 hours, For itching not relieved by diphenhydramine. Anesthesia orders for the first 24 hours ., Indications: Itching naloxone (NARCAN) 0.4 mg/mL injection 0.04-0.4 mg 0.04-0.4 mg, intravenous, Once as needed, other, excessive sedation/respiratory depression, Starting on Sun07/01/25 at 0730, For 24 hours, Dilute 0.4 mg with 9 mL NS (final concentration 0.04 mg/mL). For respiratory depression (respiratory rate less than 6), administer 0.4 mg IVP over 30 seconds. For excessive sedation administer 0.04 mg (1 mL) every 1 minute until desired level of alertness. Notify MD. Anesthesia orders for the first 24 hours . For IV, administer over 30 seconds., Indications: Opioid Toxicity ondansetron (ZOFRAN) injection 4 mg (CANCELED)(Linked Group 3) 4 mg, intravenous, Administer over 2 Minutes, Every 6 hours PRN, nausea, vomiting, if not tolerating PO, Starting on Sun06/30/25 at 2038, L&D Pre-Delivery, Indications: Nausea and Vomiting 0104 (Given - Provider: Karen Carr, YOAN) ondansetron (ZOFRAN) injection 4 mg(Linked Group 4) 4 mg, intravenous, Administer over 2 Minutes, Every 6 hours PRN, nausea, vomiting, if not tolerating PO, Starting on Sun07/01/25 at 0730, Indications: Nausea and Vomiting ondansetron ODT (ZOFRAN-ODT) disintegrating tablet 4 mg(Linked Group 4) 4 mg, oral, Every 6 hours PRN, nausea, vomiting, Starting on Sun07/01/25 at 0730, If administering by mouth, place tablet on tongue and allow to dissolve., Indications: Nausea and Vomiting oxyCODONE (ROXICODONE) tablet 5 mg 5 mg, oral, Every 4 hours PRN, 2nd line for pain, Starting on Sun07/01/25 at 0730, For 24 hours, When able to tolerate PO. Anesthesia orders for the first 24 hours ., Indications: Pain 0837 (Given - Provider: Lisseth Henderson, YOAN)1518 (Given - Provider: Octavia Nice RN) sodium chloride 0.9% flush 0.5-20 mL 0.5-20 mL, intra-catheter, As needed, line care, Starting on Sun07/01/25 at 0730, Flush volume based on line type and size. Flush before and after each use. , Indications: Flushing varicella zoster (VARIVAX) vaccine - live 0.5 mL 0.5 mL, subcutaneous, During hospitalization, immunization, Starting on Sun07/01/25 at 0730, For 1 dose, if not immune Warning: This is a live or live attenuated vaccine. Do not administer to individuals who are immunodeficient or immunosuppressed or to women. Refrigerate. Two-component vaccine. Must be reconstituted with diluent provided. Document the [facility], Lot number, expiration date from the [employer]DER vial component at administration., Indications: varicella prevention Linked Groups Order Group 1: oxytocin 30 unit/500 mL (0.06 unit/mL) in sodium chloride 0.9% (premix) solution () 95-334 milliunits/min (95-334 mL/hr), 0.06 units/mL, intravenous, Titrated, Starting on Sun07/01/25 at 0815, Until Sun07/01/25 at 1214, Indications: Hemorrhage Prevention, 334 naida-units/minutes for 30 minutes then decrease infusion to 95 naida-units/min for 3.5 hours. , Routine Followed by sodium chloride 0.9% infusionJump to med 125 mL/hr, intravenous, Continuous, Starting on Sun07/01/25 at 1215, Until regular diet. Group 2: labetaloL (NORMODYNE,TRANDATE) injection 20 mg ()Jump to med 20 mg, intravenous, at 120 mL/hr, Administer over 2 Minutes, Every 10 min PRN, high blood pressure, SBP greater than or equal to 160 or DBP greater than or equal to 110; Hold if HR less than 60., Starting on Sun07/01/25 at 0643, For 8 hours, After each dose of labetalol, recheck BP every 5 minutes. If SBP greater than or equal to 160 or DBP greater than or equal to 110 after 10 minutes, proceed to labetalol 40 mg. If SBP less than 160 and DBP less than 110, proceed to vital signs follow up order. Or labetaloL (NORMODYNE,TRANDATE) injection 40 mg ()Jump to med 40 mg, intravenous, at 240 mL/hr, Administer over 2 Minutes, Every 10 min PRN, high blood pressure, SBP greater than or equal to 160 or DBP greater than or equal to 110 after labetalol 20 mg; Hold if HR less than 60., Starting on Sun07/01/25 at 0643, For 8 hours, After each dose of labetalol, recheck BP every 5 minutes. If SBP greater than or equal to 160 or DBP greater than or equal to 110 after 10 minutes, proceed to labetalol 80 mg. If SBP less than 160 and DBP less than 110, proceed to vital signs follow up order. Or labetaloL (NORMODYNE,TRANDATE) injection 80 mg ()Jump to med 80 mg, intravenous, at 480 mL/hr, Administer over 2 Minutes, Every 10 min PRN, high blood pressure, SBP greater than or equal to 160 or DBP greater than or equal to 110 after labetalol 40 mg; Hold if HR less than 60., Starting on Sun07/01/25 at 0643, For 8 hours, After each dose of labetalol, recheck BP every 5 minutes. If SBP greater than or equal to 160 or DBP greater than or equal to 110 after 10 minutes, proceed to hydralazine 10 mg. If SBP less than 160 and DBP less than 110, proceed to vital signs follow up order. Or hydrALAZINE (APRESOLINE) injection 10 mg () 10 mg, intravenous, Administer over 2 Minutes, Every 20 min PRN, high blood pressure, SBP greater than or equal to 160 or DBP greater than or equal to 110 after labetalol 80 mg, Starting on Sun07/01/25 at 0643, For 8 hours, After each dose of hydrALAZINE, recheck BP every 5 minutes. If SBP greater than or equal to 160 or DBP greater than or equal to 110 after 20 minutes, call MD for emergency consult If SBP less than 160 and DBP less than 110, proceed to vital signs follow up order. Group 3: ondansetron ODT (ZOFRAN-ODT) disintegrating tablet 4 mg (CANCELED) 4 mg, oral, Every 6 hours PRN, nausea, vomiting, Starting on Sun06/30/25 at 2037, L&D Pre-Delivery, If administering by mouth, place tablet on tongue and allow to dissolve., Indications: Nausea and Vomiting Or ondansetron (ZOFRAN) injection 4 mg (CANCELED)Jump to med 4 mg, intravenous, Administer over 2 Minutes, Every 6 hours PRN, nausea, vomiting, if not tolerating PO, Starting on Sun06/30/25 at 2037, L&D Pre-Delivery, Indications: Nausea and Vomiting Group 4: ondansetron ODT (ZOFRAN-ODT) disintegrating tablet 4 mgJump to med 4 mg, oral, Every 6 hours PRN, nausea, vomiting, Starting on Sun07/01/25 at 0730, If administering by mouth, place tablet on tongue and allow to dissolve., Indications: Nausea and Vomiting Or ondansetron (ZOFRAN) injection 4 mgJump to med 4 mg, intravenous, Administer over 2 Minutes, Every 6 hours PRN, nausea, vomiting, if not tolerating PO, Starting on Sun07/01/25 at 0730, Indications: Nausea and Vomiting documented in this encounter Orders Medications Ordered That Myke ht Not Have Been Administered Count Last Ordered Date First Ordered Date calcium carbonate (TUMS) nancy wable tablet 1,000 mg 1 07/01/2025 ceFAZolin (ANCEF) 1 gram/10 mL in sterile water (premix) 2,000 mg 1 07/01/2025 diphenhydrAMINE (BENADRYL) 5 0 mg/mL injection 25 mg 1 07/01/2025 hydrALAZINE (APRESOLINE) injection 10 mg 1 07/01/2025 Lactated Ringer's (LR) bolus 1,000 mL 2 07/202506/30/2025 nalbuphine (NUBAIN) injection 5 mg 1 2024 naloxone (NARCAN) 0.4 mg/mL injection 0.04-0.4 mg 1 07/01/2025 ondansetron (ZOFRAN) injection 4 mg 1 07/01 ondansetron ODT (ZOFRAN-ODT) disintegrating tablet 4 mg 2 07/01/2025 06/30/2025 oxytocin 30 unit/500 mL (0.0 6 unit/mL) in sodium chloride 0.9% (premix) solution 3 07/01/2025 0 06/30/2025 sodium chloride 0.9% flush 0.5-20 mL 6 06/22 06/30/2025 sodium chloride 0.9% infusion 1 07/01/2025 varicella zoster (VARIVAX) v accine - live 0.5 mL 1 07/01/2025 butorphanol (STADOL) 2 mg/mL injection 1 mg 1 06/30/2025 carboprost (HEMABATE) injection 250 mcg 1 0 06/30/2025 Carrier Fluids for Secondary Infusion - 0.9% Sodium Chloride 1 06/30/2025 lidocaine (PF) (XYLOCAINE) 1 0 mg/mL (1 %) preservative free injection 100 mg 1 06/30/2025 loperamide (IMODIUM) capsule 2 mg 1 025 methylergonovine (METHERGINE ) injection 0.2 mg 1 06/30/2025 miSOPROStoL (CYTOTEC) tablet 800 mcg 1 06/2025 oxytocin (PITOCIN) injection 10 Units 1 06/2025 terbutaline (BRETHINE) injection 0.125 mg 1 06/30/2025 terbutaline (BRETHINE) injection 0.25 mg 1 06/30/2025 tranexamic acid (CYKLOKAPRON ) 1,000 mg/100 mL (10 mg/mL) in sodium chloride (premix) 1,000 mg 1 06/30/2025 Diet Count Last Ordered Date First Orde red Date ADULT DISCHARGE DIET 1 07/02/2025 Nursing Count Last Ordered Date First Orde red Date DISCHARGE ACTIVITY 6 07/02/2025 DISCHARGE CALL PROVIDER 6 07/02/2025 DISCHARGE DRESSING 2 07/02/2025 DISCHARGE INSTRUCTIONS 10 07/02/2025 FOLLOW UP WITH ESTABLISHED PROVIDER 1 07/02 Admission Count Last Ordered Date First Orde red Date ADMIT TO L&D INPATIENT 1 06/30/2025 Transfer Count Last Ordered Date First Orde red Date TRANSFER PATIENT TO NEW UNIT 1 07/01/2025 Discharge Count Last Ordered Date First Orde red Date DISCHARGE PATIENT 1 07/02/2025 CORE MEASURES Count Last Ordered Date First Ord ered Date REASON FOR NO VTE PROPHYLAXIS AT ADMISSION 2 07/01/2025 06/30/2025 Case Request Count Last Ordered Date First Orde red Date CASE REQUEST OPERATING ROOM 1 07/01/2025 documented in this encounter Care Teams Supervisor Sewing Room Relationship Specialty Start Date End Date Edgardo Manuel MD PCP - General Internal Medicine 11/03/21 Nichol Ruelas MD [address] [place] [address] Commercial Development Manager Obstetrics and Gynecology 07/02/25 documented as of this encounter
--- OUTSIDE RECORDS SUMMARY | 2025-06-30 20:37 | XMS_ITS | Encounter Summary ---
Author Organization [facility] Healthcare Address [address] [place] [address] Care Team Providers Care Socially Responsible Investment Adviser Name Role Phone Edgardo Manuel MD Primary Care Provider [phone] Nichol Ruelas MD Unavailable [phone] Reason for Referral * (Routine) - Pending Review Specialty Diagnoses / Procedures Referred By Contac t Referred To Contact Diagnoses Chronic hypertension during Gestational diabetes mellitus (GDM) requiring insulin Procedures Labor Induction - Nichol Ruelas MD [address] [place] [address] Phone: tel: fax: [address] [phone] Referral ID Status Reason Start Date Expiration Date V isits Requested Visits Authorized [id number] Pending Review 06/26/2025 07/26/2026 1 1 Reason for Visit * Reason Comments Scheduled Induction * Auth/Cert Specialty Diagnoses / Procedures Referred By Contac t Referred To Contact Diagnoses Chronic hypertension affecting Procedures NA Referral ID Status Reason Start Date Expiration Date Visits Re quested Visits Authorized [id number] 1 1 Encounter Details Date Type Department Care Team (Late st Contact Info) Description 06/30/2025 8:37 PM CDT - 07/02/2025 7:35 PM CDT Hospital Encounter [address] [phone] Nichol Ruelas MD [address] [place] [address] intolerance to labor, delivered, current hospitalization (Primary [...] any time in the past 12 m [facility], were you homeless or living in a group home (including now)? No 02/12/2025 Humiliation, Afraid, [...] How often do you attend chur or denominational services? More than 4 times per year 06/30/2025 Do you belong to any clubs o r organizations such as sabianist groups, unions, fraternal or athletic groups, or [...] care, and heating? Not very hard 06/30/2025 [facility] [place] of Occupat ional Health - Occupational Stress [...] any time in the past 12 m [facility], were you homeless or living in a group home (including now)? No 06/30/2025 [facility] Utilities Answer Date Recorded In the past 12 months has th e electric, gas, oil, or water company threatened to shut off services in your home? 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 DETAILS OF HOSPITAL STAY Presenting Problem/History of Present Illness: 45 y/o @ 38w1d presents for scheduled induction for CHTN, GDMA2 per [facility] recommendations. is also complicated by AMA, [...] work sooner, please consult first with your otr owner operator. Discharge activity: Sexual intercourse - Sexual intercourse [...] Ruelas MD Specialty: Obstetrics and Gynecology Relationship: Data Communications Engineer [address] [place] [address] Next Steps: Follow up Comments: Call office to schedule blood pressure check and staple removal 07/06 Questions: To provider: NICHOL RUELAS documented in this encounter Discharge Instructions * Discharge Instructions* Gerda Villegas RN - 07/02/2025 7:18 PM CDT Follow up with Dr. Ruelas on Sunday for staple removal and blood pressure check. Have blood pressure checked at [facility] tomorrow 07/03/2025. [...] Information for the patient's : Margaret Mcclelland [[id number]] [id number] Problem-based Assessment and Plan Aliyah Mcclelland is [...] 06/03 - cephalic, posterior placenta, ANNETTE 17.4, [id number] g/4 lb 11 oz (20%, AC 43%) [...] will decrease Outcome: Progressing Flowsheets (Taken 07/02/2025 9487) Risk for complications during the period will decrease: Monitor fundal height and consistency Report signs and symptoms of excessive bleeding Monitor lochia amount and color Goal: Ability to identify and utilize resources during the phase will improve Outcome: Progressing Flowsheets (Taken 07/02/2025 154) Ability to identify and utilize resources during the phase will improve: Collaborate with wildland fire fighter specialist Goal: Ability to demonstrate positive interaction [...] of communication as needed Collaborate with case management/high school social studies teacher for discharge needs Include patient/family/caregiver in decisions related to communication Provide tailored communication specific to age, educational level and preferred method Assess cultural/denominational beliefs that affect communication Problem: Chronic Conditions [...] without differential (07/02/2025 6:13 AM CDT) Pathologist [facility] WBC 15.45(H) 3.80 - 9.90 K/cumm Hgb [...] ORDERABLES Final Result [facility] ([place]) [address] [facility] [place] [address] * Blood Gas, Cord Venous (07/01/2025 5:08 AM CDT) pH Cord Darryn 7.31 pCO2 Cord Darryn 48 mmHg [facility] ([place]) pO2 Cord Darryn 23 mmHg [facility] ([place]) Base Excess Cord Darryn -2 mmol/L [facility] ([place]) HCO3 Cord Darryn (Calc) 24 mmol/L [facility] ([place]) O2 Sat Cord Darryn (Jada) 47 % [facility] ([place]) Comment: Interpretive Data No Reference Ranges Established Current Interpretive Data was last revised on 2018 Cord blood 07/01/2025 5:08 AM CDT 07/01/2025 5:13 AM CDT Nichol Ruelas MD LAB BLOOD ORDERABLES Final Result Performing Organization Address [facility] de Phone Number RICHARD SANTIAGO ([place]) [address] [place] [address] [place] [address] * Blood Gas, Cord Arterial (07/01/2025 5:08 [...] BLOOD ORDERABLES Final Result Performing Organization Address City/[facility] Co de Phone Number [facility]ARD SANTIAG[facility] ([place]) 1 [facility] [place] [address] * POCT glucose (06/30/2025 10:05 PM CDT) Glucose, POC 121 70 - 199 mg/dL Blood 06/30/2025 10:0 5 PM CDT 06/30/2025 10:05 PM CDT Nichol Ruelas MD LAB POCT ORDERABLES - DEVICE Final Result [facility] ([place]) 1 [facility] [place] [address] * eGFR (06/30/2025 9:03 PM CDT) [facility] eGFR >90 >=60 mL/min/1. 73 m2 Comment: [...] ORDERABLES Final Result [facility] ([place]) [address] [facility] [place] [address] * (ABNORMAL) Comprehensive metabolic panel (06/30/2025 9:03 [...] Ruelas MD LAB BLOOD ORDERABLES Final Result [facility] ([place]) [address] [facility] [place] [address] * Lactate dehydrogenase (LD) (06/30/2025 9:03 PM CDT) Pathologist [facility] Lactate dehydrogenase (LDH) 142 100 - 250 Units/L RICHARD HERRERAN) Blood 06/30/2025 9:03 PM CDT 06/30/2025 9:36 PM CDT Nichol Ruelas MD LAB BLOOD ORDERABLES Final Result [facility] ([place]) 1 [facility] [place] [address] * Uric acid (06/30/2025 9:03 PM CDT) [facility] Uric acid 4.6 2.5 - 7.0 mg/dL [facility]ITA SANTIAGO [facility]) Blood 06/30/2025 9:03 PM CDT 06/30/2025 9:36 PM CDT Nichol Ruelas MD LAB BLOOD ORDERABLES Final Result [facility]ARD SANTIAGO ([place]) 1 [facility] [place] [address] * RBC Antigen Serologic Phenotyping (06/30/2025 8:59 PM CDT) [facility] Erythrocyte ag Jose Negative Blood 06/30/2025 8:59 PM CDT 07/01/2025 5:19 AM CDT Nichol Ruelas MD LAB BLOOD BANK TEST O RDERABLES Final Result [place] [place] 1 [facility] [place] [address] * Antibody identification (06/30/2025 8:59 PM CDT) Pathologist [facility] Antibody Identification Interpretation Anti-Jose Blood 06/30/2025 8:59 PM CDT 06/30/2025 9:36 PM CDT Nichol Ruelas MD LAB BLOOD BANK TEST O RDERABLES Final Result [facility] SANTIAG[facility] ([place]) 1 [facility] [place] [address] * (ABNORMAL) Antibody screen (06/30/2025 8:59 PM CDT) Hope, indirect, Gel Interpretation Positive( A) Blood 06/30/2025 8:59 PM CDT 06/30/2025 9:36 PM CDT Narrative R[facility]ARD [facility] ([place]) - 06/30/2025 10:36 PM CDT Has the patient had Daratumumab or Isatuximab in the past 6 months?->Unknown Nichol Ruelas MD LAB BLOOD BANK TEST O RDERABLES Final Result Performing Organization Address City/[facility] Co de Phone Number RICHARD SANTIAGO ([place]) 1 [facility] [place] [address] * ABO/Rh (06/30/2025 8:59 PM CDT) ABO/Rh A Positive Blood 06/30/2025 8:59 PM CDT 06/30/2025 9:36 PM CDT Narrative [facility] ([place]) - 06/30/2025 10:36 PM CDT Has the patient had Daratumumab or Isatuximab in the past 6 months?->Unknown Nichol Ruelas MD LAB BLOOD BANK TEST O RDERABLES Final Result [facility]ICHARD SANTIAGO ([place]) 1 [facility] [place] [address] * (ABNORMAL) Protein / creatinine ratio, urine, [...] LAB URINE ORDERABLES Final Result RICHARD SANTIAGO ([place]) [address] [facility] [place] [address] * Drug Screen, Urine L and D [...] ORDERABLES Final Result RICHARD SANTIAGO ([place]) [address] [facility] [place] [address] * CBC without differential (06/30/2025 8:59 PM [...] ORDERABLES Final Result RICHARD SANTIAGO ([place]) [address] [facility] [place] [address] * RPR Blood (06/30/2025 8:59 PM CDT) RPR Nonreactive Nonreactive Comment:Testing performed by : [facility], [address] [place] [address], [id number] Blood 06/30/2025 8:59 PM CDT 07/01/2025 9:26 AM CDT Nichol Ruelas MD LAB MICROBIOLOGY - GE NERAL ORDERABLES Final Result RICHARD SANTIAGO ([place]) [address] [facility] [place] [address] documented in this encounter Visit Diagnoses Diagnosis [...] Pain 0837 (Given - Provider: Lisseth Henderson, YONA)1518 (Given - Provider: Octavia Nice RN) sodium [...] reconstituted with diluent provided. Document the [facility], Lot number, expiration date from the DRY [...] 07/01/2025 documented in this encounter Care Teams Socially Responsible Investment Adviser Relationship Specialty Start Date End Date Edgardo Manuel MD PCP - General Internal Medicine 11/03/21 Nichol Ruelas MD [address] [place] [address] Data Communications Engineer Obstetrics and Gynecology 07/02/25 documented as of this encounter
[2025-07-04 00:15] VITALS: BP 169/108; PULSE 77; RESP 16; TEMP 36.6; O2SAT 96
--- OUTSIDE RECORDS SUMMARY | 2025-07-04 00:16 | XMS_ITS | Clinical Summary ---
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 ORDERABLES Final Result Performing Organization Address [facility] Co de Phone Number RICHARD [facility] ([place]) 1 [facility] [place] [address] * (ABNORMAL) Urinalysis, microscopic only (06/14/2025 6:14 PM CDT) WBC, ur 21-50(A) 0 - 5 /HPF RBC, ur 21-50(A) 0 - 2 /HPF R[facility]ARD SANTIAGO ([place]) Epithelial cells, squamous, ur 11-20(A) 0 - 5 /HPF RICHARD SANTIAGO ([place]) Mucous, ur Present(A) C[facility]ER A ([place]) Culture Reflex Comment Reflex to urine culture will be performed. RICHARD SANTIAGO ([place]) Urine, clean voided 06/14/2025 6:14 PM CDT 06/14/2025 6:18 PM CDT Shannon Maloney DO LAB URINE ORDERABLES Fi nal Result Performing Organization Address [facility] Co de Phone Number MEGHNAPITA [facility] ([place]) 1 [facility] [place] [address] * Urine culture Urine, clean voided (06/14/2025 6:14 PM CDT) Report Final Report: Less than 100,000 colonies/mL (clinically insignificant growth based on current clinical standards) Comment:Testing performed by : [facility], 1 [facility], [place]., [address] Organism (CLINICALLY INSIGNIFICANT GROWTH RICHARD SANTIAGO ([place]) Urine, clean voided 06/14/2025 6:14 PM CDT 06/14/2025 9:44 PM CDT Narrative RICHARD SANTIAGO ([place]) - 06/16/2025 2:45 PM CDT Urine culture reflexed based upon urinalysis results. Testing performed by [facility] ([phone]) Shannon Maloney DO LAB MICROBIOLOGY - GENE RAL ORDERABLES Final Result RICHARD [facility] ([place]) 1 [facility] [place] [address] * Group B streptococcus culture, penicillin allergic Vaginal/Rectal (06/11/2025 11:46 AM CDT) Report Final Report: Negative Comment:Testing performed by : [facility], [address] [place]., [address] Vaginal/Rectal 06/11/2025 11 :46 AM CDT 06/12/2025 2:17 AM CDT Narrative RICHARD [facility] 06/15/2025 7:41 AM CDT Testing performed by [facility] ([phone]). Leila Romo MD LAB MICROBIOLOGY - GE NERAL ORDERABLES Final Result Performing Organization Address City/[facility]/ZIP Co de Phone Number MEGHNAPITA [address] [facility] [place] [address] * (ABNORMAL) POCT urine glucose and protein (06/11/2025 11:28 AM CDT) Glucose, ur, POC Negative Negative Protein, ur, POC 3+(A) Negative Lot Number [id number] Urine 06/11/2025 11:2 8 AM CDT Leila Romo MD POINT OF CARE TEST OR DERABLES Final Result * (ABNORMAL) POCT urine glucose and protein (06/04/2025 9:40 AM CDT) Glucose, ur, POC 500.(A) Negative Protein, ur, POC Negative Negative Lot Number [id number] Urine 06/04/2025 9:40 AM CDT Leila Romo MD POINT OF CARE TEST OR DERABLES Final Result * US Ob 14 Weeks Or Over (06/03/2025 2:11 PM CDT) Fetus# Fetus1 VIEWPOINT Estimated Weight 2,138 g&grams VIEWPOINT Placenta Details posterior, Previa-no, no placental masses VIEWPOINT Presentation Vertex VIEWPOINT Anatomical Region Laterality Modality Abdomen N/A Ultrasound 06/03/2025 2:11 PM CDT Impressions 06/03/2025 3:33 PM CDT The measurements are consistent with gestational age, but the head is small overall for both the BPD and HC. HC plots between 1 and 2 SD's below the mean for gestation. No structural malformations are identified in the fetus, but the anatomical survey is incomplete, in part due to late gestation and difficulty imaging structures. IUP at 34 weeks + 1 day Incomplete anatomical survey Narrative Procedure Note Aubree Dubois MD - 06/03/2025 IMPRESSION: The measurements are consistent with gestational age, but the headis small overall for both the BPD and HC. HC plots between 1 and 2 SD'sbelow the mean for gestation. No structural malformations are identifiedin the fetus, but the anatomical survey is incomplete, in part due to lategestation and difficulty imaging structures. IUP at 34 weeks + 1 day Incomplete anatomical survey Leila Romo MD IMG OB US PROCEDURES Final Result * (ABNORMAL) POCT urine glucose and protein (05/27/2025 2:50 PM CDT) Glucose, ur, POC 500.(A) Negative Protein, ur, POC Negative Negative Lot Number [id number] Urine 05/27/2025 2:50 PM CDT Leila Romo MD POINT OF CARE TEST OR DERABLES Final Result * US Ob Follow Up (05/27/2025 2:15 PM CDT) Anatomical Region Laterality Modality Abdomen N/A Ultrasound 06/07/2025 8:40 AM CDT Narrative 06/07/2025 8:43 AM CDT EXAM DESCRIPTION: US OB FOLLOW UP REASON FOR STUDY: chronic htn in , Check measurements and fluid levels Chronic Hypertension in - growth and annette TECHNIQUE: Limited transabdominal grayscale ultrasound for obstetrical evaluation. COMPARISON: 04/23/2025. FINDINGS: The clinical age is 33 weeks 1 day with an JAYA 07/14/2025. There is a single intrauterine with vertex presentation. Amniotic fluid index is 14.4 cm. heart rate 160 beats per minute. Placenta is posterior with no demonstrated placenta previa. BPD 7.87 cm corresponding to 31 weeks 4 days. HC 28.07 cm corresponding to 30 weeks 5 days. AC 26.68 cm corresponding to 30 weeks 6 days. FL 6.24 cm corresponding to 32 weeks 2 days. The growth ratios show slightly high FL/HC ratio of 22.23 (19.27-21.3) with the other growth ratios being normal. The estimated age based on this ultrasound is 31 weeks 1 day with an JAYA 07/28/2025. Estimated weight 1745 g +/-262 g (3 pounds 14 ounces +/-2 ounces) which is at the 5th percentile. IMPRESSION: 1. Single intrauterine with cephalic presentation. 2. Slight elevation of the FL/HC ratio. Other growth ratios are normal. 3. Estimated weight at the 5th percentile. THIS IS AN ELECTRONICALLY VERIFIED FINAL REPORT 06/07/2025 8:43 AM - Electronically signed by Jonathan Styles M.D. CH: MARK Report ID: [id number] Reading Location: [id number] Procedure Note Jonathan Styles MD - 06/07/2025 EXAM DESCRIPTION: US OB FOLLOW UP REASON FOR STUDY: chronic htn in , Check measurements and fluid levels Chronic Hypertension in - growth and annette TECHNIQUE: Limited transabdominal grayscale ultrasound for obstetrical evaluation. COMPARISON: 04/23/2025. FINDINGS: The clinical age is 33 weeks 1 day with an JAYA 07/14/2025. There is a single intrauterine with vertex presentation. Amniotic fluid index is 14.4 cm. heart rate 160 beats per minute. Placenta is posterior with no demonstrated placenta previa. BPD 7.87 cm corresponding to 31 weeks 4 days. HC 28.07 cm corresponding to 30 weeks 5 days. AC 26.68 cm corresponding to 30 weeks 6 days. FL 6.24 cm corresponding to 32 weeks 2 days. The growth ratios show slightly high FL/HC ratio of 22.23 (19.27-21.3)with the other growth ratios being normal. The estimated age based on this ultrasound is 31 weeks 1 day with anEDD 07/28/2025. Estimated weight 1745 g +/-262 g (3 pounds 14 ounces +/-2 ounces)which is at the 5th percentile. IMPRESSION: 1. Single intrauterine with cephalic presentation. 2. Slight elevation of the FL/HC ratio. Other growth ratios are normal. 3. Estimated weight at the 5th percentile. THIS IS AN ELECTRONICALLY VERIFIED FINAL REPORT 06/07/2025 8:43 AM - Electronically signed by Jonathan Styles M.D. CH: Report ID: [id number] Reading Location: [id number] us Leila Romo MD IMG OB US PROCEDURES Final Result * (ABNORMAL) POCT urine glucose and protein (05/15/2025 2:53 PM CDT) Glucose, ur, POC 1000.(A) Negative Protein, ur, POC Trace(A) Negative Lot Number [id number] Urine 05/15/2025 2:53 PM CDT Leila Romo MD POINT OF CARE TEST OR DERABLES Final Result * (ABNORMAL) Differential, auto (05/15/2025 10:17 AM CDT) Neutrophil abs 6.06 1.50 - 6.50 K/cumm Comment:Testing performed by : [facility], [address] [place] [address]., [address] Imm gran abs 0.09 0.00 - 0.10 K/cumm CERNER CH Comment:Testing performed by : [facility], [address] [place] [address], [address] Lymphocyte abs 1.86 0.80 - 3.30 K/cumm CERNER CH Comment:Testing performed by : [address] [place] [address], [address] Monocyte abs 1.06(H) 0.20 - 0.80 K/cumm CERNER CH Comment:Testing performed by : [facility], [address] [place] [address]., [address] Eosinophil abs 0.06 0.00 - 0.50 K/cumm CERNER CH Comment:Testing performed by : [address] [address] Basophil abs 0.02 0.00 - 0.10 K/cumm CERNER CH Comment:Testing performed by : [address] [place] [address], [address] Neutrophil pct 66.2 % CERNER Comment: Interpretive Data Percent cell count reference ranges are not reported, since discordance with absolute values may lead to misinterpretation of CBC data. Current Interpretive Data was last revised on 2018. Testing performed by: [address] [address] Imm gran pct 1.0 % CERNER CH Comment: Interpretive Data Percent cell count reference ranges are not reported, since discordance with absolute values may lead to misinterpretation of CBC data. Current Interpretive Data was last revised on 2018. Testing performed by: [address] [place] [address], [address] Lymphocyte pct 20.3 % CERNER CH Comment: Interpretive Data Percent cell count reference ranges are not reported, since discordance with absolute values may lead to misinterpretation of CBC data. Current Interpretive Data was last revised on 2018. Testing performed by: [facility], [address] [place] [address]., [address] Monocyte pct 11.6 % RICHARD Comment: Interpretive Data Percent cell count reference ranges are not reported, since discordance with absolute values may lead to misinterpretation of CBC data. Current Interpretive Data was last revised on 2018. Testing performed by: [facility], [address] [place] [address]., [address] Eosinophil pct 0.7 % RICHARD Comment: Interpretive Data Percent cell count reference ranges are not reported, since discordance with absolute values may lead to misinterpretation of CBC data. Current Interpretive Data was last revised on 2018. Testing performed by: [facility], [address] [place] [address]., [address] Basophil pct 0.2 % RICHARD Comment: Interpretive Data Percent cell count reference ranges are not reported, since discordance with absolute values may lead to misinterpretation of CBC data. Current Interpretive Data was last revised on 2018. Testing performed by: [address] [address] Blood 05/15/2025 10:1 7 AM CDT 05/15/2025 4:54 PM CDT Leila Romo MD LAB BLOOD ORDERABLES Final Result RICHARD [id number] [place] [address] [place] [address] * (ABNORMAL) GTT 50gm 1hr gestational screen [...] last revised on 2020. Testing performed by: [facility], [address] [place] [address]., [address] Blood 05/15/2025 10:1 7 AM CDT 05/15/2025 4:54 PM CDT Leila Romo MD LAB BLOOD ORDERABLES Final Result Performing Organization Address [facility] Co de Phone Number [place] [phone] [facility] [employer] [place] [address] * HIV 1/2 Antibody plus p24 Antigen Blood (05/15/2025 10:17 AM CDT) Pathologist [facility] HIV 1/2 ab + p24 ag Nonreactive Nonreactive Comment: Nonreactive for HIV-1 antigen and HIV-1/HIV-2 antibodies. No laboratory evidence of HIV infection. If acute HIV infection is suspected, consider testing for HIV-1 RNA. Testing performed by: [address] [address] Blood 05/15/2025 10:1 7 AM CDT 05/15/2025 4:54 PM CDT Leila Romo MD LAB MICROBIOLOGY - GE NERAL ORDERABLES Final Result Performing Organization Address [facility] Co de Phone Number [facility] [address] [facility] [place] [address] * CBC with auto differential (05/15/2025 10:17 AM CDT) [facility] WBC 9.15 3.80 - 9.90 K/cumm Comment:Testing performed by : [address] [address] Hgb 12.7 11.9 - 15.5 g/dL RICHARD Comment:Testing performed by : [address] [place] [address] Hct 38.5 35.6 - 45.5 % CERNER CH Comment:Testing performed by : [address] [place] [address], [address] Plt 201 150 - 400 K/cumm CERNER CH Comment:Testing performed by : [address] [place] [address], [address] MPV 12.2 9.1 - 12.3 fL CERNER CH Comment:Testing performed by : [address] [place] [address], [address] RBC 4.19 3.90 - 5.20 M/cumm CERNER CH Comment:Testing performed by : [address] [place] [address], [address] MCV 91.9 81.3 - 96.4 fL CERNER CH Comment:Testing performed by : [address] [place] [address], [address] MCH 30.3 27.1 - 33.3 pg CERNER CH Comment:Testing performed by : [address] [place] [address], [address] MCHC 33.0 32.3 - 35.7 g/dL CERNER CH Comment:Testing performed by : [address] [place] [address], [address] RDW CV 13.6 11.1 - 14.9 % CERNER CH Comment:Testing performed by : [address] [place] [address], [address] RDW SD 46.0 35.7 - 48.1 fL CERNER CH Comment:Testing performed by : [address] [place] [address], [address] NRBC abs 0.00 0.00 - 0.01 K/cumm CERNER CH Comment:Testing performed by : [address] [place] [address], [address] Blood 05/15/2025 10:1 7 AM CDT 05/15/2025 4:54 PM CDT Leila Romo MD LAB BLOOD ORDERABLES Final Result [address] [place] [address] * RPR Blood (05/15/2025 10:17 AM CDT) RPR Nonreactive Nonreactive Comment:Testing performed by : [facility], [address] [place] [address]., [address] Blood 05/15/2025 10:1 7 AM CDT 05/15/2025 4:54 PM CDT Leila Romo MD LAB MICROBIOLOGY - GE NERAL ORDERABLES Final Result RICHARD MARK [address] [place] [place] [address] * Urine culture Urine, clean voided (05/15/2025 10:17 AM CDT) Report Final Report: Less than 100,000 colonies/mL (clinically insignificant growth based on current clinical standards) Comment:Testing performed by : [facility], [address] [place]., [address] Organism (CLINICALLY INSIGNIFICANT GROWTH RICHARD Urine, clean voided 05/15/2025 10:17 AM CDT 05/15/2025 6:26 PM CDT Narrative RICHARD - 05/16/2025 11:04 PM CDT Testing performed by [facility] ([phone]) Leila Romo MD LAB MICROBIOLOGY - GE NERAL ORDERABLES Final Result RICHARD [place] [address] [place] [place] [address] * US Ob Follow Up (04/23/2025 3:39 [...] Aryan Thorpe M.D. JA: ALICIA Report ID: [id number] Reading Location: [id number] Procedure Note Aryan Thorpe MD - 05/03/2025 [...] Aryan Thorpe M.D. JA: ALICIA Report ID: [id number] Reading Location: [place] [address] Leila Romo MD IMG OB US PROCEDURES Final Result * (ABNORMAL) POCT urine glucose and protein (04/23/2025 2:38 PM CDT) Glucose, ur, POC 1000.(A) Negative Protein, ur, POC Negative Negative Lot Number [id number] Urine 04/23/2025 2:38 PM CDT Result [facility] Leila Romo MD POINT OF CARE TEST OR DERABLES Final Result * (ABNORMAL) POCT urine glucose and protein (04/08/2025 2:08 PM CDT) Glucose, ur, POC Negative Negative Protein, ur, POC Trace(A) Negative Lot Number [id number] Urine 04/08/2025 2:08 PM CDT Result [facility] Leila Romo MD POINT OF CARE TEST [...] last revised on 2020. Testing performed by: [facility], [address] [place] [address]., [address] Blood 02/02/2025 11:2 1 AM CDT 02/02/2025 6:54 PM CDT us Leila Romo MD LAB MICROBIOLOGY - [facility] ORDERABLES Final Result [id number] [place] [address] * Screening Mammogram Bilateral W Bao (01/23/2024 [...] [birth year],18[birth year] (03/02/2021 11:57 AM CDT) CLINICAL INFORMATION: [facility] Comment:Routine exam LMP [facility] [employer] [facility] Comment:UNKNOWN Previous Pap [facility] Comment:INFORMATION NOT PROV IDED Prev. Bx [facility] Comment:INFORMATION NOT PROV IDED SOURCE: [facility] Comment:Cervix, Endocervix Pap, specimen adequacy [facility] Comment: Satisfactory for evaluation. Endocervical/transformation zone component present. Age and/or menstrual status not provided HPV interp [facility] Comment:Negative for intraep ithelial lesion or malignancy. COMMENTS [facility] Comment: This Pap test has been evaluated with computer assisted technology. Otr Flatbed Driver [facility] Comment: DIANELYS CT(ASCP) CT Screening Location: [address] [address] Comment [facility] Comment: EXPLANATORY NOTE: The Pap is a [...] High Risk E6/E7 Not Detected Not Detected [employer] Cassie Comment: Methodology: Director-Mediated Amplification This assay detects E6/E7 viral messenger RNA (mRNA) from 14 high-risk HPV types (16,18,31,33,35,39,45,51,52,56,58,59,66,68). The analytical performance characteristics of this assay have been determined by [employer]. The modifications have not been cleared or approved by the FDA. This assay has been validated pursuant to the CLIA regulations and is used for clinical purposes. For additional information, please refer to http://education.Innorange Oy.Xyleme/faq/LZF373d3 (This link if provided for information/ educational purposes only.) 03/02/2021 11:5 7 AM CDT 03/03/2021 2:21 AM CDT Narrative [facility] - 03/05/2021 3:24 PM CDT FASTING: UNKNOWN us Leila Romo MD LAB CYTOLOGY ORDERABL ES Final Result [facility] [address] [place] [address] [facility] [address] [place] [address] from Last 3 Months or Most Recently Relevant to Health Maintenance Insurance [address] [id number] [employer] HMO [facility] CHOICE PLUS [address] [id number] Pro[employer] Therapy HMO [facility] CHOICE PLUS Advance Directives For more information, please contact: [phone] * Full Code (Latest Code Status on File) Date Activated Date Inactivated Comments 07/01/2025 7:30 AM 07/03/2025 12:16 AM * Full Code Date Activated Date Inactivated Comments 06/30/2025 8:38 PM 07/01/2025 7:30 AM Full CPR in c ase of cardiopulmonary arrest Care Teams Chief Clinical Dietitian Relationship Specialty Start Date End Date Edgardo Manuel MD PCP - General Internal Medicine 11/03/21 Leila Romo MD [address] [place] [address] Catering Sales Manager Obstetrics and Gynecology 07/02/25
--- OUTSIDE RECORDS SUMMARY | 2025-07-04 00:16 | XMS_ITS | Clinical Summary ---
Author Organization [facility] Address [address] [place] [address] Phone Care Team Providers Care Margarine Maker Name Role Phone Rachel Gillis APRN Primary Care Provider [phone] Allergies Active Allergy Reactions Criticality Noted Date [...] Comments Blood Pressure 162/113 12/16/2019 12:40 PM TOOLMAKER HELPER Pulse 100 12/16/2019 12:40 PM TOOLMAKER HELPER Temperature 37.5 C (99.5 F) 12/16/2019 12:40 PM TOOLMAKER HELPER Respiratory Rate 18 12/16/2019 12:40 PM TOOLMAKER HELPER Oxygen Saturation 99% 12/16/2019 12:40 PM TOOLMAKER HELPER Inhaled Oxygen Concentration - - Weight 86.2 kg (190 lb) 12/16/2019 12:40 PM TOOLMAKER HELPER Height 165.1 cm (5' 5) 12/16/2019 12:40 PM TOOLMAKER HELPER Body Mass Index 31.62 12/16/2019 12:40 PM TOOLMAKER HELPER Plan of Treatment Health Maintenance Due Date [...] this topic Medical Devices Implanted Type Area Corporate Ethics Officer Device Identifier Shelf Expiration Date Model / Serial / Lot Stent Ureteral 6fr 2.1fr 26cm 2 Pigtail Curve 2 Durometer Taper Tip Loprfl Graduated [employer] Ultra - [id number] Implanted:Qty : 1 on 04/30/2019 by Carlotta Gonzalez MD at [facility] IMPLANT Left: Ureter [employer] 01/14/2022 [id number] / [id number] / [id number] Insurance [facility] Advance Directives * Full Code [...] measures to stabilize the patient. Care Teams Margarine Maker Relationship Specialty Start Date End Date Rachel Gillis APRN [address] [place] [address] PCP - General Family Medicine 07/07/19
[2025-07-04 00:44] VITALS: BP 187/109; PULSE 88; RESP 18; O2SAT 96
[2025-07-04 01:26] LABS: Hematocrit 35.2 % (37.0-47.0); Hemoglobin 11.7 g/dL (12.0-15.0); Immature Granulocyte Percent A 0.7 % (0-0.5); Lymphocytes Absolute Auto 1.96 K/mm3 (0.9-3.2); Mean Corpuscular HGB Conc 33.2 g/dl (32-36); Mean Corpuscular Hemoglobin 30.2 pg (26-34); Mean Corpuscular Volume 90.7 fl (80-100); Nucleated Red Blood Cells Absolute Auto 0.000 K/mm3 (0.0-0.012); Nucleated Red Blood Cells Perc 0.0 % (0.0-0.2); Platelet Count Result 216 k/mm3 (150-375); Red Blood Count 3.88 M/mm3 (4.2-5.4); White Blood Count 10.7 K/mm3 (4.5-10.0)
[2025-07-04 01:38] LABS: Alanine Aminotransferase 23 U/L (6-35); Albumin Level 3.4 g/dL (3.5-5.1); Alkaline Phosphatase 154 U/L (38-126); Anion Gap 7 mmol/L (4-12); Aspartate Amino Transferase 32 U/L (14-36); Bilirubin,Total 0.3 mg/dL (0.2-1.3); Blood Urea Nitrogen 15 mg/dL (7-17); Calcium 8.9 mg/dL (8.4-10.2); Carbon Dioxide 21 mmol/L (22-30); Chloride 107 mmol/L (98-107); Estimated CRCL calculation 88 ml/min; Estimated Glomerular Filt Rate > 60; Glucose 111 mg/dL (65-110); Magnesium 1.8 mg/dL (1.6-2.3); Potassium 4.1 mmol/L (3.4-5.0); Sodium 135 mmol/L (137-145); Total Protein 7.1 g/dL (6.3-8.2); Uric Acid 5.6 mg/dL (2.5-7.5)
[2025-07-04 01:47] LABS: NT Pro B Type Natriuretic Pept 55 pg/mL (19.9-100)
--- OUTSIDE RECORDS SUMMARY | 2025-07-04 02:06 | XMS_ITS | Clinical Summary ---
Author Organization [facility] Address [address] [place] [address] Phone Care Team Providers Care [employer] Docent Name Role Phone Rachel Gillis APRN Primary [...] Comments Blood Pressure 162/113 12/16/2019 12:40 PM C 40A [facility] Pulse 100 12/16/2019 12:40 PM C 40[facility] Temperature 37.5 C (99.5 F) 12/16/2019 12:40 PM C 40A [facility] Respiratory Rate 18 12/16/2019 12:40 PM C 40A [facility] Oxygen Saturation 99% 12/16/2019 12:40 PM C 40[facility] Inhaled Oxygen Concentration - - Weight 86.2 kg (190 lb) 12/16/2019 12:40 PM C 40[facility] Height 165.1 cm (5' 5) 12/16/2019 12:40 PM C 40A [facility] Body Mass Index 31.62 12/16/2019 12:40 PM C 40A [facility]IE[facility] Plan of Treatment Health Maintenance Due Date [...] this topic Medical Devices Implanted Type Area Senior Supply Chain Analyst Device Identifier Shelf Expiration Date Model / Serial / Lot Stent Ureteral 6fr 2.1fr 26cm 2 Pigtail Curve 2 Durometer Taper Tip Loprfl Graduated [employer] Ultra - [id number] Implanted:Qty : 1 on 04/30/2019 by Carlotta Gonzalez MD at [facility] IMPLANT Left: Ureter CelluComp 01/14/2022 [id number] / [id number] / [id number] Insurance [facility] Advance Directives * Full Code (Latest [...] measures to stabilize the patient. Care Teams [employer] Docent Relationship Specialty Start Date End Date Rachel Gillis APRN [address] [facility] [address] [place] [address] PCP - General Family Medicine 07/07/19
--- OUTSIDE RECORDS SUMMARY | 2025-07-04 02:06 | XMS_ITS | Clinical Summary ---
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 glucose and protein (04/08/2025 2:08 PM CDT) Glucose, ur, POC Negative Negative Protein, ur, POC Trace(A) Negative Lot Number [id number] Urine 04/08/2025 2:08 PM CDT Result [facility] Leila Romo MD POINT OF [...] last revised on 2020. Testing performed by: [facility], [address] [place] [address]., [address] Blood 02/02/2025 11:2 1 AM CDT 02/02/2025 6:54 PM CDT us Leila Romo MD LAB MICROBIOLOGY - [facility] ORDERABLES Final Result [id number] [place] [address] * Screening Mammogram Bilateral W Bao (01/23/2024 [...] (03/02/2021 11:57 AM CDT) CLINICAL INFORMATION: [facility] Comment:Routine exam LMP [facility] Comment:UNKNOWN Previous Pap [facility] Comment:INFORMATION NOT PROV IDED Prev. Bx [facility] Comment:INFORMATION NOT PROV IDED SOURCE: [facility] Comment:Cervix, Endocervix Pap, specimen adequacy [facility] Comment: Satisfactory for evaluation. Endocervical/transformation zone component present. Age and/or menstrual status not provided HPV interp [facility] Comment:Negative for intraep ithelial lesion or malignancy. COMMENTS [facility] Comment: This Pap test has been evaluated with computer assisted technology. Computer Trainer Heber [facility] Comment: DIANELYS CT(ASCP) CT Screening Location: [address] [address] Comment [facility] Comment: EXPLANATORY NOTE: The Pap is [...] High Risk E6/E7 Not Detected Not Detected [facility] Comment: Methodology: Desk Clerk-Mediated Amplification This assay detects E6/E7 viral messenger RNA (mRNA) from 14 high-risk HPV types (16,18,31,33,35,39,45,51,52,56,58,59,66,68). The analytical performance characteristics of this assay have been determined by [facility]. The modifications have not been cleared or approved by the FDA. This assay has been validated pursuant to the CLIA regulations and is used for clinical purposes. For additional information, please refer to http://education.Scooters.Mercantila/faq/CPM885z5 (This link if provided for information/ educational purposes only.) 03/02/2021 11:5 7 AM CDT 03/03/2021 2:21 AM CDT Narrative [facility] - 03/05/2021 3:24 PM CDT FASTING: UNKNOWN us Leila Romo MD LAB CYTOLOGY ORDERABL ES Final Result [facility] [address] [place] [address] [facility] [address] [place] [address] from Last 3 Months or Most Recently Relevant to Health Maintenance Insurance [address] [place] [id number] [employer] HMO [facility] CHOICE PLUS [address] [place] [id number] [employer] HMO [facility] CHOICE PLUS Advance Directives For more information, please contact: [phone] * Full Code (Latest Code Status on File) Date Activated Date Inactivated Comments 07/01/2025 7:30 AM 07/03/2025 12:16 AM * Full Code Date Activated Date Inactivated Comments 06/30/2025 8:38 PM 07/01/2025 7:30 AM Full CPR in c ase of cardiopulmonary arrest Care Teams Clinical Data Research Relationship Specialty Start Date End Date Edgardo Manuel MD PCP - General Internal Medicine 11/03/21 Leila Romo MD [address] [place] [id number] Algology Teacher Obstetrics and Gynecology 07/02/25
[2025-07-04 02:13] VITALS: BP 146/99; PULSE 87; RESP 18; O2SAT 99
[2025-07-04 02:32] LABS: Add Urine Microscopic? YES; Appearance Urine Clear (Clear); Glucose Urine UA Negative (Negative); Leukocyte Esterase Ur Negative LEU/UL (Negative); Nitrate Urine Negative (Negative); Non Pathogenic Casts 0-2; Specific Grav Ur 1.013 (1.001-1.035)
--- NOTE | 2025-07-04 02:58 | ED_ITS ---
HPI - General Adult General Chief complaint: Extremity Injury, Lower Stated complaint: delivered 2 days ago, leg swelling Time Seen by Provider: 07/04/25 01:20 History of Present Illness HPI narrative: Patient is a 45-year-old female who presents emergency department this evening complaining of bilateral lower extremity edema. Patient recently had a C- section at [facility]. Admits that she does have a history of high blood pressure and does take labetalol for it but admits that she did not take it this evening. Has not had any issues with preeclampsia or eclampsia during her . No additional symptoms or concerns at this time. Related Data Home Medications ?Medication ?Instructions ?Recorded ?Confirmed ?Last Taken ?Type labetalol 100 mg tablet 300 mg PO Q12H 04/03/25 0806/1505/29/25 09:00 History Allergies Allergy/AdvReac Type Severity Reaction Status Date / Time Penicillins Allergy Intermediate Itching Verified 04/03/25 11:44 Review of Systems 2 Review of Systems: All systems are reviewed and are negative unless stated otherwise in the HPI. [facility] Past Medical History Medical History Hypertension Social History Social History Smoking status: Current every day smoker Do You Feel Safe in your Home?: Yes Lack of Transportation: No Lack of Food: Never True Current Housing: I Have Housing Concerned About Future Housing: No Difficulty Paying Gas/Electric Bills: No Difficulty Paying for Meds: No Currently Unemployed: No Education: Associate Degree Difficulty w/ Childcare or Family Care: No Exam 2 Narrative: General: Alert, awake, afebrile, in no acute distress. HEENT: PERRL, no rhinorrhea, no post nasal drip, oropharynx clear. Neck: Trachea midline, no JVD, no lymphadenopathy. Cardiovascular: Regular rate and rhythm, no murmurs, rubs or gallops, mild lower extremity pitting edema. Respiratory: Clear to auscultation bilaterally, no tachypnea, no wheezing, no rhonchi, no rubs, no respiratory distress. Abdomen: Soft, nontender, nondistended, no rebound, no guarding, no peritoneal signs. Musculoskeletal: No joint swelling or deformity, normal muscle tone. Skin: No rashes or petechia, no signs of infection. Psychiatric: Alert and oriented, normal behavior and judgment for situation. Neurological: Alert and oriented to person, place, and time. Follows all commands. No focal deficits, speech is clear and fluent. Course Vital Signs Vital signs: Vital Signs Temperature 97.9 F 07/04/25 00:15 Pulse Rate 77 07/04/25 00:15 Respiratory Rate 16 07/04/25 00:15 Blood Pressure 169/108 H 07/04/25 00:15 Pulse Oximetry 96 07/04/25 00:15 Oxygen Delivery Room Air 07/04/25 00:15 Temperature 97.9 F 07/04/25 00:15 Pulse Rate 87 07/04/25 02:13 Respiratory Rate 18 07/04/25 02:13 Blood Pressure 146/99 H 07/04/25 02:13 Pulse Oximetry 99 07/04/25 02:13 Oxygen Delivery Room Air 07/04/25 00:15 Medical Decision Making MDM Narrative Medical decision making narrative: The patient was evaluated by myself in the emergency department. History is obtained from patient who is an independent historian and physical exam was performed. External medical records were reviewed at this time. IV was established and pertinent tests were ordered. Patient was administered 1 mg of IV labetalol for her blood pressure with repeat blood pressure 146/99 mmHg. Laboratory results obtained revealing no acute process. Normal liver enzymes, normal LDH, normal uric acid, normal proBNP, urinalysis revealed no proteinuria. Differential diagnosis considerations include preeclampsia, normal post delivery changes, venous stasis, fluid overload, CHF. Comorbidities impacting this visit include recent 2 days ago. I have evaluated and discussed social determinants of health with the patient that could potentially impact subsequent diagnosis and treatment plans. On repeat assessment of the patient, reevaluation revealed that the patient is doing well and is in no acute distress. Patient symptoms have improved since she arrived to our emergency department. Repeat vital signs were all reviewed and noted to be stable. Differential diagnosis and treatment plan were discussed with the patient at bedside. Patient agrees with discussion and after shared medical decision making agrees with discharge. All questions were answered to the patient's satisfaction. Patient will follow up with her PCP/OBGYN in 3-5 days. Patient was provided with strict return precautions and instructed to return to the emergency department if any new or worsening symptoms develop. The patient was discharged in stable condition. Vital Signs Vital Signs: Vital Signs Temperature 97.9 F 07/04/25 00:15 Pulse Rate 77 07/04/25 00:15 Respiratory Rate 16 07/04/25 00:15 Blood Pressure 169/108 H 07/04/25 00:15 Pulse Oximetry 96 07/04/25 00:15 Oxygen Delivery Room Air 07/04/25 00:15 Temperature 97.9 F 07/04/25 00:15 Pulse Rate 87 07/04/25 02:13 Respiratory Rate 18 07/04/25 02:13 Blood Pressure 146/99 H 07/04/25 02:13 Pulse Oximetry 99 07/04/25 02:13 Oxygen Delivery Room Air 07/04/25 00:15 Lab Data 07/04/25 01:21 07/04/25 01:21 Labs: Lab Results 07/04/25 07/04/25 Range/Units 01:21 02:17 WBC 10.7 H (4.5-10.0) K/mm3 RBC 3.88 L (4.2-5.4) M/mm3 Hgb 11.7 L (12.0-15.0) g/dL Hct 35.2 L (37.0-47.0) % MCV 90.7 (80-100) fl MCH 30.2 (26-34) pg MCHC 33.2 (32-36) g/dl RDW 14.2 (11.5-14.5) % Plt Count 216 (150-375) k/mm3 MPV 11.0 H (7.4-10.4) fl Immature Gran % (Auto) 0.7 H (0-0.5) % Neut % (Auto) 59.5 (45.5-73.1) % Lymph % (Auto) 18.4 (18.3-44.2) % [place] % (Auto) 19.1 H (2.6-8.5) % Eos % (Auto) 2.0 (0-4.4) % Baso % (Auto) 0.3 (0.2-1.2) % Lymph # (Auto) 1.96 (0.9-3.2) K/mm3 [place] # (Auto) 2.0 H (0.1-0.6) K/mm3 Eos # (Auto) 0.2 (0-0.3) K/mm3 Baso # (Auto) 0.0 (0.0-0.1) K/mm3 Abs Immat Gran (auto) 0.07 H (0.00-0.031) K/mm3 Absolute Neuts (auto) 6.4 (1.3-6.7) K/mm3 Absolute Nucleated RBC 0.000 (0.0-0.012) K/mm3 Nucleated RBC % 0.0 (0.0-0.2) % Sodium 135 L (137-145) mmol/L Potassium 4.1 (3.4-5.0) mmol/L Chloride 107 (98-107) mmol/L Carbon Dioxide 21 L (22-30) mmol/L Anion Gap 7 (4-12) mmol/L BUN 15 (7-17) mg/dL Creatinine 0.83 (0.7-1.0) mg/dL Estim Creat Clear Calc 88 ml/min Estimated GFR > 60 (59 - ) Glucose 111 H (65-110) mg/dL Uric Acid 5.6 (2.5-7.5) mg/dL Calcium 8.9 (8.4-10.2) mg/dL Magnesium 1.8 (1.6-2.3) mg/dL Total Bilirubin 0.3 (0.2-1.3) mg/dL AST 32 (14-36) U/L ALT 23 (6-35) U/L Alkaline Phosphatase 154 H (38-126) U/L Lactate Dehydrogenase 181 (120-246) U/L NT-Pro-B Natriuret Pep 55 (19.9-100) pg/mL Total Protein 7.1 (6.3-8.2) g/dL Albumin 3.4 L (3.5-5.1) g/dL Urine Color Yellow (Yellow) Urine Appearance Clear (Clear) Urine pH 6.0 (5.0-9.0) Ur Specific [place] 1.013 (1.001-1.035) Urine Protein Negative (Negative) mg/dL Urine Glucose (UA) Negative (Negative) mg/dL Urine Ketones Negative (Negative) mg/dL Ur Blood (Man) 3+ H (Negative) Urine Nitrate Negative (Negative) Urine Bilirubin Negative (Negative) Urine Urobilinogen 0.2 (<2.0) mg/dL Leukocyte Esterase Rfl Negative (Negative) ANDREA/UL Urine RBC 21-50 H (0-2) /hpf Urine WBC 0-5 (0-3) /hpf Ur Squamous Epith Cells None seen (Few) /hpf Urine Bacteria None seen /hpf Urine Casts 0-2 Discharge Plan Discharge Clinical Impression: Edema Hypertension Qualifiers: Hypertension type: unspecified Qualified Code(s): I10 - Essential (primary) hypertension Patient Disposition: Home Condition: Improved Instructions: Antibiotic Form, Hypertension (ED), Edema (ED) Additional Instructions: Please follow-up with your primary care physician/OBGYN within the next 3-5 days. Return to emergency department if any new or worsening symptoms develop. Patient Language: Swedish Prescriptions: No Action metoclopramide HCl [Reglan] 5 mg tablet 5 mg PO Q6H PRN (Reason: nausea and vomiting) Qty: 14 0RF labetalol 100 mg tablet 300 mg PO Q12H Follow-up/Referrals: UNKNOWN,DOCTOR [Primary Care Provider] - 3 Days Mahad Palacio MD [Physician, [employer] CHIP SACKING MACHINE OPERATOR] - 3 Days Time of Disposition: 02:59
[2025-07-04 03:01] VITALS: BP 148/89; PULSE 87; RESP 18; O2SAT 100
== END 2025-07-04 03:34 | disposition home or self-care (01) ==
PROVIDERS: Emergency Provider Emergency Medicine
DX: R60.0 Localized edema (principal); I10 Essential (primary) hypertension; F17.210 Nicotine dependence, cigarettes, uncomplicated
CPT/HCPCS: 36415; 80053; 81001; 83615; 83735; 83880; 84550; 85025; 96374; 99284